=== PATIENT | female | born 1960 | race Hispanic/Latino ===

== ENCOUNTER 2017-11-30 10:48 | Inpatient (IN) | payer MEDICARE, MEDICAID ==
[2017-11-30 11:24] LABS: #Lymphocytes 1.4 thou/uL (1.20-3.40); #Monocytes 1.3 thou/uL (0.11-0.59); #Neutrophils 9.2 thou/uL (1.40-6.50); %Basophils 0.2 % (0.0-1.0); %Eosinophils 0.2 % (0.0-10.0); %Neutrophils 76.6 % (42.0-75.0); Hemoglobin 11.7 g/dL (12.0-16.0); Mean Corpuscular HGB CONC 33.1 g/dL (32.0-36.0); Mean Corpuscular Hemoglobin 32.9 pg (27.0-31.0); Mean Corpuscular Volume 99.6 fl (81.0-99.0); Mean Platelet Volume 7.2 fL (7.4-10.4); Platelet Count 175 thou/uL (130-400); RBC Distribution Width 13.3 % (11.5-14.5); Red Blood Cell (RBC) Count 3.56 mill/uL (4.20-5.40)
--- NOTE | 2017-11-30 11:32 | RAD ---
2 VIEWS CHEST: Date: 11/30/17 COMPARISON: 08/30/15. HISTORY: Cough. FINDINGS: Two views of the chest show an enlarged but stable cardiomediastinal silhouette. The patient is statu s post sternotomy. The consolidation seen in the right lower lobe is consistent with pneumonia. There is a calcified granuloma in the left upper lobe. No left pleural effusion is seen. There may be a sm all right pleural effusion. IMPRESSION: Right lower lobe pneumonia. POS: [facility]
[2017-11-30 11:36] LABS: ALT (SGPT) 15 U/L (8-55); AST (SGOT) 36 U/L (5-34); Albumin 4.2 g/dL (3.5-5.0); Alkaline Phosphatase 95 U/L (40-150); Anion Gap 22 mmol/L (10-20); BUN (Urea Nitrogen) 44 mg/dL (9.8-20.1); Bilirubin, Total 0.8 mg/dL (0.2-1.2); Calc. Creatinine Clearance 0 mL/min (70-130); Calcium 9.9 mg/dL (7.8-10.44); Carbon Dioxide 21 mmol/L (22-29); Chloride 95 mmol/L (98-107); Estimated GFR-MDRD 5; Globulin 4.2 g/dL (2.4-3.5); Glucose 127 mg/dL (70-105); Potassium 4.4 mmol/L (3.5-5.1); Protein, Total 8.4 g/dL (6.0-8.3); Sodium 134 mmol/L (136-145)
[2017-11-30] MEDS ORDERED: Acetaminophen 500 MG TAB ONE (12:12)
[2017-11-30] MEDS ORDERED: Piperacillin/Tazobactam 4.5 GM in Sodium Chloride 0.9% 100 ML IVPB SCH (12:15)
[2017-11-30] MEDS ORDERED: Acetaminophen 325 MG TAB PO PRN (13:19)
[2017-11-30] MEDS ORDERED: Ondansetron HCl/PF 4 MG/2 ML Vial IVP PRN (13:19)
[2017-11-30] MEDS ORDERED: HumaLOG 300 UNITS/3 ML VIAL SC PRN (13:19)
[2017-11-30] MEDS ORDERED: Albuterol Sulfate 1.25 MG/3 ML NEB NEB PRN (13:19)
[2017-11-30] MEDS ORDERED: Metoclopramide HCl 10 MG TAB PO PRN (13:19)
[2017-11-30] MEDS ORDERED: Dextrose 5% in Water 1,000 ML IV PRN (13:19)
[2017-11-30] MEDS ORDERED: Dextrose 50% Abboject 50 ML SYRINGE SLOW IVP PRN (13:19)
[2017-11-30] MEDS ORDERED: Senokot 8.6 MG TAB PO PRN (13:19)
[2017-11-30] MEDS ORDERED: cefTRIAXone\\ROCEPHIN 1 GM in Sodium Chloride 0.9% 100 ML IVPB SCH (13:19)
--- NOTE | 2017-11-30 17:18 | HP ---
REASON FOR ADMISSION: Pneumonia. HISTORY OF PRESENTING ILLNESS: The patient gives history of having fever, runny nose and loss of appetite from Sunday. She developed nausea and vomiting from yesterday evening. This progressively got worse to the point she could not feel comfortable at home, hence came to emergency room. She in fact did not go for dialysis which is scheduled day today. On arrival here, had a temperature of 100.5 and a chest x-ray showed right lung pneumonia. Patient has dry cough with no expectoration as such. No complaints of shortness of breath, palpitations, chest pain, or orthopnea. PAST MEDICAL AND SURGICAL HISTORY: End-stage renal disease on hemodialysis, hypertension, diabetes mellitus type 2, dyslipidemia, chronic anemia due to renal disease, coronary artery disease, dialysis access procedures in right upper extremity, CABG x4, vitrectomy of left eye, hysterectomy, anxiety, depression. CURRENT MEDICATIONS: Minoxidil 2.5 mg p.o. at bedtime, Pravachol 40 mg p.o. daily, Norvasc 10 mg daily, metoprolol tartrate 100 mg daily, Creon capsules 12, 000 units 3 times daily, aspirin 325 mg p.o. daily, fluoxetine 20 mg p.o. q.a.m. , Renvela 2400 mg p.o. 3 times daily with meals, losartan 25 mg p.o. at bedtime , clonidine, and Protonix. ALLERGIES: No known drug allergies. PERSONAL HISTORY: Does not abuse alcohol or drugs. Currently does not smoke. FAMILY HISTORY: Mother at the age of 90 years. She has had history of coronary artery disease. She does not know much about her father. The patient lives with her daughter. Her is . REVIEW OF SYSTEMS: The following complete review of systems was negative, unless otherwise mentioned in the HPI or below: Constitutional: Weight loss or gain, ability to conduct usual activities. Skin: Rash, itching. Eyes: Double vision, pain. ENT/Mouth: Nose bleeding, neck stiffness, pain, tenderness. Cardiovascular: Palpitations, dyspnea on exertion, orthopnea. Respiratory: Shortness of breath, wheezing, cough, hemoptysis, fever or night sweats. Gastrointestinal: Poor appetite, abdominal pain, heartburn, nausea, vomiting, constipation, or diarrhea. Genitourinary: Urgency, frequency, dysuria, nocturia. Musculoskeletal: Pain, swelling. Neurologic/Psychiatric: Anxiety, depression. Allergy/Immunologic: Skin rash, bleeding tendency. PHYSICAL EXAMINATION: GENERAL: The patient is a 57-year-old female who is currently not in any acute distress. VITAL SIGNS: Blood pressure 146/64, pulse 70 per minute, respiratory rate 16 per minute, temperature 100.5 degrees Fahrenheit, saturating 95% on room air. NECK: Supple. There is mild elevation in JVD. EYES: Extraocular muscles intact. Pupils reacting to light. ORAL CAVITY: Mucous membranes are moist. No exudates or congestion. CARDIOVASCULAR SYSTEM: S1, S2 heard. Regular rhythm. RESPIRATORY SYSTEM: Air entry 1+ bilateral. Scattered rhonchi plus, bilateral basilar rales plus bilaterally. ABDOMEN: Soft, bowel sounds heard. No tenderness, rigidity or guarding. EXTREMITIES: No peripheral edema or calf tenderness. VASCULAR SYSTEM: Peripheral pulses 1+ bilateral. No ischemic ulcerations or gangrene. CENTRAL NERVOUS SYSTEM: No gross focal deficits seen. Patient is alert, awake , oriented well. PSYCHIATRIC SYSTEM: The patient's mood is euthymic. No hallucinations or delusions. LABORATORY DATA AND X-RAY FINDINGS: White count 12, hemoglobin and hematocrit 11 and 35, platelet count 175, MCV is 99 with 76% neutrophils. Serum bicarbonate is 21, BUN 44, creatinine 8.9, serum glucose 127, AST 36, ALT 15, alkaline phosphatase 95, albumin is 4.2. Influenza A and B antigens are negative. Chest x-ray done shows right lung infiltrate. CLINICAL IMPRESSION AND PLAN: Patient will be admitted to medical floor for right lung pneumonia. She will be on with ceftriaxone and Zithromax. We will consult Dr. Jiménez for dialysis today, which is her scheduled day. We will continue her home medications including aspirin, clonidine, fluoxetine, Levemir , lisinopril, Lopressor, Pravachol, Creon, and sevelamer as before. We will continue to closely monitor her on medical floor. TORRI
[2017-11-30] MEDS ORDERED: Ondansetron ODT 4 MG TAB SL PRN (18:51)
[2017-11-30 19:03] VITALS: BMI 20.3
[2017-11-30] MEDS: Sevelamer Carbonate 800 MG TAB PO SCH (19:38)
[2017-11-30] MEDS: Pancrelipase DR 12000 1 CAP PO SCH (19:38)
[2017-11-30] MEDS: cefTRIAXone\\ROCEPHIN 1 GM, Syringe 0.4 ML in Sterile Water 9.6 ML SLOW IVP SCH (19:57)
[2017-11-30] MEDS: Azithromycin 500 MG in Sodium Chloride 0.9% 250 ML 250 ML IVPB SCH (19:57)
[2017-11-30] MEDS: Atorvastatin Calcium 10 MG TAB PO SCH (19:58)
[2017-11-30] MEDS: cloNIDine 0.2 MG TAB PO SCH (19:58)
[2017-11-30] MEDS: Famotidine 20 MG TAB PO SCH (19:58)
[2017-11-30] MEDS: Metoprolol Tartrate 50 MG TAB PO SCH (19:59)
[2017-11-30] MEDS: Heparin 5,000 UNITS/ML VIAL SC SCH (20:05)
[2017-11-30] MEDS ORDERED: Non-Formulary Item 1 EACH (Levemir Flexpen [Levemir Flexpen] 10 UNIT) SC SCH (21:00)
[2017-11-30] MEDS: Insulin Detemir 100 UNITS/ML 10 UNITS in Pre-Filled Syringe 1 EACH SC SCH (21:07)
--- NOTE | 2017-11-30 22:04 | CON ---
DATE OF CONSULTATION: 11/30/2017 HISTORY OF PRESENT ILLNESS: Ms. Bolton is a 57-year-old female with ESRD from diabetic nep hropathy and admitted for pneumonia. She is here for IV antibiotics. In addition, this patient has been complaining of productive cough and fever for the last few days. Chest x-ray showed a right ava g pneumonia. REVIEW OF SYSTEMS: No chest pain. Positive for mild shortness of breath. Positive productive cough . Positive for fever and chills. No gross hematuria. No dysuria. No urinary frequency. No syncop al episode. No diarrhea. No headache. Positive for runny nose. No hematochezia. No melena. No h ematemesis. HOME MEDICATIONS: Includes the following. Losartan 25 mg at bedtime, Renvela 800 mg 3 tabs t.i.d. w ith meals, aspirin 325 mg daily, Creon capsules 12,000 units t.i.d., metoprolol tartrate 100 mg daily , Norvasc 10 mg tab daily, Pravachol 40 mg tab at bedtime, minoxidil 2.5 mg at bedtime, clonidine 0.1 mg tab b.i.d., ceftriaxone 1 gram IV q. day, azithromycin two 500 mg q. day, fluoxetine 20 mg daily, insulin detemir 10 units subcutaneous at bedtime, Humalog sliding scale and Zofran 4 mg IV q.6 hours p.r.n. PAST MEDICAL HISTORY: 1. ESRD from diabetic nephropathy. 2. Type 2 diabetes mellitus. 3. Hypertension. 4. Depression status post congestive heart failure. PAST SURGICAL HISTORY: 1. Status post PD catheter placement. 2. Status post cuffed hemodialysis catheter placement. 3. Status post AV fistula. SOCIAL HISTORY: The patient lives in [place] and lives with her daughter, four children. Currently, medically disabled. Education; high school. Sedentary lifestyle. Status post blood transfusion. N o smoking. No alcohol intake. No IV drug abuse. ALLERGIES: None. TRAUMA: None. IMMUNIZATIONS: Up to date. HOSPITALIZATIONS: Please see past medical history. FAMILY HISTORY: No family history of ESRD. PHYSICAL EXAMINATION: VITAL SIGNS: Blood pressure is noted at 144/85 and heart rate 70. GENERAL: Awake, supine, comfortable, not in overt distress. SKIN: Adequate turgor. HEENT: Pinkish conjunctivae, anicteric sclerae. NECK: No neck mass, no carotid bruits, no JVD. CHEST: No deformities. LUNGS: Decreased breath sounds. HEART: Normal sinus rhythm. No murmur, no gallops, no rubs. ABDOMEN: Globular, soft and nontender. No masses. EXTREMITIES: No edema, no deformities. NEUROLOGIC: Awake and oriented to 3 spheres. Moving all extremities. No tremors, no asterixis. LABORATORY AND X-RAY FINDINGS: Laboratories of 11/30/2017; white count 12, hemoglobin 11.7. Sodium 134, chloride 95, carbon dioxide 21, potassium 4.4, BUN 44, creatinine 8.92, glucose 127, calcium 9.9 , AST 36 and ALT 15. Chest x-ray of 11/30/2017 shows right lower lobe pneumonia. ASSESSMENT AND PLAN: 1. Right lower lobe pneumonia - IV antibiotics. Currently, initiated on ceftriaxone and IV azithrom ycin. Continue supportive care. 2. End-stage renal disease. I am at the bedside supervising her dialysis. We are attempting betwee n 2 and 3 liters of fluid removal as tolerated by the patient. No changes will be made with her [facility] dialysis regimen of Sunday, Sunday and Sunday at 3:00 hours each session. 3. Hyperphosphatemia. Continue Renvela. Overall, agree with current management.
[2017-12-01 05:00] LABS: #Basophils 0.1 thou/uL (0.0-0.2); #Eosinphils 0.1 thou/uL (0.0-0.7); #Lymphocytes 2.9 thou/uL (1.20-3.40); #Monocytes 1.3 thou/uL (0.11-0.59); #Neutrophils 6.4 thou/uL (1.40-6.50); %Basophils 0.7 % (0.0-1.0); %Eosinophils 0.7 % (0.0-10.0); %Lymphocytes 26.7 % (21.0-51.0); %Monocytes 11.9 % (0.0-10.0); Mean Corpuscular HGB CONC 32.4 g/dL (32.0-36.0); Mean Corpuscular Hemoglobin 32.6 pg (27.0-31.0); Platelet Count 183 thou/uL (130-400); RBC Distribution Width 13.4 % (11.5-14.5); Red Blood Cell (RBC) Count 3.39 mill/uL (4.20-5.40); White Blood Cell (WBC) Count 10.7 thou/uL (4.8-10.8)
[2017-12-01 05:22] LABS: Anion Gap 16 mmol/L (10-20); BUN (Urea Nitrogen) 25 mg/dL (9.8-20.1); Calc. Creatinine Clearance 10 mL/min (70-130); Calcium 9.6 mg/dL (7.8-10.44); Carbon Dioxide 29 mmol/L (22-29); Chloride 98 mmol/L (98-107); Estimated GFR-MDRD 8; Glucose 60 mg/dL (70-105); Potassium 3.5 mmol/L (3.5-5.1); Sodium 139 mmol/L (136-145)
[2017-12-01] MEDS: Sevelamer Carbonate 800 MG TAB PO SCH ×3 (09:41→16:54)
[2017-12-01] MEDS: Aspirin 325 MG TAB PO SCH (09:42)
[2017-12-01] MEDS: Lisinopril 2.5 MG TAB PO SCH (09:42)
[2017-12-01] MEDS: FLUoxetine HCl 20 MG CAP PO SCH (09:42)
[2017-12-01] MEDS: Metoprolol Tartrate 50 MG TAB PO SCH ×2 (09:42→21:16)
[2017-12-01] MEDS: Pancrelipase DR 12000 1 CAP PO SCH ×3 (09:42→16:55)
[2017-12-01] MEDS: cloNIDine 0.2 MG TAB PO SCH ×2 (09:42→21:16)
[2017-12-01] MEDS: Heparin 5,000 UNITS/ML VIAL SC SCH ×2 (09:48→21:17)
--- NOTE | 2017-12-01 10:55 | PDOC.PN ---
- Subjective Encounter Start Date: 12/01/17 Encounter Start Time: 10:30 Subjective: feels better, had fever of 100 last night -: no sob, is sitting in chair - Objective Resuscitation Status: Resuscitation Status FULL:Full Resuscitation MAR Reviewed: Yes Vital Signs & Weight: Vital Signs (12 hours) Temp Pulse Resp BP BP BP Pulse Ox 12/01/17 09:42 71 143/64 H 12/01/17 08:00 97.7 F 53 L 18 143/64 H 90 L 12/01/17 05:11 97.6 F 59 L 18 175/81 H 12/01/17 00:08 99.3 F 55 L 16 130/49 L Weight Weight 129 lb 13.636 oz I&O: 11/30/17 12/01/17 12/02/17 06:59 06:59 06:59 Intake Total 750 Balance 750 Result Diagrams: 12/01/17 04:28 12/01/17 04:29 Additional Labs: Accuchecks 12/01/17 12/01/17 11/30/17 07:48 05:14 20:10 POC Glucose 200 H 64 L 162 H Phys Exam - Physical Examination HEENT: PERRLA, moist MMs Neck: no JVD, supple Respiratory: no wheezing, no rales rhonchi+ Cardiovascular: RRR, no significant murmur Gastrointestinal: soft, non-tender, positive bowel sounds Musculoskeletal: no edema, pulses present Neurological: non-focal, moves all 4 limbs Psychiatric: A&O x 3 Dx/Plan (1) PNA (pneumonia) Code(s): J18.9 - PNEUMONIA, UNSPECIFIED ORGANISM Status: Acute Qualifiers: Pneumonia type: due to unspecified organism Laterality: right (2) Anemia of renal disease Code(s): D63.1 - ANEMIA IN CHRONIC KIDNEY DISEASE Status: Chronic (3) Anxiety and depression Code(s): F41.9 - ANXIETY DISORDER, UNSPECIFIED; F32.9 - MAJOR DEPRESSIVE DISORDER, SINGLE EPISODE, UNSPECIFIED Status: Chronic (4) Diabetes mellitus, type II, insulin dependent Code(s): E11.9 - TYPE 2 DIABETES MELLITUS WITHOUT COMPLICATIONS; Z79.4 - FDC (CURRENT) USE OF INSULIN Status: Chronic Comment: With ESRD (5) ESRD (end stage renal disease) on dialysis Code(s): N18.6 - END STAGE RENAL DISEASE; Z99.2 - DEPENDENCE ON RENAL DIALYSIS Status: Chronic Comment: HD planned for M/W/F (6) HLD (hyperlipidemia) Code(s): E78.5 - HYPERLIPIDEMIA, UNSPECIFIED Status: Chronic Qualifiers: Hyperlipidemia type: unspecified Qualified Code(s): E78.5 - Hyperlipidemia , unspecified (7) HTN (hypertension) Code(s): I10 - ESSENTIAL (PRIMARY) HYPERTENSION Status: Chronic Qualifiers: Hypertension type: essential hypertension Qualified Code(s): I10 - Essential (primary) hypertension - Plan is on ceftriaxone and zithromax -: nebs -: watch for hypoglycemia with dm being labile (64-200) -: is on low dose levemir at bedtime -: to amb as tolerated * . Review of Systems - Medications/Allergies Allergies/Adverse Reactions: Allergies Allergy/AdvReac Type Severity Reaction Status Date / Time No Known Allergies Allergy Verified 03/14/17 23:34 Medications: Current Medications Acetaminophen (Tylenol) 650 mg PO Q4H PRN PRN Reason: Headache/Fever or Pain Last Admin: 11/30/17 21:07 Dose: 650 mg Albuterol Sulfate (Albuterol Sulfate) 1.25 mg NEB Q8H PRN PRN Reason: Wheezing Lipase/Protease/Amylase (Portillo Jacobs [id number]) 1 cap PO TID-WM [facility] Last Admin: 12/01/17 09:42 Dose: 1 cap Aspirin (Aspirin) 325 mg PO DAILY [facility] Last Admin: 12/01/17 09:42 Dose: 325 mg Atorvastatin Calcium (Lipitor) 10 mg PO HS [facility] Last Admin: 11/30/17 19:58 Dose: 10 mg Clonidine (Catapres) 0.2 mg PO BID [facility] Last Admin: 12/01/17 09:42 Dose: 0.2 mg Dextrose/Water (Dextrose 50%) 25 gm SLOW IVP PRN PRN PRN Reason: Hypoglycemia Famotidine (Pepcid) 20 mg PO 2100 [facility] Last Admin: 11/30/17 19:58 Dose: 20 mg Fluoxetine HCl (Prozac) 20 mg PO DAILY [facility] Last Admin: 12/01/17 09:42 Dose: 20 mg Glucagon (Glucagon) 1 mg IM PRN PRN PRN Reason: Hypoglycemia Guaifenesin/Dextromethorphan (Robitussin Dm) 15 ml PO Q4H PRN PRN Reason: Cough Heparin Sodium (Porcine) (Heparin) 5,000 units SC BID [facility] Last Admin: 12/01/17 09:48 Dose: 5,000 units Azithromycin 500 mg/ Sodium (Chloride) 250 mls @ 250 mls/hr IVPB 1500 [facility] Last Admin: 11/30/17 19:57 Dose: 250 mls Dextrose/Water (D5w) 1,000 mls @ 0 mls/hr IV .Q0M PRN; As Directed PRN Reason: Hypoglycemia Ceftriaxone Sodium 1 gm/ (Syringe 0.4 ml/ Sterile Water) 10 mls @ 120 mls/hr SLOW IVP 1500 [facility] Last Admin: 11/30/17 19:57 Dose: 10 mls Insulin Detemir 10 units/ (Miscellaneous Medication) 0.1 mls @ 0 mls/hr SC QPM [facility] Last Admin: 11/30/17 21:07 Dose: 0.1 mls Insulin Human Lispro (Humalog) 0 units SC .MODERATE SLIDING SC PRN PRN Reason: Moderate Correctional Scale Lisinopril (Zestril) 2.5 mg PO DAILY [facility] Last Admin: 12/01/17 09:42 Dose: 2.5 mg Metoclopramide HCl (Reglan) 5 mg PO BID-AC PRN PRN Reason: Nausea Metoprolol Tartrate (Lopressor) 50 mg PO BID [facility] Last Admin: 12/01/17 09:42 Dose: 50 mg Ondansetron HCl (Zofran) 4 mg IVP Q6H PRN PRN Reason: Nausea/Vomiting Senna (Senokot) 2 tab PO HSPRN PRN PRN Reason: Constipation Sevelamer Carbonate (Renvela) 3,200 mg PO TID-[facility] Last Admin: 12/01/17 09:41 Dose: 3,200 mg Sodium Chloride (Flush - Normal Saline) 10 ml IVF Q12HR [facility] Last Admin: 12/01/17 09:44 Dose: 10 ml Sodium Chloride (Flush - Normal Saline) 10 ml IVF PRN PRN PRN Reason: Saline Flush
[2017-12-01] MEDS: cefTRIAXone\\ROCEPHIN 1 GM, Syringe 0.4 ML in Sterile Water 9.6 ML SLOW IVP SCH (15:21)
[2017-12-01] MEDS: Azithromycin 500 MG in Sodium Chloride 0.9% 250 ML 250 ML IVPB SCH (15:21)
[2017-12-01] MEDS: Insulin Detemir 100 UNITS/ML 10 UNITS in Pre-Filled Syringe 1 EACH SC SCH (20:03)
[2017-12-01] MEDS: Atorvastatin Calcium 10 MG TAB PO SCH (21:16)
[2017-12-02] MEDS: Guaifenesin DM 100-10/5 ML UDCUP PO PRN ×2 (01:50→20:28)
[2017-12-02] MEDS: Aspirin 325 MG TAB PO SCH (08:26)
[2017-12-02] MEDS: Metoprolol Tartrate 25 MG TAB PO SCH ×2 (08:26→20:27)
[2017-12-02] MEDS: Sevelamer Carbonate 800 MG TAB PO SCH ×3 (08:26→16:34)
[2017-12-02] MEDS: cloNIDine 0.1 MG TAB PO SCH ×2 (08:26→20:27)
[2017-12-02] MEDS: hydrALAZINE 25 MG TAB PO SCH ×3 (08:26→20:26)
[2017-12-02] MEDS: FLUoxetine HCl 20 MG CAP PO SCH (08:27)
[2017-12-02] MEDS: Pancrelipase DR 12000 1 CAP PO SCH ×3 (08:28→16:34)
[2017-12-02] MEDS: Lisinopril 2.5 MG TAB PO SCH (08:28)
[2017-12-02] MEDS: Heparin 5,000 UNITS/ML VIAL SC SCH ×2 (08:28→20:34)
--- NOTE | 2017-12-02 10:52 | PDOC.PN ---
- Subjective Encounter Start Date: 12/02/17 Encounter Start Time: 09:00 Subjective: no fever last night, no sob -: still has dry cough -: is amb in room - Objective Resuscitation Status: Resuscitation Status FULL:Full Resuscitation MAR Reviewed: Yes Vital Signs & Weight: Vital Signs (12 hours) Temp Pulse Resp BP BP Pulse Ox 12/02/17 08:28 55 L 171/74 H 12/02/17 08:26 55 L 171/74 H 12/02/17 08:00 97.9 F 52 L 16 171/74 H 95 Weight Weight 129 lb 13.636 oz I&O: 12/01/17 12/02/17 12/03/17 06:59 06:59 06:59 Intake Total 750 610 Balance 750 610 Result Diagrams: 12/01/17 04:28 12/01/17 04:29 Additional Labs: Accuchecks 12/02/17 12/01/17 12/01/17 04:59 19:10 16:17 POC Glucose 145 H 162 H 115 H 12/01/17 11:27 POC Glucose 177 H Phys Exam - Physical Examination HEENT: PERRLA, moist MMs Neck: no JVD, supple Respiratory: no wheezing, no rales Cardiovascular: RRR, no significant murmur Gastrointestinal: soft, non-tender, positive bowel sounds Musculoskeletal: no edema, pulses present Neurological: non-focal, moves all 4 limbs Psychiatric: A&O x 3 Dx/Plan (1) PNA (pneumonia) Code(s): J18.9 - PNEUMONIA, UNSPECIFIED ORGANISM Status: Acute Qualifiers: Pneumonia type: due to unspecified organism Laterality: right (2) Anemia of renal disease Code(s): D63.1 - ANEMIA IN CHRONIC KIDNEY DISEASE Status: Chronic (3) Anxiety and depression Code(s): F41.9 - ANXIETY DISORDER, UNSPECIFIED; F32.9 - MAJOR DEPRESSIVE DISORDER, SINGLE EPISODE, UNSPECIFIED Status: Chronic (4) Diabetes mellitus, type II, insulin dependent Code(s): E11.9 - TYPE 2 DIABETES MELLITUS WITHOUT COMPLICATIONS; Z79.4 - BODY COMPONENT ENGINEER (CURRENT) USE OF INSULIN Status: Chronic Comment: With ESRD (5) ESRD (end stage renal disease) on dialysis Code(s): N18.6 - END STAGE RENAL DISEASE; Z99.2 - DEPENDENCE ON RENAL DIALYSIS Status: Chronic Comment: HD planned for M/W/F (6) HLD (hyperlipidemia) Code(s): E78.5 - HYPERLIPIDEMIA, UNSPECIFIED Status: Chronic Qualifiers: Hyperlipidemia type: unspecified Qualified Code(s): E78.5 - Hyperlipidemia , unspecified (7) HTN (hypertension) Code(s): I10 - ESSENTIAL (PRIMARY) HYPERTENSION Status: Chronic Qualifiers: Hypertension type: essential hypertension Qualified Code(s): I10 - Essential (primary) hypertension - Plan is on ceftriaxone and zithromax -: nebs, is ambulating in room -: bradycardia with pulse around 50's, change dose of clonidine and lopressor -: add hydralazine -: dc plan in am * . Review of Systems - Medications/Allergies Allergies/Adverse Reactions: Allergies Allergy/AdvReac Type Severity Reaction Status Date / Time No Known Allergies Allergy Verified 03/14/17 23:34 Medications: Current Medications Acetaminophen (Tylenol) 650 mg PO Q4H PRN PRN Reason: Headache/Fever or Pain Last Admin: 11/30/17 21:07 Dose: 650 mg Albuterol Sulfate (Albuterol Sulfate) 1.25 mg NEB Q8H PRN PRN Reason: Wheezing Lipase/Protease/Amylase (Portillo Jacobs [id number]) 1 cap PO TID-WM [facility] Last Admin: 12/02/17 08:28 Dose: 1 cap Aspirin (Aspirin) 325 mg PO DAILY [facility] Last Admin: 12/02/17 08:26 Dose: 325 mg Atorvastatin Calcium (Lipitor) 10 mg PO HS [facility] Last Admin: 12/01/17 21:16 Dose: 10 mg Clonidine (Catapres) 0.1 mg PO BID [facility] Last Admin: 12/02/17 08:26 Dose: 0.1 mg Dextrose/Water (Dextrose 50%) 25 gm SLOW IVP PRN PRN PRN Reason: Hypoglycemia Famotidine (Pepcid) 20 mg PO 2100 [facility] Last Admin: 11/30/17 19:58 Dose: 20 mg Fluoxetine HCl (Prozac) 20 mg PO DAILY [facility] Last Admin: 12/02/17 08:27 Dose: 20 mg Glucagon (Glucagon) 1 mg IM PRN PRN PRN Reason: Hypoglycemia Guaifenesin/Dextromethorphan (Robitussin Dm) 15 ml PO Q4H PRN PRN Reason: Cough Last Admin: 12/02/17 01:50 Dose: 15 ml Heparin Sodium (Porcine) (Heparin) 5,000 units SC BID [facility] Last Admin: 12/02/17 08:28 Dose: 5,000 units Hydralazine HCl (Apresoline) 25 mg PO TID [facility] Last Admin: 12/02/17 08:26 Dose: 25 mg Azithromycin 500 mg/ Sodium (Chloride) 250 mls @ 250 mls/hr IVPB 1500 [facility] Last Admin: 12/01/17 15:21 Dose: 250 mls Dextrose/Water (D5w) 1,000 mls @ 0 mls/hr IV .Q0M PRN; As Directed PRN Reason: Hypoglycemia Ceftriaxone Sodium 1 gm/ (Syringe 0.4 ml/ Sterile Water) 10 mls @ 120 mls/hr SLOW IVP 1500 [facility] Last Admin: 12/01/17 15:21 Dose: 10 mls Insulin Detemir 10 units/ (Miscellaneous Medication) 0.1 mls @ 0 mls/hr SC QPM [facility] Last Admin: 12/01/17 20:03 Dose: Not Given Insulin Human Lispro (Humalog) 0 units SC .MODERATE SLIDING SC PRN PRN Reason: Moderate Correctional Scale Lisinopril (Zestril) 2.5 mg PO DAILY [facility] Last Admin: 12/02/17 08:28 Dose: 2.5 mg Metoclopramide HCl (Reglan) 5 mg PO BID-AC PRN PRN Reason: Nausea Metoprolol Tartrate (Lopressor) 25 mg PO BID [facility] Last Admin: 12/02/17 08:26 Dose: Not Given Ondansetron HCl (Zofran) 4 mg IVP Q6H PRN PRN Reason: Nausea/Vomiting Senna (Senokot) 2 tab PO HSPRN PRN PRN Reason: Constipation Sevelamer Carbonate (Renvela) 3,200 mg PO TID-WM [facility] Last Admin: 12/02/17 08:26 Dose: 3,200 mg Sodium Chloride (Flush - Normal Saline) 10 ml IVF Q12HR [facility] Last Admin: 12/02/17 08:29 Dose: 10 ml Sodium Chloride (Flush - Normal Saline) 10 ml IVF PRN PRN PRN Reason: Saline Flush
[2017-12-02] MEDS: cefTRIAXone\\ROCEPHIN 1 GM, Syringe 0.4 ML in Sterile Water 9.6 ML SLOW IVP SCH (15:22)
[2017-12-02] MEDS: Azithromycin 500 MG in Sodium Chloride 0.9% 250 ML 250 ML IVPB SCH (15:22)
[2017-12-02] MEDS: Atorvastatin Calcium 10 MG TAB PO SCH (20:26)
[2017-12-02] MEDS: Famotidine 20 MG TAB PO SCH (20:27)
[2017-12-02] MEDS: Insulin Detemir 100 UNITS/ML 10 UNITS in Pre-Filled Syringe 1 EACH SC SCH (20:34)
[2017-12-02 20:43] VITALS: TEMP 98.1
[2017-12-03] MEDS: Guaifenesin DM 100-10/5 ML UDCUP PO PRN (02:01)
[2017-12-03 05:25] LABS: Anion Gap 19 mmol/L (10-20); BUN (Urea Nitrogen) 41 mg/dL (9.8-20.1); Calc. Creatinine Clearance 6 mL/min (70-130); Calcium 10.1 mg/dL (7.8-10.44); Carbon Dioxide 23 mmol/L (22-29); Chloride 98 mmol/L (98-107); Estimated GFR-MDRD 5; Glucose 93 mg/dL (70-105); Potassium 4.3 mmol/L (3.5-5.1); Sodium 136 mmol/L (136-145)
[2017-12-03 05:35] LABS: Band 1 % (5-11); Hemoglobin 10.5 g/dL (12.0-16.0); Lymphocytes 18 % (21-51); MDiff Complete? YES; Mean Corpuscular Hemoglobin 33.2 pg (27.0-31.0); Mean Platelet Volume 8.3 fL (7.4-10.4); Monocytes 3 % (0-10); Neutrophil 78 % (42-75); PLT Morphology Comment Appears Adequate; Platelet Count 171 thou/uL (130-400); RBC Distribution Width 12.9 % (11.5-14.5); Red Blood Cell (RBC) Count 3.17 mill/uL (4.20-5.40); White Blood Cell (WBC) Count 7.3 thou/uL (4.8-10.8)
[2017-12-03] MEDS: Heparin 5,000 UNITS/ML VIAL SC SCH (07:33)
[2017-12-03] MEDS: Pancrelipase DR 12000 1 CAP PO SCH ×2 (07:38→11:52)
[2017-12-03] MEDS: Sevelamer Carbonate 800 MG TAB PO SCH ×2 (07:38→11:51)
--- NOTE | 2017-12-03 11:39 | PDOC.PN ---
- Subjective Encounter Start Date: 12/03/17 Encounter Start Time: 07:50 Subjective: getting HD now -: feels better -: no sob or chest pain, cough is better - Objective Resuscitation Status: Resuscitation Status FULL:Full Resuscitation MAR Reviewed: Yes Vital Signs & Weight: Vital Signs (12 hours) Temp Pulse Resp 12/03/17 07:45 98.1 F 53 L 18 Weight Weight 129 lb 13.636 oz I&O: 12/02/17 12/03/17 12/04/17 06:59 06:59 06:59 Intake Total 610 970 Balance 610 970 Result Diagrams: 12/03/17 04:31 12/03/17 04:31 Additional Labs: Accuchecks 12/03/17 12/03/17 12/03/17 05:12 03:53 03:33 POC Glucose 146 H 89 58 L* 12/02/17 12/02/17 12/02/17 19:48 17:12 11:25 POC Glucose 223 H 173 H 140 H Phys Exam - Physical Examination HEENT: PERRLA, moist MMs Neck: no JVD, supple Respiratory: no wheezing, no rales Cardiovascular: RRR, no significant murmur Gastrointestinal: soft, non-tender, positive bowel sounds Musculoskeletal: no edema, pulses present Neurological: non-focal, moves all 4 limbs Psychiatric: A&O x 3 Dx/Plan (1) PNA (pneumonia) Code(s): J18.9 - PNEUMONIA, UNSPECIFIED ORGANISM Status: Acute Qualifiers: Pneumonia type: due to unspecified organism Laterality: right (2) Anemia of renal disease Code(s): D63.1 - ANEMIA IN CHRONIC KIDNEY DISEASE Status: Chronic (3) Anxiety and depression Code(s): F41.9 - ANXIETY DISORDER, UNSPECIFIED; F32.9 - MAJOR DEPRESSIVE DISORDER, SINGLE EPISODE, UNSPECIFIED Status: Chronic (4) Diabetes mellitus, type II, insulin dependent Code(s): E11.9 - TYPE 2 DIABETES MELLITUS WITHOUT COMPLICATIONS; Z79.4 - CUSTOM LEATHER PRODUCTS MAKER (CURRENT) USE OF INSULIN Status: Chronic Comment: With ESRD (5) ESRD (end stage renal disease) on dialysis Code(s): N18.6 - END STAGE RENAL DISEASE; Z99.2 - DEPENDENCE ON RENAL DIALYSIS Status: Chronic Comment: HD planned for M/W/F (6) HLD (hyperlipidemia) Code(s): E78.5 - HYPERLIPIDEMIA, UNSPECIFIED Status: Chronic Qualifiers: Hyperlipidemia type: unspecified Qualified Code(s): E78.5 - Hyperlipidemia , unspecified (7) HTN (hypertension) Code(s): I10 - ESSENTIAL (PRIMARY) HYPERTENSION Status: Chronic Qualifiers: Hypertension type: essential hypertension Qualified Code(s): I10 - Essential (primary) hypertension - Plan hemostable -: oral omnicef for 8 days -: dc pt home after HD, has been afebrile last 36hrs -: is amb in room * .
[2017-12-03] MEDS: Aspirin 325 MG TAB PO SCH (11:51)
[2017-12-03] MEDS: cloNIDine 0.1 MG TAB PO SCH (11:51)
[2017-12-03] MEDS: hydrALAZINE 25 MG TAB PO SCH (11:51)
[2017-12-03] MEDS: Lisinopril 2.5 MG TAB PO SCH (11:52)
[2017-12-03] MEDS: Metoprolol Tartrate 25 MG TAB PO SCH (11:52)
[2017-12-03] MEDS: FLUoxetine HCl 20 MG CAP PO SCH (11:52)
[2017-12-03 12:41] VITALS: BP 153/63
--- NOTE | 2017-12-04 01:17 | DIS ---
DATE OF ADMISSION: 11/30/2017 DATE OF DISCHARGE: 12/03/2017 DISCHARGE DISPOSITION: To home. PRIMARY DISCHARGE DIAGNOSIS: Pneumonia, resolving. SECONDARY DISCHARGE DIAGNOSES: End-stage renal disease, on hemodialysis; chronic anemia due to renal disease; anxiety; depression; diabetes mellitus, type 2; dyslipidemia; hypertension. PROCEDURES DONE DURING HOSPITALIZATION: The patient has had chest x-ray done, which showed right low er lobe pneumonia. Blood cultures x2 no growth. Influenza A and B antigens were negative. Respirat ory virus panel was negative. Stool for C. diff was negative. Stool for Campylobacter antigen and S lashonda toxin were negative. Had a white count of 12 with 76% neutrophils on the day of admission with discharge white count numbers of 7.3. Discharge BUN and creatinine are 41 and 8.9. DISCHARGE MEDICATIONS: The patient to continue aspirin 325 mg p.o. daily, albuterol inhaler q.6 hour ly p.r.n., Omnicef 300 mg p.o. daily for another 8 days for pneumonia, clonidine 0.1 mg twice daily, fluoxetine 20 mg daily, hydralazine 25 mg 3 times daily, Levemir 10 units subcu q.p.m., Reglan 5 mg p .o. twice daily before meals p.r.n. for diabetic gastroparesis, Lopressor 25 mg twice daily, minoxidi l 2.5 mg p.o. at bedtime., Creon 12,000 units p.o. 3 times daily, Pravachol 40 mg p.o. at bedtime, se velamer 800 mg 4 tabs 3 times daily. ALLERGIES: No known drug allergies. INPATIENT CONSULTS: Dr. Jimnéez for Nephrology. DISCHARGE PLAN: The patient to follow up with primary care physician in 1 week. BRIEF COURSE DURING HOSPITALIZATION: The patient initially came in with complaints of fever, runny n ose and loss of appetite from Sunday. She also developed severe nausea and vomiting and was not comf ortable. On arrival, she had a temperature of 100.5. Her x-ray revealed right lung pneumonia. Her influenza screen was negative and so was her viral PCR. She was placed on IV antibiotics and has bee n switched over to Omnicef. She was dialyzed during her stay here. The patient has been afebrile fr om last 36 hours. Her medications were optimized due to bradycardia with heart rates dipping into 49 beats per minute. She has otherwise remained hemodynamically stable, ambulating well, and eating pr ior to discharge. She needs to continue Omnicef for another 8 days and follow up with primary care melecio fernando in 1 week with a followup x-ray to see for resolution of her pneumonia. Please see a face-t o-face documentation for the day of discharge on [facility].
== END 2017-12-03 12:55 | disposition home or self-care (01) | DRG 193 ==
LOC: ERS 10:48 → T4-B 12:16
PROVIDERS: ADMIT Internal Medicine; ATTEND Internal Medicine
PROC: 5A1D70Z Performance of Urinary Filtration, Intermittent, Less than 6 Hours Per Day (ICD-10-PCS; principal; 2017-11-30)
PROC: 5A1D70Z Performance of Urinary Filtration, Intermittent, Less than 6 Hours Per Day (ICD-10-PCS; 2017-12-02)
DX: J18.9 Pneumonia, unspecified organism (principal); N18.6 End stage renal disease; E11.22 Type 2 diabetes mellitus with diabetic chronic kidney disease; I12.0 Hypertensive chronic kidney disease with stage 5 chronic kidney disease or end stage renal disease; Z99.2 Dependence on renal dialysis; E78.5 Hyperlipidemia, unspecified; D63.1 Anemia in chronic kidney disease; I25.10 Atherosclerotic heart disease of native coronary artery without angina pectoris; Z95.1 Presence of aortocoronary bypass graft; F41.9 Anxiety disorder, unspecified; F32.9 Major depressive disorder, single episode, unspecified; Z79.82 Long term (current) use of aspirin; Z79.4 Long term (current) use of insulin; E83.39 Other disorders of phosphorus metabolism
CPT/HCPCS: 36415; 36416; 71046; 80048; 80053; 85025; 87040; 87045; 87046; 87070; 87205; 87324; 87449; 87633; 87899; 90935; 94640; 96365; A4216; G0257; J0456; J0696; J1644; J1815; J2543; J7050; J7620

== ENCOUNTER 2017-12-19 11:54 | Outpatient (CLI) | payer MEDICARE, MEDICAID ==
--- NOTE | 2017-12-19 12:56 | RAD ---
TWO VIEWS OF THE CHEST: COMPARISON: 11/30/17. HISTORY: Pneumonia. FINDINGS: Two views of the chest show an enlarged but stable cardiomediastinal silhouette. The patient is stat us post sternotomy. There is a calcified granuloma in the left upper lobe. Increased interstitial l saleem markings are present. There is no evidence of consolidation, mass, or pleural effusion. Degener ative changes are seen in the spine. IMPRESSION: Cardiomegaly without evidence of acute cardiopulmonary disease. POS: [facility]
== END 2017-12-19 11:55 | disposition home or self-care (01) ==
LOC: RAD-FRANK 11:54
PROVIDERS: ATTEND Nurse Practitioner Family
DX: J18.9 Pneumonia, unspecified organism (principal); I51.7 Cardiomegaly
CPT/HCPCS: 71046

== ENCOUNTER 2018-01-17 09:54 | Outpatient (CLI) | payer MEDICARE, MEDICAID ==
[2018-01-17 11:18] LABS: Hemoglobin 11.2 g/dL (12.0-16.0); Mean Corpuscular HGB CONC 32.7 g/dL (32.0-36.0); Mean Corpuscular Hemoglobin 33.3 pg (27.0-31.0); Mean Platelet Volume 6.9 fL (7.4-10.4); Platelet Count 260 thou/uL (130-400); RBC Distribution Width 13.4 % (11.5-14.5); Red Blood Cell (RBC) Count 3.37 mill/uL (4.20-5.40); White Blood Cell (WBC) Count 5.8 thou/uL (4.8-10.8)
[2018-01-17 11:23] LABS: INR-International Normal Ratio 1.1; PTT 35.4 SEC (22.9-36.1); Prothrombin Time 14.1 SEC (12.0-14.7)
[2018-01-17 12:27] LABS: ALT (SGPT) 17 U/L (8-55); AST (SGOT) 24 U/L (5-34); Alkaline Phosphatase 117 U/L (40-150); Anion Gap 17 mmol/L (10-20); BUN (Urea Nitrogen) 29 mg/dL (9.8-20.1); Bilirubin, Total 0.6 mg/dL (0.2-1.2); Calc. Creatinine Clearance 0 mL/min (70-130); Calcium 10.4 mg/dL (7.8-10.44); Carbon Dioxide 31 mmol/L (22-29); Chloride 98 mmol/L (98-107); Estimated GFR-MDRD 7; Globulin 3.6 g/dL (2.4-3.5); Glucose 170 mg/dL (70-105); Potassium 4.5 mmol/L (3.5-5.1); Protein, Total 7.6 g/dL (6.0-8.3); Sodium 141 mmol/L (136-145)
--- NOTE | 2018-01-17 16:50 | EKG ---
Test Reason : Blood Pressure : / mmHG Vent. Rate : 061 BPM Atrial Rate : 061 BPM P-R Int : 180 ms QRS Dur : 088 ms QT Int : 488 ms P-R-T Axes : 063 155 108 degrees QTc Int : 491 ms Normal sinus rhythm Left posterior fascicular block T wave abnormality, consider lateral ischemia / lateral infarct Prolonged QT Abnormal ECG When compared with ECG of 14-MAR-2017 15:48, (Unconfirmed) T wave inversion now evident in Anterolateral leads Confirmed by DR. Leigh ASHBY (3) on 01/17/2018 4:50:24 PM Referred By: MARGARITA Confirmed By:DR. Leigh ASHBY
== END 2018-01-17 09:55 | disposition home or self-care (01) ==
LOC: LABBT 09:54
PROVIDERS: ATTEND Internal Medicine Cardiovascular Disease
DX: Z01.818 Encounter for other preprocedural examination (principal); I25.119 Atherosclerotic heart disease of native coronary artery with unspecified angina pectoris
CPT/HCPCS: 80053; 85027; 85610; 85730; 93005; 93010

== ENCOUNTER 2018-01-24 05:51 | Day surgery (SDC) | payer MEDICARE, MEDICAID ==
[2018-01-17 10:08] VITALS: BMI 20.7
[2018-01-24] MEDS ORDERED: Iopamidol 370 76% 100 ML VIAL ONE (07:45)
[2018-01-24] MEDS ORDERED: Lidocaine 1% (PF) 30 ML VIAL ONE (07:56)
[2018-01-24] MEDS ORDERED: Midazolam HCl 2 mg/2 ml Vial ONE (08:15)
[2018-01-24] MEDS ORDERED: Fentanyl 250 MCG/5 ML VIAL ONE (08:15)
== END 2018-01-24 12:59 | disposition home or self-care (01) ==
LOC: CCL 05:51
PROVIDERS: ATTEND Internal Medicine Cardiovascular Disease
PROC: 4A023N7 Measurement of Cardiac Sampling and Pressure, Left Heart, Percutaneous Approach (ICD-10-PCS; principal; 2018-01-24)
PROC: B2111ZZ Fluoroscopy of Multiple Coronary Arteries using Low Osmolar Contrast (ICD-10-PCS; 2018-01-24)
PROC: B2131ZZ Fluoroscopy of Multiple Coronary Artery Bypass Grafts using Low Osmolar Contrast (ICD-10-PCS; 2018-01-24)
DX: I25.119 Atherosclerotic heart disease of native coronary artery with unspecified angina pectoris (principal); I12.9 Hypertensive chronic kidney disease with stage 1 through stage 4 chronic kidney disease, or unspecified chronic kidney disease; E11.22 Type 2 diabetes mellitus with diabetic chronic kidney disease; N18.9 Chronic kidney disease, unspecified; E78.5 Hyperlipidemia, unspecified; E11.51 Type 2 diabetes mellitus with diabetic peripheral angiopathy without gangrene; Z99.2 Dependence on renal dialysis; Z95.5 Presence of coronary angioplasty implant and graft; Z79.82 Long term (current) use of aspirin; Z79.4 Long term (current) use of insulin; Z79.899 Other long term (current) drug therapy
CPT/HCPCS: 82962; 93459; 93567; C1769; 36416; 99152; 99153; J1644; J2001; J2250; J3010

== ENCOUNTER 2018-03-26 11:12 | Emergency (ER) | payer MEDICARE, MEDICAID ==
[2018-03-26 12:04] LABS: #Basophils 0.1 thou/uL (0.0-0.2); #Eosinphils 0.1 thou/uL (0.0-0.7); #Lymphocytes 1.3 thou/uL (1.20-3.40); #Monocytes 0.8 thou/uL (0.11-0.59); #Neutrophils 3.3 thou/uL (1.40-6.50); %Basophils 1.1 % (0.0-1.0); %Eosinophils 1.5 % (0.0-10.0); %Lymphocytes 23.9 % (21.0-51.0); %Monocytes 14.9 % (0.0-10.0); %Neutrophils 58.6 % (42.0-75.0); Mean Corpuscular HGB CONC 33.5 g/dL (32.0-36.0); Mean Corpuscular Hemoglobin 32.7 pg (27.0-31.0); Mean Corpuscular Volume 97.6 fl (81.0-99.0); Mean Platelet Volume 6.8 fL (7.4-10.4); Platelet Count 203 thou/uL (130-400); RBC Distribution Width 12.7 % (11.5-14.5); Red Blood Cell (RBC) Count 3.67 mill/uL (4.20-5.40); White Blood Cell (WBC) Count 5.6 thou/uL (4.8-10.8)
[2018-03-26 12:24] LABS: Lactic Acid 0.8 mmol/L (0.5-2.2)
[2018-03-26 12:29] LABS: ALT (SGPT) 15 U/L (8-55); AST (SGOT) 25 U/L (5-34); Albumin 4.2 g/dL (3.5-5.0); Alkaline Phosphatase 134 U/L (40-150); Anion Gap 19 mmol/L (10-20); BUN (Urea Nitrogen) 30 mg/dL (9.8-20.1); Bilirubin, Total 0.8 mg/dL (0.2-1.2); Calc. Creatinine Clearance 0 mL/min (70-130); Calcium 10.5 mg/dL (7.8-10.44); Carbon Dioxide 26 mmol/L (22-29); Chloride 99 mmol/L (98-107); Estimated GFR-MDRD 6; Globulin 4.7 g/dL (2.4-3.5); Glucose 144 mg/dL (70-105); Potassium 4.3 mmol/L (3.5-5.1); Protein, Total 8.9 g/dL (6.0-8.3); Sodium 140 mmol/L (136-145)
--- NOTE | 2018-03-26 13:08 | RAD ---
TWO VIEWS RIGHT TIBIA AND FIBULA: DATE: 03/26/18. HISTORY: Cellulitis anterior aspect right lower extremity. Wound. FINDINGS: There is osteopenia. No fracture or dislocation is seen. No osseous destruction or irregularity is appreciated. No other osseous abnormality. There is a question of mild soft tissue irregularity ant erior to the mid portion of the tibia, but this is not well evaluated on this exam. IMPRESSION: 1. Osteopenia without evidence of an acute osseous abnormality. 2. Vascular calcifications posterior to the knee. 3. Mild soft tissue irregularity mid portion of the distal right lower extremity anterior to the tib ia. Correlation for the site of patient's wound is suggested. No radiopaque foreign body is identif ied. POS: [facility]
== END 2018-03-26 13:35 | disposition home or self-care (01) ==
LOC: ERS 11:12
DX: L03.115 Cellulitis of right lower limb (principal); I12.0 Hypertensive chronic kidney disease with stage 5 chronic kidney disease or end stage renal disease; E11.22 Type 2 diabetes mellitus with diabetic chronic kidney disease; N18.6 End stage renal disease; E78.5 Hyperlipidemia, unspecified; F32.9 Major depressive disorder, single episode, unspecified; Z79.4 Long term (current) use of insulin; Z99.2 Dependence on renal dialysis; Z79.82 Long term (current) use of aspirin; Z79.899 Other long term (current) drug therapy
CPT/HCPCS: 36415; 80053; 83605; 85025; 87040

== ENCOUNTER 2018-04-02 09:32 | Outpatient (CLI) | payer MEDICARE, MEDICAID ==
--- NOTE | 2018-04-02 11:15 | RAD ---
LEFT SHOULDER 3 VIEWS: Date: 04/02/18 HISTORY: Left shoulder pain. FINDINGS: Acromioclavicular and glenohumeral alignment are maintained. No acute fracture, dislocation, or aggre ssive osseous erosions. Osseous structures are demineralized. Calcified granulomata are apparent with in the left lung. IMPRESSION: 1. No acute osseous abnormalities are demonstrated. 2. Osteoporosis. POS: [facility]
== END 2018-04-02 09:33 | disposition home or self-care (01) ==
LOC: RAD-FRANK 09:32
PROVIDERS: ATTEND Nurse Practitioner Family
DX: M25.512 Pain in left shoulder (principal); M81.0 Age-related osteoporosis without current pathological fracture

== ENCOUNTER 2018-06-17 11:04 | Inpatient (IN) | payer MEDICARE, MEDICAID ==
[2018-06-17 13:00] LABS: #Eosinphils 0.1 thou/uL (0.0-0.7); #Monocytes 0.6 thou/uL (0.11-0.59); #Neutrophils 2.7 thou/uL (1.40-6.50); %Basophils 0.3 % (0.0-1.0); %Eosinophils 2.5 % (0.0-10.0); %Lymphocytes 22.6 % (21.0-51.0); %Monocytes 13.5 % (0.0-10.0); %Neutrophils 61.1 % (42.0-75.0); Hemoglobin 11.1 g/dL (12.0-16.0); Mean Corpuscular HGB CONC 33.3 g/dL (32.0-36.0); Mean Corpuscular Hemoglobin 32.6 pg (27.0-31.0); Mean Platelet Volume 6.6 fL (7.4-10.4); Platelet Count 198 thou/uL (130-400); RBC Distribution Width 13.2 % (11.5-14.5); White Blood Cell (WBC) Count 4.5 thou/uL (4.8-10.8)
[2018-06-17] MEDS ORDERED: cefTRIAXone\\ROCEPHIN 1 GM VIAL ONE (13:11)
[2018-06-17 13:20] LABS: ALT (SGPT) 8 U/L (8-55); AST (SGOT) 16 U/L (5-34); Albumin 3.7 g/dL (3.5-5.0); Alkaline Phosphatase 95 U/L (40-150); Anion Gap 17 mmol/L (10-20); BUN (Urea Nitrogen) 18 mg/dL (9.8-20.1); Bilirubin, Total 0.6 mg/dL (0.2-1.2); Calc. Creatinine Clearance 0 mL/min (70-130); Calcium 9.4 mg/dL (7.8-10.44); Carbon Dioxide 27 mmol/L (22-29); Chloride 98 mmol/L (98-107); Estimated GFR-MDRD 8; Globulin 4.4 g/dL (2.4-3.5); Glucose 160 mg/dL (70-105); Potassium 3.6 mmol/L (3.5-5.1); Protein, Total 8.1 g/dL (6.0-8.3); Sodium 138 mmol/L (136-145)
--- NOTE | 2018-06-17 13:25 | ULT ---
RIGHT LOWER EXTREMITY VENOUS DUPLEX EXAM: HISTORY: Right leg pain and swelling. TECHNIQUE: Real-time color Doppler evaluation of the right lower extremity was performed from the groin to the c prison. This includes evaluation of the common femoral, superficial, profunda femoral, saphenous, popli teal, and posterior tibial veins. This shows a patent deep venous system. There is normal compressi bility and augmentation. IMPRESSION: No evidence of deep venous thrombosis of the right lower extremity. POS: [facility]
[2018-06-17] MEDS ORDERED: Sodium Chloride 0.9% 1,000 ML IV SCH (20:15)
[2018-06-17] MEDS ORDERED: cloNIDine 0.1 MG TAB PO PRN (20:19)
[2018-06-17] MEDS ORDERED: Dextrose 50% Abboject 50 ML SYRINGE SLOW IVP PRN (20:19)
[2018-06-17] MEDS ORDERED: Acetaminophen 500 MG TAB PO PRN (20:19)
[2018-06-17] MEDS ORDERED: hydrALAZINE 20 MG/ML VIAL SLOW IVP PRN (20:19)
[2018-06-17] MEDS ORDERED: Ondansetron HCl/PF 4 MG/2 ML Vial IVP PRN (20:19)
[2018-06-17] MEDS ORDERED: HumaLOG 300 UNITS/3 ML VIAL SC PRN ×2 (20:19)
[2018-06-17] MEDS ORDERED: Dextrose 5% in Water 1,000 ML IV PRN (20:19)
[2018-06-17] MEDS ORDERED: cefTRIAXone\\ROCEPHIN 2 GM in Sodium Chloride 0.9% 100 ML IVPB SCH (20:19)
[2018-06-17] MEDS ORDERED: Ondansetron ODT 4 MG TAB PO PRN (20:19)
[2018-06-17] MEDS ORDERED: Non-Formulary Item 1 EACH (Levemir Flexpen [Levemir Flexpen] 10 UNIT) SC SCH (21:00)
[2018-06-17] MEDS: Pancrelipase DR 12000 1 CAP PO SCH (22:19)
[2018-06-17] MEDS: Minoxidil 2.5 MG TAB PO SCH (22:19)
[2018-06-17] MEDS: Atorvastatin Calcium 10 MG TAB PO SCH (22:19)
[2018-06-17] MEDS: Heparin 5,000 UNITS/ML VIAL SC SCH (22:20)
[2018-06-17] MEDS: Insulin Glargine 10 UNITS in Pre-Filled Syringe 1 EACH SC SCH (22:20)
[2018-06-17] MEDS: Famotidine 20 MG TAB PO SCH (22:20)
--- NOTE | 2018-06-18 03:23 | HP ---
DATE OF ADMISSION: 06/17/2018 PRIMARY CARE PROVIDER: WENDY Mariscal PRIMARY HOTEL FRONT DESK CLERK: Bethel Jiménez M.D. CHIEF COMPLAINT: Right leg pain. HISTORY OF PRESENT ILLNESS: This is a 58-year-old female who presents to [facility] complaining of increasing right lower extremity and calf pain, swelling, and redness over the last 1-2 weeks. The patient noted increasing pain with ambulation or touching her lower ext remity as well as redness on the calf in Achilles region. The patient denied any recent injury or ex posure history. The patient states that she does scratch her legs due to itching on the knee and the front part of her chavez and has noted some scabbing of the same portion of the leg. The patient sweetie ed any spider bites or recent insect exposure. The patient denies any recent travel, prolonged sitti ng, standing or history of DVT. The patient continues to receive hemodialysis Sunday, Sunday, and Sunday at her primary hemodialysis clinic in [place], [place]. The patient denies taking any recent an tibiotic therapy, but states she had a similar episode of cellulitis on the upper portion of the righ t lower leg approximately 2-3 months prior to this evaluation. The patient denied any specific drain age, discoloration of the foot or recent trauma. In the emergency room, the patient underwent genera l evaluation, receiving IV vancomycin and Rocephin in the emergency room. The patient also underwent venous Doppler studies of the right lower extremity showing no evidence for DVT. The patient was tr ansferred to the medical floor for further evaluation. PAST MEDICAL HISTORY: 1. End-stage renal disease with hemodialysis. 2. Hypertension. 3. Diabetes mellitus type 2, insulin requiring. 4. Dyslipidemia. 5. Chronic anemia due to chronic kidney disease. 6. Coronary artery disease. 7. History of diabetic retinopathy. 8. Anxiety/depression. PAST SURGICAL HISTORY: 1. Status post coronary artery bypass grafting x4 vessels. 2. Status post right upper extremity AV fistula placement. 3. Status post left eye vitrectomy. CURRENT MEDICATIONS: 1. Amlodipine 10 mg one tab p.o. daily. 2. Aspirin 325 mg one tablet p.o. daily. 3. Clonidine 0.1 mg p.o. daily. 4. Fluoxetine 20 mg p.o. daily. 5. Folic acid with vitamin B one tablet p.o. daily. 6. Levemir 10 units subcutaneously at bedtime. 7. Minoxidil 2.5 mg p.o. at bedtime. 8. Creon DR 1 capsule p.o. t.i.d. 9. Pravachol 40 mg p.o. at bedtime. 10. Renvela 800 mg p.o. daily. ALLERGIES: No known drug allergies. FAMILY HISTORY: Mother at the age of 90 years. is . SOCIAL HISTORY: The patient resides in [place], [place]. . No current alcohol, tobacco, or ill icit drug use. REVIEW OF SYSTEMS: The following complete review of systems was negative, unless otherwise mentioned in the HPI or below: Constitutional: Weight loss or gain, ability to conduct usual activities. Ski n: Rash, itching. Eyes: Double vision, pain. ENT/Mouth: Nose bleeding, neck stiffness, pain, tend erness. Cardiovascular: Palpitations, dyspnea on exertion, orthopnea. Respiratory: Shortness of b reath, wheezing, cough, hemoptysis, fever or night sweats. Gastrointestinal: Poor appetite, abdomin al pain, heartburn, nausea, vomiting, constipation, or diarrhea. Genitourinary: Urgency, frequency, dysuria, nocturia. Musculoskeletal: Pain, swelling. Neurologic/Psychiatric: Anxiety, depression. Allergy/Immunologic: Skin rash, bleeding tendency. Otherwise negative except as stated per HPI. PHYSICAL EXAMINATION: VITAL SIGNS: On admission, blood pressure is 109/55, pulse 48, respiratory rate 18, temperature 97.9 degrees Fahrenheit, O2 saturation 92% on room air. GENERAL APPEARANCE: This is a 58-year-old female, alert and oriented x3, pleasant, conversa nt, in no acute distress. HEENT: Pupils are equal, round, and reactive to light and accommodation. Extraocular muscles are in tact. No scleral icterus, no conjunctival injection. Nares patent. OP is clear. Teeth in fair rep air. NECK: Supple, no cervical adenopathy, no thyromegaly, no carotid bruits, no JVD appreciated. Cervic al spine with full active and passive range of motion. No meningeal signs appreciated. CHEST: Lungs are clear to auscultation bilaterally. CARDIOVASCULAR: S1, S2, without noted murmur, rub or gallop. ABDOMEN: Flat, soft, nontender, nondistended. Bowel sounds are positive in all four quadrants. The re is no hepatosplenomegaly, no abdominal bruits, no rebound or guarding appreciated. EXTREMITIES: Warm and dry with fair turgor. Mild tenderness to palpation of the right calf and uppe r Achilles region with mild fluctuance and edema. Large patch of erythema in the calf region as stat ed previously with tenderness and warmth. Pulses are palpable distally at the dorsalis pedis, change management director ior tibial, and popliteal arteries bilaterally. Capillary refill less than 2 seconds. NEUROLOGIC: Cranial nerves II-XII are grossly intact. No focal or lateralizing signs appreciated. PERTINENT LABORATORY AND X-RAY FINDINGS: Sodium 138, potassium 3.6, chloride 98, CO2 of 27, BUN 18, creatinine 5.18, estimated GFR of 8, glucose 160. Lactic acid level 0.9. LFTs within normal limits. CRP 0.52. Albumin 3.7. CBC showed a white blood cell count of 4.5, hemoglobin 11, hematocrit 33, platelet count 198 with normal differential. ESR 43. Right lower extremity venous Doppler study fany ed 06/17/2018 showed no evidence for DVT. ASSESSMENT AND PLAN: 1. Right lower extremity cellulitis. The patient will be admitted to the medical floor. We will co ntinue treatment including vancomycin 1 gram IV with hemodialysis. Continue Rocephin 2 grams IV segundo y. Continue to monitor clinical response to IV antibiotic therapy. 2. End-stage renal disease with hemodialysis. We will consult Nephrology Service for timing of next hemodialysis session. Currently, patient received Sunday, Sunday, Sunday outpatient hemodialysis . 3. Diabetes mellitus type 2, insulin requiring. Insulin sliding scale for reflexive coverage. ADA diet. Accu-Cheks a.c. and at bedtime. Confirm home insulin regimen. 4. Normocytic anemia secondary to chronic kidney disease. No current evidence to suggest acute bloo d loss. Repeat CBC in the a.m. and monitor hemoglobin trend. 5. Prophylaxis. Sequential compression devices held due to lower extremity cellulitis. Continue he gertrudis 5000 units subcutaneously t.i.d. 6. Code status is FULL. Surrogate medical decision maker is the patient's daughter.
[2018-06-18 03:48] VITALS: BMI 23.4
[2018-06-18 05:16] LABS: Anion Gap 15 mmol/L (10-20); BUN (Urea Nitrogen) 25 mg/dL (9.8-20.1); Calc. Creatinine Clearance 9 mL/min (70-130); Calcium 10.1 mg/dL (7.8-10.44); Carbon Dioxide 29 mmol/L (22-29); Chloride 101 mmol/L (98-107); Estimated GFR-MDRD 7; Glucose 115 mg/dL (70-105); Potassium 3.9 mmol/L (3.5-5.1); Sodium 141 mmol/L (136-145)
[2018-06-18 05:22] LABS: Band 5 % (5-11); Eosinophils 3 % (0-10); Hemoglobin 10.7 g/dL (12.0-16.0); Lymphocytes 33 % (21-51); MDiff Complete? YES; Mean Corpuscular HGB CONC 33.5 g/dL (32.0-36.0); Mean Corpuscular Hemoglobin 32.8 pg (27.0-31.0); Mean Corpuscular Volume 97.8 fL (78.0-98.0); Mean Platelet Volume 6.6 fL (7.4-10.4); Monocytes 11 % (0-10); Neutrophil 47 % (42-75); PLT Morphology Comment Appears Adequate; Platelet Count 192 thou/uL (130-400); RBC Distribution Width 13.2 % (11.5-14.5); Red Blood Cell (RBC) Count 3.27 mill/uL (4.20-5.40); White Blood Cell (WBC) Count 5.5 thou/uL (4.8-10.8)
[2018-06-18] MEDS: Sevelamer Carbonate 800 MG TAB PO SCH (08:26)
[2018-06-18] MEDS: cefTRIAXone\\ROCEPHIN 2 GM in Sodium Chloride 0.9% 100 ML IVPB SCH (08:26)
[2018-06-18] MEDS: Aspirin 325 MG TAB PO SCH (08:26)
[2018-06-18] MEDS: FLUoxetine HCl 20 MG CAP PO SCH (08:27)
[2018-06-18] MEDS: Heparin 5,000 UNITS/ML VIAL SC SCH ×3 (08:27→21:23)
[2018-06-18] MEDS: Pancrelipase DR 12000 1 CAP PO SCH ×3 (08:27→21:22)
[2018-06-18] MEDS: Amlodipine 10 MG TAB PO SCH (08:27)
--- NOTE | 2018-06-18 15:47 | PDOC.PN ---
- Subjective Encounter Start Date: 06/18/18 Encounter Start Time: 15:45 Patient seen and examined, states she has improved pain of her leg but still present. - Objective Resuscitation Status: Resuscitation Status FULL:Full Resuscitation Vital Signs & Weight: Vital Signs (12 hours) Temp Pulse Resp BP BP Pulse Ox 06/18/18 11:11 98.5 F 53 L 16 157/71 H 92 L 06/18/18 08:27 54 L 161/69 H 06/18/18 08:00 98.8 F 54 L 16 06/18/18 07:13 98.8 F 54 L 16 161/69 H 90 L 06/18/18 04:35 98.9 F 58 L 16 148/72 H 95 Weight Weight 132 lb 4.438 oz I&O: 06/17/18 06/18/18 06/19/18 06:59 06:59 06:59 Intake Total 350 480 Balance 350 480 Result Diagrams: 06/18/18 04:24 06/18/18 04:24 Additional Labs: Accuchecks 06/18/18 06/18/18 06/17/18 11:13 05:52 19:53 POC Glucose 146 H 100 107 Phys Exam - Physical Examination Constitutional: NAD HEENT: PERRLA, moist MMs, sclera anicteric Neck: no nodes, no JVD, supple, full ROM Respiratory: no wheezing, no rales, no rhonchi Cardiovascular: RRR, no significant murmur, no rub Gastrointestinal: soft, non-tender, no distention, positive bowel sounds Musculoskeletal: no edema, pulses present Psychiatric: normal affect, A&O x 3 Skin: no rash, normal turgor Deviation from normal: right leg cellulitis Dx/Plan (1) Cellulitis Code(s): L03.90 - CELLULITIS, UNSPECIFIED Status: Acute (2) Diabetes mellitus, type II, insulin dependent Code(s): E11.9 - TYPE 2 DIABETES MELLITUS WITHOUT COMPLICATIONS; Z79.4 - MEDICATION TECH (CURRENT) USE OF INSULIN Status: Chronic Comment: With ESRD (3) HLD (hyperlipidemia) Code(s): E78.5 - HYPERLIPIDEMIA, UNSPECIFIED Status: Chronic Qualifiers: (4) HTN (hypertension) Code(s): I10 - ESSENTIAL (PRIMARY) HYPERTENSION Status: Chronic Qualifiers: (5) Secondary hyperparathyroidism of renal origin Code(s): N25.81 - SECONDARY HYPERPARATHYROIDISM OF RENAL ORIGIN Status: Chronic - Plan * Continue IV abx for now, improving however cellulitis still present with erythema * patient needs IV abx for 24-48hrs more * cultures negative * case and plan d/w patient at length, she understands and agrees with this plan
[2018-06-18] MEDS: Famotidine 20 MG TAB PO SCH (21:22)
[2018-06-18] MEDS: Insulin Glargine 10 UNITS in Pre-Filled Syringe 1 EACH SC SCH (21:23)
[2018-06-18] MEDS: Minoxidil 2.5 MG TAB PO SCH (21:23)
[2018-06-18] MEDS: Atorvastatin Calcium 10 MG TAB PO SCH (21:23)
--- NOTE | 2018-06-18 22:42 | CON ---
DATE OF CONSULTATION: 06/18/2018 HISTORY OF PRESENT ILLNESS: Ms. Bolton is a 58-year-old female with known history of ESRD and admitted for right leg cellulitis. She has been initiated on IV antibiotics. We are now being c onsulted for maintenance hemodialysis. REVIEW OF SYSTEMS: Positive for right leg pain, no nausea, no vomiting. Denies any fever or chills, no diarrhea, no constipation, no syncopal episode, no productive cough, no dysuria, no urinary frequ ency, no abdominal pain. Appetite and energy level is decreased. No headache, no sore throat. MEDICATIONS: Currently on Norvasc 10 mg daily, [place] [address] one cap t.i.d., aspirin 325 mg once da janeth, Lipitor 10 mg at bedtime, ceftriaxone 2 grams IV q.24 hours, clonidine 0.1 mg q.4. hours p.r.n., Pepcid 20 mg q.p.m., fluoxetine 20 mg daily, heparin 5000 units subcu t.i.d., insulin glargine 10 un its subcutaneously at bedtime, Humalog sliding scale, minoxidil 2.5 mg at bedtime, Zofran 4 mg IV q.6 hours p.r.n., Renvela 800 mg t.i.d. with meals. PAST MEDICAL HISTORY: 1. ESRD from diabetic nephropathy. 2. Type 2 diabetes mellitus. 3. Longstanding hypertension. 4. Depression. 5. Status post CHF. PAST SURGICAL HISTORY: 1. Status post AV fistula placement. 2. Status post PD catheter placement with subsequent removal. 3. Status post cuffed hemodialysis catheter placement. SOCIAL HISTORY: The patient lives with her daughter, she lives with her children. Currently medical ly disabled. Education, high school graduate. Sedentary lifestyle, status post blood transfusion. No smoking, no alcohol intake, no IV drug abuse. 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 ALLERGIES: None. TRAUMA: None. IMMUNIZATIONS: Up to date. HOSPITALIZATIONS: Please see past medical history. FAMILY HISTORY: No family history of ESRD. PHYSICAL EXAMINATION: VITAL SIGNS: Blood pressure 170/74, heart rate 53, respiratory rate 18, temperature 98.3, pulse ox 9 2%. GENERAL: Awake, alert, comfortable, not in distress. SKIN: Adequate turgor. HEENT: Pinkish conjunctivae, anicteric sclerae. NECK: No neck mass, no carotid bruits, no JVD. CHEST: No deformities. LUNGS: Clear breath sounds, no wheezing, no crackles. HEART: Normal sinus rhythm. No murmur, no gallops, no rubs. ABDOMEN: Globular, soft, nontender, no masses. EXTREMITIES: Right leg erythema. No edema. NEUROLOGIC: Awake, oriented to 3 spheres. Moving all extremities. No tremors, no asterixis, no rg arturo. LABORATORY DATA: On 06/18/2018, white count 5.5, hemoglobin 10.7, hematocrit 31.9. Sodium 141, pota ssium 3.9, chloride 29, carbon dioxide 29, BUN 25, creatinine 6.38, calcium 10.1. ASSESSMENT AND PLAN: 1. Right leg cellulitis, has been on IV antibiotics. 2. End-stage renal disease, stable. We will continue current hemodialysis regimen of Sunday, day, Sunday. Review of the last Kt/V suggests she is adequately dialyzed with the current dialysis kael marie.
[2018-06-19] MEDS ORDERED: Epoetin (ESRD) 20,000 UNITS/ML SC SCH (08:45)
--- NOTE | 2018-06-19 08:59 | PRG ---
DATE OF SERVICE: 06/19/2018 SUBJECTIVE: Ms. Bolton is a 58-year-old female with end-stage renal disease and admitted f or right leg cellulitis. Currently on IV antibiotics. We are following this patient for her maint[facility] hemod[facility]. I am at the bedside supervising her dialysis. In the moment, no new complaints. PHYSICAL EXAMINATION: VITAL SIGNS: Blood pressure 171/69, heart rate 60, respiratory rate 18, temperature 99, pulse ox 90% . GENERAL: Noted to be awake, alert, supine, comfortable. SKIN: Adequate turgor. HEENT: She has pinkish conjunctivae, anicteric sclerae. NECK: No neck mass, no carotid bruits, no JVD. CHEST: No deformities. LUNGS: Clear breath sounds. No wheezing, no crackles. HEART: Normal sinus rhythm. No murmur, no gallops or rubs. ABDOMEN: Globular, soft, nontender, no masses. EXTREMITIES: No edema. Positive for right leg erythema. MEDICATIONS: Of 06/19/2018 was reviewed. LABORATORY DATA: Of 06/18/2018, hemoglobin 10.7. Sodium 141, potassium 3.9, chloride 101, carbon di oxide 29, BUN 25, creatinine 6.3. On 06/19/2018, glucose 74. ASSESSMENT AND PLAN: 1. Right leg cellulitis - currently on IV antibiotics. Continue current regimen. 2. End-stage renal disease, stable. Tolerating current hemodialysis regimen. We will continue ay, Sunday, Sunday dialysis. Fluid removal as tolerated. 3. Anemia. We will resume Epogen 7500 units subcu every week.
[2018-06-19] MEDS ORDERED: Prevnar 13-Val Conj/PF 0.5 ML SYRINGE IM ONE (09:00)
[2018-06-19] MEDS: Heparin 5,000 UNITS/ML VIAL SC SCH ×3 (09:00→21:12)
[2018-06-19] MEDS: Amlodipine 10 MG TAB PO SCH ×2 (10:13→12:44)
[2018-06-19] MEDS: Pancrelipase DR 12000 1 CAP PO SCH ×3 (10:14→21:12)
[2018-06-19] MEDS: FLUoxetine HCl 20 MG CAP PO SCH (12:43)
[2018-06-19] MEDS: Aspirin 325 MG TAB PO SCH (12:44)
[2018-06-19] MEDS: Sevelamer Carbonate 800 MG TAB PO SCH (12:44)
[2018-06-19] MEDS: cefTRIAXone\\ROCEPHIN 2 GM in Sodium Chloride 0.9% 100 ML IVPB SCH (12:46)
--- NOTE | 2018-06-19 20:32 | PDOC.PN ---
- Subjective Encounter Start Date: 06/19/18 Encounter Start Time: 12:00 Patient seen and examined for RLE cellulitis. No new complaints. No overnight events - Objective Resuscitation Status: Resuscitation Status FULL:Full Resuscitation MAR Reviewed: Yes Vital Signs & Weight: Vital Signs (12 hours) Temp Pulse Resp BP BP Pulse Ox 06/19/18 20:18 98.9 F 71 16 169/72 H 92 L 06/19/18 16:51 98.7 F 68 18 169/68 H 92 L 06/19/18 12:44 67 174/78 H 06/19/18 12:01 99.1 F 67 22 H 174/78 H 97 06/19/18 10:13 60 161/68 H Weight Weight 132 lb 4.438 oz I&O: 06/18/18 06/19/18 06/20/18 06:59 06:59 06:59 Intake Total 350 1800 1020 Output Total 3200 Balance 350 1800 -2180 Result Diagrams: 06/18/18 04:24 06/18/18 04:24 Additional Labs: Accuchecks 06/19/18 06/19/18 06/19/18 16:54 12:05 04:52 POC Glucose 145 H 75 74 06/18/18 20:21 POC Glucose 128 H Radiology Reviewed by me: No (Doppler - No DVT) Phys Exam - Physical Examination Constitutional: NAD Respiratory: no wheezing, no rhonchi Cardiovascular: RRR, no rub Gastrointestinal: soft, non-tender, positive bowel sounds Musculoskeletal: no edema Improving erythema/tenderness of RLE Dx/Plan - Plan DVT proph w/SCDs IMPRESSION: 1. RLE Cellulitis Cont Ceftriaxone 2. ESRD on dialysis Cont dialysis MWF, Cont Renvela 3. HTN Cont Amlodipine/Minoxidel 4. DM2 Cont sliding scale with Lantus 5. Derpession Cont Prozac Review of Systems - Review of Systems Respiratory: negative: Cough, Dry, Shortness of Breath, Hemoptysis, SOB with Excertion, Pleuritic Pain, Sputum, Wheezing Cardiovascular: negative: chest pain, palpitations, orthopnea, paroxysmal nocturnal dyspnea, edema, light headedness, other - Medications/Allergies Allergies/Adverse Reactions: Allergies Allergy/AdvReac Type Severity Reaction Status Date / Time No Known Allergies Allergy Verified 03/14/17 23:34 Medications: Current Medications Acetaminophen (Tylenol) 1,000 mg PO Q6H PRN PRN Reason: Headache/Fever or Mild Pain Amlodipine Besylate (Norvasc) 10 mg PO DAILY [facility] Last Admin: 06/19/18 12:44 Dose: 10 mg Lipase/Protease/Amylase ([place] [id number]) 1 cap PO TID [facility] Last Admin: 06/19/18 12:46 Dose: 1 cap Aspirin (Aspirin) 325 mg PO DAILY [facility] Last Admin: 06/19/18 12:44 Dose: 325 mg Atorvastatin Calcium (Lipitor) 10 mg PO [facility] Last Admin: 06/18/18 21:23 Dose: 10 mg Clonidine (Catapres) 0.1 mg PO Q4H PRN PRN Reason: Systolic BP > 180 Dextrose/Water (Dextrose 50%) 25 gm SLOW IVP PRN PRN PRN Reason: Hypoglycemia Epoetin Rio (Procrit) 7,500 units SC Q7D [facility] Last Admin: 06/19/18 12:47 Dose: 7,500 units Famotidine (Pepcid) 20 mg PO QPM [facility] Last Admin: 06/18/18 21:22 Dose: 20 mg Fluoxetine HCl (Prozac) 20 mg PO DAILY [facility] Last Admin: 06/19/18 12:43 Dose: 20 mg Glucagon (Glucagon) 1 mg IM PRN PRN PRN Reason: Hypoglycemia Heparin Sodium (Porcine) (Heparin) 5,000 units SC TID [facility] Last Admin: 06/19/18 14:51 Dose: 5,000 units Hydralazine HCl (Apresoline) 10 mg SLOW IVP Q4H PRN PRN Reason: Systolic BP > 180 Dextrose/Water (D5w) 1,000 mls @ 0 mls/hr IV .Q0M PRN; As Directed PRN Reason: Hypoglycemia Insulin Glargine 10 units/ (Miscellaneous Medication) 0.1 mls @ 0 mls/hr SC [facility] Last Admin: 06/18/18 21:23 Dose: 0.1 mls Ceftriaxone Sodium 2 gm/ (Sodium Chloride) 100 mls @ 200 mls/hr IVPB Q24HR [facility] Last Admin: 06/19/18 12:46 Dose: 100 mls Insulin Human Lispro (Humalog) 0 units SC .MILD SLIDING SCALE PRN PRN Reason: Mild Correctional Scale Insulin Human Lispro (Humalog) 0 units SC .BEDTIME SLIDING SC PRN PRN Reason: Bedtime Correctional Scale Minoxidil (Minoxidil) 2.5 mg PO HS [facility] Last Admin: 06/18/18 21:23 Dose: 2.5 mg Ondansetron HCl (Zofran Odt) 4 mg PO Q6H PRN PRN Reason: Nausea/Vomiting Ondansetron HCl (Zofran) 4 mg IVP Q6H PRN PRN Reason: Nausea/Vomiting Sevelamer Carbonate (Renvela) 800 mg PO DAILY [facility] Last Admin: 06/19/18 12:44 Dose: 800 mg Sodium Chloride (Flush - Normal Saline) 10 ml IVF Q12HR [facility] Last Admin: 06/19/18 12:47 Dose: 10 ml Sodium Chloride (Flush - Normal Saline) 10 ml IVF PRN PRN PRN Reason: Saline Flush
[2018-06-19] MEDS: Famotidine 20 MG TAB PO SCH (21:11)
[2018-06-19] MEDS: Atorvastatin Calcium 10 MG TAB PO SCH (21:11)
[2018-06-19] MEDS: Minoxidil 2.5 MG TAB PO SCH (21:21)
[2018-06-19] MEDS: Insulin Glargine 10 UNITS in Pre-Filled Syringe 1 EACH SC SCH (21:24)
[2018-06-20] MEDS: Heparin 5,000 UNITS/ML VIAL SC SCH (08:29)
[2018-06-20] MEDS: Aspirin 325 MG TAB PO SCH (08:30)
[2018-06-20] MEDS: Sevelamer Carbonate 800 MG TAB PO SCH (08:30)
[2018-06-20] MEDS: Pancrelipase DR 12000 1 CAP PO SCH (08:30)
[2018-06-20] MEDS: FLUoxetine HCl 20 MG CAP PO SCH (08:30)
[2018-06-20] MEDS: cefTRIAXone\\ROCEPHIN 2 GM in Sodium Chloride 0.9% 100 ML IVPB SCH (10:14)
[2018-06-20] MEDS ORDERED: Cephalexin 250 MG CAP PO SCH (10:45)
[2018-06-20 11:16] VITALS: BP 182/85; TEMP 98.5
[2018-06-20] MEDS ORDERED: Metoprolol Tartrate 100 MG TAB PO SCH (11:30)
[2018-06-20] MEDS: Amlodipine 10 MG TAB PO SCH (11:35)
--- NOTE | 2018-06-20 16:09 | DIS ---
DATE OF DISCHARGE: 06/20/2018 DISCHARGE DISPOSITION: Home. FOLLOWUP: With primary care physician Dr. Griffith in one week. ALLERGIES: No known drug allergies. DISCHARGE MEDICATIONS: 1. Keflex 500 mg twice a day for 1 week. 2. All other home medications were resumed. INPATIENT CONSULTANTS: Nephrology, Dr. Jiménez. The patient was seen on the day of discharge. BRIEF HOSPITAL COURSE: The patient is a 58-year-old female with end-stage renal disease on dialysis, hypertension and diabetes mellitus type 2, presented to the hospital with right leg pain al ry with swelling and erythema. Workup was consistent with right lower extremity cellulitis. Please refer to the history and physical for further details. The patient was admitted to the medical floor with a diagnosis of right lower extremity cellulitis. She was started on 2 grams ceftriaxone daily with good improvement. She will continue Keflex at home . She underwent dialysis per Nephrology. She appears stable for discharge. No changes in her medic ations were made. FINAL DIAGNOSES: 1. Right lower extremity cellulitis. 2. End-stage renal disease, on hemodialysis. 3. Diabetes mellitus type 2. 4. Chronic anemia. 5. Depression.
== END 2018-06-20 12:13 | disposition home or self-care (01) | DRG 602 ==
LOC: ERS 11:04 → T4-A 19:35
PROVIDERS: ADMIT Family Medicine; ATTEND Family Medicine
DX: L03.115 Cellulitis of right lower limb (principal); N18.6 End stage renal disease; I13.2 Hypertensive heart and chronic kidney disease with heart failure and with stage 5 chronic kidney disease, or end stage renal disease; E11.22 Type 2 diabetes mellitus with diabetic chronic kidney disease; Z99.2 Dependence on renal dialysis; F32.9 Major depressive disorder, single episode, unspecified; D63.1 Anemia in chronic kidney disease; I50.9 Heart failure, unspecified; Z79.4 Long term (current) use of insulin; E11.319 Type 2 diabetes mellitus with unspecified diabetic retinopathy without macular edema
CPT/HCPCS: 36415; 36416; 80048; 80053; 83605; 85007; 85025; 85027; 85652; 86140; 96365; 96367; A4216; J0696; J1644; J3370; J7050; Q4081

== ENCOUNTER 2018-07-23 10:50 | Outpatient (CLI) | payer MEDICARE, MEDICAID | END 2018-07-23 10:51 | disposition home or self-care (01) | LOC: BICMAMMO 10:50 | PROVIDERS: ATTEND Nurse Practitioner Family | DX: Z12.31 Encounter for screening mammogram for malignant neoplasm of breast (principal); R92.1 Mammographic calcification found on diagnostic imaging of breast | CPT/HCPCS: 77063; 77067 ==

== ENCOUNTER 2018-07-24 08:09 | Emergency (ER) | payer MEDICARE, MEDICAID ==
[2018-07-24 09:21] LABS: #Eosinphils 0.1 thou/uL (0.0-0.7); #Lymphocytes 1.4 thou/uL (1.20-3.40); #Neutrophils 6.6 thou/uL (1.40-6.50); %Basophils 0.5 % (0.0-1.0); %Eosinophils 1.1 % (0.0-10.0); %Lymphocytes 15.3 % (21.0-51.0); %Monocytes 11.1 % (0.0-10.0); %Neutrophils 72.1 % (42.0-75.0); Hemoglobin 11.4 g/dL (12.0-16.0); Mean Corpuscular HGB CONC 33.1 g/dL (32.0-36.0); Mean Corpuscular Hemoglobin 31.9 pg (27.0-31.0); Mean Corpuscular Volume 96.4 fL (78.0-98.0); Mean Platelet Volume 7.2 fL (7.4-10.4); Platelet Count 191 thou/uL (130-400); RBC Distribution Width 13.1 % (11.5-14.5); Red Blood Cell (RBC) Count 3.56 mill/uL (4.20-5.40); White Blood Cell (WBC) Count 9.1 thou/uL (4.8-10.8)
[2018-07-24] MEDS ORDERED: Acetaminophen 500 MG TAB ONE (09:26)
[2018-07-24 09:45] LABS: ALT (SGPT) 8 U/L (8-55); AST (SGOT) 15 U/L (5-34); Albumin 3.7 g/dL (3.5-5.0); Alkaline Phosphatase 89 U/L (40-150); Anion Gap 18 mmol/L (10-20); BUN (Urea Nitrogen) 36 mg/dL (9.8-20.1); Bilirubin, Total 0.9 mg/dL (0.2-1.2); Calc. Creatinine Clearance 0 mL/min (70-130); Carbon Dioxide 26 mmol/L (22-29); Chloride 96 mmol/L (98-107); Estimated GFR-MDRD 5; Globulin 4.3 g/dL (2.4-3.5); Glucose 126 mg/dL (70-105); Potassium 3.9 mmol/L (3.5-5.1); Sodium 136 mmol/L (136-145)
--- NOTE | 2018-07-24 09:56 | RAD ---
SINGLE VIEW CHEST: HISTORY: Fever, cough, and chills for five days. COMPARISON: 03/14/2017 FINDINGS: A single view of the chest shows an enlarged but stable cardiomediastinal silhouette. There is no ev idence of consolidation, mass, or pleural effusion. IMPRESSION: Cardiomegaly. POS: [facility]
--- NOTE | 2018-07-24 09:57 | RAD ---
LEFT KNEE FOUR VIEWS: HISTORY: Fever, cough, and chills. Fall from bed five days ago with left knee pain. COMPARISON: None. FINDINGS: Four views of the left knee show no evidence of acute fracture or dislocation. No degenerative lopez es are seen. Vascular calcifications are present. Surgical clips are seen along the posteromedial k nee. IMPRESSION: No evidence of acute osseous abnormality. POS: [facility]
== END 2018-07-24 11:38 | disposition home or self-care (01) ==
LOC: ERS 08:09
DX: S83.92XA Sprain of unspecified site of left knee, initial encounter (principal); J40 Bronchitis, not specified as acute or chronic; E11.9 Type 2 diabetes mellitus without complications; E78.5 Hyperlipidemia, unspecified; I12.0 Hypertensive chronic kidney disease with stage 5 chronic kidney disease or end stage renal disease; N18.6 End stage renal disease; Z99.2 Dependence on renal dialysis; Z79.4 Long term (current) use of insulin; Z79.82 Long term (current) use of aspirin; Z79.899 Other long term (current) drug therapy; W19.XXXA Unspecified fall, initial encounter
CPT/HCPCS: 36415; 71045; 80053; 85025

== ENCOUNTER 2018-09-27 13:51 | Observation (INO) | payer MEDICARE, MEDICAID ==
[2018-09-27 14:29] LABS: #Basophils 0.1 thou/uL (0.0-0.2); #Eosinphils 0.1 thou/uL (0.0-0.7); #Lymphocytes 1.2 thou/uL (1.20-3.40); #Monocytes 0.8 thou/uL (0.11-0.59); #Neutrophils 4.8 thou/uL (1.40-6.50); %Basophils 0.9 % (0.0-1.0); %Eosinophils 1.7 % (0.0-10.0); %Lymphocytes 16.9 % (21.0-51.0); %Monocytes 11.4 % (0.0-10.0); %Neutrophils 69.1 % (42.0-75.0); Hemoglobin 10.4 g/dL (12.0-16.0); Mean Corpuscular HGB CONC 33.5 g/dL (32.0-36.0); Mean Corpuscular Hemoglobin 32.7 pg (27.0-31.0); Mean Corpuscular Volume 97.5 fL (78.0-98.0); Mean Platelet Volume 7.2 fL (7.4-10.4); Platelet Count 170 thou/uL (130-400); RBC Distribution Width 13.9 % (11.5-14.5); Red Blood Cell (RBC) Count 3.18 mill/uL (4.20-5.40)
[2018-09-27 14:48] LABS: ALT (SGPT) 13 U/L (8-55); AST (SGOT) 22 U/L (5-34); Albumin 3.7 g/dL (3.5-5.0); Alkaline Phosphatase 130 U/L (40-150); Anion Gap 14 mmol/L (10-20); BUN (Urea Nitrogen) 16 mg/dL (9.8-20.1); Bilirubin, Total 0.8 mg/dL (0.2-1.2); CK (CPK) 39 U/L (29-168); Calc. Creatinine Clearance 0 mL/min (70-130); Carbon Dioxide 30 mmol/L (22-29); Chloride 96 mmol/L (98-107); Estimated GFR-MDRD 12; Globulin 4.1 g/dL (2.4-3.5); Glucose 151 mg/dL (70-105); Potassium 3.4 mmol/L (3.5-5.1); Protein, Total 7.8 g/dL (6.0-8.3); Sodium 137 mmol/L (136-145)
[2018-09-27 14:52] LABS: CKMB 1.1 ng/mL (0-6.6); Troponin I 0.021 ng/mL (< 0.028)
[2018-09-27 15:04] LABS: Magnesium 2.1 mg/dL (1.6-2.6); Phosphorus 2.8 mg/dL (2.3-4.7)
[2018-09-27] MEDS ORDERED: Acetaminophen 325 MG TAB ONE (15:31)
[2018-09-27] MEDS ORDERED: hydrALAZINE 20 MG/ML VIAL SLOW IVP PRN (17:52)
[2018-09-27] MEDS ORDERED: Acetaminophen 500 MG TAB PO PRN (17:52)
[2018-09-27] MEDS ORDERED: Dextrose 5% in Water 1,000 ML IV PRN (17:52)
[2018-09-27] MEDS ORDERED: Ondansetron PF 4 MG/2 ML Vial IVP PRN (17:52)
[2018-09-27] MEDS ORDERED: Dextrose 50% Abboject 50 ML SYRINGE SLOW IVP PRN (17:52)
[2018-09-27] MEDS ORDERED: Ondansetron ODT 4 MG TAB PO PRN (17:52)
[2018-09-27] MEDS ORDERED: HumaLOG 300 UNITS/3 ML VIAL SC PRN ×2 (17:52)
[2018-09-27 18:01] VITALS: BMI 22.6
[2018-09-27 18:50] LABS: Troponin I 0.019 ng/mL (< 0.028)
[2018-09-27] MEDS: Pancrelipase DR 12000 1 CAP PO SCH (20:08)
[2018-09-27] MEDS: cloNIDine 0.2 MG TAB PO SCH (20:26)
[2018-09-27] MEDS: hydrALAZINE 25 MG TAB PO SCH (20:26)
[2018-09-27 20:45] LABS: Troponin I 0.031 ng/mL (< 0.028)
[2018-09-27] MEDS ORDERED: Famotidine 20 MG TAB PO SCH (21:00)
[2018-09-27] MEDS ORDERED: Minoxidil 2.5 MG TAB PO SCH (21:00)
[2018-09-27] MEDS ORDERED: Insulin Glargine 8 UNITS in Pre-Filled Syringe SC SCH (21:00)
[2018-09-27] MEDS ORDERED: INSULIN DETEMIR SC SCH (21:00)
[2018-09-27] MEDS ORDERED: Pravastatin Sodium 40 MG TAB PO SCH (21:00)
--- NOTE | 2018-09-28 00:40 | HP ---
DATE OF ADMISSION: 09/27/2018 PRIMARY CARE PHYSICIAN: WENDY Mariscal and Dr. Méndez. CHIEF COMPLAINT: Passing out. HISTORY OF PRESENT ILLNESS: This is a 58-year-old female who presented after apparently pas sing out while walking to her nieces' car. Patient states she underwent hemodialysis on 09/27/2018 a nd felt like they may have taken off too much fluid and caused her to be dehydrated. Patient states her legs were weak. She slipped down on her knees, scraping them, and falling back on her head. Katiuska gan states that she was out only a few seconds coming through and then was helped up by her family ron cook. Patient denied any chest pain, shortness of breath, fever, chills, unilateral weakness. Katiuska gan denied any specific laceration to her scalp, visual disturbance, and no seizure activity was not ed. Patient states she has been compliant with her chronic hemodialysis, attending her sessions on M , Wednesdays, and Fridays. In the emergency room, patient underwent general evaluation includi ng EKG evaluation showing evidence of sinus bradycardia, heart rates were noted in the 50s. The asia ent received Tylenol 650 mg x1 dose and was referred to the Hospitalist Service for observation. PAST MEDICAL HISTORY: 1. Hyperlipidemia. 2. Diabetes mellitus, type 2, insulin-requiring. 3. Hypertension. 4. End-stage renal disease with current hemodialysis on Sunday, Sunday, and Sunday. 5. Coronary artery disease, end-stage, medically managed. 6. Chronic anemia secondary to chronic kidney disease. 7. Anxiety/depression. PAST SURGICAL HISTORY: 1. Status post coronary artery bypass grafting x4 vessels. 2. Status post right upper extremity AV fistula placement. 3. Status post left eye vitrectomy. CURRENT MEDICATIONS: 1. Norvasc 10 mg p.o. daily. 2. Aspirin enteric-coated 325 mg p.o. daily. 3. Clonidine 0.2 mg p.o. b.i.d. 4. Fluoxetine 20 mg p.o. daily. 5. Folic acid with vitamin B one tablet p.o. daily. 6. Hydralazine 50 mg p.o. t.i.d. 7. Levemir FlexPen 8 units subcutaneously at bedtime. 8. Lopressor 100 mg p.o. b.i.d. 9. Minoxidil 2.5 mg p.o. at bedtime. 10. Pancrelipase DR 1 capsule p.o. t.i.d. 11. Protonix 40 mg p.o. daily. 12. Pravachol 40 mg p.o. at bedtime. 13. Renvela 800 mg p.o. daily. ALLERGIES: No known drug allergies. FAMILY HISTORY: Mother at the age of 90 years. SOCIAL HISTORY: Patient resides in [place], [place]. . No current alcohol, tobacco, or illicit drug use. REVIEW OF SYSTEMS: The following complete review of systems was otherwise negative, except as stated per HPI: Constitutional: Weight loss or gain, ability to conduct usual activities. Skin: Rash, i tching. Eyes: Double vision, pain. ENT/Mouth: Nose bleeding, neck stiffness, pain, tenderness. C ardiovascular: Palpitations, dyspnea on exertion, orthopnea. Respiratory: Shortness of breath, whe ezing, cough, hemoptysis, fever, or night sweats. Gastrointestinal: Poor appetite, abdominal pain, heartburn, nausea, vomiting, constipation, or diarrhea. Genitourinary: Urgency, frequency, dysuria, nocturia. Musculoskeletal: Pain, swelling. Neurologic/Psychiatric: Anxiety, depression. Allergy /Immunologic: Skin rash, bleeding tendency. PHYSICAL EXAMINATION: VITAL SIGNS: Currently, blood pressure 159/70, pulse 52, respiratory rate 16, temperature 97.5 degre es Fahrenheit, O2 saturation 91% on room air. GENERAL APPEARANCE: This is a 58-year-old female, alert and oriented x3, pleasant, conversa nt, eating, in no acute distress. HEENT: Pupils are equal, round, and reactive to light and accommodation. Extraocular muscles are in tact. No scleral icterus, no conjunctival injection. Nares patent. OP is clear. Teeth in fair rep air. NECK: Supple, no cervical adenopathy, no thyromegaly, no carotid bruits, no JVD noted. Cervical spi ne with full active and passive range of motion. No meningeal signs noted. CHEST: Lungs are clear to auscultation bilaterally. CARDIOVASCULAR: S1, S2 without noted murmur, rub, or gallop. ABDOMEN: Rounded, soft, nontender, nondistended. Bowel sounds are positive in all four quadrants. There is no hepatosplenomegaly, no abdominal bruits, no rebound or guarding noted. EXTREMITIES: Warm and dry with fair turgor. No clubbing, cyanosis, or asymmetric edema appreciated. Pulses palpable distally at the dorsalis pedis, posterior tibial, and popliteal arteries bilaterall y. Capillary refill less than 2 seconds. Right upper extremity AV fistula in place. NEUROLOGIC: Cranial nerves II through XII are grossly intact. No focal or lateralizing signs apprec iated. PERTINENT LABORATORY AND X-RAY FINDINGS: Sodium 137, potassium 3.4, chloride 96, CO2 of 30, BUN 16, creatinine 3.70, estimated GFR of 12, glucose 151, calcium 9.0, phosphorus 2.8, magnesium 2.1. LFTs within normal limits. Troponin I negative x2. Albumin 3.7. CBC showed a white blood cell count of 7.0, hemoglobin 10.4, hematocrit 31, platelet count 170 with 69% neutrophils. EKG dated 09/27/2018 b y my interpretation shows a sinus bradycardia, heart rates in the 50s. Normal R-wave progression not ed in the precordial leads. Normal axis. QTC 499. ASSESSMENT AND PLAN: 1. Syncopal episode. Patient will be placed in observation on the telemetry unit. Brief syncope no stewart with rapid return to baseline. We will check 2D transthoracic echocardiogram and orthostatic vit al signs. Suspect volume depletion in the context of hemodialysis on the same day of syncope. Noble nue telemetry monitoring. 2. End-stage renal disease with hemodialysis. We will consult Nephrology service for timing of next outpatient hemodialysis session. No current evidence to suggest volume overload. 3. Diabetes mellitus, type 2, insulin-requiring. Continue Levemir 8 units subcutaneously at bedtime . Insulin sliding scale for reflexive coverage. Accu-Cheks before meals and at bedtime. ADA diet. 4. Chronic anemia secondary to chronic kidney disease. Stable currently. No evidence to suggest ac chipewwa blood loss. Repeat CBC in the a.m. 5. Hypertension. Resume home antihypertensive regimen and monitor clinical response. 6. Prophylaxis. Sequential compression devices while in bed. Protonix 40 mg p.o. daily. 7. Code status is FULL. Surrogate medical decision maker is patient's daughter.
[2018-09-28 04:39] LABS: Band 4 % (5-11); Eosinophils 3 % (0-10); Hemoglobin 9.3 g/dL (12.0-16.0); Lymphocytes 26 % (21-51); MDiff Complete? YES; Mean Corpuscular HGB CONC 32.6 g/dL (32.0-36.0); Mean Corpuscular Hemoglobin 31.8 pg (27.0-31.0); Mean Corpuscular Volume 97.6 fL (78.0-98.0); Mean Platelet Volume 7.6 fL (7.4-10.4); Monocytes 15 % (0-10); Neutrophil 52 % (42-75); Platelet Count 164 thou/uL (130-400); RBC Distribution Width 13.9 % (11.5-14.5); Red Blood Cell (RBC) Count 2.91 mill/uL (4.20-5.40); White Blood Cell (WBC) Count 5.6 thou/uL (4.8-10.8)
[2018-09-28 04:46] LABS: Anion Gap 15 mmol/L (10-20); BUN (Urea Nitrogen) 25 mg/dL (9.8-20.1); Calc. Creatinine Clearance 12 mL/min (70-130); Calcium 9.5 mg/dL (7.8-10.44); Carbon Dioxide 29 mmol/L (22-29); Chloride 96 mmol/L (98-107); Estimated GFR-MDRD 9; Glucose 189 mg/dL (70-105); Potassium 3.7 mmol/L (3.5-5.1); Sodium 136 mmol/L (136-145)
[2018-09-28] MEDS ORDERED: Aspirin 325 MG TAB PO SCH (09:00)
[2018-09-28] MEDS ORDERED: Folic Acid/Vit B Comp W-C PO SCH (09:00)
[2018-09-28] MEDS ORDERED: Amlodipine 10 MG TAB PO SCH (09:00)
[2018-09-28] MEDS ORDERED: FLUoxetine HCl 20 MG CAP PO SCH (09:00)
[2018-09-28] MEDS ORDERED: Sevelamer Carbonate 800 MG TAB PO SCH (09:00)
[2018-09-28] MEDS: cloNIDine 0.2 MG TAB PO SCH (09:10)
[2018-09-28] MEDS: hydrALAZINE 25 MG TAB PO SCH (09:11)
[2018-09-28] MEDS: Pancrelipase DR 12000 1 CAP PO SCH (09:11)
--- NOTE | 2018-09-28 11:19 | CON ---
DATE OF CONSULTATION: 09/28/2018 HISTORY OF PRESENT ILLNESS: Ms. Bolton is a 58-year-old female with ESRD - on maintenance hemodialysis, was admitted due to a syncopal episode. After dialysis yesterday, she felt weak and rose d a near syncopal episode. She stated her legs were weak and she had no energy level. She is admitt ed for further management and evaluation. We are following this patient for maintenance hemodialysis . Today, there is no indication for any dialytic intervention. She did receive her dialysis yesterd ay. REVIEW OF SYSTEMS: Positive for near syncopal episode. Positive for generalized malaise. No chest pain, no shortness of breath, no nausea, no vomiting, no headache, no diplopia, no fever or chills, n o abdominal pain, no hematochezia, no melena, no hematemesis. MEDICATIONS: Norvasc 10 mg tab once a day, aspirin 325 mg once a day, clonidine 0.2 mg p.o. b.i.d., Prozac 20 mg daily, folic acid 1 tab daily, hydralazine 50 mg t.i.d., Levemir FlexPen 8 units subcu a t bedtime, Lopressor 100 mg p.o. b.i.d., minoxidil 2.5 mg at bedtime, pancrelipase 1 tab t.i.d., Prot shanda 40 mg tab once a day, Pravachol 40 mg at bedtime, Renvela 800 mg t.i.d. with meals. PAST MEDICAL HISTORY: 1. ESRD from diabetic nephropathy. 2. Type 2 diabetes mellitus. 3. Hyperlipidemia. 4. Coronary artery disease. 5. Anemia of chronic renal disease. 6. History of anxiety and depression 7. Hyperlipidemia. PAST SURGICAL HISTORY: 1. Status post cardiac catheterization. 2. Status post CABG. 3. Status post cuffed dialysis catheter placement. 4. Status post AV fistula placement. SOCIAL HISTORY: Patient lives with her daughter. She has several children. Currently, medically di sabled. Education, high school. Sedentary lifestyle. No alcohol, no smoking, drug abuse. 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 ALLERGIES: None. TRAUMA: None. IMMUNIZATIONS: Up-to-date. HOSPITALIZATIONS: Please see past medical history. FAMILY HISTORY: No family history of ESRD. PHYSICAL EXAMINATION: VITAL SIGNS: Blood pressure 179/84 and heart rate 57. GENERAL EXAM: Noted to be awake, alert, comfortable, not in distress. SKIN: Adequate turgor. HEENT: She has pinkish conjunctivae, anicteric sclerae. NECK: No neck mass, no carotid bruits, no JVD. CHEST: No deformities. LUNGS: Clear breath sounds. HEART: Normal sinus rhythm. No murmur, no gallops, no rubs. ABDOMEN: Globular, soft, nontender, no masses. EXTREMITIES: No edema and no deformities. LABORATORY DATA: Laboratories of 09/28/2018, white count 5.6, hemoglobin 9.3. Sodium 136, potassium 3.7, chloride 96, carbon dioxide 29, BUN 25, creatinine 4.77, glucose 189, calcium 9.5. ASSESSMENT AND PLAN: 1. Near syncopal episode - she could simply be volume depleted. We will review with the fluid remov al with the dialysis. 2. End-stage renal disease, stable. No indication for any emergent dialysis with this patient. If she is in the hospital, we will resume back her Sunday, Sunday, Sunday dialysis regimen. 3. Hypertension. Continue current blood pressure medications. Overall, agree with current manageme nt.
[2018-09-28 11:49] VITALS: BP 130/62; TEMP 98
--- NOTE | 2018-09-28 16:09 | DIS ---
DATE OF ADMISSION: 09/27/2018 DATE OF DISCHARGE: 09/28/2018 PRIMARY CARE PHYSICIAN: WENDY Mariscal CONSULTANTS: Dr. Jiménez. PROCEDURES: None. DISCHARGE DIAGNOSES: 1. Syncopal episode, suspect volume depletion in the context of hemodialysis on the same day. 2. End-stage renal disease with hemodialysis. 3. Diabetes mellitus type 2, insulin requiring. 4. Chronic anemia secondary to chronic kidney disease. 5. Hypertension. REVIEW OF SYSTEMS: Patient was examined by me this morning. Patient denies any chest pain, shortness of breath, dizziness. Reports getting up to go to the bathroom and able to walk around the hospital room with a walker without any dizziness or pre-syncopal symptoms. All other systems were reviewed and are negative. PHYSICAL EXAMINATION: VITAL SIGNS: Temperature 97.6, pulse 85, respiratory rate 20, pulse ox is 98% on 2 liters. GENERAL APPEARANCE: The patient is a 58-year-old female, alert and oriented x3, pleasant, in no acute distress. HEENT: Pupils are round and equal, reactive to light and accommodation. Extraocular muscles are intact. Mucous membranes are moist. NECK: Supple, no cervical adenopathy. No bruits or JVD is noted. Full range of motion. LUNGS: Clear to auscultation bilaterally. CARDIOVASCULAR: S1, S2, without noted murmur. ABDOMEN: Rounded. Soft, nontender, nondistended. Bowel sounds are positive in all 4 quadrants. EXTREMITIES: Warm and dry with fair turgor. No clubbing, cyanosis or asymmetric edema is noted. Pulses palpable distally and dorsalis pedis. Right upper extremity has an AV fistula which is intact. NEUROLOGIC: No focal or lateralizing signs are appreciated. SKIN: dry, warm. Small abrasions noted to her right elbow and bilateral anterior knees. HOSPITAL COURSE: Ms. Bolton is a 58-year-old female who presented to the emergency room after apparently passing out while walking to her niece's car. Patient reports that she was mildly dizzy when she was walking out there, but had a syncopal episode when she got up to the car. The patient states that she underwent hemodialysis yesterday, completed the session and feels like they may have taken off too much fluid which caused her to be dehydrated. The patient states her legs felt weak when she was in the emergency room. She reports that she slipped down to her knees scraping them and has a scrape on her right elbow as well. Reports her head hit the ground, denies any specific laceration or abrasion to her scalp. No visual disturbance and no seizure activity was noted. Patient states she has been compliant with her hemodialysis. In the emergency room, EKG had evidence of a sinus bradycardia, heart rate was noted to be in the 50s. Patient was admitted to the hospitalist service for observation. While here, she had an echocardiogram which has not been finalized and determined non- contributory to her current symptoms. Patient states she is feeling better. Orthostatics have been negative. Vital signs are within normal limits. Lab findings with troponins are negative x2. The patient would like to go home. Discharge plan discussed with Dr. Hurtado, who agreed. Patient discharged home on her normal home medication regimen. ALLERGIES: No known allergies. MEDICATIONS: Norvasc 10 mg p.o. daily, aspirin 325 mg p.o. daily, Catapres 0.2 mg p.o. b.i.d., fluoxetine 20 mg p.o. daily, vitamin 1 tablet p.o. daily, hydralazine 50 mg p.o. t.i.d., Levemir 8 units subcu q.p.m., Lopressor 100 mg p.o. b.i.d., minoxidil 2.5 mg at bedtime, Creon DR 1 cap p.o. t.i.d., Protonix 40 mg p.o. daily, pravastatin 40 mg p.o. at bedtime, Renvela 800 mg p.o. daily. DISPOSITION AND CONDITION: Stable. DISCHARGE INSTRUCTIONS: The patient will be discharged to home. Referral to Zayda Reddy within [address] Jiménez within the next 1-2 weeks. [facility]
== END 2018-09-28 13:59 | disposition home or self-care (01) ==
LOC: ERS 13:51 → 2SW 17:38
PROVIDERS: ADMIT Family Medicine; ATTEND Family Medicine
DX: R55 Syncope and collapse (principal); I12.0 Hypertensive chronic kidney disease with stage 5 chronic kidney disease or end stage renal disease; E11.22 Type 2 diabetes mellitus with diabetic chronic kidney disease; N18.6 End stage renal disease; D63.1 Anemia in chronic kidney disease; N17.9 Acute kidney failure, unspecified; E11.21 Type 2 diabetes mellitus with diabetic nephropathy; I25.10 Atherosclerotic heart disease of native coronary artery without angina pectoris; E78.5 Hyperlipidemia, unspecified; F41.8 Other specified anxiety disorders; Z79.4 Long term (current) use of insulin; Z79.82 Long term (current) use of aspirin; Z79.899 Other long term (current) drug therapy; Z99.2 Dependence on renal dialysis; Z95.5 Presence of coronary angioplasty implant and graft
CPT/HCPCS: 80048; 80053; 82550; 82553; 82962 ×2; 83735; 84100; 84443; 84484 ×2; 85007; 85025; 85027; 93005; 93306; 97116; 97139; 99285; G0378 ×2; G8978; G8979; G8980; 36415; 36416

== ENCOUNTER 2019-01-13 06:00 | Inpatient (IN) | payer MEDICARE, MEDICAID ==
[2019-01-13] MEDS ORDERED: Ondansetron PF 4 MG/2 ML Vial ONE (06:45)
[2019-01-13] MEDS ORDERED: Mag-Al 1200 mg/1200 mg/30 ML UDCUP ONE (06:49)
[2019-01-13] MEDS ORDERED: Lidocaine Viscous Sol 2% 15 ml UD Cup ONE (06:49)
[2019-01-13 08:11] LABS: #Eosinphils 0.1 thou/uL (0.0-0.7); #Monocytes 1.6 thou/uL (0.11-0.59); #Neutrophils 12.9 thou/uL (1.40-6.50); %Basophils 0.1 % (0.0-1.0); %Eosinophils 0.4 % (0.0-10.0); %Lymphocytes 6.6 % (21.0-51.0); %Monocytes 10.4 % (0.0-10.0); %Neutrophils 82.4 % (42.0-75.0)
--- NOTE | 2019-01-13 08:11 | RAD ---
CHEST ONE VIEW: INDICATIONS: Cough. Chest pain. COMPARISON: 07/24/2018 FINDINGS: There is worsening cardiomegaly with pulmonary vascular congestion and bilateral perihilar edema. Th ere is a tiny left and a moderate right pleural effusion. IMPRESSION: Findings suspicious for congestive heart failure. POS: [facility]
--- NOTE | 2019-01-13 08:15 | CT ---
CT ABDOMEN AND PELVIC WITH CONTRAST: HISTORY: Nausea and abdominal pain. COMPARISON: Study from 12/19/2010 and CTA chest from 03/14/2017. TECHNIQUE: Multiple contiguous axial images were obtained in a CT of the abdomen and pelvis with contrast. Celso nal reformats were performed. FINDINGS: There is hyperdensity in the gallbladder, which likely represents calcified gallstones. The kidneys are small and atrophic. There is a small amount of ascites. Calcifications in the spleen are from p rior granulomatous disease. The liver, adrenal glands, and pancreas are unremarkable. No free air i s seen in the abdomen. The large and small bowel are normal in caliber. The patient is status post hysterectomy. No abdomi nal or pelvic lymphadenopathy is present. Atherosclerotic calcifications are seen in the aorta. Diffuse soft tissue anasarca is seen. There is a small right pleural effusion with adjacent atelecta sis. Degenerative changes are seen in the spine. IMPRESSION: 1. Cholelithiasis. 2. Ascites and soft tissue anasarca. 3. Right pleural effusion. 4. Atrophic kidneys may be secondary to chronic medical renal disease. POS: [facility]
[2019-01-13 08:20] LABS: ALT (SGPT) 16 U/L (8-55); AST (SGOT) 34 U/L (5-34); Albumin 3.8 g/dL (3.5-5.0); Alkaline Phosphatase 113 U/L (40-150); Anion Gap 24 mmol/L (10-20); BUN (Urea Nitrogen) 33 mg/dL (9.8-20.1); Bilirubin, Total 1.3 mg/dL (0.2-1.2); Calc. Creatinine Clearance 0 mL/min (70-130); Calcium 9.8 mg/dL (7.8-10.44); Carbon Dioxide 19 mmol/L (22-29); Chloride 100 mmol/L (98-107); Estimated GFR-MDRD 5; Globulin 4.1 g/dL (2.4-3.5); Glucose 114 mg/dL (70-105); Lipase 40 U/L (8-78); Potassium 4.1 mmol/L (3.5-5.1); Protein, Total 7.9 g/dL (6.0-8.3); Sodium 139 mmol/L (136-145)
[2019-01-13 08:40] LABS: CKMB 0.7 ng/mL (0-6.6)
[2019-01-13 08:50] LABS: Bilirubin Small (Negative); Blood, Urine Large (Negative); Glucose, Urine (Dipstick) Negative (Negative); Leukocyte Negative (Negative); Nitrite Negative (Negative); Protein, Urine (Dipstick) 100 mg/dL (Neg-Trace); Urobilinogen 0.2 mg/dL (0.2-1.0)
[2019-01-13 08:52] LABS: Clarity Clear (Clear)
[2019-01-13 08:54] LABS: Hemoglobin 11.6 g/dL (12.0-16.0); Mean Corpuscular HGB CONC 32.5 g/dL (32.0-36.0); Mean Corpuscular Hemoglobin 31.4 pg (27.0-31.0); Mean Corpuscular Volume 96.5 fL (78.0-98.0); Mean Platelet Volume 8.2 fL (7.4-10.4); Platelet Count 163 thou/uL (130-400); RBC Distribution Width 12.9 % (11.5-14.5); Red Blood Cell (RBC) Count 3.71 mill/uL (4.20-5.40); White Blood Cell (WBC) Count 16.6 thou/uL (4.8-10.8)
[2019-01-13 08:57] LABS: Band 24 % (5-11); Lymphocytes 8 % (21-51); MDiff Complete? YES; Monocytes 10 % (0-10); Neutrophil 58 % (42-75); Platelet Morphology Comment Appears Adequate; Polychromasia SLIGHT = 2-3 cells (100X) (0-2/hpf)
[2019-01-13 09:00] LABS: Squamous Epithelial 0-3 HPF (0-3)
[2019-01-13 09:01] LABS: Bacteria/HPF Rare-Few HPF (None Seen); Yeast-All Forms None Seen HPF (None Seen)
[2019-01-13] MEDS ORDERED: Aspirin Chewable 81 MG TAB ONE (09:01)
[2019-01-13 09:02] LABS: Crystals/HPF 1+ SODIUM URATE HPF (Negative)
[2019-01-13] MEDS ORDERED: Acetaminophen 325 MG TAB ONE (09:50)
[2019-01-13] MEDS ORDERED: cefTRIAXone\\ROCEPHIN 1 GM VIAL ONE (09:50)
[2019-01-13] MEDS ORDERED: ISOVUE-370 76%-LOCM 1 ML ONE (10:39)
--- NOTE | 2019-01-13 10:43 | CON ---
DATE OF CONSULTATION: HISTORY OF PRESENT ILLNESS: Ms. Bolton is a 58-year-old female with ESRD from diabetic nephropathy, type 2 diabetes mellitus and admitted for abdominal pain. According to the son, she has been feeling tired in the last one day or so. She was having also nausea and vomiting. At the ER, CT scan of the abdomen and pelvis was done, which showed only a soft tissue anasarca with some ascites and finding of cholelithiasis and right pleural effusion. Chest x-ray showed some degree of CHF. For now, she is going to be admitted for further observation. We are being consulted for her maintenance hemodialysis. She is due for dialysis today. REVIEW OF SYSTEMS: No chest pain. No shortness of breath. Positive for abdominal pain. Positive for nausea and vomiting. No diarrhea. No constipation. Denies any overt fever. No constipation. No productive cough. No fever or chills. PHYSICAL EXAMINATION: VITAL SIGNS: Blood pressure 130/70 and heart rate 70. GENERAL: The patient is awake, alert, and comfortable, not in distress. SKIN: Adequate turgor. HEENT: She has pinkish conjunctivae. Anicteric sclerae. NECK: No neck mass. No carotid bruits. No JVD. CHEST: No deformities. LUNGS: Decreased breath sounds. HEART: Normal sinus rhythm. No murmur. No gallops. No rubs. ABDOMEN: Globular, soft, and nontender. No masses. EXTREMITIES: No edema. No deformities. MEDICATIONS: Status post Zofran 4 mg IV q.4. Home medications included: 1. Hydralazine 50 mg p.o. t.i.d. 2. Clonidine 0.2 mg b.i.d. 3. Renvela 800 mg daily. 4. Pravastatin 40 mg at bedtime. 5. Protonix 40 mg tablet daily. 6. Pancrelipase DR 1 capsule t.i.d. 7. Minoxidil 2.5 mg at bedtime. 8. Metoprolol 100 mg p.o. b.i.d. 9. Levemir 8 units subcu q.p.m. 10. Prozac 20 mg tablet once a day. 11. Dialyvite 1 tablet once a day. 12. Aspirin 325 mg a day. 13. Amlodipine 10 mg tablet once a day. PAST MEDICAL HISTORY: 1. ESRD from diabetic nephropathy. 2. Longstanding hypertension. 3. Type 2 diabetes mellitus, depression, hyperlipidemia, status post CHF. PAST SURGICAL HISTORY: Status post AV fistula placement, status post PD catheter placement with subsequent removal, status post cuffed dialysis catheter placement. SOCIAL HISTORY: The patient lives with her daughter, currently medically disabled. Education, high school. Sedentary lifestyle. Status post blood transfusion. No smoking. No alcohol. No IV drug abuse. She is a retired employee [employer]. ALLERGIES: NONE. TRAUMA: None. IMMUNIZATION: Up-to-date. HOSPITALIZATIONS: Please see past medical history. FAMILY HISTORY: No family history of ESRD. LABORATORY DATA: Laboratories of January 13, 2019; white count 16.6, hemoglobin 11.6. Sodium 139, potassium 4.1, chloride 100, carbon dioxide 19, BUN 33, creatinine 8.19, glucose 114. AST 34, ALT 36, BNP 7617, albumin 3.8. Troponin I 0.069. DIAGNOSTIC DATA: Chest x-ray, CHF. CT scan of the abdomen shows ascites and cholelithiasis. ASSESSMENT AND PLAN: 1. Nausea and vomiting. Consider the possibility of diabetic gastroparesis. However, with a finding of cholelithiasis, we could not rule out the possibility of an acute cholecystitis especially with abdominal pain and elevated white count. Discussed case with hospitalist. 2. End-stage renal disease - due to the congestive heart failure and regular dialysis schedule. We will dialyze this patient today for 3 hours. Fluid removal will be done as tolerated. Review of the last Kt/V suggests she is adequately dialyzed with the current dialysis regimen. Thank you for the consult. We will continue to follow. Job ID: [id number]
[2019-01-13] MEDS ORDERED: HumaLOG 300 UNITS/3 ML VIAL SC PRN (12:16)
[2019-01-13] MEDS ORDERED: Dextrose 5% in Water 1,000 ML IV PRN (12:16)
[2019-01-13] MEDS ORDERED: Guaifenesin DM 100-10/5 ML UDCUP PO PRN (12:16)
[2019-01-13] MEDS ORDERED: Dextrose 50% Abboject 50 ML SYRINGE SLOW IVP PRN (12:16)
[2019-01-13 12:22] LABS: CKMB 0.6 ng/mL (0-6.6)
[2019-01-13] MEDS ORDERED: Ondansetron ODT 4 MG TAB SL PRN (12:47)
[2019-01-13] MEDS ORDERED: Ondansetron PF 4 MG/2 ML Vial IVP PRN (12:47)
[2019-01-13 15:03] VITALS: BMI 21.1
[2019-01-13 15:42] LABS: HBSAg Index 0.21 S/CO (0-0.99); Hep B Surf Ag Non-Reactive S/CO (NonReactive)
--- NOTE | 2019-01-13 16:06 | HP ---
REASON FOR ADMISSION: Volume overload, possible right-sided pneumonia. HISTORY OF PRESENTING ILLNESS: The patient gives history of having chills, fever, nausea, vomiting, and diarrhea from last 2 days. She has not been able to sleep well due to above complaints. The diarrhea is watery. Son at bedside also mentions that he has had similar symptoms, which started 4 days back. Last dialysis was on Sunday. The patient says she had pneumonia last year. She has cough with expectoration of altered phlegm, which the patient is unable to describe at present. She does not recall the exact temperature at home. She has had nearly 3 to 4 episodes of diarrhea from last 2 days. She has not been able to keep anything down per son who is here at bedside. The patient is lethargic. PAST MEDICAL AND SURGICAL HISTORY: History of end-stage renal disease, on hemodialysis on Sunday, Wednesdays, and Fridays; dialysis access procedures on right upper extremity. Hypertension; dyslipidemia; diabetes mellitus, type 2; CABG for 4-vessel disease; ovarian tumor removed; depression. CURRENT MEDICATIONS: The patient is on; 1. Toprol-XL 100 mg daily. 2. Aspirin 325 mg daily. 3. Creon 12,000 units p.o. three times daily. 4. Fluoxetine 20 mg daily. 5. Renvela 2400 mg p.o. three times daily. 6. Clonidine 0.2 mg twice daily. 7. Hydralazine 50 mg three times daily. 8. Levemir 8 units subcu q.p.m. 9. Minoxidil 2.5 mg p.o. at bedtime. 10. Pravastatin 40 mg p.o. at bedtime. ALLERGIES: NO KNOWN DRUG ALLERGIES. PERSONAL HISTORY: Does not abuse alcohol or drugs. No history of smoking. FAMILY HISTORY: Mother in her 80s, she has had history of heart failure and diabetes. Father in his 50s, likely from massive ID. CODE STATUS: Full. REVIEW OF SYSTEMS: CONSTITUTIONAL: Negative for weight loss or gain, ability to conduct usual activities. SKIN: Negative for rash, itching. EYES: Negative for double vision, pain. ENT/MOUTH: Negative for nose bleeding, neck stiffness, pain, tenderness. CARDIOVASCULAR: Negative for palpitations, dyspnea on exertion, orthopnea. RESPIRATORY: Negative for shortness of breath, wheezing, cough, hemoptysis, fever or night sweats. GASTROINTESTINAL: Negative for poor appetite, abdominal pain, heartburn, nausea , vomiting, constipation, or diarrhea. GENITOURINARY: Negative for urgency, frequency, dysuria, nocturia. MUSCULOSKELETAL: Negative for pain, swelling. NEUROLOGIC/PSYCHIATRIC: Negative for anxiety, depression. ALLERGY/IMMUNOLOGIC: Negative for skin rash, bleeding tendency. PHYSICAL EXAMINATION: GENERAL: The patient is a 58-year-old female, who is currently lethargic, but oriented well. VITAL SIGNS: Blood pressure 146/66, pulse 72 per minute, respiratory rate 16 per minute, temperature 98.8 degrees Fahrenheit, and saturating 93% on room air. T- max of 100 degrees on arrival. NECK: Supple. No elevated JVD. HEENT: Eyes, extraocular muscles are intact. Pupils are reacting to light. Oral cavity, mucous membranes are dry. No exudates or congestion. CARDIOVASCULAR: S1 and S2, heard. Regular rhythm. RESPIRATORY: Air entry 1+ bilateral. There is decreased air entry in the right infrascapular area. No wheezes. ABDOMEN: Soft. Bowel sounds are heard. No tenderness, rigidity, or guarding. EXTREMITIES: No peripheral edema or calf tenderness. VASCULAR: Peripheral pulses 1+ bilateral. No ischemic ulcerations or gangrene. CENTRAL NERVOUS SYSTEM: No gross focal deficits noted. The patient is lethargic, but oriented well. PSYCHIATRIC: The patient's mood is euthymic. No hallucinations or delusions. LABORATORY DATA: EKG done shows normal sinus rhythm at 71 beats per minute. There is poor R-wave progression seen. Echo done recently in September of 2018, shows EF of 50% to 55%, there was moderately enlarged biatrium, there was diastolic dysfunction, moderate to severe tricuspid regurgitation, severely elevated pulmonary artery pressure. Chest x-ray done shows findings suspicious for heart failure. CT of the abdomen and pelvis with contrast done shows cholelithiasis, ascites, soft tissue anasarca, right pleural effusion, atrophic kidneys. White count of 16, hemoglobin and hematocrit of 11 and 35, platelet count is 163, MCV is 96, with left shift. The patient has bands. Serum bicarb is 19, BUN 33, creatinine 8.1, serum glucose 114. Liver enzymes within normal limits. BNP is 7617. Albumin is 3.8. Troponin-I is indeterminate, peaking up to 0.6. Lipase is 40. Influenza A and B antigens are negative. CLINICAL IMPRESSION AND PLAN: The patient will be placed under observation on telemetry for likely volume overload. The patient also has elevated white count with fever, chills, and cough, suspicious for possible right lower lobe pneumonia. We will obtain consultation with Dr. Rodríguez as well. The patient has signs of volume overload with anasarca, ascites. Her CBC shows bandemia as well. Blood and urine cultures along with stool cultures will be obtained in view of diarrhea. She will be on empiric Levaquin. We will continue her home dose of Lopressor, minoxidil, Protonix, sevelamer, Lantus, fluoxetine, clonidine, aspirin, and Lipitor, along with Norvasc. We will continue to closely monitor her. If needed, the patient will be switched over to inpatient status if she continues to have elevated white count, fever, and bandemia on the followup labs. Job ID: [id number] [id number]
[2019-01-13] MEDS: Pancrelipase DR 12000 1 CAP PO SCH ×2 (18:18→22:19)
[2019-01-13] MEDS: hydrALAZINE 25 MG TAB PO SCH ×2 (18:18→22:20)
[2019-01-13] MEDS: Metoprolol Tartrate 100 MG TAB PO SCH ×2 (18:20→22:21)
[2019-01-13] MEDS: Acetaminophen 325 MG TAB PO PRN ×2 (18:29→23:34)
[2019-01-13] MEDS ORDERED: Metoprolol Tartrate 100 MG TAB PO SCH (18:30)
[2019-01-13] MEDS ORDERED: INSULIN DETEMIR SC SCH (21:00)
[2019-01-13] MEDS ORDERED: Minoxidil 2.5 MG TAB PO SCH (21:00)
[2019-01-13] MEDS ORDERED: Insulin Glargine 8 UNITS in Pre-Filled Syringe 1 EACH SC SCH (21:00)
[2019-01-13 21:37] LABS: ALT (SGPT) 13 U/L (8-55); AST (SGOT) 26 U/L (5-34); Albumin 3.6 g/dL (3.5-5.0); Alkaline Phosphatase 102 U/L (40-150); Anion Gap 16 mmol/L (10-20); BUN (Urea Nitrogen) 15 mg/dL (9.8-20.1); Bilirubin, Total 1.1 mg/dL (0.2-1.2); Calc. Creatinine Clearance 12 mL/min (70-130); Calcium 9.3 mg/dL (7.8-10.44); Carbon Dioxide 29 mmol/L (22-29); Chloride 96 mmol/L (98-107); Estimated GFR-MDRD 9; Globulin 3.5 g/dL (2.4-3.5); Glucose 146 mg/dL (70-105); Phosphorus 3.6 mg/dL (2.3-4.7); Potassium 3.6 mmol/L (3.5-5.1); Protein, Total 7.1 g/dL (6.0-8.3); Sodium 137 mmol/L (136-145)
[2019-01-13] MEDS: Famotidine 20 MG TAB PO SCH (22:18)
[2019-01-13] MEDS: Atorvastatin Calcium 10 MG TAB PO SCH (22:19)
[2019-01-13] MEDS: cloNIDine 0.2 MG TAB PO SCH (22:19)
[2019-01-14] MEDS: Acetaminophen 325 MG TAB PO PRN (04:00)
[2019-01-14 05:43] LABS: #Basophils 0.1 thou/uL (0.0-0.2); #Monocytes 0.9 thou/uL (0.11-0.59); #Neutrophils 11.1 thou/uL (1.40-6.50); %Basophils 0.6 % (0.0-1.0); %Eosinophils 0.1 % (0.0-10.0); %Lymphocytes 7.5 % (21.0-51.0); %Monocytes 6.9 % (0.0-10.0); Hemoglobin 10.2 g/dL (12.0-16.0); Mean Corpuscular Hemoglobin 32.9 pg (27.0-31.0); Mean Corpuscular Volume 99.7 fL (78.0-98.0); Mean Platelet Volume 7.7 fL (7.4-10.4); Platelet Count 146 thou/uL (130-400); Red Blood Cell (RBC) Count 3.11 mill/uL (4.20-5.40); White Blood Cell (WBC) Count 13.1 thou/uL (4.8-10.8)
[2019-01-14 06:04] LABS: Anion Gap 14 mmol/L (10-20); BUN (Urea Nitrogen) 19 mg/dL (9.8-20.1); Calc. Creatinine Clearance 11 mL/min (70-130); Calcium 9.5 mg/dL (7.8-10.44); Carbon Dioxide 28 mmol/L (22-29); Chloride 95 mmol/L (98-107); Estimated GFR-MDRD 9; Glucose 90 mg/dL (70-105); Potassium 3.9 mmol/L (3.5-5.1); Sodium 133 mmol/L (136-145)
[2019-01-14] MEDS: Pancrelipase DR 12000 1 CAP PO SCH ×3 (08:34→21:06)
[2019-01-14] MEDS: FLUoxetine HCl 20 MG CAP PO SCH (08:34)
[2019-01-14] MEDS: Metoprolol Tartrate 100 MG TAB PO SCH (08:34)
[2019-01-14] MEDS: Enoxaparin Sodium 30 MG/0.3 ML SYRINGE SC SCH (08:34)
[2019-01-14] MEDS: cloNIDine 0.2 MG TAB PO SCH (08:34)
[2019-01-14] MEDS: Famotidine 20 MG TAB PO SCH ×2 (08:34→21:06)
[2019-01-14] MEDS: Sevelamer Carbonate 800 MG TAB PO SCH (08:34)
[2019-01-14] MEDS: hydrALAZINE 25 MG TAB PO SCH (08:35)
[2019-01-14] MEDS: Aspirin 325 MG TAB PO SCH (08:35)
[2019-01-14] MEDS ORDERED: Amlodipine 10 MG TAB PO SCH (09:00)
[2019-01-14] MEDS ORDERED: DOPamine 400 MG/D5W 250 ML 250 ML IVPB SCH (11:00)
[2019-01-14] MEDS ORDERED: Lidocaine 1% (PF) 30 ML VIAL ONE (11:32)
--- NOTE | 2019-01-14 11:38 | CON ---
DATE OF CONSULTATION: 01/07/2019 SERVICE: Pulmonary Medicine. REASON FOR CONSULT: Pleural effusion. HISTORY OF PRESENT ILLNESS: The patient is a 58-year-old female with past medical historysignificant for end-stage renal disease, on hemodialysis. She rarely misses any episodes. She was in her usual state of health when she ended up presenting to the emergency department, because of possible right-sided pneumonia. She is also in a volume overload state. For the last couple of days prior to admission, she was having some symptoms possibly consistent with a viral gastroenteritis. Because of this, she was drinking excessive amounts of water to prevent herself from getting dehydrated. Either way, she presented to emergency department. She was initially placed in the hospital on observation status. Ultimately, she was transitioned over to inpatient, because it looked like her length of stay was going to be longer. PAST MEDICAL HISTORY: 1. End-stage renal disease. 2. Hypertension. 3. Dyslipidemia. 4. Type 2 diabetes mellitus. 5. Major depressive disorder. PAST SURGICAL HISTORY: 1. Coronary bypass graft x4 vessels. 2. Dialysis access in the right upper extremity. 3. Excision of ovarian tumor. ALLERGIES: NO KNOWN DRUG ALLERGIES. MEDICATIONS: List of her inpatient medications was reviewed. No specific updates were made at this time. FAMILY HISTORY: Noncontributory. SOCIAL HISTORY: Negative for alcohol, tobacco, or illicit drug use. She has no exposure to chemicals, dust, asbestos, or tuberculosis. REVIEW OF SYSTEMS: GENERAL: Head, ears, eyes, nose, throat, cardiovascular, respiratory, GI, , musculoskeletal, neurologic, and skin is negative except as mentioned in the HPI. PHYSICAL EXAMINATION: VITAL SIGNS: Afebrile currently. She had a T-max overnight of 101.7. Pulse 57 , blood pressure 128/62, respirations 16 saturation 98% on 2 L nasal cannula. GENERAL: The patient is awake and alert, in no apparent distress. LUNGS: Decent air entry. There is decreased air entry at the right base. No dependent crackles are really appreciated. No prolonged expiratory phase or wheezing is appreciated. HEART: Normal rate, regular. ABDOMEN: Soft, nontender and nondistended. Bowel sounds are positive. MUSCULOSKELETAL: No cyanosis or clubbing. EXTREMITIES: No pitting in the bilateral lower extremities. NEUROLOGIC: Grossly nonfocal. LABORATORY DATA: WBC 16.6 and downtrending to 13.1, hemoglobin 10.2, and platelets 146,000. Band count was originally 24%. Creatinine 5.10. Basic metabolic profile and liver function studies are otherwise unremarkable. Troponin is up trending. Urinalysis is unremarkable. Hepatitis B surface antigen is nonreactive. Multiple blood cultures x4, influenza A and B, C diff antigen and toxin are all unremarkable. IMAGING: CT of the abdomen and pelvis demonstrates no acute intraabdominal process. She has a right layering effusion. Anasarca and ascites are also noted. Kidneys were atrophic. There is cholelithiasis without evidence of any inflammatory issues. ASSESSMENT: 1. Acute gastroenteritis. 2. Right-sided pleural effusion. 3. Severe sepsis. 4. Xnw-XL-[id number] myocardial infarction. DISCUSSION AND PLAN: We talked to the patient about the likelihood that this pleural effusion is a transudate associated with her volume overload state. That being said, she has never had a thoracentesis before. As such, we will continue our empiric antibiotic coverage. We will proceed with a bedside ultrasound, if a good pocket of fluid is identified, thoracentesis will be performed. Pulmonary will continue to follow for the time being. 70 minutes have been devoted to this patient in various activities. I personally reviewed all imaging studies and laboratory data noted within this document. For fifty percent of this time, I was interacting with the patient at the bedside or coordinating care with the care team. For the remainder of the time I was immediately available to the patient in the hospital unit. Job ID: [id number] MTDD
--- NOTE | 2019-01-14 12:32 | PDOC.PN ---
- Subjective Encounter Start Date: 01/14/19 Encounter Start Time: 12:00 Subjective: c/o watery stools multiple times all through night and this am -: became more lethargic with low BP and code green was called -: no chest pain, palp or sob. No blood in stool - Objective Resuscitation Status - Order Detail: 01/13/19 12:12 Resuscitation Status Routine Resuscitation Status: FULL: Full Resuscitation MAR Reviewed: Yes Vital Signs & Weight: Vital Signs (12 hours) Temp Pulse Resp BP BP Pulse Ox 01/14/19 11:24 99.8 F H 01/14/19 08:46 98 01/14/19 08:35 57 L 01/14/19 08:34 57 L 128/62 01/14/19 07:56 99 F 57 L 16 128/62 98 01/14/19 05:20 100.4 F H 01/14/19 04:00 101.2 F H 56 L 18 142/64 H 97 01/14/19 00:43 100.4 F H Weight Weight 135 lb Most Recent Monitor Data Heart Rate from ECG 52 NIBP 94/39 NIBP BP-Mean 57 Respiration from ECG 19 I&O: 01/13/19 01/14/19 01/15/19 06:59 06:59 06:59 Intake Total 340 Balance 340 Result Diagrams: 01/14/19 04:42 01/14/19 04:41 Additional Labs: Accuchecks 01/14/19 01/13/19 10:27 21:05 POC Glucose 123 H 149 H Phys Exam - Physical Examination HEENT: PERRLA dry mucosa Neck: no JVD, supple Respiratory: no wheezing, no rales Cardiovascular: RRR, no significant murmur bradycardic Gastrointestinal: soft, non-tender, positive bowel sounds Musculoskeletal: no edema, pulses present Neurological: non-focal, moves all 4 limbs Psychiatric: A&O x 3 Dx/Plan (1) Sepsis Code(s): A41.9 - SEPSIS, UNSPECIFIED ORGANISM Status: Acute Qualifiers: Sepsis type: sepsis due to unspecified organism Qualified Code(s): A41.9 - Sepsis, unspecified organism (2) Dehydration, moderate Code(s): E86.0 - DEHYDRATION Status: Acute (3) Pleural effusion Code(s): J90 - PLEURAL EFFUSION, NOT ELSEWHERE CLASSIFIED Status: Acute Comment: right (4) Bradycardia with 41-50 beats per minute Code(s): R00.1 - BRADYCARDIA, UNSPECIFIED Status: Acute Comment: likely med induced (5) Fluid overload Code(s): E87.70 - FLUID OVERLOAD, UNSPECIFIED Status: Suspected (6) Gastroenteritis Code(s): K52.9 - NONINFECTIVE GASTROENTERITIS AND COLITIS, UNSPECIFIED Status : Acute Comment: likely viral (7) Anemia of renal disease Code(s): D63.1 - ANEMIA IN CHRONIC KIDNEY DISEASE Status: Chronic (8) Anxiety and depression Code(s): F41.9 - ANXIETY DISORDER, UNSPECIFIED; F32.9 - MAJOR DEPRESSIVE DISORDER, SINGLE EPISODE, UNSPECIFIED Status: Chronic (9) Diabetes mellitus, type II, insulin dependent Code(s): E11.9 - TYPE 2 DIABETES MELLITUS WITHOUT COMPLICATIONS; Z79.4 - HALF-WAY (CURRENT) USE OF INSULIN Status: Chronic Comment: With ESRD (10) ESRD (end stage renal disease) on dialysis Code(s): N18.6 - END STAGE RENAL DISEASE; Z99.2 - DEPENDENCE ON RENAL DIALYSIS Status: Chronic Comment: HD on M/W/F (11) HLD (hyperlipidemia) Code(s): E78.5 - HYPERLIPIDEMIA, UNSPECIFIED Status: Chronic Qualifiers: (12) HTN (hypertension) Code(s): I10 - ESSENTIAL (PRIMARY) HYPERTENSION Status: Chronic Qualifiers: - Plan is getting 1 liter ns bolus, 1mg glucagon for BB induced bradycardia -: dopamine low dose for bradycardia, d5ns @100mls/hr -: stool studies are -ve for bact etiology likely viral -: blood and urine cs are -ve so far -: dc all antihtn for now * . continue asp, lipitor, sevelamer and levaquin for now. Review of Systems - Medications/Allergies Allergies/Adverse Reactions: Allergies Allergy/AdvReac Type Severity Reaction Status Date / Time No Known Allergies Allergy Verified 03/14/17 23:34 Medications: Current Medications Acetaminophen (Tylenol) 650 mg PO Q4H PRN PRN Reason: Headache/Fever/Mild Pain (1-3) Last Admin: 01/14/19 04:00 Dose: 650 mg Lipase/Protease/Amylase ([place] [id number]) 1 cap PO TID JERALD Last Admin: 01/14/19 08:34 Dose: 1 cap Aspirin (Aspirin) 325 mg PO DAILY [facility] Last Admin: 01/14/19 08:35 Dose: 325 mg Atorvastatin Calcium (Lipitor) 10 mg PO HS [facility] Last Admin: 01/13/19 22:19 Dose: 10 mg Dextrose/Water (Dextrose 50%) 25 gm SLOW IVP PRN PRN PRN Reason: Hypoglycemia Enoxaparin Sodium (Lovenox) 30 mg SC 0900 [facility] Last Admin: 01/14/19 08:34 Dose: 30 mg Famotidine (Pepcid) 20 mg PO BID [facility] Last Admin: 01/14/19 08:34 Dose: 20 mg Fluoxetine HCl (Prozac) 20 mg PO DAILY [facility] Last Admin: 01/14/19 08:34 Dose: 20 mg Glucagon (Glucagon) 1 mg IM PRN PRN PRN Reason: Hypoglycemia Last Admin: 01/14/19 10:54 Dose: 1 mg Guaifenesin/Dextromethorphan (Robitussin Dm) 15 ml PO Q4H PRN PRN Reason: Cough Dextrose/Water (D5w) 1,000 mls @ 0 mls/hr IV .Q0M PRN PRN Reason: Hypoglycemia Levofloxacin 250 mg/ Device 50 mls @ 100 mls/hr IVPB Q24HR [facility] Last Admin: 01/13/19 18:18 Dose: 50 mls Dopamine HCl/Dextrose (Dopamine/D5w) 250 mls @ 5.741 mls/hr IVPB INF [facility]; Protocol Last Admin: 01/14/19 10:30 Dose: 250 mls Insulin Human Lispro (Humalog) 0 units SC .MODERATE SLIDING SC PRN PRN Reason: Moderate Correctional Scale Insulin Human Lispro (Humalog) 0 units SC .BEDTIME SLIDING SC PRN PRN Reason: Bedtime Correctional Scale Pantoprazole Sodium (Protonix) 40 mg PO DAILY [facility] Last Admin: 01/14/19 08:34 Dose: 40 mg Sevelamer Carbonate (Renvela) 800 mg PO DAILY [facility] Last Admin: 01/14/19 08:34 Dose: 800 mg Sodium Chloride (Flush - Normal Saline) 10 ml IVF Q12HR [facility] Sodium Chloride (Flush - Normal Saline) 10 ml IVF PRN PRN PRN Reason: Saline Flush
--- NOTE | 2019-01-14 13:59 | RAD ---
AP VIEW CHEST: 01/14/2019 HISTORY: Status post central line placement. COMPARISON: 01/13/2019 FINDINGS: AP view chest demonstrates sternotomy wires seen. There has been placement of a left subclavian cent ral line, distal tip overlying the SVC. Marked cardiomegaly is seen. A moderate-sized right-sided p leural effusion is seen. Pulmonary vascular congestion is seen. IMPRESSION: Right-sided pleural effusion and cardiomegaly. POS: [facility]
[2019-01-14 14:32] LABS: BF Color Red; Body Fluid Source Pleural Fluid; Clarity Cloudy/Turbid (Clear)
[2019-01-14 14:33] LABS: RBC Background Count 0.001; RBC Count-Automated 25000 /cumm; Tube # EDTA; WBC/NonHematic-Auto 382 /cumm
[2019-01-14 14:47] LABS: BF Segmented Neutrophils 26 %; Cell Count Non Hematic 59 %; Lymphocytes 15 %
[2019-01-14 14:54] LABS: Pleural Fluid, Protein 3.3 g/dL
--- NOTE | 2019-01-14 16:19 | OP ---
DATE OF PROCEDURE: 01/14/2019 SERVICE: Pulmonary Medicine. PROCEDURE PERFORMED: Right-sided pleural drainage with catheter insertion under ultrasound guidance. CONSENT: Risks and benefits of the procedure were explained to the patient. All questions were answered and alternative options explained. STAFF PHYSICIAN: Luca Rodríguez MD MEDICATIONS USED: Lidocaine 1% without epinephrine, total quantity 8 mL. PREPROCEDURE DIAGNOSES: 1. Sepsis. 2. Pleural effusion. POSTPROCEDURE DIAGNOSES: 1. Sepsis. 2. Pleural effusion. DESCRIPTION OF PROCEDURE: Time-out was performed by the procedure team and the patient. The patient was positively identified using name and date of . The procedure site was marked. Vital sign monitoring was accomplished by noninvasive hemodynamic monitoring, pulse oximetry, and telemetry. In the seated position, the right posterior hemothorax was examined using ultrasound probe. The diaphragm and pleural fluid were easily identified. The skin was prepped and draped in sterile fashion and anesthetized with 1% lidocaine without epinephrine. A finder needle was inserted in the pleural space with return of cloudy ronel pleural fluid. A drainage catheter was inserted in the same location. A total quantity of 900 mL of pleural fluid was withdrawn by syringe pump technique. A sample was sent for analysis. Evacuation of fluid was terminated because the fluid stopped coming. At the end of the procedure, estimated pleural pressures, measured by manometry, was -14 cm of pleural fluid. The intact catheter was withdrawn on exhalation and a sterile dressing was applied. The patient had stable vitals throughout the entire procedure. ESTIMATED BLOOD LOSS: Less than 2 mL. COMPLICATIONS: None. Job ID: [id number]
--- NOTE | 2019-01-14 16:41 | OP ---
DATE OF PROCEDURE: 01/14/2019 PREOPERATIVE DIAGNOSES: 1. Chronic renal failure. 2. Hypotension, need for IV access. POSTOPERATIVE DIAGNOSES: 1. Chronic renal failure. 2. Hypotension, need for IV access. PROCEDURE PERFORMED: Placement of left subclavian triple-lumen central venous catheter. INDICATIONS FOR PROCEDURE: A 58-year-old woman with history of dialysis dependent chronic kidney disease. The patient was admitted to the Intermediate Care Unit following acute hypertension with bradycardia. Multiple attempts to keep dependent of peripheral IV access for therapeutics has been unsuccessful. I was asked to place a central venous catheter for that purpose. DESCRIPTION OF PROCEDURE: Informed consent obtained from the patient, who was placed in supine position. Left chest wall was sterilely prepped and draped in usual fashion. The skin below the left clavicle was anesthetized with 1% lidocaine. Left subclavian vein was cannulated with an 18-gauge introducer needle returning dark venous blood. Guidewire was passed through the needle and advanced into the left subclavian vein without resistance. The needle was withdrawn over the guidewire. A stab incision was made adjacent to the guidewire using 11 scalpel. The dilator was passed over the guidewire to dilate the subcutaneous tissues. The dilator was removed and a triple-lumen central venous catheter was advanced over the guidewire and placed in the left subclavian vein without resistance stopping at the 18 cm anson. The guidewire was removed. Dark venous blood was aspirated from all 3 ports, which were individually flushed with saline. Catheter was secured in the anterior chest wall using 3-0 silk suture at 2 points. Biopatch and sterile dressings were applied. The patient tolerated the procedure without any apparent complications. Chest x-ray was obtained confirming proper placement of the catheter. No pneumothorax present. Job ID: [id number]
--- NOTE | 2019-01-14 19:59 | CON ---
DATE OF CONSULTATION: 01/14/2019 REASON FOR CONSULTATION: Bradycardia. HISTORY OF PRESENT ILLNESS: Ms. Bolton is a very pleasant 58-year-old white female, very well known to myself, who comes to the hospital for diarrhea, nausea, vomiting, fevers and chills. She has end-stage renal disease and is on hemodialysis Sunday, Sunday, Sunday, which she does through her right upper extremity fistula. She noted these symptoms started four days ago, came in because of this. Cardiology is being consulted as her heart rate has been in the 40s to 50s. She also had a few runs of what appears to be nonsustained ventricular tachycardia. PAST MEDICAL HISTORY: 1. End-stage renal disease. 2. Hypertension. 3. Hyperlipidemia. 4. Type 2 diabetes. 5. CABG x4. 6. Removal of ovarian tumor. 7. Depression. OUTPATIENT MEDICATIONS: Include; 1. Toprol-XL 100 mg a day. 2. Aspirin 325 a day. 3. Creon-12 three times a day. 4. Fluoxetine. 5. Renvela. 6. Clonidine 0.2 b.i.d. 7. Hydralazine 50 mg t.i.d. 8. Levemir. 9. Minoxidil. 10. Pravastatin 40 mg at bedtime. ALLERGIES: NO KNOWN DRUG ALLERGIES. SOCIAL HISTORY: No alcohol, tobacco, or drugs. FAMILY HISTORY: Early coronary artery disease in father and in 50s of an HI. REVIEW OF SYSTEMS: A 12-point review of systems was done and was found to be negative unless stated in the history of present illness. PHYSICAL EXAMINATION: VITAL SIGNS: Temperature 101.7 max, currently 99.1; pulse 54; respiratory rate 15; saturation 100% on room air; and blood pressure 106/48. GENERAL: Awake, alert, and oriented x3, in no distress. HEENT: Normocephalic and atraumatic. NECK: Supple. LUNGS: Have reduced breath sounds at right base. CARDIOVASCULAR: S1 and S2. No S3 or S4. No murmurs. There is a grade 3/6 systolic murmur at right upper sternal border. ABDOMEN: Soft. Positive bowel sounds. EXTREMITIES: No edema. SKIN: Warm and dry. LABORATORY DATA: Laboratory work was reviewed. CBC, chemistries, UA were reviewed. ASSESSMENT AND PLAN: 1. Sinus bradycardia: Likely related to the amount of medications. Both Toprol and clonidine can slow down the heart rate. We would stop these for now. 2. Hypotension: She had a code green earlier today as she was not really taking all these medications that were on file. Most likely, this is also causing her some of her bradycardia. 3. Sepsis: Per Primary Team. 4. Pleural effusion: Dr. Rodríguez already did thoracentesis on this. 5. Continue to monitor her on telemetry at [facility] for now. 6. We will follow. Job ID: [id number]
[2019-01-14] MEDS: Atorvastatin Calcium 10 MG TAB PO SCH (21:06)
--- NOTE | 2019-01-15 09:12 | PRG ---
DATE OF SERVICE: 01/15/2019 SUBJECTIVE: Ms. Bolton is a 58-year-old female with ESRD and was admitted for fever, associated nausea and vomiting. This morning, she is feeling better. She denies any nausea, vomiting, or fever. In addition, she underwent a procedure yesterday - thoracentesis of her pleural effusion. This was done by Dr. Luca Rodríguez. In addition, the patient has been evaluated by Cardiology. Recommendation by Cardiology regarding the sinus bradycardia is to stop the Toprol and clonidine for the moment. OBJECTIVE: VITAL SIGNS: Blood pressure is 126/59, heart rate is 58, respiratory rate 15, and pulse ox 100%. GENERAL: Awake, alert, and comfortable. SKIN: Adequate turgor. HEENT: She has pinkish conjunctivae. Anicteric sclerae. NECK: No neck mass. No carotid bruits. No JVD. CHEST: No deformities. LUNGS: Clear breath sounds. HEART: Normal sinus rhythm. No murmur. No gallops. No rubs. ABDOMEN: Globular, soft, and nontender. No masses. EXTREMITIES: No edema. No deformities. LABORATORY DATA: Blood and urine culture have been negative. Swab for influenza has been negative for influenza A and B. C. diff GDH antigen and toxins were reported to be negative. Sodium 133, potassium 3.9, chloride 95, carbon dioxide 28, BUN 19, and creatinine 5.1. Hemoglobin 10.2, this was done on January 14, 2019. ASSESSMENT AND PLAN: 1. End-stage renal disease - we will continue Sunday, Sunday, and Sunday hemodialysis. Fluid removal only as tolerated. I am at the bedside supervising her dialysis. 2. Review of the last Kt/V suggests she is adequately dialyzed with the current regimen. 3. Fever, resolved - blood culture and culture have all been negative. The possibility of a viral infection remains with this patient. 4. Bradycardia - improved. Off her clonidine and Toprol. Overall agree with current management. Please note, we did review her medication for January 15, 2019. Job ID: [id number]
[2019-01-15] MEDS: Enoxaparin Sodium 30 MG/0.3 ML SYRINGE SC SCH (11:30)
[2019-01-15] MEDS: FLUoxetine HCl 20 MG CAP PO SCH (11:30)
[2019-01-15] MEDS: Pancrelipase DR 12000 1 CAP PO SCH ×3 (11:30→20:45)
[2019-01-15] MEDS: Famotidine 20 MG TAB PO SCH ×2 (11:30→20:45)
[2019-01-15] MEDS: Sevelamer Carbonate 800 MG TAB PO SCH (11:30)
[2019-01-15] MEDS: Aspirin 325 MG TAB PO SCH (11:31)
--- NOTE | 2019-01-15 11:41 | PRG ---
DATE OF SERVICE: 01/15/2019 SERVICE: Pulmonary Medicine INTERVAL HISTORY: The patient is doing really well from respiratory standpoint. She is breathing comfortably. She is on dialysis presently. She did not have any events overnight. She is on the dopamine. Her blood pressures have been normal. Her heart rate has been in the mid to low 50s. Otherwise, there has been no interval change to her condition. PHYSICAL EXAMINATION: VITAL SIGNS: Afebrile. Pulse 57, blood pressure 129/63, respirations 18, and saturation 98% on 2 L nasal cannula. GENERAL: The patient is awake and alert, in no apparent distress. LUNGS: Decent air entry with no prolonged expiratory phase or wheezing present. HEART: Normal rate, regular. ABDOMEN: Soft, nontender, and nondistended. Bowel sounds are positive. MUSCULOSKELETAL: No cyanosis or clubbing. There is 1+ pitting in the bilateral lower extremities. NEUROLOGIC: Grossly nonfocal. LABORATORY DATA: WBC 13.1, hemoglobin 10.2, and platelets 146,000. Creatinine 5.10. Basic metabolic profile is otherwise unremarkable. Pleural fluid LDH 119 and total protein 3.3. Glucose 105. The pH is 7.4. Body fluid culture remains negative to date. ASSESSMENT: 1. Acute hypoxic respiratory failure, resolved. 2. Pleural effusion on the right, status post thoracentesis. Transudate demonstrated. 3. Severe sepsis, resolving. 4. Azu-OG-zsdheqyug myocardial infarction. 5. Acute gastroenteritis. 6. End-stage renal disease. 7. Bradyarrhythmia secondary to medication effect, likely. DISCUSSION AND PLAN: The patient is currently on dialysis. She will remain in IMCU until we are off the dopamine. At this point, Pulmonary will continue to follow. No interval change will occur. We will continue our dialysis and other supportive care. It appears that the pleural fluid was nothing more than a transudate. As such, I would never recommend additional taps unless the patient has severe hypoxic failure, we are suspicious that the space could be involved with infection. Antibiotics directed at lung issues can be interrupted after 5 days. I am not suspicious of a pneumonia here. Job ID: [id number] [facility]
--- NOTE | 2019-01-15 13:04 | PDOC.PN ---
- Subjective Encounter Start Date: 01/15/19 Encounter Start Time: 10:00 Subjective: getting HD -: no chest pain or palp or sob -: has left leg redness with pain - Objective Resuscitation Status - Order Detail: 01/13/19 12:12 Resuscitation Status Routine Resuscitation Status: FULL: Full Resuscitation MAR Reviewed: Yes Vital Signs & Weight: Vital Signs (12 hours) Temp Pulse Ox 01/15/19 10:44 98.7 F 01/15/19 07:53 100 01/15/19 07:19 99.2 F 01/15/19 04:00 98.7 F Weight Admit Weight 135 lb Weight 135 lb Most Recent Monitor Data Heart Rate from ECG 57 NIBP 129/63 NIBP BP-Mean 85 Respiration from ECG 18 SpO2 98 I&O: 01/14/19 01/15/19 01/16/19 06:59 06:59 06:59 Intake Total 340 1053.6 Balance 340 1053.6 Result Diagrams: 01/14/19 04:42 01/14/19 04:41 Additional Labs: Accuchecks 01/15/19 01/15/19 01/14/19 10:25 05:40 20:09 POC Glucose 119 H 79 99 01/14/19 16:59 POC Glucose 95 Phys Exam - Physical Examination HEENT: PERRLA, moist MMs Neck: no JVD, supple Respiratory: no wheezing, no rales Cardiovascular: RRR, no significant murmur Gastrointestinal: soft, non-tender, positive bowel sounds Musculoskeletal: pulses present left leg erythema and tenderness Neurological: non-focal, moves all 4 limbs Psychiatric: normal affect, A&O x 3 Dx/Plan (1) Gastroenteritis Code(s): K52.9 - NONINFECTIVE GASTROENTERITIS AND COLITIS, UNSPECIFIED Status : Acute Comment: likely viral (2) Cellulitis of left leg Code(s): L03.116 - CELLULITIS OF LEFT LOWER LIMB Status: Acute (3) Sepsis Code(s): A41.9 - SEPSIS, UNSPECIFIED ORGANISM Status: Acute Qualifiers: Sepsis type: sepsis due to unspecified organism Qualified Code(s): A41.9 - Sepsis, unspecified organism (4) Dehydration, moderate Code(s): E86.0 - DEHYDRATION Status: Resolved (5) Pleural effusion Code(s): J90 - PLEURAL EFFUSION, NOT ELSEWHERE CLASSIFIED Status: Acute Comment: right, s/p thoracentesis with removal of 900ml transudate (6) Bradycardia with 41-50 beats per minute Code(s): R00.1 - BRADYCARDIA, UNSPECIFIED Status: Acute Comment: likely med induced (7) Fluid overload Code(s): E87.70 - FLUID OVERLOAD, UNSPECIFIED Status: Suspected (8) Anemia of renal disease Code(s): D63.1 - ANEMIA IN CHRONIC KIDNEY DISEASE Status: Chronic (9) Anxiety and depression Code(s): F41.9 - ANXIETY DISORDER, UNSPECIFIED; F32.9 - MAJOR DEPRESSIVE DISORDER, SINGLE EPISODE, UNSPECIFIED Status: Chronic (10) Diabetes mellitus, type II, insulin dependent Code(s): E11.9 - TYPE 2 DIABETES MELLITUS WITHOUT COMPLICATIONS; Z79.4 - CLINICAL RESEARCH COORDINATOR (CURRENT) USE OF INSULIN Status: Chronic Comment: With ESRD (11) ESRD (end stage renal disease) on dialysis Code(s): N18.6 - END STAGE RENAL DISEASE; Z99.2 - DEPENDENCE ON RENAL DIALYSIS Status: Chronic Comment: HD on M/W/F (12) HLD (hyperlipidemia) Code(s): E78.5 - HYPERLIPIDEMIA, UNSPECIFIED Status: Chronic Qualifiers: (13) HTN (hypertension) Code(s): I10 - ESSENTIAL (PRIMARY) HYPERTENSION Status: Chronic Qualifiers: - Plan vanc and levaquin for cellulitis left leg -: continue asp, sevelamer, prozac and lipitor -: to ambulate as tolerated -: is getting HD -: dopamine infusion for bradycardia and hypotension both are resolving * . May dc dopamine if ok with . Off lopressor and clonidine from 30hrs now. HR around 50's, sbp around 110 this am. Review of Systems - Medications/Allergies Allergies/Adverse Reactions: Allergies Allergy/AdvReac Type Severity Reaction Status Date / Time No Known Allergies Allergy Verified 03/14/17 23:34 Medications: Current Medications Acetaminophen (Tylenol) 650 mg PO Q4H PRN PRN Reason: Headache/Fever/Mild Pain (1-3) Last Admin: 01/14/19 04:00 Dose: 650 mg Lipase/Protease/Amylase ([place] [id number]) 1 cap PO TID [facility] Last Admin: 01/15/19 11:30 Dose: 1 cap Aspirin (Aspirin) 325 mg PO DAILY [facility] Last Admin: 01/15/19 11:31 Dose: 325 mg Atorvastatin Calcium (Lipitor) 10 mg PO HS [facility] Last Admin: 01/14/19 21:06 Dose: 10 mg Dextrose/Water (Dextrose 50%) 25 gm SLOW IVP PRN PRN PRN Reason: Hypoglycemia Enoxaparin Sodium (Lovenox) 30 mg SC 0900 [facility] Last Admin: 01/15/19 11:30 Dose: 30 mg Famotidine (Pepcid) 20 mg PO BID [facility] Last Admin: 01/15/19 11:30 Dose: 20 mg Fluoxetine HCl (Prozac) 20 mg PO DAILY [facility] Last Admin: 01/15/19 11:30 Dose: 20 mg Glucagon (Glucagon) 1 mg IM PRN PRN PRN Reason: Hypoglycemia Last Admin: 01/14/19 10:54 Dose: 1 mg Guaifenesin/Dextromethorphan (Robitussin Dm) 15 ml PO Q4H PRN PRN Reason: Cough Dextrose/Water (D5w) 1,000 mls @ 0 mls/hr IV .Q0M PRN PRN Reason: Hypoglycemia Levofloxacin 250 mg/ Device 50 mls @ 100 mls/hr IVPB Q24HR [facility] Last Admin: 01/14/19 15:21 Dose: 50 mls Dopamine HCl/Dextrose (Dopamine/D5w) 250 mls @ 5.741 mls/hr IVPB INF [facility]; Protocol Last Admin: 01/14/19 10:30 Dose: 250 mls Insulin Human Lispro (Humalog) 0 units SC .MODERATE SLIDING SC PRN PRN Reason: Moderate Correctional Scale Insulin Human Lispro (Humalog) 0 units SC .BEDTIME SLIDING SC PRN PRN Reason: Bedtime Correctional Scale Pantoprazole Sodium (Protonix) 40 mg PO DAILY [facility] Last Admin: 01/15/19 11:30 Dose: 40 mg Sevelamer Carbonate (Renvela) 800 mg PO DAILY [facility] Last Admin: 01/15/19 11:30 Dose: 800 mg Sodium Chloride (Flush - Normal Saline) 10 ml IVF Q12HR [facility] Last Admin: 01/15/19 11:31 Dose: 10 ml Sodium Chloride (Flush - Normal Saline) 10 ml IVF PRN PRN PRN Reason: Saline Flush
[2019-01-15] MEDS ORDERED: VANCOMYCIN IVPB PRN (13:41)
[2019-01-15] MEDS ORDERED: Vancomycin HCl 750 MG in Sodium Chloride 0.9% 250 ML 250 ML IVPB SCH (13:45)
[2019-01-15] MEDS ORDERED: Vancomycin HCl 250 MG in Sodium Chloride 0.9% 100 ML IVPB SCH (13:45)
[2019-01-15] MEDS ORDERED: Vancomycin HCl 1 GM in Premix Bag 1 BAG IVPB SCH (13:45)
[2019-01-15] MEDS ORDERED: HOLD VANCOMYCIN FOR LEVEL >20 FS SCH (13:45)
--- NOTE | 2019-01-15 19:20 | PDOC.CTH ---
Cardiology Progress Note - Subjective She is doing much better. Her left leg is swollen, erythematous and painful to palpation consistent with cellulitis. - Objective Vital Signs Temp Pulse Ox 01/15/19 19:15 99.1 F 01/15/19 10:44 98.7 F 01/15/19 07:53 100 01/15/19 07:19 99.2 F Admit Weight 135 lb Weight 135 lb 01/14/19 01/15/19 01/16/19 06:59 06:59 06:59 Intake Total 340 1053.6 Output Total 1999 Balance 340 1053.6 -1999 - Physical Examination General/Neuro: alert & oriented x3, NAD Neck: no JVD present Lungs: CTA, unlabored respirations Heart: RRR Abdomen: NT/ND Extremities: other: (Left leg erythema, pain, edema) - Telemetry Telemetry Rhythm: NSR - Labs Result Diagrams: 01/14/19 04:42 01/14/19 04:41 Troponin/CKMB CK-MB (CK-2) 0.6 ng/mL (0-6.6) 01/13/19 11:22 Troponin I 0.202 ng/mL (< 0.028) H 01/13/19 11:22 - Assessment/Plan 1. Bradfycardia, stable, asymptomatic/. 2. Left leg cellulitis 3. Sepsis 4. Diarrhea 5. ESRD 6. CAD, s/p CABG, stable. PLAN: - Continue to hold all AV ruth blocking agents. - Continue to hold anti hypertensives. - Abx for left leg cellulitis per primary team.
[2019-01-15] MEDS: Atorvastatin Calcium 10 MG TAB PO SCH (20:45)
[2019-01-16] MEDS: Enoxaparin Sodium 30 MG/0.3 ML SYRINGE SC SCH (09:25)
[2019-01-16] MEDS: Sevelamer Carbonate 800 MG TAB PO SCH (09:25)
[2019-01-16] MEDS: Aspirin 325 MG TAB PO SCH (09:26)
[2019-01-16] MEDS: Famotidine 20 MG TAB PO SCH (09:26)
[2019-01-16] MEDS: Pancrelipase DR 12000 1 CAP PO SCH ×3 (09:26→21:02)
[2019-01-16] MEDS: FLUoxetine HCl 20 MG CAP PO SCH (09:26)
--- NOTE | 2019-01-16 09:41 | PRG ---
DATE OF SERVICE: 01/16/2019 SUBJECTIVE: Ms. Bolton is a 58-year-old female with ESRD and followed up by the [facility] for her maintenance hemodialysis. She underwent dialysis yesterday without any difficulty. She was initially admitted for fever. She was initially felt she might be septic. Empiric antibiotics was given. Urine and blood cultures have all been done, which essentially was negative. She was also negative for influenza. This morning, she is feeling better. No complaints. No chest pain or shortness of breath. OBJECTIVE: VITAL SIGNS: Blood pressure 147/63, heart rate 57, and respiratory rate is 22. GENERAL: Noted to be awake, alert, sitting comfortable, not in distress. SKIN: Adequate turgor. HEENT: Pinkish conjunctivae. Anicteric sclerae. NECK: No neck mass. No carotid bruits. No JVD. CHEST: No deformities. LUNGS: Clear breath sounds. HEART: Normal sinus rhythm. No murmurs, gallops, or rubs. ABDOMEN: Globular, soft, nontender. No masses. EXTREMITIES: No edema. No deformities. MEDICATIONS: Medications of January 16, 2019, were reviewed. LABORATORY DATA: Laboratories of January 14, 2019; sodium 133, potassium 3.9, chloride 95, carbon dioxide 28, BUN 19, creatinine 5.1, calcium 9.5. White count 13.1, hemoglobin 10.2. ASSESSMENT AND PLAN: 1. End-stage renal disease, stable. Continuing Sunday, Sunday, Sunday dialysis. Tolerating said treatment. Fluid removal as tolerated. 2. Fever, clinically resolved on antibiotics. Blood and urine cultures are so far negative. Continue supportive care. From a renal standpoint, the patient can be discharged any time. Job ID: [id number]
[2019-01-16] MEDS ORDERED: ISOVUE-370 76%-LOCM 1 ML ONE (10:16)
--- NOTE | 2019-01-16 12:12 | PRG ---
DATE OF SERVICE: 01/16/2019 SERVICE: Pulmonary Medicine. INTERVAL HISTORY: The patient is doing fine from a respiratory standpoint. She is breathing comfortably. Otherwise, there has been normal change to her condition. Her left leg became red, hot and swollen. She had not had any fevers or overnight events. PHYSICAL EXAMINATION: VITAL SIGNS: Afebrile, pulse 77, blood pressure 148/69, respirations 15, saturation 98% on 1 L nasal cannula. GENERAL: The patient is awake and alert, in no apparent distress. LUNGS: Excellent air entry. There is no prolonged expiratory phase or wheezing present. HEART: Normal rate regular. ABDOMEN: Soft, nontender, nondistended. Bowel sounds are positive. MUSCULOSKELETAL: No cyanosis or clubbing. The left lower extremity from below the knee to above the ankle are red, hot, and swollen. LABORATORY DATA: WBC 13.1, hemoglobin 10.2, and platelets 146,000. Microbiology is negative to date. ASSESSMENT: 1. Acute hypoxic respiratory failure. 2. Pleural effusion on the right, status post thoracentesis, transudate demonstrated. 3. Severe sepsis, resolving. 4. Cellulitis of the left lower extremity. 5. Aom-EU-usycpuotz myocardial infarction. 6. End-stage renal disease. 7. Bradyarrhythmia secondary to medication effect, likely. DISCUSSION AND PLAN: The patient is now off her dopamine. At this point, she can be considered for transition out of the ICU back to the telemetry unit. The left lower extremity is red, hot, and swollen. As such, I will verify, if she had an ultrasound of that leg to make certain there is no significant clot burden there. Pulmonary Critical Care will continue to follow along. Job ID: [id number]
--- NOTE | 2019-01-16 15:17 | PDOC.PN ---
- Subjective Encounter Start Date: 01/16/19 Encounter Start Time: 09:40 Pt seen for followup re:cellulitis. Says she feels better. - Objective Resuscitation Status - Order Detail: 01/13/19 12:12 Resuscitation Status Routine Resuscitation Status: FULL: Full Resuscitation Vital Signs & Weight: Vital Signs (12 hours) Temp Pulse Ox 01/16/19 11:44 97.9 F 01/16/19 07:36 100 01/16/19 07:06 98.0 F 01/16/19 04:00 98.8 F Weight Admit Weight 135 lb Weight 135 lb Most Recent Monitor Data Heart Rate from ECG 63 NIBP 134/76 NIBP BP-Mean 95 Respiration from ECG 24 SpO2 80 I&O: 01/15/19 01/16/19 01/17/19 06:59 06:59 06:59 Intake Total 1053.6 210 Output Total 1999 Balance 1053.6 -1790 Result Diagrams: 01/14/19 04:42 01/14/19 04:41 Additional Labs: Accuchecks 01/16/19 01/16/19 01/15/19 10:36 06:04 19:57 POC Glucose 177 H 96 159 H 01/15/19 16:29 POC Glucose 188 H Phys Exam - Physical Examination Constitutional: NAD HEENT: moist MMs Neck: supple Respiratory: clear to auscultation bilateral Cardiovascular: RRR Gastrointestinal: soft Neurological: moves all 4 limbs Psychiatric: normal affect Deviation from normal: L leg cellulitis Dx/Plan (1) Cellulitis of left leg Code(s): L03.116 - CELLULITIS OF LEFT LOWER LIMB Status: Acute Comment: Improving, continue antibiotics as below (2) Pleural effusion Code(s): J90 - PLEURAL EFFUSION, NOT ELSEWHERE CLASSIFIED Status: Acute Comment: s/p thoracentesis with removal of 900ml transudate (3) Diabetes mellitus, type II, insulin dependent Code(s): E11.9 - TYPE 2 DIABETES MELLITUS WITHOUT COMPLICATIONS; Z79.4 - SKILLED NURSING (CURRENT) USE OF INSULIN Status: Chronic Comment: With ESRD (4) ESRD (end stage renal disease) on dialysis Code(s): N18.6 - END STAGE RENAL DISEASE; Z99.2 - DEPENDENCE ON RENAL DIALYSIS Status: Chronic Comment: HD per nephrology service (5) HTN (hypertension) Code(s): I10 - ESSENTIAL (PRIMARY) HYPERTENSION Status: Chronic Qualifiers: Comment: controlled - Plan * . Review of Systems - Review of Systems Respiratory: negative: Cough, Shortness of Breath, SOB with Excertion, Sputum, Wheezing Cardiovascular: negative: chest pain, palpitations, orthopnea, paroxysmal nocturnal dyspnea, edema, light headedness Skin: Rash - Medications/Allergies Allergies/Adverse Reactions: Allergies Allergy/AdvReac Type Severity Reaction Status Date / Time No Known Allergies Allergy Verified 03/14/17 23:34 Medications: Current Medications Acetaminophen (Tylenol) 650 mg PO Q4H PRN PRN Reason: Headache/Fever/Mild Pain (1-3) Last Admin: 01/14/19 04:00 Dose: 650 mg Lipase/Protease/Amylase ([place] [id number]) 1 cap PO TID [facility] Last Admin: 01/16/19 14:59 Dose: 1 cap Aspirin (Aspirin) 325 mg PO DAILY [facility] Last Admin: 01/16/19 09:26 Dose: 325 mg Atorvastatin Calcium (Lipitor) 10 mg PO HS [facility] Last Admin: 01/15/19 20:45 Dose: 10 mg Dextrose/Water (Dextrose 50%) 25 gm SLOW IVP PRN PRN PRN Reason: Hypoglycemia Enoxaparin Sodium (Lovenox) 30 mg SC 0900 [facility] Last Admin: 01/16/19 09:25 Dose: 30 mg Famotidine (Pepcid) 20 mg PO DAILY [facility] Last Admin: 01/16/19 09:26 Dose: 20 mg Fluoxetine HCl (Prozac) 20 mg PO DAILY [facility] Last Admin: 01/16/19 09:26 Dose: 20 mg Glucagon (Glucagon) 1 mg IM PRN PRN PRN Reason: Hypoglycemia Last Admin: 01/14/19 10:54 Dose: 1 mg Guaifenesin/Dextromethorphan (Robitussin Dm) 15 ml PO Q4H PRN PRN Reason: Cough Dextrose/Water (D5w) 1,000 mls @ 0 mls/hr IV .Q0M PRN PRN Reason: Hypoglycemia Levofloxacin 250 mg/ Device 50 mls @ 100 mls/hr IVPB Q24HR [facility] Last Admin: 01/16/19 14:59 Dose: 50 mls Vancomycin HCl 1 gm/ Device 200 mls @ 200 mls/hr IVPB [facility] Vancomycin HCl 750 mg/ Sodium (Chloride) 250 mls @ 250 mls/hr IVPB [facility] Vancomycin HCl 500 mg/ Sodium (Chloride) 100 mls @ 100 mls/hr IVPB [facility] Vancomycin HCl 250 mg/ Sodium (Chloride) 100 mls @ 100 mls/hr IVPB [facility] Insulin Human Lispro (Humalog) 0 units SC .MODERATE SLIDING SC PRN PRN Reason: Moderate Correctional Scale Insulin Human Lispro (Humalog) 0 units SC .BEDTIME SLIDING SC PRN PRN Reason: Bedtime Correctional Scale Miscellaneous Medication (Pharmacy To Dose) 1 each IVPB PRN PRN PRN Reason: Pharmacy to dose Hold Vancomycin For (Level >20) 0 each FS .AT DIALYSIS [facility] Pantoprazole Sodium (Protonix) 40 mg PO DAILY [facility] Last Admin: 01/16/19 09:26 Dose: 40 mg Sevelamer Carbonate (Renvela) 800 mg PO DAILY [facility] Last Admin: 01/16/19 09:25 Dose: 800 mg Sodium Chloride (Flush - Normal Saline) 10 ml IVF Q12HR [facility] Last Admin: 01/16/19 09:26 Dose: 10 ml Sodium Chloride (Flush - Normal Saline) 10 ml IVF PRN PRN PRN Reason: Saline Flush
--- NOTE | 2019-01-16 17:56 | ULT ---
ULTRASOUND WITH DOPPLER DUPLEX VENOUS LOWER EXTREMITY LEFT 01/16/19 CPT: 84434 ICD-10-PCS: B54D HISTORY: Erythema, rubor and edema of left lower extremity. TECHNIQUE: Color flow Doppler, spectral waveform analysis of pulsed Doppler, and delgado-scale imaging with charles andres and augmentation, were used to evaluate the left common femoral, femoral, popliteal, posterior t ibial, and superficial femoral, veins; and the proximal portions of the profunda femoral and greater saphenous, veins. FINDINGS: There is appropriate compressibility and flow within the imaged deep vein system of the left lower ex tremity. Soft tissue edema is present. IMPRESSION: 1. No DVT of the imaged left lower extremity. 2. Soft tissue edema. Correlate clinically. POS: ANGELA
--- NOTE | 2019-01-16 18:10 | PDOC.CTH ---
Cardiology Progress Note - Subjective Her left leg remains erythematous. Unchanged from yesterday. - Objective Vital Signs Temp Pulse Ox 01/16/19 15:16 98.4 F 01/16/19 11:44 97.9 F 01/16/19 07:36 100 01/16/19 07:06 98.0 F Admit Weight 135 lb Weight 135 lb 01/15/19 01/16/19 01/17/19 06:59 06:59 06:59 Intake Total 1053.6 210 Output Total 1999 Balance 1053.6 -1790 - Physical Examination General/Neuro: alert & oriented x3, NAD Neck: no JVD present Lungs: CTA, unlabored respirations Heart: RRR Abdomen: NT/ND Extremities: + edema B (1+ left leg.) - Telemetry Telemetry Rhythm: NSR - Labs Result Diagrams: 01/14/19 04:42 01/14/19 04:41 Troponin/CKMB CK-MB (CK-2) 0.6 ng/mL (0-6.6) 01/13/19 11:22 Troponin I 0.202 ng/mL (< 0.028) H 01/13/19 11:22 - Assessment/Plan 1. Bradycardia, stable, asymptomatic. 2. Left leg cellulitis 3. Sepsis 4. Diarrhea 5. ESRD on HD. 6. CAD, s/p CABG, stable. PLAN: - Continue to hold all AV ruth blocking agents. - Continue to hold anti hypertensives. - Abx for left leg cellulitis per primary team. - No significant improvement despite broad spectrum abx,. Concern for PVD. Will do CT angio legs.
[2019-01-16] MEDS: Atorvastatin Calcium 10 MG TAB PO SCH (21:02)
--- NOTE | 2019-01-16 23:11 | CT ---
CTA LEFT LOWER EXTREMITY: 01/16/19 Multiple axial tomograms obtained through the left lower extremity beginning at the groin with angio protocol. Multiplanar reconstructions with 3D postprocessing performed. INDICATIONS: Assess for left lower extremity peripheral vascular disease. Cellulitis in left lower extremity not r esponding to treatment. This limited exam begins in the left groin and includes the lower left pelvis. The external iliac is imaged and is patent. The left common femoral is patent with mild atherosclerotic change. The profund a is patent. The left superficial femoral artery shows diffuse atherosclerotic change with numerous areas of mild stenosis. No evidence of high grade stenosis. The popliteal artery shows atherosclerotic change and mild stenosis without evidence of high grade st enosis. The popliteal artery trifurcates below the knee. There is three vessel runoff to the ankle. On the soft tissue images of the lower pelvis, there is evidence of some free fluid in the deep pelvi s. This is incompletely evaluated. Soft tissues show diffuse subcutaneous edema in the left lower extremity consistent with the history of cellulitis. This is very prominent below the knee. There is no evidence of fluid or abscess collec tion. IMPRESSION: Atherosclerotic change seen in the left lower extremity; however, no evidence of significant or high grade stenosis identified. There is three vessel runoff to the left ankle and foot. POS: CHARLIE
[2019-01-17 04:25] LABS: #Eosinphils 0.1 thou/uL (0.0-0.7); #Lymphocytes 1.2 thou/uL (1.20-3.40); #Monocytes 0.7 thou/uL (0.11-0.59); #Neutrophils 4.4 thou/uL (1.40-6.50); %Basophils 0.2 % (0.0-1.0); %Lymphocytes 18.8 % (21.0-51.0); Hemoglobin 10.1 g/dL (12.0-16.0); Mean Corpuscular HGB CONC 32.6 g/dL (32.0-36.0); Mean Corpuscular Hemoglobin 32.2 pg (27.0-31.0); Mean Corpuscular Volume 98.6 fL (78.0-98.0); Mean Platelet Volume 7.4 fL (7.4-10.4); Platelet Count 151 thou/uL (130-400); RBC Distribution Width 12.7 % (11.5-14.5); Red Blood Cell (RBC) Count 3.15 mill/uL (4.20-5.40); White Blood Cell (WBC) Count 6.5 thou/uL (4.8-10.8)
[2019-01-17 04:42] LABS: Anion Gap 16 mmol/L (10-20); BUN (Urea Nitrogen) 37 mg/dL (9.8-20.1); Calc. Creatinine Clearance 9 mL/min (70-130); Calcium 9.2 mg/dL (7.8-10.44); Carbon Dioxide 25 mmol/L (22-29); Chloride 98 mmol/L (98-107); Estimated GFR-MDRD 7; Glucose 136 mg/dL (70-105); Sodium 135 mmol/L (136-145)
[2019-01-17 07:46] LABS: Vancomycin, Random 13.5 ug/mL (See Comment)
--- NOTE | 2019-01-17 08:54 | PDOC.CTH ---
Cardiology Progress Note - Subjective No new issues. - Objective Vital Signs Temp Pulse Ox 01/17/19 07:32 99 01/17/19 07:09 97.9 F 01/17/19 04:00 97.7 F 01/17/19 00:00 98.6 F Admit Weight 135 lb Weight 135 lb 01/16/19 01/17/19 01/18/19 06:59 06:59 06:59 Intake Total 210 1560 Output Total 2000 Balance -1790 1560 - Physical Examination General/Neuro: alert & oriented x3, NAD Neck: no JVD present Lungs: unlabored respirations Heart: RRR Abdomen: NT/ND Extremities: + edema B (1+ left) - Telemetry Telemetry Rhythm: NSR - Labs Result Diagrams: 01/17/19 04:06 01/17/19 04:06 Troponin/CKMB CK-MB (CK-2) 0.6 ng/mL (0-6.6) 01/13/19 11:22 Troponin I 0.202 ng/mL (< 0.028) H 01/13/19 11:22 - Assessment/Plan 1. Bradycardia, resolved. 2. Left leg cellulitis 3. Sepsis 4. Diarrhea 5. ESRD on HD. 6. CAD, s/p CABG, stable. PLAN: - Will restart Imdur. - Abx for left leg cellulitis per primary team. - PVD but not flow limiting per CTA, good enough for healing. No intervention to leg needed. - Restart BP meds in next few days, hold metoprolol for now and will plan on restarting as an outpatient. - Follow up in 1 month after discharge. - Will sign off. Please call with any questions.
--- NOTE | 2019-01-17 10:51 | PRG ---
DATE OF SERVICE: SERVICE: Pulmonary Medicine. INTERVAL HISTORY: The patient is doing great from respiratory standpoint. Her blood pressure and heart rate are much improved. She is tolerating dialysis just fine. She has been weaned down to room air. Denies any current chest pain, fevers, or chills. Otherwise, there has been no interval change to her condition. PHYSICAL EXAMINATION: VITAL SIGNS: Afebrile, pulse 81, blood pressure 152/74, respirations 24, saturation 99% on room air. GENERAL: The patient is awake and alert, in no apparent distress. LUNGS: Excellent air entry. There is no prolonged expiratory phase or wheezing present. HEART: Normal rate, regular. ABDOMEN: Soft, nontender, nondistended. Bowel sounds are positive. MUSCULOSKELETAL: No cyanosis or clubbing. There is 1 to 2+ pitting in the left lower extremity. : No Jackson. NEUROLOGIC: Grossly nonfocal. LABORATORY DATA: WBC 6.5, hemoglobin 10.1, platelets 151,000 and roughly stable. Creatinine 6.3. Basic metabolic profile is otherwise unremarkable. IMAGING: Ultrasound of the bilateral lower extremities demonstrates no evidence of DVT in her lower extremity. Soft tissue edema is noted. ASSESSMENT: 1. Severe sepsis. 2. Pleural effusion on the right, status post thoracentesis demonstrating a transudate. 3. Acute hypoxic respiratory failure, resolved. 4. Cellulitis of left lower extremity. 5. [id number] myocardial infarction. 6. End-stage renal disease. 7. Bradyarrhythmia secondary to medication effect, resolved. DISCUSSION AND PLAN: The patient's leg is exquisitely tender. The DVT was not present in the lower extremity. There is now some erythema in the medial aspect of the left thigh. As such, I will call surgery to come by and evaluate her leg. Pulmonary/Critical Care will continue to follow along so far as she remains inhouse. From my perspective, she would be stable for transition to the telemetry unit. Job ID: [id number]
[2019-01-17] MEDS: Pancrelipase DR 12000 1 CAP PO SCH ×3 (11:47→22:42)
[2019-01-17] MEDS: Vancomycin HCl 500 MG in Sodium Chloride 0.9% 100 ML IVPB SCH (13:44)
[2019-01-17] MEDS: FLUoxetine HCl 20 MG CAP PO SCH (13:44)
[2019-01-17] MEDS: Sevelamer Carbonate 800 MG TAB PO SCH (13:44)
[2019-01-17] MEDS: Famotidine 20 MG TAB PO SCH (13:45)
[2019-01-17] MEDS: Aspirin 325 MG TAB PO SCH (13:45)
[2019-01-17] MEDS: Enoxaparin Sodium 30 MG/0.3 ML SYRINGE SC SCH (13:49)
--- NOTE | 2019-01-17 15:04 | PQF ---
CLINICAL DOCUMENTATION IMPROVEMENT CLARIFICATION FORM: ICD-10 Updated PLEASE DO AN ADDENDUM TO THE PROGRESS NOTE WITH ANY DOCUMENTATION UPDATES OR ADDITIONS AND CARRY THROUGH TO DC SUMMARY. THANK YOU. DATE: 01/17/2019 ATTN: Dr. Byrne Please exercise your independent, professional judgment in responding to the clarification form. Clinical indicators are provided on the bottom of this form for your review Please check appropriate box(s) to clarify if the following diagnosis has been ruled in or ruled out: SEPSIS [ ] Ruled in diagnosis [ ] Continue to treat [ ] Resolved [ ] Ruled out diagnosis [ ] Cannot rule out diagnosis [ ] Other diagnosis [ ] Unable to determine In addition, please specify: Present on Admission (POA): [ ] Yes [ ] No [ ] Unable to determine For continuity of documentation, please document condition throughout progress notes and discharge summary. Thank You. CLINICAL INDICATORS - SIGNS / SYMPTOMS / LABS 01/14 (Rgheidy) Presenting to the emergency dept. because of possible right-sided pneumonia. She is also in volume overload state. She transitioned over to inpatient T-max overnight of 101.7 WBC 16.6 and downtrending to 13.1 Severe Sepsis PN 01/15: Sepsis , unspecified organism. vanc and levaquin for cellulitis l leg PN 01/16 (Marcos) Severe sepsis, resolving RISKS: H&P 01/14: HX HTN, DM 2, CABG. ESRD on HD. TREATMENT: Order 01/13: Levaquin 250mg IV Order 01/15: Vancomycin IV Thank you, Sharon (This form is maintained as a part of the permanent medical record) 2014 [employer] All Rights Reserved Sharon Cohen RN, BSN [email or web address] Office: [phone] [facility]
--- NOTE | 2019-01-17 15:31 | PQF ---
CLINICAL DOCUMENTATION IMPROVEMENT CLARIFICATION FORM: ICD-10 Updated PLEASE DO AN ADDENDUM TO THE PROGRESS NOTE WITH ANY DOCUMENTATION UPDATES OR ADDITIONS AND CARRY THROUGH TO DC SUMMARY. THANK YOU. DATE: 01/17/2019; 01/20/2019 ATTN: Dr. Rodríguez Please exercise your independent, professional judgment in responding to the clarification form. Clinical indicators are provided on the bottom of this form for your review Please check appropriate box(s): AMI TYPE: [ ] NSTEMI (DC type I) [X] NSTEMI due to Demand Ischemia (AMI Type II) [ ] Demand Ischemia without DC [ ] Other diagnosis [ ] Unable to determine In addition, please specify: Present on Admission (POA): [X] Yes [ ] No [ ] Unable to determine CLINICAL INDICATORS - SIGNS / SYMPTOMS / LABS 01/14 (Marcos) Troponin is up trending. [id number] myocardial infarction LABS 01/13: Troponin I 0.069 @ 0747 0.202 @1122 PN 01/16 (Marcos) Severe sepsis, resolving Cellulitis of the left lower extremity [id number] myocardial infarction RISKS: 01/14 (Marcos) HX ESRD, HTN, Type 2 DM. Right-sided pleural effusion. Severe sepsis. TREATMENT: Order 01/13: Aspirin po daily Order 01/13: Levaquin 250mg IV Order 01/15: Vancomycin IV Thank you, Sharon (This form is maintained as a part of the permanent medical record) 2014 [employer]. All Rights Reserved Sharon Cohen RN, BSN [email or web address] Office: [phone] [facility]
--- NOTE | 2019-01-17 15:54 | PDOC.PN ---
- Subjective Encounter Start Date: 01/17/19 Encounter Start Time: 10:00 Pt seen for followup re: left leg cellulitis. Denies chest pain. c/o LLE pain. - Objective Resuscitation Status - Order Detail: 01/13/19 12:12 Resuscitation Status Routine Resuscitation Status: FULL: Full Resuscitation MAR Reviewed: Yes Vital Signs & Weight: Vital Signs (12 hours) Temp Pulse Ox 01/17/19 15:15 99.2 F 01/17/19 11:19 99.1 F 01/17/19 07:32 99 01/17/19 07:09 97.9 F 01/17/19 04:00 97.7 F Weight Admit Weight 135 lb Weight 135 lb Most Recent Monitor Data Heart Rate from ECG 79 NIBP 161/80 NIBP BP-Mean 107 Respiration from ECG 26 SpO2 80 I&O: 01/16/19 01/17/19 01/18/19 06:59 06:59 06:59 Intake Total 210 1560 Output Total 2000 Balance -1790 1560 Result Diagrams: 01/17/19 04:06 01/17/19 04:06 Additional Labs: Accuchecks 01/17/19 01/17/19 01/16/19 10:34 06:03 19:50 POC Glucose 140 H 100 178 H 01/16/19 16:34 POC Glucose 133 H EKG Reviewed by me: Yes (Tele: NSR) Dx/Plan (1) Cellulitis of left leg Code(s): L03.116 - CELLULITIS OF LEFT LOWER LIMB Status: Acute Comment: Improving, continue antibiotics as below. Await ID consult. (2) Pleural effusion Code(s): J90 - PLEURAL EFFUSION, NOT ELSEWHERE CLASSIFIED Status: Acute Comment: s/p thoracentesis (3) Diabetes mellitus, type II, insulin dependent Code(s): E11.9 - TYPE 2 DIABETES MELLITUS WITHOUT COMPLICATIONS; Z79.4 - SENIOR CARE (CURRENT) USE OF INSULIN Status: Chronic Comment: reasonable control (4) ESRD (end stage renal disease) on dialysis Code(s): N18.6 - END STAGE RENAL DISEASE; Z99.2 - DEPENDENCE ON RENAL DIALYSIS Status: Chronic Comment: HD per nephrology service (5) HTN (hypertension) Code(s): I10 - ESSENTIAL (PRIMARY) HYPERTENSION Status: Chronic Qualifiers: Comment: controlled (6) Sepsis Code(s): A41.9 - SEPSIS, UNSPECIFIED ORGANISM Status: Resolved Qualifiers: Sepsis type: sepsis due to unspecified organism Qualified Code(s): A41.9 - Sepsis, unspecified organism Comment: present on admission - Plan continue antibiotics, out of bed/ambulate * . Review of Systems - Review of Systems Respiratory: negative: Cough, Shortness of Breath, SOB with Excertion, Pleuritic Pain, Wheezing Cardiovascular: negative: chest pain, palpitations, orthopnea, paroxysmal nocturnal dyspnea, edema, light headedness Musculoskeletal: Leg Pain - Medications/Allergies Allergies/Adverse Reactions: Allergies Allergy/AdvReac Type Severity Reaction Status Date / Time No Known Allergies Allergy Verified 03/14/17 23:34 Medications: Current Medications Acetaminophen (Tylenol) 650 mg PO Q4H PRN PRN Reason: Headache/Fever/Mild Pain (1-3) Last Admin: 01/14/19 04:00 Dose: 650 mg Lipase/Protease/Amylase ([place] [id number]) 1 cap PO TID [facility] Last Admin: 01/17/19 13:45 Dose: 1 cap Aspirin (Aspirin) 325 mg PO DAILY [facility] Last Admin: 01/17/19 13:45 Dose: 325 mg Atorvastatin Calcium (Lipitor) 10 mg PO HS [facility] Last Admin: 01/16/19 21:02 Dose: 10 mg Dextrose/Water (Dextrose 50%) 25 gm SLOW IVP PRN PRN PRN Reason: Hypoglycemia Enoxaparin Sodium (Lovenox) 30 mg SC 0900 [facility] Last Admin: 01/17/19 13:49 Dose: 30 mg Famotidine (Pepcid) 20 mg PO DAILY [facility] Last Admin: 01/17/19 13:45 Dose: 20 mg Fluoxetine HCl (Prozac) 20 mg PO DAILY [facility] Last Admin: 01/17/19 13:44 Dose: 20 mg Glucagon (Glucagon) 1 mg IM PRN PRN PRN Reason: Hypoglycemia Last Admin: 01/14/19 10:54 Dose: 1 mg Guaifenesin/Dextromethorphan (Robitussin Dm) 15 ml PO Q4H PRN PRN Reason: Cough Dextrose/Water (D5w) 1,000 mls @ 0 mls/hr IV .Q0M PRN PRN Reason: Hypoglycemia Levofloxacin 250 mg/ Device 50 mls @ 100 mls/hr IVPB Q24HR [facility] Last Admin: 01/17/19 13:51 Dose: 50 mls Vancomycin HCl 1 gm/ Device 200 mls @ 200 mls/hr IVPB WILLCALL [facility] Vancomycin HCl 750 mg/ Sodium (Chloride) 250 mls @ 250 mls/hr IVPB [facility]CALL [facility] Vancomycin HCl 500 mg/ Sodium (Chloride) 100 mls @ 100 mls/hr IVPB [facility] Last Admin: 01/17/19 13:44 Dose: 100 mls Vancomycin HCl 250 mg/ Sodium (Chloride) 100 mls @ 100 mls/hr IVPB WILLCALL [facility] Insulin Human Lispro (Humalog) 0 units SC .MODERATE SLIDING SC PRN PRN Reason: Moderate Correctional Scale Insulin Human Lispro (Humalog) 0 units SC .BEDTIME SLIDING SC PRN PRN Reason: Bedtime Correctional Scale Miscellaneous Medication (Pharmacy To Dose) 1 each IVPB PRN PRN PRN Reason: Pharmacy to dose Hold Vancomycin For (Level >20) 0 each FS .AT DIALYSIS [facility] Pantoprazole Sodium (Protonix) 40 mg PO DAILY [facility] Last Admin: 01/17/19 13:45 Dose: 40 mg Sevelamer Carbonate (Renvela) 800 mg PO DAILY [facility] Last Admin: 01/17/19 13:44 Dose: 800 mg Sodium Chloride (Flush - Normal Saline) 10 ml IVF Q12HR [facility] Last Admin: 01/17/19 13:49 Dose: 10 ml Sodium Chloride (Flush - Normal Saline) 10 ml IVF PRN PRN PRN Reason: Saline Flush
--- NOTE | 2019-01-17 19:44 | PRG ---
DATE OF SERVICE: 01/17/2019 SUBJECTIVE: Ms. Bolton is a 58-year-old female with ESRD-on maintenance hemodialysis and admitted for fever. She was subsequently found to have left leg cellulitis, currently on antibiotics. She is undergoing hemodialysis this morning. Tolerating said treatment. Fluid removal only as tolerated. The patient denies any chest pain or shortness of breath. OBJECTIVE: VITAL SIGNS: Blood pressure 162/92, heart rate 83, respiratory rate 25. GENERAL: Awake, alert, comfortable, not in distress. SKIN: Adequate turgor. HEENT: She has a pinkish conjunctivae. Anicteric sclerae. NECK: No neck mass. No carotid bruits. No JVD. CHEST: No deformities. LUNGS: Clear breath sounds. HEART: Normal sinus rhythm. No murmurs, gallops, or rubs. ABDOMEN: Globular, soft, nontender. No masses. EXTREMITIES: No edema. No deformities. MEDICATIONS: Of January 17, 2019, reviewed. LABORATORY DATA: Of January 17, 2019; white count 6.5, hemoglobin 10.1, sodium 135, potassium 4, chloride 98, carbon dioxide 25, BUN 37, creatinine 6.3, glucose 126, and calcium 9.2. IMPRESSION: 1. Left leg cellulitis-currently on IV antibiotics. Currently Levaquin and vancomycin. ID is following. 2. End-stage renal disease, stable, tolerating current hemodialysis regimen. Fluid removal only as tolerated by the patient. No changes will be made with the current dialysis regimen. We will continue Sunday, Sunday, Sunday dialysis. Job ID: [id number]
[2019-01-17] MEDS: Atorvastatin Calcium 10 MG TAB PO SCH (22:42)
--- NOTE | 2019-01-18 01:20 | CON ---
DATE OF CONSULTATION: REASON FOR CONSULT: Left leg cellulitis. HISTORY: Ms. Bolton is a 58-year-old woman with multiple medical problems including end-stage renal failure, on dialysis. She came to the hospital on 01/13 with volume overload and possible pneumonia. She has apparently improved from a respiratory standpoint after dialysis. She also had abdominal pain, nausea, and vomiting, which have improved since dialysis. She has swelling and redness of her left leg, which she states was present before she came to the hospital. She cannot tell me exactly how long it was present. She does not relate any injury to the leg, but states that her leg hurts all the time, especially when someone presses it, or when she tries to stand or walk. She did undergo a lower extremity CTA since her cellulitis did not seem to be responding to antibiotics. No fluid collection or abscess was seen. She did have atherosclerotic changes in the left lower extremity, but no high-grade stenosis and she was seen to have three-vessel runoff to the left ankle and foot. She denies any history of claudication or rest pain. Vascular ultrasound was negative for DVT. Infectious Disease has been consulted, but has not seen the patient yet. PAST MEDICAL HISTORY: End-stage renal failure, on dialysis Sunday, Sunday, Sunday, hypertension, hyperlipidemia, diabetes, and coronary artery disease. PAST SURGICAL HISTORY: Right-sided AV fistula by Dr. Ash, 4-vessel coronary artery bypass, and removal of ovarian tumor. OUTPATIENT MEDICATIONS: Include: 1. Toprol. 2. Aspirin. 3. Creon. 4. Fluoxetine. 5. Renvela. 6. Clonidine. 7. Hydralazine. 8. Levemir. 9. Minoxidil. 10. Pravastatin. 11. Antibiotics since admission include levofloxacin, sliding scale, vancomycin. ALLERGIES: SHE HAS NO KNOWN DRUG ALLERGIES. PHYSICAL EXAMINATION: VITAL SIGNS: The patient had some low-grade temperatures earlier in her hospital stay going as high as 101.7, but has been afebrile for the past two days. Heart rate 83, blood pressure 162/92, respirations 25, saturations mostly in the 90s. GENERAL: Reveals a frail-appearing woman, in no acute distress, who appears older than her stated age. HEENT: Unremarkable. NECK: Supple without lymphadenopathy. HEART: Regular. I do not appreciate any significant murmurs, rubs, or gallops. LUNGS: Clear to auscultation. Her abdomen has some pseudoaneurysms that is patent with a good thrill and her hand is warm with normal strength. ABDOMEN: Soft, nontender, and nondistended. EXTREMITIES: Warm and well perfused. She has a normal dorsalis pedis pulse on the right. I can't feel her posterior tibial pulse, but she has a fair amount of edema in that area. She does not have any cellulitis or wounds on her foot, but her entire calf is discolored, red and swollen with a little bit of minor weeping from the skin. The redness does not eliot over most of the foot, although does eliot slightly around the edges. Her lower thigh appears fairly normal, although somewhat edematous compared to the right leg, but then she has erythema over her upper inner thigh on the left. There is no palpable fluctuance or induration to suggest an underlying abscess. No significant lymphangitis or lymphadenitis. She is tender over the area of redness, but not over the remainder of her leg and there is not any crepitance. ASSESSMENT: Cellulitis without evidence of abscess or necrotizing soft tissue infection. I agree with Infectious Disease evaluation. Since the patient is a diabetic and the gram-negative coverage could be considered, quinolone resistance can be significant and she does not have any allergies that would preclude the use of penicillins. No indication for surgical intervention at this time. I did recommend keeping her leg elevated, which she has not been consistent in doing and I demonstrated proper positioning of the leg. Job ID: [id number]
[2019-01-18] MEDS: Enoxaparin Sodium 30 MG/0.3 ML SYRINGE SC SCH (08:25)
[2019-01-18] MEDS: Aspirin 325 MG TAB PO SCH (08:26)
[2019-01-18] MEDS: Pancrelipase DR 12000 1 CAP PO SCH ×3 (08:26→20:00)
[2019-01-18] MEDS: FLUoxetine HCl 20 MG CAP PO SCH (08:26)
[2019-01-18] MEDS: Famotidine 20 MG TAB PO SCH (08:26)
[2019-01-18] MEDS: Sevelamer Carbonate 800 MG TAB PO SCH (08:26)
[2019-01-18] MEDS ORDERED: CEFAZOLIN 1 GM in Sodium Chloride 0.9% 100 ML IVPB SCH ×2 (09:00→10:00)
--- NOTE | 2019-01-18 12:15 | PRG ---
DATE OF SERVICE: 01/18/2019 SUBJECTIVE: Ms. Bolton is a 58-year-old female with ESRD and maintenance hemodialysis. She underwent hemodialysis yesterday without any difficulty. She tolerated said treatment. Fluid removal was done. She is still here at the hospital due to the left leg cellulitis. Currently, on IV antibiotics. No complaints of chest pain or shortness of breath. OBJECTIVE: VITAL SIGNS: Blood pressure 172/95, heart rate 85, respiratory rate 18. GENERAL: Awake, alert, comfortable, not in distress. SKIN: Adequate turgor. HEENT: Pinkish conjunctivae. Anicteric sclerae. NECK: No neck mass. No carotid bruits. No JVD. CHEST: No deformities. LUNGS: Clear breath sounds. HEART: Normal sinus rhythm. No murmurs. No gallops. No rubs. ABDOMEN: Globular, soft, nontender. EXTREMITIES: No edema. MEDICATIONS: Medications of January 18, 2019, were reviewed. LABORATORY DATA: Laboratories of January 17, 2019, potassium 4, BUN 37, creatinine 6.3; January 18, 2019, glucose 126; January 17, 2019, hemoglobin 10.1, white count 6.5. ASSESSMENT AND PLAN: 1. Left leg cellulitis-on IV antibiotics. Continue current management. 2. End-stage renal disease, stable. There is no indication for any dialytic intervention at the present time. We will continue the current Sunday, Sunday, Sunday dialysis. Overall, agree with current management. Job ID: [id number]
--- NOTE | 2019-01-18 14:11 | PRG ---
DATE OF SERVICE: 01/18/2019 SERVICE: Pulmonary Medicine. INTERVAL HISTORY: The patient is doing okay from a respiratory standpoint. Breathing comfortably. No chest pain. She continues to have left lower extremity discomfort. PHYSICAL EXAMINATION: VITAL SIGNS: Afebrile, blood pressure 172/95, respirations 18, and saturation 97% on room air. GENERAL: The patient is awake and alert, in no apparent distress. LUNGS: Decent air entry with no prolonged expiratory phase. Minimal dependent crackles are noted. HEART: Normal rate and regular. ABDOMEN: Soft, nontender, and nondistended. Bowel sounds are positive. MUSCULOSKELETAL: No cyanosis or clubbing. There is 2+ pitting in the left lower extremity. No pitting in the right lower extremity. The left leg is hot, red, and swollen. She also has some erythema on the medial aspect of the left thigh. ASSESSMENT: 1. Severe sepsis. 2. Pleural effusion on the right, status post thoracentesis demonstrating a transudate. 3. Acute hypoxic respiratory failure, resolved. 4. Cellulitis of the left lower extremity. 5. Dvt-TL-[id number] myocardial infarction. 6. End-stage renal disease. 7. Recent bradyarrhythmia secondary to medication effect, resolved. DISCUSSION AND PLAN: I appreciate Surgery's opinion. ID consultation is currently pending. Pulmonary Critical Care will continue to follow along until she more firmly turns that corner. At this point, her bradyarrhythmia issue has resolved and she can be transitioned back to the telemetry unit. Pulmonary Critical Care will continue to follow along. Job ID: [id number]
[2019-01-18] MEDS: hydrALAZINE 20 MG/ML VIAL SLOW IVP PRN ×2 (14:16→20:05)
--- NOTE | 2019-01-18 15:37 | PDOC.PN ---
- Subjective Encounter Start Date: 01/18/19 Encounter Start Time: 10:00 Pt seen for followup re; left leg cellulitis. Has ongoing left leg pain, no other complaints. - Objective Resuscitation Status - Order Detail: 01/13/19 12:12 Resuscitation Status Routine Resuscitation Status: FULL: Full Resuscitation MAR Reviewed: Yes Vital Signs & Weight: Vital Signs (12 hours) Temp Pulse Pulse Ox 01/18/19 14:16 57 L 01/18/19 11:35 98.0 F 01/18/19 07:30 98.7 F 01/18/19 07:06 97 Weight Admit Weight 135 lb Weight 135 lb Most Recent Monitor Data Heart Rate from ECG 85 NIBP 202/87 NIBP BP-Mean 125 Respiration from ECG 22 SpO2 80 I&O: 01/17/19 01/18/19 01/19/19 06:59 06:59 06:59 Intake Total 1560 1300 Balance 1560 1300 Result Diagrams: 01/17/19 04:06 01/17/19 04:06 Additional Labs: Accuchecks 01/18/19 01/18/19 01/17/19 11:33 05:50 20:20 POC Glucose 122 H 126 H 126 H 01/17/19 16:46 POC Glucose 164 H Labs reviewed by me Phys Exam - Physical Examination Constitutional: NAD HEENT: moist MMs Neck: supple Respiratory: clear to auscultation bilateral Cardiovascular: RRR Gastrointestinal: soft Neurological: moves all 4 limbs Psychiatric: normal affect Deviation from normal: L leg cellulitis Dx/Plan (1) Cellulitis of left leg Code(s): L03.116 - CELLULITIS OF LEFT LOWER LIMB Status: Acute Comment: Improving, start Ancef, discontinue levofloxacin (2) Pleural effusion Code(s): J90 - PLEURAL EFFUSION, NOT ELSEWHERE CLASSIFIED Status: Acute Comment: s/p thoracentesis (transudate) (3) Diabetes mellitus, type II, insulin dependent Code(s): E11.9 - TYPE 2 DIABETES MELLITUS WITHOUT COMPLICATIONS; Z79.4 - INSURANCE COMPLIANCE ANALYST (CURRENT) USE OF INSULIN Status: Chronic Comment: reasonable control (4) ESRD (end stage renal disease) on dialysis Code(s): N18.6 - END STAGE RENAL DISEASE; Z99.2 - DEPENDENCE ON RENAL DIALYSIS Status: Chronic Comment: nephrology following (5) HTN (hypertension) Code(s): I10 - ESSENTIAL (PRIMARY) HYPERTENSION Status: Chronic Qualifiers: Comment: controlled (6) Sepsis Code(s): A41.9 - SEPSIS, UNSPECIFIED ORGANISM Status: Resolved Qualifiers: Sepsis type: sepsis due to unspecified organism Qualified Code(s): A41.9 - Sepsis, unspecified organism - Plan * . Review of Systems - Review of Systems Respiratory: negative: Cough, Shortness of Breath, SOB with Excertion, Pleuritic Pain, Wheezing Cardiovascular: negative: chest pain, palpitations, orthopnea, paroxysmal nocturnal dyspnea, edema, light headedness Musculoskeletal: Leg Pain Skin: Rash - Medications/Allergies Allergies/Adverse Reactions: Allergies Allergy/AdvReac Type Severity Reaction Status Date / Time No Known Allergies Allergy Verified 03/14/17 23:34 Medications: Current Medications Acetaminophen (Tylenol) 650 mg PO Q4H PRN PRN Reason: Headache/Fever/Mild Pain (1-3) Last Admin: 01/14/19 04:00 Dose: 650 mg Lipase/Protease/Amylase ([place] [id number]) 1 cap PO TID [facility] Last Admin: 01/18/19 14:16 Dose: 1 cap Aspirin (Aspirin) 325 mg PO DAILY [facility] Last Admin: 01/18/19 08:26 Dose: 325 mg Atorvastatin Calcium (Lipitor) 10 mg PO HS [facility] Last Admin: 01/17/19 22:42 Dose: 10 mg Dextrose/Water (Dextrose 50%) 25 gm SLOW IVP PRN PRN PRN Reason: Hypoglycemia Enoxaparin Sodium (Lovenox) 30 mg SC 0900 [facility] Last Admin: 01/18/19 08:25 Dose: 30 mg Famotidine (Pepcid) 20 mg PO DAILY [facility] Last Admin: 01/18/19 08:26 Dose: 20 mg Fluoxetine HCl (Prozac) 20 mg PO DAILY [facility] Last Admin: 01/18/19 08:26 Dose: 20 mg Glucagon (Glucagon) 1 mg IM PRN PRN PRN Reason: Hypoglycemia Last Admin: 01/14/19 10:54 Dose: 1 mg Guaifenesin/Dextromethorphan (Robitussin Dm) 15 ml PO Q4H PRN PRN Reason: Cough Hydralazine HCl (Apresoline) 10 mg SLOW IVP Q6H PRN PRN Reason: SBP Greater Than 170 Last Admin: 01/18/19 14:16 Dose: 10 mg Dextrose/Water (D5w) 1,000 mls @ 0 mls/hr IV .Q0M PRN PRN Reason: Hypoglycemia Vancomycin HCl 1 gm/ Device 200 mls @ 200 mls/hr IVPB WILLCALL [facility] Vancomycin HCl 750 mg/ Sodium (Chloride) 250 mls @ 250 mls/hr IVPB [facility]CALL [facility] Vancomycin HCl 500 mg/ Sodium (Chloride) 100 mls @ 100 mls/hr IVPB [facility]CALL [facility] Last Admin: 01/17/19 13:44 Dose: 100 mls Vancomycin HCl 250 mg/ Sodium (Chloride) 100 mls @ 100 mls/hr IVPB [facility] Cefazolin Sodium 1 gm/ Sodium (Chloride) 100 mls @ 200 mls/hr IVPB 0900 [facility] Last Admin: 01/18/19 09:53 Dose: 100 mls Insulin Human Lispro (Humalog) 0 units SC .MODERATE SLIDING SC PRN PRN Reason: Moderate Correctional Scale Insulin Human Lispro (Humalog) 0 units SC .BEDTIME SLIDING SC PRN PRN Reason: Bedtime Correctional Scale Miscellaneous Medication (Pharmacy To Dose) 1 each IVPB PRN PRN PRN Reason: Pharmacy to dose Hold Vancomycin For (Level >20) 0 each FS .AT DIALYSIS [facility] Pantoprazole Sodium (Protonix) 40 mg PO DAILY [facility] Last Admin: 01/18/19 08:26 Dose: 40 mg Sevelamer Carbonate (Renvela) 800 mg PO DAILY [facility] Last Admin: 01/18/19 08:26 Dose: 800 mg Sodium Chloride (Flush - Normal Saline) 10 ml IVF Q12HR [facility] Last Admin: 01/18/19 09:53 Dose: 10 ml Sodium Chloride (Flush - Normal Saline) 10 ml IVF PRN PRN PRN Reason: Saline Flush
--- NOTE | 2019-01-18 16:12 | PDOC.GSPN ---
Surgery Progress Note: Subj - Subjective Narrative: Pain swelling and redness in the leg are unchanged according to the patient. On physical examination the borders of the erythema have not expanded and her leg is unchanged in appearance. No evidence of abscess or necrotizing soft tissue infection. Will sign off for now. Please call me if her clinical condition worsens. Surgery Progress Note: Obj - Vital signs Vital signs: Vital Signs - Most Recent Temp Pulse Resp BP Pulse Ox 98.0 F 57 L 16 128/62 97 01/18/19 11:35 01/18/19 14:16 01/14/19 07:56 01/14/19 08:34 01/18/19 07:06 Surgery Progress Note: Results - Labs Result Diagrams: 01/17/19 04:06 01/17/19 04:06 Lab results: Laboratory Results - last 24 hr 01/18/19 01/18/19 05:50 11:33 POC Glucose 126 H 122 H
[2019-01-18] MEDS: Acetaminophen 325 MG TAB PO PRN (19:59)
[2019-01-18] MEDS: cefTRIAXone\\ROCEPHIN 1 GM in Sodium Chloride 0.9% 100 ML IVPB SCH (19:59)
[2019-01-18] MEDS: Atorvastatin Calcium 10 MG TAB PO SCH (20:00)
--- NOTE | 2019-01-18 23:37 | CON ---
DATE OF CONSULTATION: 01/18/2019 REASON FOR CONSULTATION: Fever, vomiting, diarrhea, and cellulitis of left leg. HISTORY OF PRESENT ILLNESS: A 58-year-old who has a history of end-stage renal disease, type 2 diabetes mellitus with hemodialysis through an AV fistula in right upper extremity. She presents with chills, fever, diarrhea, and vomiting. On initial evaluation, BP 140/60, pulse 72, respirations 16, O2 saturation 93% with temperature 98.8. The initial impression was white cell count elevation suspicious for right lower lobe pneumonia. Consultation with Pulmonary Medicine was obtained. Dr. Rodríguez evaluated the patient few days ago and his impression was gastroenteritis and a right-sided pleural effusion. Subsequently, it became clear that the patient had an inflammatory process in the left lower extremity. Dr. Leblanc was consulted. She did not feel that there was any indication for surgical intervention. Currently, Ms. Bolton is awake. She is sitting by the bedside on a chair. She denies headaches, no change in visual symptoms, sore throat, odynophagia, dysphagia, no dyspnea, no more diarrhea or vomiting. She does not have much urinary output. Still with quite a bit of tenderness in the left lower extremity. PAST MEDICAL HISTORY: Includes type 2 diabetes, end-stage renal disease, on hemodialysis through an AV fistula in the right upper extremity, hypertension, coronary artery disease with prior bypass graft surgery, and depression. ALLERGIES: NONE. SOCIAL HISTORY: Never smoker. FAMILY HISTORY: Diabetes and coronary artery disease. CURRENT MEDICATIONS: 1. Creon. 2. Aspirin. 3. Lipitor. 4. Cefazolin. 5. Fluoxetine. 6. Prozac. 7. Insulin. 8. Vancomycin. PHYSICAL EXAMINATION: VITAL SIGNS: T-max 101 on arrival, she has been afebrile since. SKIN: Shows area of circumferential erythema with intradermal bleeding in the left lower extremity and she has another area in the medial thigh, all those areas are very tender to palpation. The leg inflammatory process extends from the area immediately below the knee to all the way to the ankle, left side. No blistering noted. No lymphadenopathy. HEENT: Ocular movements conjugate. She has no [place] teeth. NECK: Supple. No jugular venous distention. LUNGS: Symmetric air entry with no crackles or wheezing. HEART: S1 and S2. Regular rate without murmurs. ABDOMEN: Soft, not distended or tender. No ascites. No bladder distention. EXTREMITIES: No joint inflammatory process identified at this time. Pulses are diminished in dorsalis pedis. She is able to move extremities with limitations imposed by the inflammatory process of left lower extremity. She is awake, oriented, and follows commands. Does not appear to be in distress. LABORATORY DATA: White cell count is down from 16 to 6.5, hemoglobin at 10.1, platelets 151 with 68% neutrophils. Sodium 135, creatinine 6.3, total bilirubin was 1.1 and now 1.3, AST 26, ALT 13, alkaline phosphatase 102. BNP 7600. Albumin 3.6, lipase 40. Pleural fluid with 380 wbc's, total protein 3.3. Microbiology with C diff test which was negative. Blood cultures negative x4. Influenza is negative. IMAGING STUDIES: Include, initial imaging of the chest which showed the right-sided effusion. She had a CT angio which showed atherosclerotic change, but no evidence of high-grade stenosis identified. She had a duplex ultrasound of the venous system with no evidence of deep vein thrombosis. ASSESSMENT: 1. Type 2 diabetes, on hemodialysis for end-stage renal disease. 2. Nausea, vomiting, diarrhea, and general malaise. 3. Inflammatory process of left leg with cellulitis with improvement following admission. DISCUSSION: The most likely culprit here was the original cellulitis, which was not initially picked up. The type of involvement is suggestive of beta-hemolytic streptococcal cellulitis. This is less likely to represent a staphylococcal cellulitis since there is no evidence of abscess formation, gram-negative elsie cellulitis, however, is a possibility in patients with immunosuppression. At this point, we will recommend transitioning to IV Rocephin and continue treating until there is further improvement and hopefully eventual transition to Keflex orally and eventual suppressive therapy with penicillin-VK for protracted periods of time. Job ID: [id number] [facility]
[2019-01-19] MEDS: hydrALAZINE 20 MG/ML VIAL SLOW IVP PRN ×2 (02:57→17:35)
[2019-01-19] MEDS: Enoxaparin Sodium 30 MG/0.3 ML SYRINGE SC SCH (09:58)
[2019-01-19] MEDS: Aspirin 325 MG TAB PO SCH (09:58)
[2019-01-19] MEDS: Pancrelipase DR 12000 1 CAP PO SCH ×3 (09:59→22:39)
[2019-01-19] MEDS: FLUoxetine HCl 20 MG CAP PO SCH (09:59)
[2019-01-19] MEDS: Sevelamer Carbonate 800 MG TAB PO SCH (09:59)
[2019-01-19] MEDS: Famotidine 20 MG TAB PO SCH (09:59)
--- NOTE | 2019-01-19 10:37 | PRG ---
DATE OF SERVICE: 01/19/2019 SERVICE: Renal Medicine. SUBJECTIVE: Ms. Bolton is a 58-year-old female with ESRD and being followed by the Renal Service for maintenance hemodialysis. No new complaints today. She is being treated for left leg cellulitis. ID consult has been done. Recommendation to change IV antibiotics to IV Rocephin. No other complaints today. No indication for any dialytic intervention. OBJECTIVE: VITAL SIGNS: Blood pressure is 179/104 with heart rate of 92, respiratory rate 18, and pulse ox 95%. GENERAL: Awake, alert, and comfortable, not in distress. SKIN: Adequate turgor. HEENT: She has pinkish conjunctivae. Anicteric sclerae. NECK: No neck mass. No carotid bruits. No JVD. CHEST: No deformities. LUNGS: Clear breath sounds. HEART: Normal sinus rhythm. No murmur. No gallops. No rubs. ABDOMEN: Globular, soft, and nontender. No masses. EXTREMITIES: No edema. No deformities. Positive for left leg cellulitis. MEDICATIONS: Medications of January 19, 2019, reviewed. LABORATORY DATA: Labs of January 17, 2019; white count 6.5 and hemoglobin 10.1. January 19, 2019; glucose 117. January 17, 2019; BUN 37, creatinine 6.3, and potassium 4. ASSESSMENT AND PLAN: 1. End-stage renal disease, stable, tolerating current hemodialysis regimen. Fluid removal as tolerated. No indication for any emergent hemodialysis today. I have scheduled her back to a Sunday, Sunday, and Sunday dialysis regimen. 2. Hypertension. We will start daily. 3. Left leg cellulitis-continuing IV antibiotics. Currently, on IV Rocephin. ID following. We will recheck BMP and CBC in a.m. Job ID: [id number]
--- NOTE | 2019-01-19 14:06 | PDOC.PN ---
- Subjective Encounter Start Date: 01/19/19 Encounter Start Time: 10:40 Pt seen for followup re: left leg cellulitis. LLE pain+, no other complaints. - Objective Resuscitation Status - Order Detail: 01/13/19 12:12 Resuscitation Status Routine Resuscitation Status: FULL: Full Resuscitation Vital Signs & Weight: Vital Signs (12 hours) Temp Pulse BP Pulse Ox 01/19/19 11:17 98.8 F 01/19/19 07:27 98 01/19/19 07:18 98.9 F 01/19/19 03:54 98.6 F 01/19/19 02:57 93 195/100 H Weight Admit Weight 135 lb Weight 135 lb Most Recent Monitor Data Heart Rate from ECG 92 NIBP 171/85 NIBP BP-Mean 113 Respiration from ECG 16 SpO2 95 I&O: 01/18/19 01/19/19 01/20/19 06:59 06:59 06:59 Intake Total 1300 1180 Output Total 40 Balance 1300 1140 Result Diagrams: 01/17/19 04:06 01/17/19 04:06 Additional Labs: Accuchecks 01/19/19 01/19/19 01/18/19 10:30 05:30 19:51 POC Glucose 182 H 117 H 189 H 01/18/19 16:20 POC Glucose 148 H Phys Exam - Physical Examination Constitutional: NAD HEENT: moist MMs Neck: supple Respiratory: clear to auscultation bilateral Cardiovascular: RRR Gastrointestinal: soft Neurological: moves all 4 limbs Psychiatric: normal affect Dx/Plan (1) Cellulitis of left leg Code(s): L03.116 - CELLULITIS OF LEFT LOWER LIMB Status: Acute Comment: continue ceftriaxone (2) Pleural effusion Code(s): J90 - PLEURAL EFFUSION, NOT ELSEWHERE CLASSIFIED Status: Acute Comment: s/p thoracentesis (3) Diabetes mellitus, type II, insulin dependent Code(s): E11.9 - TYPE 2 DIABETES MELLITUS WITHOUT COMPLICATIONS; Z79.4 - [employer]ELOPER (CURRENT) USE OF INSULIN Status: Chronic Comment: reasonably controlled (4) ESRD (end stage renal disease) on dialysis Code(s): N18.6 - END STAGE RENAL DISEASE; Z99.2 - DEPENDENCE ON RENAL DIALYSIS Status: Chronic Comment: nephrology following (5) HTN (hypertension) Code(s): I10 - ESSENTIAL (PRIMARY) HYPERTENSION Status: Chronic Qualifiers: Comment: controlled (6) Sepsis Code(s): A41.9 - SEPSIS, UNSPECIFIED ORGANISM Status: Resolved Qualifiers: Sepsis type: sepsis due to unspecified organism Qualified Code(s): A41.9 - Sepsis, unspecified organism - Plan continue antibiotics, out of bed/ambulate * . Review of Systems - Review of Systems Constitutional: negative: fever, chills, sweats, weakness, malaise Gastrointestinal: negative: Nausea, Vomiting, Abdominal Pain, Diarrhea, Constipation, Melena, Hematochezia Musculoskeletal: Leg Pain Skin: Rash - Medications/Allergies Allergies/Adverse Reactions: Allergies Allergy/AdvReac Type Severity Reaction Status Date / Time No Known Allergies Allergy Verified 03/14/17 23:34 Medications: Current Medications Acetaminophen (Tylenol) 650 mg PO Q4H PRN PRN Reason: Headache/Fever/Mild Pain (1-3) Last Admin: 01/18/19 19:59 Dose: 650 mg Lipase/Protease/Amylase ([place] [id number]) 1 cap PO TID [facility] Last Admin: 01/19/19 09:59 Dose: 1 cap Aspirin (Aspirin) 325 mg PO DAILY [facility] Last Admin: 01/19/19 09:58 Dose: 325 mg Atorvastatin Calcium (Lipitor) 10 mg PO HS [facility] Last Admin: 01/18/19 20:00 Dose: 10 mg Dextrose/Water (Dextrose 50%) 25 gm SLOW IVP PRN PRN PRN Reason: Hypoglycemia Enoxaparin Sodium (Lovenox) 30 mg SC 0900 [facility] Last Admin: 01/19/19 09:58 Dose: 30 mg Famotidine (Pepcid) 20 mg PO DAILY [facility] Last Admin: 01/19/19 09:59 Dose: 20 mg Fluoxetine HCl (Prozac) 20 mg PO DAILY [facility] Last Admin: 01/19/19 09:59 Dose: 20 mg Glucagon (Glucagon) 1 mg IM PRN PRN PRN Reason: Hypoglycemia Last Admin: 01/14/19 10:54 Dose: 1 mg Guaifenesin/Dextromethorphan (Robitussin Dm) 15 ml PO Q4H PRN PRN Reason: Cough Hydralazine HCl (Apresoline) 10 mg SLOW IVP Q6H PRN PRN Reason: SBP Greater Than 170 Last Admin: 01/19/19 02:57 Dose: 10 mg Dextrose/Water (D5w) 1,000 mls @ 0 mls/hr IV .Q0M PRN PRN Reason: Hypoglycemia Vancomycin HCl 1 gm/ Device 200 mls @ 200 mls/hr IVPB WILLCALL [facility] Vancomycin HCl 750 mg/ Sodium (Chloride) 250 mls @ 250 mls/hr IVPB WILLCALL [facility] Vancomycin HCl 500 mg/ Sodium (Chloride) 100 mls @ 100 mls/hr IVPB WILLCALL [facility] Last Admin: 01/17/19 13:44 Dose: 100 mls Vancomycin HCl 250 mg/ Sodium (Chloride) 100 mls @ 100 mls/hr IVPB WILLCALL [facility] Ceftriaxone Sodium 1 gm/ (Sodium Chloride) 100 mls @ 200 mls/hr IVPB Q24HR [facility] Last Admin: 01/18/19 19:59 Dose: 100 mls Insulin Human Lispro (Humalog) 0 units SC .MODERATE SLIDING SC PRN PRN Reason: Moderate Correctional Scale Insulin Human Lispro (Humalog) 0 units SC .BEDTIME SLIDING SC PRN PRN Reason: Bedtime Correctional Scale Losartan Potassium (Cozaar) 50 mg PO DAILY [facility] Miscellaneous Medication (Pharmacy To Dose) 1 each IVPB PRN PRN PRN Reason: Pharmacy to dose Hold Vancomycin For (Level >20) 0 each FS .AT DIALYSIS [facility] Pantoprazole Sodium (Protonix) 40 mg PO DAILY [facility] Last Admin: 01/19/19 09:59 Dose: 40 mg Sevelamer Carbonate (Renvela) 800 mg PO DAILY [facility] Last Admin: 01/19/19 09:59 Dose: 800 mg Sodium Chloride (Flush - Normal Saline) 10 ml IVF Q12HR [facility] Last Admin: 01/19/19 09:59 Dose: 10 ml Sodium Chloride (Flush - Normal Saline) 10 ml IVF PRN PRN PRN Reason: Saline Flush
--- NOTE | 2019-01-19 14:57 | PRG ---
DATE OF SERVICE: 01/19/2019 SERVICE: Pulmonary Medicine. INTERVAL HISTORY: The patient is doing fine from respiratory standpoint. Breathing comfortably. She continues to have exquisite tenderness in that left leg. That being said, the medial thigh is actually improving quite a bit. She denies any current fevers or chills. There were no overnight events. PHYSICAL EXAMINATION: VITAL SIGNS: Afebrile, pulse 92, blood pressure 171/85, respirations 16, and saturation 95% on room air. GENERAL: The patient is awake and alert, in no apparent distress. LUNGS: Decent air entry. Minimal dependent crackles are present, but there is no prolonged expiratory phase, wheezing or rhonchi. HEART: Normal rate and regular. ABDOMEN: Soft, nontender, and nondistended. Bowel sounds are positive. MUSCULOSKELETAL: No cyanosis or clubbing. The right leg is without edema. The left leg is hot, red, and swollen from the ankle to just below the knee. The medial aspect of her left thigh is no longer erythematous and has no swelling to it. LABORATORY DATA: WBC 6.5, hemoglobin 10.1, and platelets 151,000. Blood sugars have ranged from 117 to 189. ASSESSMENT: 1. Severe sepsis. 2. Pleural effusion on the right, status post thoracentesis demonstrating a transudate. 3. Acute hypoxic respiratory failure, resolved. 4. Cellulitis of the left lower extremity. 5. [id number] myocardial infarction. 6. End-stage renal disease. DISCUSSION AND PLAN: The patient is stable for transition out of the ICU to the medical unit. Pulmonary and Critical Care will continue to follow along for the time being. We will continue our antibiotics directed at her cellulitis. We will try to increase mobilization as tolerated. Job ID: [id number]
[2019-01-19] MEDS: Acetaminophen 325 MG TAB PO PRN (17:35)
[2019-01-19] MEDS: cefTRIAXone\\ROCEPHIN 1 GM in Sodium Chloride 0.9% 100 ML IVPB SCH (18:44)
[2019-01-19] MEDS: Atorvastatin Calcium 10 MG TAB PO SCH (22:05)
[2019-01-20] MEDS: hydrALAZINE 20 MG/ML VIAL SLOW IVP PRN ×3 (00:42→06:06)
[2019-01-20 08:35] LABS: #Eosinphils 0.2 thou/uL (0.0-0.7); #Lymphocytes 1.5 thou/uL (1.20-3.40); #Monocytes 0.6 thou/uL (0.11-0.59); %Basophils 0.2 % (0.0-1.0); %Eosinophils 2.8 % (0.0-10.0); %Lymphocytes 23.3 % (21.0-51.0); %Monocytes 9.8 % (0.0-10.0); %Neutrophils 63.9 % (42.0-75.0); Hemoglobin 10.6 g/dL (12.0-16.0); Mean Corpuscular HGB CONC 32.9 g/dL (32.0-36.0); Mean Corpuscular Hemoglobin 31.3 pg (27.0-31.0); Mean Corpuscular Volume 95.1 fL (78.0-98.0); Platelet Count 220 thou/uL (130-400); RBC Distribution Width 12.7 % (11.5-14.5); Red Blood Cell (RBC) Count 3.39 mill/uL (4.20-5.40); White Blood Cell (WBC) Count 6.3 thou/uL (4.8-10.8)
[2019-01-20 08:53] LABS: Anion Gap 18 mmol/L (10-20); BUN (Urea Nitrogen) 40 mg/dL (9.8-20.1); Calc. Creatinine Clearance 8 mL/min (70-130); Calcium 9.9 mg/dL (7.8-10.44); Carbon Dioxide 25 mmol/L (22-29); Chloride 98 mmol/L (98-107); Estimated GFR-MDRD 5; Glucose 110 mg/dL (70-105); Potassium 4.3 mmol/L (3.5-5.1); Sodium 137 mmol/L (136-145)
[2019-01-20] MEDS: Losartan 25 MG TAB PO SCH ×2 (09:08→13:47)
[2019-01-20] MEDS: FLUoxetine HCl 20 MG CAP PO SCH ×2 (09:08→13:47)
[2019-01-20] MEDS: Famotidine 20 MG TAB PO SCH ×2 (09:08→13:47)
[2019-01-20] MEDS: Pancrelipase DR 12000 1 CAP PO SCH ×3 (09:08→20:17)
[2019-01-20] MEDS: Enoxaparin Sodium 30 MG/0.3 ML SYRINGE SC SCH ×2 (09:08→13:47)
[2019-01-20] MEDS: Sevelamer Carbonate 800 MG TAB PO SCH (09:08)
[2019-01-20] MEDS: Aspirin 325 MG TAB PO SCH ×2 (09:08→13:46)
--- NOTE | 2019-01-20 09:58 | PRG ---
DATE OF SERVICE: 01/20/2019 SUBJECTIVE: Ms. Bolton is a 58-year-old female with ESRD and currently on maintenance hemodialysis. She is being treated for a left leg cellulitis. She is currently undergoing dialysis, and I am at the bedside supervising her dialysis. No other complaints. OBJECTIVE: VITAL SIGNS: Blood pressure 182/89 after and before BP medications, heart rate 97, respiratory rate 16, temperature 97.8, and pulse ox 93%. GENERAL: Noted to be awake, alert, comfortable, not in distress. SKIN: Adequate turgor. HEENT: Pinkish conjunctivae. Anicteric sclerae. NECK: No neck mass. No carotid bruits. No JVD. CHEST: No deformities. LUNGS: Clear breath sounds. No wheezing. No crackles. HEART: Normal sinus rhythm. No murmurs, gallops, or rubs. ABDOMEN: Globular, soft, nontender. EXTREMITIES: Left leg erythema noted. MEDICATIONS: Medications of January 20, 2019, were reviewed. LABORATORY DATA: Laboratories of January 20, 2019, white count 6.3, hemoglobin 10.6. Sodium 137, potassium 4.3, chloride 98, carbon dioxide 25, BUN 40, creatinine 7.66, calcium 9.9. ASSESSMENT AND PLAN: 1. End-stage renal disease, stable. Continue current maintenance hemodialysis on Sunday, Sunday, and Sunday. Fluid removal as tolerated. Tolerating said treatment. 2. Left leg cellulitis, on IV antibiotics. ID following. Overall agree with current management. Job ID: [id number] [facility]
[2019-01-20 10:53] LABS: Vancomycin, Random 7.2 ug/mL (See Comment)
--- NOTE | 2019-01-20 11:16 | PQF ---
CLINICAL DOCUMENTATION IMPROVEMENT CLARIFICATION FORM: ICD-10 Updated PLEASE DO AN ADDENDUM TO THE PROGRESS NOTE WITH ANY DOCUMENTATION UPDATES OR ADDITIONS AND CARRY THROUGH TO DC SUMMARY. THANK YOU. DATE: 01/20/2019 ATTN: Dr. Byrne Please exercise your independent, professional judgment in responding to the clarification form. Clinical indicators are provided on the bottom of this form for your review Please check appropriate box(s): HEART FAILURE: A. TYPE: [ ] Systolic / HFrEF [ ] Diastolic / HFpEF [ ] Combined Systolic / Diastolic B. ACUITY [ ] Acute [ ] Acute on Chronic [ ] Chronic [ ] Other diagnosis [ ] Unable to determine In addition, please specify: Present on Admission (POA): [ ] Yes [ ] No [ ] Unable to determine For continuity of documentation, please document condition throughout progress notes and discharge summary. Thank You. CLINICAL INDICATORS - SIGNS / SYMPTOMS / LABS 01/14 H&P: Echo done recently in September of 2018, shows EF of 50% to 55%, there was moderately enlarged biatrium, there was diastolic dysfunction, moderate to severe tricuspid regurgitation, severely elevated pulmonary artery pressure. Chest x-ray done shows findings suspicious for heart failure. BNP 7617 Pt will be placed under observation on telemetry for likely volume overload 01/14 (Tino): Chest x-ray showed some degree of CHF. ESRD - due to the congestive heart failure and regular dialysis schedule. 01/15 (Marcos): Pleural effusion on the right, s/p thoracentesis. Transudate demonstrated. PN 01/16: Pleural effusion. Acute. s/p thoracentesis with removal of 900ml transudate PN 01/19: Pleural effusion. Acute. s/p thoracentesis RISKS: H&P: Hx of ESRD, HTN. DM 2 CABG for 4-vessel disease. TREATMENT: Operative Note 01/14: Right sided pleural drainage with catheter insertion under ultrasound guidance Order 01/19: Cozaar 50 mg po daily Thank you, Sharon (This form is maintained as a part of the permanent medical record) 2014 [email or web address]. All Rights Reserved Sharon Cohen RN, BSN [email or web address] Office: [phone] [facility]
--- NOTE | 2019-01-20 13:34 | PDOC.PN ---
- Subjective Encounter Start Date: 01/20/19 Encounter Start Time: 08:40 Pt seen for followup re: cellulitis. Feels okay, has on and off pain in LLE. - Objective Resuscitation Status - Order Detail: 01/13/19 12:12 Resuscitation Status Routine Resuscitation Status: FULL: Full Resuscitation MAR Reviewed: Yes Vital Signs & Weight: Vital Signs (12 hours) Temp Pulse Resp BP BP Pulse Ox 01/20/19 07:40 97.8 F 97 16 182/89 H 93 L 01/20/19 06:06 90 184/90 H 01/20/19 04:00 97.8 F 90 16 174/113 H 93 L Weight Admit Weight 135 lb Weight 135 lb Most Recent Monitor Data Heart Rate from ECG 88 NIBP 180/104 NIBP BP-Mean 129 Respiration from ECG 19 SpO2 96 I&O: 01/19/19 01/20/19 01/21/19 06:59 06:59 06:59 Intake Total 1180 600 Output Total 40 0 Balance 1140 600 Result Diagrams: 01/20/19 08:05 01/20/19 08:05 Additional Labs: Accuchecks 01/20/19 01/19/19 05:48 20:43 POC Glucose 120 H 143 H labs reviewed by me Phys Exam - Physical Examination Constitutional: NAD HEENT: moist MMs Neck: supple Respiratory: clear to auscultation bilateral Cardiovascular: RRR Gastrointestinal: soft Neurological: moves all 4 limbs Psychiatric: normal affect Deviation from normal: L leg cellulitis Dx/Plan (1) Cellulitis of left leg Code(s): L03.116 - CELLULITIS OF LEFT LOWER LIMB Status: Acute Comment: on ceftriaxone (2) Pleural effusion Code(s): J90 - PLEURAL EFFUSION, NOT ELSEWHERE CLASSIFIED Status: Acute Comment: s/p thoracentesis, with transudate (3) Diabetes mellitus, type II, insulin dependent Code(s): E11.9 - TYPE 2 DIABETES MELLITUS WITHOUT COMPLICATIONS; Z79.4 - SNF (CURRENT) USE OF INSULIN Status: Chronic Comment: reasonably controlled (4) ESRD (end stage renal disease) on dialysis Code(s): N18.6 - END STAGE RENAL DISEASE; Z99.2 - DEPENDENCE ON RENAL DIALYSIS Status: Chronic Comment: nephrology following for dialysis (5) HTN (hypertension) Code(s): I10 - ESSENTIAL (PRIMARY) HYPERTENSION Status: Chronic Qualifiers: Comment: controlled (6) Chronic diastolic CHF (congestive heart failure), NYHA class 2 Code(s): I50.32 - CHRONIC DIASTOLIC (CONGESTIVE) HEART FAILURE Status: Chronic Comment: stable (7) Sepsis Code(s): A41.9 - SEPSIS, UNSPECIFIED ORGANISM Status: Resolved Qualifiers: Sepsis type: sepsis due to unspecified organism Qualified Code(s): A41.9 - Sepsis, unspecified organism (8) Demand ischemia Code(s): I24.8 - OTHER FORMS OF ACUTE ISCHEMIC HEART DISEASE Status: Resolved Comment: Likely due to cellulitis and volume overload, present on admission, now resolved - Plan * . Review of Systems - Review of Systems Gastrointestinal: negative: Nausea, Vomiting, Abdominal Pain, Diarrhea, Constipation, Melena, Hematochezia Genitourinary: negative: Dysuria, Frequency, Incontinence, Hematuria, Retention Skin: Rash - Medications/Allergies Allergies/Adverse Reactions: Allergies Allergy/AdvReac Type Severity Reaction Status Date / Time No Known Allergies Allergy Verified 03/14/17 23:34 Medications: Current Medications Acetaminophen (Tylenol) 650 mg PO Q4H PRN PRN Reason: Headache/Fever/Mild Pain (1-3) Last Admin: 01/19/19 17:35 Dose: 650 mg Lipase/Protease/Amylase ([place] [id number]) 1 cap PO TID [facility] Last Admin: 01/20/19 09:08 Dose: Not Given Aspirin (Aspirin) 325 mg PO DAILY [facility] Last Admin: 01/20/19 09:08 Dose: Not Given Atorvastatin Calcium (Lipitor) 10 mg PO HS [facility] Last Admin: 01/19/19 22:05 Dose: 10 mg Dextrose/Water (Dextrose 50%) 25 gm SLOW IVP PRN PRN PRN Reason: Hypoglycemia Enoxaparin Sodium (Lovenox) 30 mg SC 0900 [facility] Last Admin: 01/20/19 09:08 Dose: Not Given Famotidine (Pepcid) 20 mg PO DAILY [facility] Last Admin: 01/20/19 09:08 Dose: Not Given Fluoxetine HCl (Prozac) 20 mg PO DAILY [facility] Last Admin: 01/20/19 09:08 Dose: Not Given Glucagon (Glucagon) 1 mg IM PRN PRN PRN Reason: Hypoglycemia Last Admin: 01/14/19 10:54 Dose: 1 mg Guaifenesin/Dextromethorphan (Robitussin Dm) 15 ml PO Q4H PRN PRN Reason: Cough Hydralazine HCl (Apresoline) 10 mg SLOW IVP Q6H PRN PRN Reason: SBP Greater Than 170 Last Admin: 01/20/19 06:06 Dose: 10 mg Dextrose/Water (D5w) 1,000 mls @ 0 mls/hr IV .Q0M PRN PRN Reason: Hypoglycemia Vancomycin HCl 1 gm/ Device 200 mls @ 200 mls/hr IVPB WILLCALL [facility] Vancomycin HCl 750 mg/ Sodium (Chloride) 250 mls @ 250 mls/hr IVPB [facility] Vancomycin HCl 500 mg/ Sodium (Chloride) 100 mls @ 100 mls/hr IVPB WILLCALL [facility] Last Admin: 01/17/19 13:44 Dose: 100 mls Vancomycin HCl 250 mg/ Sodium (Chloride) 100 mls @ 100 mls/hr IVPB WILLCALL [facility] Ceftriaxone Sodium 1 gm/ (Sodium Chloride) 100 mls @ 200 mls/hr IVPB Q24HR [facility] Last Admin: 01/19/19 18:44 Dose: 100 mls Insulin Human Lispro (Humalog) 0 units SC .MODERATE SLIDING SC PRN PRN Reason: Moderate Correctional Scale Insulin Human Lispro (Humalog) 0 units SC .BEDTIME SLIDING SC PRN PRN Reason: Bedtime Correctional Scale Losartan Potassium (Cozaar) 50 mg PO DAILY [facility] Last Admin: 01/20/19 09:08 Dose: Not Given Miscellaneous Medication (Pharmacy To Dose) 1 each IVPB PRN PRN PRN Reason: Pharmacy to dose Hold Vancomycin For (Level >20) 0 each FS .AT DIALYSIS [facility] Pantoprazole Sodium (Protonix) 40 mg PO DAILY [facility] Last Admin: 01/20/19 09:08 Dose: Not Given Sevelamer Carbonate (Renvela) 800 mg PO DAILY [facility] Last Admin: 01/20/19 09:08 Dose: Not Given Sodium Chloride (Flush - Normal Saline) 10 ml IVF Q12HR [facility] Last Admin: 01/20/19 09:09 Dose: Not Given Sodium Chloride (Flush - Normal Saline) 10 ml IVF PRN PRN PRN Reason: Saline Flush
[2019-01-20] MEDS: Acetaminophen 325 MG TAB PO PRN (13:46)
--- NOTE | 2019-01-20 16:52 | PRG ---
DATE OF SERVICE: 01/20/2019 SERVICE: Pulmonary Medicine. INTERVAL HISTORY: The patient is doing really well from respiratory standpoint. Breathing comfortably. Her lower extremity pain has actually improved a little bit. Her lower extremity swelling has improved a little bit too. She denies any overnight events, fevers, chills, nausea, or vomiting. Her left medial thigh erythema has resolved completely and she has no tenderness there. PHYSICAL EXAMINATION: VITAL: Afebrile. Pulse 83, blood pressure 164/74, respirations 18, and saturation 95% on room air. GENERAL: The patient is awake and alert, in no apparent distress. LUNGS: Excellent air entry. There is no prolonged expiratory phase or wheezing present. HEART: Normal rate, regular. ABDOMEN: Soft, nontender, and nondistended. Bowel sounds are positive. MUSCULOSKELETAL: No cyanosis or clubbing. There is pitting in the left leg, with redness and tenderness to palpation. LABORATORY DATA: WBC 6.3, hemoglobin 10.6, and platelets 220,000. Creatinine 7.66, BUN 40. Basic metabolic profile is otherwise unremarkable. All culture results remain negative to date. ASSESSMENT: 1. Severe sepsis, resolved. 2. Hcc-PB-eqaqqaynl myocardial infarction secondary to demand. 3. Cellulitis of the left lower extremity. 4. Pleural effusion on the right, status post thoracentesis demonstrating a transudate. 5. End-stage renal disease. DISCUSSION AND PLAN: The patient is doing absolutely fantastic from respiratory standpoint. At this point, she has no further requirements for inpatient Pulmonary Critical Care opinion, and I will sign off. Please call if she has any significant deterioration in condition. Job ID: [id number]
[2019-01-20] MEDS: HumaLOG 300 UNITS/3 ML VIAL SC PRN (18:38)
[2019-01-20] MEDS: cefTRIAXone\\ROCEPHIN 1 GM in Sodium Chloride 0.9% 100 ML IVPB SCH (18:48)
[2019-01-20] MEDS: Atorvastatin Calcium 10 MG TAB PO SCH (20:17)
[2019-01-21] MEDS: hydrALAZINE 20 MG/ML VIAL SLOW IVP PRN ×3 (04:56→23:46)
[2019-01-21] MEDS: Sevelamer Carbonate 800 MG TAB PO SCH (09:31)
[2019-01-21] MEDS: Losartan 25 MG TAB PO SCH (09:31)
[2019-01-21] MEDS: Aspirin 325 MG TAB PO SCH (09:31)
--- NOTE | 2019-01-21 09:31 | PRG ---
DATE OF SERVICE: 01/21/2019 SUBJECTIVE: Ms. Bolton is a 58-year-old female with ESRD and followed by the Renal Service for maintenance hemodialysis. She underwent dialysis yesterday without any difficulty. She voices no chest pain or shortness of breath. She is currently being treated for left leg cellulitis. Please note, ID is following. She is currently on antibiotics. OBJECTIVE: VITAL SIGNS: Blood pressure is 166/84, heart rate 83, respiratory rate 16, temperature 98.6, and pulse ox 94% on room air. GENERAL: Awake, alert, sitting comfortable, not in distress. SKIN: Adequate turgor. HEENT: She has a pinkish conjunctivae. Anicteric sclerae. No neck mass. No carotid bruits. No JVD. CHEST: No deformities. LUNGS: Clear breath sounds. HEART: Normal sinus rhythm. No murmurs, gallops, or rubs. ABDOMEN: Globular, soft, nontender. No masses. EXTREMITIES: No edema. No deformities. MEDICATIONS: Medications of January 21, 2019, was reviewed. LABORATORY DATA: Laboratories of January 20, 2019, white count 6.3, hemoglobin 10.6. Sodium 137, potassium 4.3, chloride 98, carbon dioxide 25, BUN 40, creatinine 7.66, calcium 9.9. ASSESSMENT AND PLAN: 1. Left leg cellulitis-currently on IV antibiotics. Continue supportive care. ID following. 2. End-stage renal disease, stable, tolerating current hemodialysis regimen. We will continue current Sunday, Sunday, and Sunday hemodialysis. Again, fluid removal only as tolerated by the patient. Job ID: [id number]
[2019-01-21] MEDS: Pancrelipase DR 12000 1 CAP PO SCH ×3 (09:32→20:09)
[2019-01-21] MEDS: Enoxaparin Sodium 30 MG/0.3 ML SYRINGE SC SCH (09:32)
[2019-01-21] MEDS: Famotidine 20 MG TAB PO SCH (09:32)
[2019-01-21] MEDS: FLUoxetine HCl 20 MG CAP PO SCH (09:32)
[2019-01-21] MEDS: HumaLOG 300 UNITS/3 ML VIAL SC PRN (12:45)
--- NOTE | 2019-01-21 15:00 | PQF ---
CLINICAL DOCUMENTATION IMPROVEMENT CLARIFICATION FORM: ICD-10 Updated PLEASE DO AN ADDENDUM TO THE PROGRESS NOTE WITH ANY DOCUMENTATION UPDATES OR ADDITIONS AND CARRY THROUGH TO DC SUMMARY. THANK YOU. DATE: 01/21/2019 ATTN: Dr. Byrne Please exercise your independent, professional judgment in responding to the clarification form. Clinical indicators are provided on the bottom of this form for your review Please check appropriate box(s): Conflicting documentation was noted in the Medical Record, please clarify if patient is being treated/monitored for: [ ] Demand ischemia. [ ] Non -ST- elevation myocardial infarction secondary to demand [ ] Other diagnosis [ ] Unable to determine In addition, please specify: Present on Admission (POA): [ ] Yes [ ] No [ ] Unable to determine For continuity of documentation, please document condition throughout progress notes and discharge summary. Thank You. CLINICAL INDICATORS - SIGNS / SYMPTOMS/ LABS PN 3/4: Demand ischemia. Likely due to cellulitis and volume overload, poa, now resolved. PN 3/4 (Brading): Non -ST- elevation myocardial infarction secondary to demand. RISKS: PN 3/4: Cellulitis l leg. Pleural effusion. DM 2. ESRD. HTN. Sepsis resolved. . HTN. TREATMENT: Order 3/2: Rocephin 1 gm IV Thank you, Sharon (This form is maintained as a part of the permanent medical record) 2014 [employer]. All Rights Reserved Sharon Cohen RN, BSN [email or web address] Office: [phone] [facility]
--- NOTE | 2019-01-21 15:38 | PDOC.PN ---
- Subjective Encounter Start Date: 01/21/19 Encounter Start Time: 15:37 Pt seen for followup re: cellulitis. feels better. - Objective Resuscitation Status - Order Detail: 01/13/19 12:12 Resuscitation Status Routine Resuscitation Status: FULL: Full Resuscitation Vital Signs & Weight: Vital Signs (12 hours) Temp Pulse Resp BP BP Pulse Ox 01/21/19 15:25 97.5 F L 89 16 183/84 H 94 L 01/21/19 12:43 91 204/120 H 01/21/19 12:05 97.7 F 93 18 176/88 H 94 L 01/21/19 08:00 98.3 F 80 16 120/91 H 95 01/21/19 06:31 166/84 H 01/21/19 04:56 83 179/86 H 01/21/19 04:00 98.6 F 83 16 179/86 H 94 L Weight Admit Weight 135 lb Weight 135 lb Most Recent Monitor Data Heart Rate from ECG 88 NIBP 180/104 NIBP BP-Mean 129 Respiration from ECG 19 SpO2 96 I&O: 01/20/19 01/21/19 01/22/19 06:59 06:59 06:59 Intake Total 600 1620 Output Total 0 Balance 600 1620 Result Diagrams: 01/20/19 08:05 01/20/19 08:05 Additional Labs: Accuchecks 01/21/19 01/21/19 01/21/19 15:28 11:04 06:02 POC Glucose 100 168 H 115 H 01/20/19 01/20/19 20:50 15:34 POC Glucose 109 196 H Phys Exam - Physical Examination Constitutional: NAD HEENT: moist MMs Neck: supple Respiratory: clear to auscultation bilateral Cardiovascular: RRR Gastrointestinal: soft Neurological: moves all 4 limbs Psychiatric: normal affect Deviation from normal: left leg cellulitis Dx/Plan (1) Cellulitis of left leg Code(s): L03.116 - CELLULITIS OF LEFT LOWER LIMB Status: Acute Comment: continue ceftriaxone (2) Pleural effusion Code(s): J90 - PLEURAL EFFUSION, NOT ELSEWHERE CLASSIFIED Status: Acute Comment: s/p thoracentesis (3) Diabetes mellitus, type II, insulin dependent Code(s): E11.9 - TYPE 2 DIABETES MELLITUS WITHOUT COMPLICATIONS; Z79.4 - INBOUND CUSTOMER SERVICE REPRESENTATIVE (CURRENT) USE OF INSULIN Status: Chronic Comment: reasonably controlled (4) ESRD (end stage renal disease) on dialysis Code(s): N18.6 - END STAGE RENAL DISEASE; Z99.2 - DEPENDENCE ON RENAL DIALYSIS Status: Chronic Comment: nephrology following (5) HTN (hypertension) Code(s): I10 - ESSENTIAL (PRIMARY) HYPERTENSION Status: Chronic Qualifiers: Comment: controlled (6) Chronic diastolic CHF (congestive heart failure), NYHA class 2 Code(s): I50.32 - CHRONIC DIASTOLIC (CONGESTIVE) HEART FAILURE Status: Chronic Comment: stable (7) Sepsis Code(s): A41.9 - SEPSIS, UNSPECIFIED ORGANISM Status: Resolved Qualifiers: Sepsis type: sepsis due to unspecified organism Qualified Code(s): A41.9 - Sepsis, unspecified organism (8) Demand ischemia Code(s): I24.8 - OTHER FORMS OF ACUTE ISCHEMIC HEART DISEASE Status: Resolved Comment: Likely due to cellulitis and volume overload, present on admission, now resolved - Plan * . Review of Systems - Review of Systems Cardiovascular: negative: chest pain, palpitations, orthopnea, paroxysmal nocturnal dyspnea, edema, light headedness Musculoskeletal: Leg Pain Skin: Rash - Medications/Allergies Allergies/Adverse Reactions: Allergies Allergy/AdvReac Type Severity Reaction Status Date / Time No Known Allergies Allergy Verified 03/14/17 23:34 Medications: Current Medications Acetaminophen (Tylenol) 650 mg PO Q4H PRN PRN Reason: Headache/Fever/Mild Pain (1-3) Last Admin: 01/20/19 13:46 Dose: 650 mg Lipase/Protease/[place]ylase ([place] [id number]) 1 cap PO TID [facility] Last Admin: 01/21/19 15:27 Dose: 1 cap Aspirin (Aspirin) 325 mg PO DAILY [facility] Last Admin: 01/21/19 09:31 Dose: 325 mg Atorvastatin Calcium (Lipitor) 10 mg PO HS [facility] Last Admin: 01/20/19 20:17 Dose: 10 mg Dextrose/Water (Dextrose 50%) 25 gm SLOW IVP PRN PRN PRN Reason: Hypoglycemia Enoxaparin Sodium (Lovenox) 30 mg SC 0900 [facility] Last Admin: 01/21/19 09:32 Dose: 30 mg Famotidine (Pepcid) 20 mg PO DAILY [facility] Last Admin: 01/21/19 09:32 Dose: 20 mg Fluoxetine HCl (Prozac) 20 mg PO DAILY [facility] Last Admin: 01/21/19 09:32 Dose: 20 mg Glucagon (Glucagon) 1 mg IM PRN PRN PRN Reason: Hypoglycemia Last Admin: 01/14/19 10:54 Dose: 1 mg Guaifenesin/Dextromethorphan (Robitussin Dm) 15 ml PO Q4H PRN PRN Reason: Cough Hydralazine HCl (Apresoline) 10 mg SLOW IVP Q6H PRN PRN Reason: SBP Greater Than 170 Last Admin: 01/21/19 12:43 Dose: 10 mg Dextrose/Water (D5w) 1,000 mls @ 0 mls/hr IV .Q0M PRN PRN Reason: Hypoglycemia Vancomycin HCl 1 gm/ Device 200 mls @ 200 mls/hr IVPB [facility] Vancomycin HCl 750 mg/ Sodium (Chloride) 250 mls @ 250 mls/hr IVPB [facility] Vancomycin HCl 500 mg/ Sodium (Chloride) 100 mls @ 100 mls/hr IVPB [facility] Last Admin: 01/17/19 13:44 Dose: 100 mls Vancomycin HCl 250 mg/ Sodium (Chloride) 100 mls @ 100 mls/hr IVPB [facility] Ceftriaxone Sodium 1 gm/ (Sodium Chloride) 100 mls @ 200 mls/hr IVPB Q24HR [facility] Last Admin: 01/20/19 18:48 Dose: 100 mls Insulin Human Lispro (Humalog) 0 units SC .MODERATE SLIDING SC PRN PRN Reason: Moderate Correctional Scale Last Admin: 01/21/19 12:45 Dose: 2 unit Insulin Human Lispro (Humalog) 0 units SC .BEDTIME SLIDING SC PRN PRN Reason: Bedtime Correctional Scale Losartan Potassium (Cozaar) 50 mg PO DAILY [facility] Last Admin: 01/21/19 09:31 Dose: 50 mg Miscellaneous Medication (Pharmacy To Dose) 1 each IVPB PRN PRN PRN Reason: Pharmacy to dose Hold Vancomycin For (Level >20) 0 each FS .AT DIALYSIS [facility] Pantoprazole Sodium (Protonix) 40 mg PO DAILY [facility] Last Admin: 01/21/19 09:32 Dose: 40 mg Sevelamer Carbonate (Renvela) 800 mg PO DAILY [facility] Last Admin: 01/21/19 09:31 Dose: 800 mg Sodium Chloride (Flush - Normal Saline) 10 ml IVF Q12HR [facility] Last Admin: 01/21/19 09:33 Dose: 10 ml Sodium Chloride (Flush - Normal Saline) 10 ml IVF PRN PRN PRN Reason: Saline Flush
[2019-01-21] MEDS ORDERED: hydrALAZINE 20 MG/ML VIAL SLOW IVP SCH (16:00)
--- NOTE | 2019-01-21 16:21 | PRG ---
DATE OF SERVICE: 01/21/2019 SUBJECTIVE: Ms. Bolton is feeling better. She is able to ambulate. Still quite a bit of pain when she is in the upright position in the left lower extremity. No respiratory symptoms or abdominal pain. No diarrhea. OBJECTIVE: VITAL SIGNS: She is afebrile. SKIN: The left leg with the somewhat purpuric changes of the skin more like erysipelas. The medial thigh erythema has resolved. LUNGS: Clear. HEART: S1 and S2, regular rate. LABORATORY DATA: White cell count 6.3, hemoglobin 10.6, and platelets 220. Microbiology, not remarkable. ASSESSMENT AND DISCUSSION: 1. Type 2 diabetes. 2. Nausea and vomiting. 3. Cellulitis of left leg with improvement. Eventual transition to oral Keflex for discharge planning and then suppressive penicillin VK for a year. Job ID: [id number]
[2019-01-21] MEDS: cefTRIAXone\\ROCEPHIN 1 GM in Sodium Chloride 0.9% 100 ML IVPB SCH (19:03)
[2019-01-21] MEDS: Atorvastatin Calcium 10 MG TAB PO SCH (20:09)
[2019-01-22] MEDS: hydrALAZINE 20 MG/ML VIAL SLOW IVP PRN ×2 (05:47→12:08)
[2019-01-22 07:53] LABS: Vancomycin, Random 12.1 ug/mL (See Comment)
[2019-01-22] MEDS: Enoxaparin Sodium 30 MG/0.3 ML SYRINGE SC SCH ×2 (08:33→12:10)
[2019-01-22] MEDS: Aspirin 325 MG TAB PO SCH (08:33)
[2019-01-22] MEDS: FLUoxetine HCl 20 MG CAP PO SCH ×2 (08:34→12:09)
[2019-01-22] MEDS: Sevelamer Carbonate 800 MG TAB PO SCH (08:34)
[2019-01-22] MEDS: Losartan 25 MG TAB PO SCH ×2 (08:34→12:09)
[2019-01-22] MEDS: Pancrelipase DR 12000 1 CAP PO SCH ×2 (08:34→14:49)
[2019-01-22] MEDS: Famotidine 20 MG TAB PO SCH (08:34)
--- NOTE | 2019-01-22 09:17 | PRG ---
DATE OF SERVICE: 01/22/2019 SUBJECTIVE: Ms. Bolton is 58-year-old female with ESRD, on maintenance, and maintenance hemodialysis. I am currently dialyzing her. I am at the bedside supervising her dialysis. No new complaints. She is being treated with antibiotics for left leg cellulitis. The patient voices no new complaints. No chest pain or shortness of breath. OBJECTIVE: VITAL SIGNS: Blood pressure is 180/86, heart rate 92, respiratory rate 20, temperature 97.8, and pulse ox 95%. GENERAL: Awake, alert, comfortable, not in distress. SKIN: Adequate turgor. HEENT: Has pinkish conjunctivae. Anicteric sclerae. NECK: No neck mass. No carotid bruits. No JVD. CHEST: No deformities. LUNGS: Clear breath sounds. HEART: Normal sinus rhythm. No murmurs. No gallops. No rubs. ABDOMEN: Globular, soft, nontender. No masses. EXTREMITY: No edema. No deformities except for a left leg erythema secondary to her cellulitis. MEDICATIONS: Medications of January 22, 2019, reviewed. LABORATORY FINDINGS: Laboratories of January 20, 2019, white count 6.2, hemoglobin 10.6. January 22, 2019, glucose 111. January 20, 2019, BUN 40, creatinine 7.66, potassium 4.3. ASSESSMENT AND PLAN: 1. End-stage renal disease, stable, tolerating current hemodialysis regimen. Fluid removal as tolerated. No changes with the current hemodialysis regimen. 2. Left leg cellulitis-on IV antibiotics. ID following. 3. Overall, prognosis remains guarded. Job ID: [id number]
[2019-01-22] MEDS: Vancomycin HCl 500 MG in Sodium Chloride 0.9% 100 ML IVPB SCH (10:22)
[2019-01-22] MEDS: Acetaminophen 325 MG TAB PO PRN (12:09)
[2019-01-22 16:06] VITALS: BP 170/75; TEMP 97.5
[2019-01-22] MEDS ORDERED: Metoprolol Tartrate 50 MG TAB PO SCH (21:00)
[2019-01-22] MEDS ORDERED: Cephalexin 250 MG CAP PO SCH (21:00)
[2019-01-22] MEDS ORDERED: cloNIDine 0.1 MG TAB PO SCH (21:00)
--- NOTE | 2019-01-23 00:51 | DIS ---
DATE OF ADMISSION: 01/14/2019 DATE OF DISCHARGE: 01/22/2019 PRIMARY CARE PROVIDER: Zayda Griffith. DISCHARGE DIAGNOSES: 1. Severe sepsis. 2. Cellulitis. 3. Non-ST elevation myocardial infarction type 2 secondary to demand, present on admission. 4. Right pleural effusion. 5. Acute hypoxic respiratory failure. 6. Bradyarrhythmia. CONDITION OF PATIENT ON THE DAY OF DISCHARGE: Stable. I assessed Ms. Bolton on the day of discharge. She denies any chest pain or shortness of breath. Vital signs are stable. S1 and S2 are heard, regular. Lungs are clear to auscultation bilaterally. CONSULTATIONS DURING THIS HOSPITALIZATION: Infectious Diseases, Dr. Mcgrath. DISCHARGE MEDICATIONS: 1. Clonidine and metoprolol were discontinued. 2. She should be on cephalexin 250 mg 2 times a day for 14 days, followed by penicillin VK 250 mg 2 times a day after Keflex is completed for 1 year. Other discharge medications include: 1. Aspirin 325 mg daily. 2. Fluoxetine 20 mg daily. 3. Isosorbide mononitrate 30 mg daily. 4. Minoxidil 2.5 mg at bedtime. 5. Protonix 40 mg daily. 6. Pravastatin 40 mg at bedtime. 7. Renvela 800 mg daily. HOSPITAL COURSE: Ms. Bolton is a pleasant 58-year-old lady, who was admitted to [facility] on January 13, 2019, for volume overload and possible right-sided pneumonia. Please refer to Dr. Teague's history and physical note dated January 14, 2019, for further details. She was seen by General Surgery Service for IV access and had central line placed. She was also seen by Pulmonology and Cardiology Services. Pulmonology Service did right pleural drainage, which turned out to be transudate. She also had bradyarrhythmia, which improved after stopping clonidine and metoprolol. She was seen by Nephrology and underwent maintenance hemodialysis. She also had left lower extremity cellulitis. She had CT angiogram of the left lower extremity on January 16, which showed atherosclerotic change in the left lower extremity. Please note that the patient was initially admitted on observation status. She was hypotensive, therefore, Haroon Burns was called and she was transferred to the Critical Care Unit for further management. She had vascular ultrasound on January 16, which did not show any DVT of the left lower extremity. She was seen by Infectious Disease Service. She was initially treated with ceftriaxone for cellulitis. She is being stepped down to oral antibiotics as described above. She continued to gradually improve. She has been cleared for discharge by consultants. She is being discharged home in a stable condition. Many thanks for allowing me to participate in your patient's care. Please feel free to contact me with any questions or concerns. DISCHARGE DESTINATION: Home. TIME SPENT: Total amount of time spent coordinating this discharge: 32 minutes. Job ID: [id number] [facility]
== END 2019-01-22 19:05 | disposition home or self-care (01) | DRG 871 ==
LOC: ERS 06:00 → 2SW 09:32 → OBSVTOIN 01-14 07:14 → IMCU/EMU 01-14 10:42 → SURG B 01-19 16:42
PROVIDERS: ADMIT Internal Medicine; ATTEND Internal Medicine
PROC: 5A1D70Z Performance of Urinary Filtration, Intermittent, Less than 6 Hours Per Day (ICD-10-PCS; 2019-01-13)
PROC: 02HV33Z Insertion of Infusion Device into Superior Vena Cava, Percutaneous Approach (ICD-10-PCS; principal; 2019-01-14)
PROC: 0W993ZX Drainage of Right Pleural Cavity, Percutaneous Approach, Diagnostic (ICD-10-PCS; 2019-01-14)
PROC: 5A1D70Z Performance of Urinary Filtration, Intermittent, Less than 6 Hours Per Day (ICD-10-PCS; 2019-01-15)
PROC: 5A1D70Z Performance of Urinary Filtration, Intermittent, Less than 6 Hours Per Day (ICD-10-PCS; 2019-01-17)
PROC: 5A1D70Z Performance of Urinary Filtration, Intermittent, Less than 6 Hours Per Day (ICD-10-PCS; 2019-01-20)
DX: A41.9 Sepsis, unspecified organism (principal); N18.6 End stage renal disease; I21.A1 Myocardial infarction type 2; J96.01 Acute respiratory failure with hypoxia; J90 Pleural effusion, not elsewhere classified; L03.116 Cellulitis of left lower limb; I13.2 Hypertensive heart and chronic kidney disease with heart failure and with stage 5 chronic kidney disease, or end stage renal disease; I50.32 Chronic diastolic (congestive) heart failure; R65.20 Severe sepsis without septic shock; E11.22 Type 2 diabetes mellitus with diabetic chronic kidney disease; I25.10 Atherosclerotic heart disease of native coronary artery without angina pectoris; F32.9 Major depressive disorder, single episode, unspecified; I95.9 Hypotension, unspecified; A08.4 Viral intestinal infection, unspecified; E86.0 Dehydration; F41.9 Anxiety disorder, unspecified; I49.8 Other specified cardiac arrhythmias; T44.7X5A Adverse effect of beta-adrenoreceptor antagonists, initial encounter; T46.5X5A Adverse effect of other antihypertensive drugs, initial encounter; Z99.2 Dependence on renal dialysis; Z79.82 Long term (current) use of aspirin; Z79.4 Long term (current) use of insulin; Z79.899 Other long term (current) drug therapy; Z95.1 Presence of aortocoronary bypass graft; Y92.230 Patient room in hospital as the place of occurrence of the external cause
CPT/HCPCS: 36415; 36416; 51701; 71045; 74177; 80048; 80053; 80202; 81003; 81015; 82553; 82945; 83615; 83690; 83735; 83880; 83986; 84100; 84157; 84484; 85025; 85060; 87040; 87045; 87046; 87070; 87086; 87116; 87205; 87206; 87324; 87340; 87449; 87804; 87899; 88112; 88305; 89051; 90935; 93005; 93010; 96365; 96375; A4353; G0257; J0360; J0690; J0696; J1610; J1650; J1825; J1956; J2001; J2405; J3370; J7050; Q9966

== ENCOUNTER 2019-03-17 13:49 | Inpatient (IN) | payer MEDICARE, MEDICAID ==
[2019-03-17 14:34] LABS: Hemoglobin 9.5 g/dL (12.0-16.0); Mean Corpuscular HGB CONC 31.1 g/dL (32.0-36.0); Mean Corpuscular Hemoglobin 30.9 pg (27.0-31.0); Mean Corpuscular Volume 99.5 fL (78.0-98.0); Mean Platelet Volume 7.2 fL (7.4-10.4); Platelet Count 148 thou/uL (130-400); RBC Distribution Width 13.4 % (11.5-14.5); Red Blood Cell (RBC) Count 3.07 mill/uL (4.20-5.40); White Blood Cell (WBC) Count 4.3 thou/uL (4.8-10.8)
[2019-03-17 14:58] LABS: ALT (SGPT) 11 U/L (8-55); AST (SGOT) 29 U/L (5-34); Albumin 3.7 g/dL (3.5-5.0); Alkaline Phosphatase 109 U/L (40-150); Anion Gap 15 mmol/L (10-20); BUN (Urea Nitrogen) 9 mg/dL (9.8-20.1); Bilirubin, Total 0.9 mg/dL (0.2-1.2); Calc. Creatinine Clearance 0 mL/min (70-130); Calcium 8.7 mg/dL (7.8-10.44); Carbon Dioxide 31 mmol/L (22-29); Chloride 96 mmol/L (98-107); Estimated GFR-MDRD 13; Globulin 3.8 g/dL (2.4-3.5); Glucose 105 mg/dL (70-105); Potassium 3.5 mmol/L (3.5-5.1); Protein, Total 7.5 g/dL (6.0-8.3); Sodium 138 mmol/L (136-145)
[2019-03-17 15:06] LABS: Band 5 % (5-11); Elliptocytes SLIGHT = 2-5 cells (100X) (0-1/hpf); Eosinophils 1 % (0-10); Hypochromia SLIGHT = 6-15 cells (100X) (0-5/hpf); Lymphocytes 3 % (21-51); MDiff Complete? YES; Monocytes 1 % (0-10); Neutrophil 90 % (42-75); Platelet Morphology Comment Appears Adequate
[2019-03-17 15:18] LABS: CKMB 0.9 ng/mL (0-6.6)
--- NOTE | 2019-03-17 15:23 | RAD ---
PORTABLE CHEST: Date: 03/17/19 HISTORY: Cough. COMPARISON: 01/14/19. FINDINGS: Cardiomegaly again noted with postop sternotomy change. Right-sided effusion is again seen. Mild vasc ular engorgement. Right basilar atelectasis and/or infiltrate. IMPRESSION: Cardiomegaly with mild vascular engorgement. Right-sided effusion, similar appearance to prior study. POS: [facility]
[2019-03-17] MEDS ORDERED: Acetaminophen 500 MG TAB ONE (15:36)
[2019-03-17] MEDS ORDERED: Gentamicin 80 MG/2 ML VIAL ONE (17:15)
[2019-03-17] MEDS ORDERED: cefTRIAXone\\ROCEPHIN 2 GM VIAL ONE (19:10)
--- NOTE | 2019-03-17 19:21 | ULT ---
Ultrasound Doppler duplex venous left lower extremity: 02/12/2019 HISTORY: Left lower extremity edema in 58-year-old female. TECHNIQUE: Grayscale, color-flow, and spectral analysis, of major veins of left lower extremity. FINDINGS: There is demonstration of blood flow with normal compressibility, of the bilateral common femoral, pr ofunda femoral, greater saphenous, femoral, popliteal, and posterior tibial, veins. Enlarged left groin lymph nodes are noted. IMPRESSION: 1. No deep venous thrombosis of left lower extremity. 2. Enlarged lymph nodes in the left groin.
[2019-03-17 20:50] LABS: Troponin I 0.195 ng/mL (< 0.028)
[2019-03-17] MEDS ORDERED: Ondansetron ODT 4 MG TAB PO PRN (22:42)
[2019-03-17] MEDS ORDERED: Ondansetron PF 4 MG/2 ML Vial IVP PRN (22:42)
[2019-03-17] MEDS ORDERED: Acetaminophen 325 MG TAB PO PRN (22:42)
[2019-03-17] MEDS ORDERED: Vancomycin Sliding Scale 1 EACH FS ONE (23:00)
[2019-03-17] MEDS ORDERED: Vancomycin HCl 750 MG in Sodium Chloride 0.9% 250 ML 250 ML IVPB SCH (23:00)
[2019-03-17] MEDS ORDERED: Vancomycin HCl 1 GM in Premix Bag 1 BAG IVPB SCH (23:00)
[2019-03-17] MEDS ORDERED: HOLD VANCOMYCIN FOR LEVEL >20 FS SCH (23:00)
[2019-03-17] MEDS ORDERED: Vancomycin HCl 500 MG in Sodium Chloride 0.9% 100 ML IVPB SCH (23:00)
[2019-03-17] MEDS ORDERED: Vancomycin HCl 250 MG in Sodium Chloride 0.9% 100 ML IVPB SCH (23:00)
[2019-03-18 00:15] LABS: Troponin I 0.245 ng/mL (< 0.028)
[2019-03-18 02:52] VITALS: BMI 21.1
[2019-03-18 03:48] LABS: Anion Gap 16 mmol/L (10-20); BUN (Urea Nitrogen) 15 mg/dL (9.8-20.1); Calc. Creatinine Clearance 13 mL/min (70-130); Calcium 9.1 mg/dL (7.8-10.44); Carbon Dioxide 28 mmol/L (22-29); Chloride 98 mmol/L (98-107); Estimated GFR-MDRD 10; Glucose 136 mg/dL (70-105); Potassium 3.7 mmol/L (3.5-5.1); Sodium 138 mmol/L (136-145)
[2019-03-18 04:38] LABS: Band 3 % (5-11); Eosinophils 7 % (0-10); Hemoglobin 9.7 g/dL (12.0-16.0); Lymphocytes 25 % (21-51); MDiff Complete? YES; Mean Corpuscular HGB CONC 31.9 g/dL (32.0-36.0); Mean Corpuscular Hemoglobin 32.1 pg (27.0-31.0); Mean Platelet Volume 7.6 fL (7.4-10.4); Monocytes 15 % (0-10); Neutrophil 49 % (42-75); Platelet Count 142 thou/uL (130-400); RBC Distribution Width 13.1 % (11.5-14.5); Reactive Lymphocytes 1 % (0-10); Red Blood Cell (RBC) Count 3.03 mill/uL (4.20-5.40)
--- NOTE | 2019-03-18 07:51 | HP ---
PRIMARY CARE PHYSICIAN: Dr. Zayda Griffith. CODE STATUS: Full code. TIME OF EVALUATION: 10 p.m. CHIEF COMPLAINT: Syncope. HISTORY OF PRESENT ILLNESS: This is a 58-year-old female patient, with past medical history of CAD, diabetes type 2, hyperlipidemia, high cholesterol, hypertension, end-stage renal disease on hemodialysis Sunday, Sunday, and Sunday with Dr. Doty, came to the hospital after having an episode of syncope. The patient reports that her daughter just called her before she hit the ground. No significant trauma came from the syncope. She reported that she has had some syncope after dialysis. Symptoms were associated with nausea, abdominal pain, diarrhea, cough, occasionally vomiting, glucose since the dialysis. The patient also was found to have cellulitis of the left lower extremity, has been started on antibiotics. REVIEW OF SYSTEMS: CONSTITUTIONAL: The patient had fever, chills, generalized weakness. RESPIRATORY: No cough, sputum production, or shortness of breath. CARDIOVASCULAR: No chest pain or palpitation. GASTROINTESTINAL: No nausea, no vomiting, diarrhea, or abdominal pain. POULTRY PICKING MACHINE TENDER: The patient has dizziness. No headache, but feeling lightheaded. The patient had experienced an episode of syncope with loss of consciousness. GENITOURINARY: No burning on urination. EXTREMITIES: Left lower extremity swelling. All other systems were reviewed and negative except for the findings mentioned above. PAST MEDICAL HISTORY: Mentioned in the HPI. PAST SURGICAL HISTORY: CABG x4 vessels, hemodialysis, AV graft on the right upper extremity, and ovarian tumor removal. PSYCHIATRIC HISTORY: The patient had depression. No suicidal ideation. No homicidal ideation. SOCIAL HISTORY: Lives at home with family. No alcohol. No drugs. No smoking history. FAMILY HISTORY: Mother and father with heart problems. KNOWN ALLERGIES: No known drug allergies. REPORTED MEDICATIONS: 1. Metoprolol. 2. Aspirin. 3. Renvela. 4. Pravastatin. 5. Creon. 6. Hydralazine. 7. Clonidine. 8. Minoxidil. 9. Pantoprazole. 10. Fluoxetine. 11. Levemir. 12. Dialyvite. 13. Penicillin V. PHYSICAL EXAMINATION: VITAL SIGNS: On presentation, blood pressure 113/52 with heart rate 81, respiratory rate was 19, temperature 101, fever, pain 9/10, oxygen saturation was 98% on room air. GENERAL APPEARANCE: The patient is alert, oriented, not in acute distress. HEENT: Eyes; normal conjunctivae. Moist oral mucosa. Anicteric. No JVD. RESPIRATORY: Bilateral air entry. No rales. No wheezes. Symmetric expansion. CARDIOVASCULAR: Normal rate, regular rhythm. No murmurs. No gallop. EXTREMITIES: Left lower extremity edema. ABDOMEN: Soft, normal bowel sounds. MUSCULOSKELETAL: Baseline range of motion and strength. No tenderness. SKIN: Warm, intact. No pallor. No rash. No redness. Peripheral pulses are present. Capillary refill seems to be intact. NEUROLOGICAL: No evidence of any new focal weakness. Baseline speech. Cranial nerves seems to be intact. PSYCHIATRIC: The patient is in good mood. No anxiety. Optimal judgment. IMAGING STUDIES: EKG was reviewed. The patient has normal sinus rhythm with a rate of 73, MS 184, QRS 100, QT corrected 502, incomplete RBBB. Chest x-ray was reviewed. The patient has cardiomegaly with mild cardiovascular engorgement, right side pleural effusions, similar appearance to prior study. LABORATORY DATA: Reviewed. Hematocrit 4.3, hemoglobin 9.5, MCV 99 with platelet count 148. Chemistry; sodium 138, potassium 3.5, chloride 96, carbon dioxide was 31 with anion gap 15, BUN 9, creatinine 3.65, GFR 13, glucose 105. Lactic acid 1.1, calcium 8.7, total bilirubin 0.9, AST 29, ALT 11, alkaline phosphatase 109. Troponin initial was 0.111, second one 0.245. B-type natriuretic peptide 3746.3. Serum total protein 7.5, albumin 3.7, globulin 3.8 with albumin to globulin ratio is 1.0. ASSESSMENT AND PLAN: The patient will be placed in the hospital with following medical problems: 1. Syncope of unclear etiology. We will do syncope protocol. We will keep on tele. We will do echo, we will do carotid Doppler. 2. Left lower extremity cellulitis. The patient had fever, the patient has swelling, redness of the left lower extremity, has been started on antibiotics that we will continue for now. 3. End-stage renal disease. The patient follows with Dr. Doty, might need to be consulted as inpatient. The patient states due to need for hemodialysis. 4. Chronic normocytic anemia. This is likely secondary to underlying chronic kidney disease. We will defer to Nephro for any further management. No need for any acute intervention at this point as inpatient. 5. Leukopenia, could be secondary to underlying infection. White count 4.3. For this reason, the patient has been started on broad-spectrum antibiotics. 6. Xoy-OR-ecelyrgzg myocardial infarction, likely type 2 secondary to underlying sepsis. First troponin 0.101, second 0.245, we will trend troponins and treat accordingly. 7. Deep venous thrombosis prophylaxis. Job ID: [id number]
[2019-03-18] MEDS ORDERED: Acetaminophen 325 MG TAB ONE (09:45)
[2019-03-18] MEDS: Enoxaparin Sodium 40 MG/0.4 ML SYRINGE SC SCH (09:45)
--- NOTE | 2019-03-18 10:23 | ULT ---
BILATERAL CAROTID DUPLEX ULTRASOUND: HISTORY: Syncope. TECHNIQUE: Miranda scale ultrasound with color flow and spectral Doppler imaging of the extracranial carotid artery systems is performed bilaterally. FINDINGS: There is plaque formation in the carotid bulbs. The peak systolic velocity in the right ICA measures 119 cm/s with an end-diastolic velocity of 18 cm /s and a systolic ratio of 1.19. The peak systolic velocity in the left ICA measures 91 cm/s with an zed velocity of 19 cm/s and a sys tolic ratio of 0.80. Flow in both vertebral arteries remains antegrade. IMPRESSION: No evidence of hemodynamically significant stenosis. POS: TPC
--- NOTE | 2019-03-18 12:03 | PDOC.PN ---
- Subjective Encounter Start Date: 03/18/19 Encounter Start Time: 12:02 Patient seen and examined, no new issues or complaints. Daughter states that the patient tends to pass out after dialysis, this is her 2nd time. Seen and examined in the ER, all questions answered. - Objective Resuscitation Status - Order Detail: 03/17/19 22:42 Resuscitation Status Routine Resuscitation Status: FULL: Full Resuscitation Vital Signs & Weight: Vital Signs (12 hours) Temp Pulse Resp BP Pulse Ox 03/18/19 06:00 98.7 F 71 20 157/100 H 97 03/18/19 02:56 96 Weight Weight 134 lb 14.766 oz Result Diagrams: 03/18/19 03:21 03/18/19 03:21 Phys Exam - Physical Examination Constitutional: NAD HEENT: PERRLA, moist MMs, sclera anicteric Neck: no nodes, no JVD, supple Respiratory: no wheezing, no rales, no rhonchi Cardiovascular: RRR, no rub faint systolic murmur Gastrointestinal: soft, non-tender, no distention Musculoskeletal: no edema, pulses present Dx/Plan (1) Syncope and collapse Code(s): R55 - SYNCOPE AND COLLAPSE Status: Acute (2) Diabetes mellitus, type II, insulin dependent Code(s): E11.9 - TYPE 2 DIABETES MELLITUS WITHOUT COMPLICATIONS; Z79.4 - LEAD RELAY TESTER (CURRENT) USE OF INSULIN Status: Chronic Comment: reasonably controlled (3) ESRD (end stage renal disease) on dialysis Code(s): N18.6 - END STAGE RENAL DISEASE; Z99.2 - DEPENDENCE ON RENAL DIALYSIS Status: Chronic Comment: nephrology following (4) HLD (hyperlipidemia) Code(s): E78.5 - HYPERLIPIDEMIA, UNSPECIFIED Status: Chronic Qualifiers: (5) HTN (hypertension) Code(s): I10 - ESSENTIAL (PRIMARY) HYPERTENSION Status: Chronic Qualifiers: Comment: controlled (6) Secondary hyperparathyroidism of renal origin Code(s): N25.81 - SECONDARY HYPERPARATHYROIDISM OF RENAL ORIGIN Status: Chronic - Plan * syncope work up pending, images pending * consult renal for HD * labs in AM * likely secondary to orthosatic hypotension from acute volume loss due to dialysis * monitor closely for now * possible DC in 24-48hrs depending on image studies and patient condition * case and plan d/w patient and family at length, they understand and agree with this plan.
[2019-03-18] MEDS ORDERED: Epoetin (ESRD) 20,000 UNITS/ML SC SCH (16:30)
[2019-03-18] MEDS ORDERED: EPOETIN ALFA-EPBX (ESRD) 4,000 UNIT/ML VIAL SC SCH (17:00)
[2019-03-18] MEDS: Sevelamer Carbonate 800 MG TAB PO SCH (17:39)
--- NOTE | 2019-03-18 22:41 | CON ---
DATE OF CONSULTATION: HISTORY OF PRESENT ILLNESS: Ms. Bolton is a 58-year-old female with ESRD and was admitted due to fever and near syncopal episode. I did discuss the case with the ER physician and she was empirically given some vancomycin and gentamicin. Blood culture has been done, is still pending results. This afternoon, the patient is feeling much better. REVIEW OF SYSTEMS: No chest pain or shortness of breath. Decreased appetite. Decreased energy level. No nausea. No vomiting. No syncopal episode. No productive cough. Positive for fever. No dysuria. No urinary frequency. No hematochezia. No melena. No hematemesis. MEDICATIONS: The patient is currently on 1. Lovenox 40 mg subcu daily. 2. Ceftriaxone 1 g IV q.24 hours, status post vancomycin. 3. Zofran p.r.n. Home medications have included; 1. Hydralazine 50 mg p.r.n. 2. Sevelamer 800 mg p.o. t.i.d. 3. Pravastatin 40 mg nightly. 4. Protonix 40 mg daily. 5. Minoxidil 2.5 mg at bedtime. 6. Metoprolol tartrate 100 mg daily. 7. Levemir 5 units subcu daily. 8. Prozac 20 mg tablet once a day. 9. Aspirin 325 mg tablet once a day. PAST MEDICAL HISTORY: 1. ESRD from diabetic nephropathy, currently on maintenance hemodialysis. 2. Hypertension. 3. Type 2 diabetes mellitus. 4. Hyperphosphatemia. 5. Hyperlipidemia status post volume overload/CHF. 6. History of depression. PAST SURGICAL HISTORY: Status post PD catheter placement, subsequent removal, status post AV fistula placement, status post cuffed hemodialysis catheter placement. SOCIAL HISTORY: The patient lives in [place], lives with her daughter, currently medically disabled. Education, high school. Sedentary lifestyle. 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 No IV drug abuse. No smoking. No alcohol intake. ALLERGIES: NONE. TRAUMA: None. IMMUNIZATION: Up-to-date. HOSPITALIZATIONS: Please see past medical history. FAMILY HISTORY: No family history of ESRD. PHYSICAL EXAMINATION: VITAL SIGNS: Blood pressure is 150/68, heart rate 65, respiratory rate 18, temperature 97.9, and pulse ox 94%. GENERAL: Awake, alert, supine, comfortable, not in distress. SKIN: Adequate turgor. HEENT: She has slightly pale conjunctivae. Anicteric sclerae. No neck mass. No carotid bruits. No JVD. CHEST: No deformities. LUNGS: Clear breath sounds. No wheezing. No crackles. HEART: Normal sinus rhythm. No murmur, no gallops, no rubs. ABDOMEN: Globular, soft, nontender. No masses. EXTREMITIES: No edema, no deformities. Positive for right AV fistula. Positive for bruit. LABORATORY DATA: March 18, 2019, white count 4, hemoglobin 9.7, hematocrit 30.5. Sodium 138, potassium 3.7, carbon dioxide 28, chloride 98, BUN 15, creatinine 4.6, glucose 136, calcium 9.1. BNP 3746. Chest x-ray of March 17, 2019, cardiomegaly with increased lung markings. Positive for right-sided effusion. March 17, 2019, Doppler of the left lower extremity, no DVT. March 18, 2019, carotid Doppler, no evidence of a hemodynamically significant stenosis. ASSESSMENT/PLAN: 1. Near syncopal episode-no evidence of carotid artery stenosis. We will continue to observe. Adjust fluid removal with dialysis. 2. End-stage renal disease, stable. We will continue current Sunday, Sunday, and Sunday hemodialysis regimen. Review of her last Kt/V suggests she is adequately dialyzed with the current dialysis regimen. She undergoes 3.5 hours of dialysis 3 times a week. 3. Anemia-resume back Epogen 7500 units subcu every week. 4. Fever-resolved. Blood culture negative status post IV antibiotics and currently on ceftriaxone. 5. Etiology of the fever is unclear. This could be a viral etiology. Job ID: [id number]
[2019-03-18] MEDS ORDERED: cefTRIAXone\\ROCEPHIN 1 GM in Sodium Chloride 0.9% 100 ML IVPB SCH (23:00)
[2019-03-19] MEDS: Enoxaparin Sodium 40 MG/0.4 ML SYRINGE SC SCH (08:30)
[2019-03-19] MEDS: Sevelamer Carbonate 800 MG TAB PO SCH ×3 (08:30→18:55)
[2019-03-19 08:43] LABS: Vancomycin, Trough 14.4 ug/mL
[2019-03-19] MEDS ORDERED: Losartan 25 MG TAB PO SCH (09:00)
--- NOTE | 2019-03-19 09:07 | PRG ---
DATE OF SERVICE: 03/19/2019 SUBJECTIVE: Ms. Bolton is a 58-year-old female with ESRD, admitted for fever and chills. She is feeling better this morning. She is receiving empiric IV antibiotics. So far, blood cultures have been negative. Chest x-ray did not reveal any evidence of pneumonia. No new complaints. No chest pain or shortness of breath. PHYSICAL EXAMINATION: VITAL SIGNS: Blood pressure is 175/87, heart rate 71, respiratory rate 18, temperature 97.7, and pulse oximetry 93%. GENERAL: Awake, alert, supine, comfortable, not in distress. SKIN: Adequate turgor. HEENT: Slightly pale conjunctivae. Anicteric sclerae. No neck mass. No carotid bruits. No JVD. CHEST: No deformities. LUNGS: Clear breath sounds. HEART: Normal sinus rhythm. No murmur. No gallops. No rubs. ABDOMEN: Globular, soft, nontender. No masses. EXTREMITIES: No edema. No deformities. MEDICATIONS: Of March 19, 2019, reviewed. LABORATORY DATA: Of March 18, 2019, white count 4, hemoglobin 9.7, sodium 138, potassium 3.7, chloride 98, carbon dioxide 28, BUN 15, creatinine 4.6, glucose 136, calcium 9.1. Troponin I 0.245. Cardiac echo normal EF. ASSESSMENT AND PLAN: 1. Fever and chills - clinically much improved on empiric IV antibiotics. Blood culture shows no growth today. Continue current IV antibiotics. 2. End stage renal disease, stable. We will be doing her hemodialysis today. Fluid removal only as tolerated. 3. Hypertension. Resume minoxidil 2.5 mg p.o. once a day and losartan 50 mg tablet once a day. Overall, agree with current management. 4. Anemia, on weekly Epogen. Job ID: [id number]
--- NOTE | 2019-03-19 10:38 | PDOC.PN ---
- Subjective Encounter Start Date: 03/19/19 Encounter Start Time: 10:37 DC SUMMARY #[id number] - Objective Resuscitation Status - Order Detail: 03/17/19 22:42 Resuscitation Status Routine Resuscitation Status: FULL: Full Resuscitation Vital Signs & Weight: Vital Signs (12 hours) Temp Pulse Resp BP Pulse Ox 03/19/19 07:20 97.7 F 71 18 175/87 H 93 L 03/19/19 03:35 97.9 F 71 18 175/78 H 98 03/19/19 00:00 62 16 171/79 H Weight Weight 140 lb I&O: 03/18/19 03/19/19 03/20/19 06:59 06:59 06:59 Intake Total 820 Balance 820 Result Diagrams: 03/18/19 03:21 03/18/19 03:21 Additional Labs: Accuchecks 03/19/19 03/18/19 03/18/19 05:56 21:04 17:30 POC Glucose 96 100 94 Dx/Plan (1) Syncope and collapse Code(s): R55 - SYNCOPE AND COLLAPSE Status: Acute (2) Diabetes mellitus, type II, insulin dependent Code(s): E11.9 - TYPE 2 DIABETES MELLITUS WITHOUT COMPLICATIONS; Z79.4 - BAR STEWARD (CURRENT) USE OF INSULIN Status: Chronic Comment: reasonably controlled (3) ESRD (end stage renal disease) on dialysis Code(s): N18.6 - END STAGE RENAL DISEASE; Z99.2 - DEPENDENCE ON RENAL DIALYSIS Status: Chronic Comment: nephrology following (4) HLD (hyperlipidemia) Code(s): E78.5 - HYPERLIPIDEMIA, UNSPECIFIED Status: Chronic Qualifiers: (5) HTN (hypertension) Code(s): I10 - ESSENTIAL (PRIMARY) HYPERTENSION Status: Chronic Qualifiers: Comment: controlled (6) Secondary hyperparathyroidism of renal origin Code(s): N25.81 - SECONDARY HYPERPARATHYROIDISM OF RENAL ORIGIN Status: Chronic - Plan * .
[2019-03-19 15:20] LABS: HBSAg Index 0.29 S/CO (0-0.99); Hep B Surf Ag Non-Reactive S/CO (NonReactive)
[2019-03-19 18:55] VITALS: TEMP 98.3
[2019-03-19 19:48] VITALS: BP 147/72
[2019-03-19] MEDS ORDERED: Minoxidil 2.5 MG TAB PO SCH (21:00)
--- NOTE | 2019-03-19 21:07 | DIS ---
DATE OF ADMISSION: 03/17/2019 DATE OF DISCHARGE: 03/19/2019 ADMITTING DIAGNOSES: Syncope, fall, post dialysis; end-stage renal disease, cardiomyopathy, aortic stenosis, pulmonary hypertension, hyperlipidemia, hypertension. DISCHARGE DIAGNOSES: Syncope fall, resolved, stable. End-stage renal disease, stable. Hypertension, hyperlipidemia, stable. Pulmonary hypertension, stable. HOSPITAL COURSE: This is a 58-year-old female who presents for syncopal episode post dialysis. The patient states this has happened to her post dialysis in the past once before. The patient states that she did not have any other associated symptoms, no flashes of light or anything along those lines. The patient was admitted to Internal Medicine Team, had evaluation done by Nephrology as well for dialysis portion and management. The patient had a vascular ultrasound done of her lower extremities. Did not have a DVT present at time of evaluation of the ultrasound. The patient also had carotid ultrasounds done, which showed no hemodynamically significant stenosis. The patient did have an echocardiogram performed which shows a normal ejection fraction of 60% to 65%, however, the patient had significantly elevated pulmonary pressures with right ventricular systolic pressure being 75 mmHg. Mild mitral regurgitation and annular calcification. Moderately enlarged right atrium as well as moderately dilated left atrium as well as severe tricuspid regurgitation and severe dilated right ventricle. The patient at point in time of discharge was stable. Did not have any nausea, vomiting, diarrhea, constipation, chest pain, fevers, chills, or shortness of breath. The patient was to follow up with PCP, Cardiology within 1 to 2 weeks. The patient was advised to follow up with the outsole paraffiner actually early next week, Dr. Le. The patient also has dialysis on Sunday, Sunday, Sunday and will get dialysis treatment today prior to discharge. Case and plan discussed with the patient at length. She understood and agreed with this plan. DISPOSITION: Home. FOLLOWUP: Follow up with PCP within one week, Cardiology early next week, Nephrology within a day or two for dialysis. CONDITION: Stable. PROGNOSIS: Guarded. MEDICATIONS: See MAR. ACTIVITY: As tolerated with assistance as needed. DIET: Low-fat, low-calorie, renal diet. Case and plan discussed with the patient at length. She understood and agreed with this plan. Job ID: [id number]
--- NOTE | 2019-05-14 09:11 | PQF ---
BLANCA SYKESHARRY HUTCHINSON [id number] [id number] CLINICAL DOCUMENTATION CLARIFICATION FORM: POST DISCHARGE DATE: 05/14/19 ATTN: Dr Ruiz Please exercise your independent, professional judgment in responding to the clarification form. Clinical indicators are provided on the bottom of this form for your review Please check appropriate box(s): AMI TYPE: [ ] NSTEMI (IL type I) [ x ] NSTEMI due to Demand Ischemia (AMI Type II) [ x ] Demand Ischemia without IL [ ] Other diagnosis [ ] Unable to determine In addition, please specify: Present on Admission (POA): [ x ] Yes [ ] No [ ] Unable to determine CLINICAL INDICATORS - SIGNS / SYMPTOMS / LABS syncope Per H&P, the patient was found to have cellulitis of the left lower extremity , has been started on antibiotics (in ER). Physical Examination showed temperature 101, fever, pain 9/10. Lactic acid 1.1 WBC 4.3 Leukopenia could be secondary to underlying infection. Troponin initial was 0.111, second one 0.245. B-type natriuretic peptide 3746.3. PLAN: Xxk-RX-timtmovja myocardial infarction, likely type 2 secondary to underlying sepsis., will trend troponin and treat accordingly 03/19 Progress Note, Fever and chills clinically much improved on empiric IV antibiotics. Blood culture shows no growth today. Continue current antibiotics RISKS: Hypertension ESRD High Cholesterol/Lipids Diabetes History of IL Pulmonary Hypertension TREATMENTS: Continuous cardiac monitoring Cardiac consult (This form is maintained as a part of the permanent medical record) 2014 [employer]. All Rights Reserved Gayla [email or web address] [phone] [email or web address]
== END 2019-03-19 19:49 | disposition home or self-care (01) | DRG 602 ==
LOC: ERS 13:49 → ERHOLD 19:49 → 2NO 03-18 13:17
PROVIDERS: ADMIT Hospitalist; ATTEND Hospitalist
DX: L03.116 Cellulitis of left lower limb (principal); N18.6 End stage renal disease; I12.0 Hypertensive chronic kidney disease with stage 5 chronic kidney disease or end stage renal disease; N25.81 Secondary hyperparathyroidism of renal origin; R55 Syncope and collapse; E78.5 Hyperlipidemia, unspecified; I27.20 Pulmonary hypertension, unspecified; I08.1 Rheumatic disorders of both mitral and tricuspid valves; E11.22 Type 2 diabetes mellitus with diabetic chronic kidney disease; D64.9 Anemia, unspecified; F32.9 Major depressive disorder, single episode, unspecified; Z99.2 Dependence on renal dialysis; Z95.1 Presence of aortocoronary bypass graft
CPT/HCPCS: 36415; 36416; 71045; 80048; 80053; 80202; 82553; 83605; 83880; 84484; 85025; 87040; 87340; 90935; 93005; 93306; 93880; 96365; 96367; 96375; G0257; J0696; J1580; J1650; J3370; J3490; Q0162; Q5105

== ENCOUNTER 2019-03-24 11:21 | Emergency (ER) | payer MEDICARE, MEDICAID ==
--- NOTE | 2019-03-24 11:51 | RAD ---
Chest AP view INDICATION: Cough COMPARISON: March 17, 2019 FINDINGS: Lungs:Patchy bibasilar opacities persist. Cardiac silhouette pulmonary vasculature:Moderate cardiomegaly and moderate pulmonary vascular conges tion is stable. The interstitial edema bilaterally is slightly more pronounced. Pleural spaces:Moderate right and small left pleural effusion persist. Upper abdomen:No abnormality seen. Osseous structures: No acute osseous abnormality. Midline sternotomy changes are stable. There is sca ttered degenerative and osteoarthritic change present. IMPRESSION: Stable CHF.
[2019-03-24 12:09] LABS: Hemoglobin 9.9 g/dL (12.0-16.0); Mean Corpuscular HGB CONC 33.2 g/dL (32.0-36.0); Mean Corpuscular Hemoglobin 32.4 pg (27.0-31.0); Mean Corpuscular Volume 97.4 fL (78.0-98.0); Platelet Count 225 thou/uL (130-400); RBC Distribution Width 13.7 % (11.5-14.5); Red Blood Cell (RBC) Count 3.06 mill/uL (4.20-5.40); White Blood Cell (WBC) Count 4.8 thou/uL (4.8-10.8)
[2019-03-24 12:23] LABS: Band 1 % (5-11); Eosinophils 2 % (0-10); Lymphocytes 11 % (21-51); MDiff Complete? YES; Monocytes 7 % (0-10); Neutrophil 79 % (42-75); Platelet Morphology Comment Appears Adequate
[2019-03-24 12:43] LABS: ALT (SGPT) 10 U/L (8-55); AST (SGOT) 19 U/L (5-34); Albumin 3.4 g/dL (3.5-5.0); Alkaline Phosphatase 103 U/L (40-150); Anion Gap 13 mmol/L (10-20); BUN (Urea Nitrogen) 15 mg/dL (9.8-20.1); Bilirubin, Total 0.7 mg/dL (0.2-1.2); Calc. Creatinine Clearance 0 mL/min (70-130); Calcium 8.9 mg/dL (7.8-10.44); Carbon Dioxide 33 mmol/L (22-29); Chloride 96 mmol/L (98-107); Estimated GFR-MDRD 11; Globulin 4.3 g/dL (2.4-3.5); Glucose 173 mg/dL (70-105); Lipase 110 U/L (8-78); Potassium 3.8 mmol/L (3.5-5.1); Protein, Total 7.7 g/dL (6.0-8.3); Sodium 138 mmol/L (136-145)
[2019-03-24] MEDS ORDERED: HYDROcodone/Acetaminophen 10/325 mg Tablet ONE (13:23)
[2019-03-24 14:00] LABS: CKMB 1.4 ng/mL (0-6.6)
== END 2019-03-24 13:39 | disposition home or self-care (01) ==
LOC: ERS 11:21
DX: R10.9 Unspecified abdominal pain (principal); N18.6 End stage renal disease; E11.22 Type 2 diabetes mellitus with diabetic chronic kidney disease; I12.0 Hypertensive chronic kidney disease with stage 5 chronic kidney disease or end stage renal disease; I25.2 Old myocardial infarction; E78.5 Hyperlipidemia, unspecified; Z79.899 Other long term (current) drug therapy
CPT/HCPCS: 36415; 71045; 80053; 82550; 82553; 83690; 83880; 84484; 85025; 85379

== ENCOUNTER 2019-07-24 10:28 | Outpatient (CLI) | payer MEDICARE, MEDICAID ==
--- NOTE | 2019-07-24 11:54 | MMO ---
Bilateral MAMMO Bilat Screen DDI+DOMINIQUE. CLINICAL HISTORY: Patient is 59 years old and is seen for screening. The patient has no family history of breast cancer. The patient has no personal history of cancer. VIEWS: The views performed were: bilateral craniocaudal with tomosynthesis and bilateral mediolateral oblique with tomosynthesis. FILMS COMPARED: The present examination has been compared to a prior imaging study performed at [facility] on 07/23/2018. MAMMOGRAM FINDINGS: The breasts are heterogeneously dense, which could obscure a lesion on mammography. Finding 1: There are vascular calcifications seen in both breasts. Finding 2: There are stable calcifications seen in both breasts. There are no suspicious masses, suspicious calcifications, or new areas of architectural distortion. IMPRESSION: THERE IS NO MAMMOGRAPHIC EVIDENCE OF MALIGNANCY. A ROUTINE FOLLOW-UP MAMMOGRAM IN 1 YEAR IS RECOMMENDED. THE RESULTS OF THIS EXAM WERE SENT TO THE PATIENT. ACR BI-RADS Category 2 - Benign finding MAMMOGRAPHY NOTE: 1. A negative mammogram report should not delay a biopsy if a dominant of clinically suspicious mass is present. 2. Approximately 10% to 15% of breast cancers are not detected by mammography. 3. Adenosis and dense breasts may obscure an underlying neoplasm. Reported by: ILSA HAIR MD Electonically Signed: [id number]
== END 2019-07-24 10:29 | disposition home or self-care (01) ==
LOC: BICMAMMO 10:28
PROVIDERS: ATTEND Nurse Practitioner Family
DX: Z12.31 Encounter for screening mammogram for malignant neoplasm of breast (principal)
CPT/HCPCS: 77063; 77067

== ENCOUNTER 2019-08-14 12:21 | Observation (INO) | payer MEDICARE, MEDICAID ==
[2019-08-14] MEDS ORDERED: HYDROcodone/Acetaminophen 10/325 mg Tablet ONE (15:20)
[2019-08-14] MEDS ORDERED: Lidocaine 1% w/Epinephrine 1:100K 20 ML VIAL ONE (15:50)
[2019-08-14] MEDS ORDERED: Nitroglycerin 0.4 MG TAB 1 EACH ONE (16:57)
[2019-08-14 17:08] LABS: #Basophils 0.1 thou/uL (0.0-0.2); #Eosinphils 0.2 thou/uL (0.0-0.7); #Lymphocytes 1.3 thou/uL (1.20-3.40); #Monocytes 0.6 thou/uL (0.11-0.59); #Neutrophils 4.2 thou/uL (1.40-6.50); %Basophils 0.8 % (0.0-1.0); %Eosinophils 2.7 % (0.0-10.0); %Lymphocytes 19.9 % (21.0-51.0); %Neutrophils 66.6 % (42.0-75.0); Mean Corpuscular HGB CONC 33.1 g/dL (32.0-36.0); Mean Corpuscular Hemoglobin 31.8 pg (27.0-31.0); Mean Corpuscular Volume 96.2 fL (78.0-98.0); Platelet Count 223 thou/uL (130-400); RBC Distribution Width 14.2 % (11.5-14.5); Red Blood Cell (RBC) Count 3.47 mill/uL (4.20-5.40); White Blood Cell (WBC) Count 6.3 thou/uL (4.8-10.8)
[2019-08-14 17:38] LABS: ALT (SGPT) 12 U/L (8-55); AST (SGOT) 26 U/L (5-34); Albumin 3.9 g/dL (3.4-4.8); Alkaline Phosphatase 135 U/L (40-110); Anion Gap 16 mmol/L (10-20); BUN (Urea Nitrogen) 28 mg/dL (9.8-20.1); Bilirubin, Total 0.8 mg/dL (0.2-1.2); Calc. Creatinine Clearance 0 mL/min (70-130); Calcium 9.2 mg/dL (7.8-10.44); Carbon Dioxide 31 mmol/L (23-31); Chloride 96 mmol/L (98-107); Estimated GFR-MDRD 7; Globulin 4.5 g/dL (2.4-3.5); Glucose 211 mg/dL (80-115); Lipase 72 U/L (8-78); Protein, Total 8.4 g/dL (6.0-8.3); Sodium 139 mmol/L (136-145)
--- NOTE | 2019-08-14 17:41 | RAD ---
Exam: Chest one view HISTORY: Incision and drainage was performed today. Chest pain Comparison: 03/24/2019 FINDINGS: Cardiac silhouette:Cardiomegaly. There are sternotomy wires and mediastinal clips. Aorta: Atherosclerosis of the aortic knob Pulmonary vessels: Normal Costophrenic angles: Right-sided pleural effusion with adjacent parenchymal changes. LUNGS: Adequate aeration of the right upper lobe and left lung. Chronic changes are noted. No consoli dation. Pneumothorax: None Osseous abnormalities: None IMPRESSION: Pleural-parenchymal changes in the right hemithorax. Cardiomegaly. Atherosclerosis of the aorta. Evaluate for congestive heart failure.
[2019-08-14] MEDS ORDERED: Nitroglycerin 2% Ointment 1 INCH/1 GM Packet ONE (18:00)
[2019-08-14] MEDS ORDERED: HYDROcodone/Acetaminophen 7.5/325 mg Tablet PO PRN (19:00)
[2019-08-14] MEDS ORDERED: HYDROcodone/Acetaminophen 5/325 mg Tablet PO PRN (19:00)
[2019-08-14] MEDS ORDERED: Senokot S 8.6-50 MG TAB PO PRN (19:00)
[2019-08-14] MEDS ORDERED: Acetaminophen 325 MG TAB PO PRN (19:00)
[2019-08-14 20:55] LABS: CKMB 1.5 ng/mL (0-6.6)
[2019-08-14] MEDS ORDERED: Dextrose 50% Abboject 50 ML SYRINGE SLOW IVP PRN (20:58)
[2019-08-14] MEDS ORDERED: HumaLOG 300 UNITS/3 ML VIAL SC PRN (20:58)
[2019-08-14] MEDS ORDERED: Dextrose 5% in Water 1,000 ML IV PRN (20:58)
[2019-08-14] MEDS ORDERED: Famotidine 20 MG TAB PO SCH (21:00)
[2019-08-14 21:03] VITALS: BMI 21.4
--- NOTE | 2019-08-14 21:21 | HP ---
HISTORY OF PRESENT ILLNESS: for evaluation of bleeding at the site of drainage I and D site that was performed by Dr. Rodney earlier today. Noticed that the drainage and bleeding increasing over the hours after she was seen at Dr. Rodney's office. Reports that she tried to get in there, but they had gone for lunch, so she came to the emergency room. Several attempts were made to stop the bleeding. Pressure dressing and lidocaine 1% with epinephrine, pressure dressing again, wound cauterized and then pressure dressing applied 1 more time and it seemed to slow down. The patient reports that she has had 2 of these I and D'd 1 under each axilla and usually does not have this kind of problem. Has end-stage renal disease on dialysis, sees Dr. Jiménez and has a chair time on Sunday, Sunday, and Sunday at 0530 hours in the morning. While in the emergency room, the patient was complaining of some chest discomfort. Troponin was drawn, which was in the indeterminate range, but not unusual for her with her end-stage renal disease. EKG showed sinus tach, beats per minute 101 with premature supraventricular complexes, posterior fascicular block, T-waves. Hayes is normal. Due to the prolonged bleeding today and the chest discomfort, the patient was admitted to the observation unit for observation. Dr. Jiménez has been consulted and will arrange for dialysis in the morning prior to discharge. She denied any chest pain on exam by the hospitalist INDUSTRI[employer] E[employer]OMICS PROFESSOR and was symptom free during exam. REVIEW OF SYSTEMS: The patient reports some chest pressure has resolved. Denies any palpitations or shortness of breath. Had some bleeding from an I and D for an abscess under the left axilla. Pressure dressing is intact and appears dry currently. All other systems reviewed and negative unless mentioned in the HPI. KNOWN ALLERGIES: None. CURRENT MEDICATIONS: Metoprolol 100 mg p.o. once a day, aspirin 325 mg p.o. once a day, pravastatin 40 mg p.o. p.m., hydralazine 50 mg p.o. once a day, and fluoxetine 20 mg p.o. once a day. PHYSICAL EXAMINATION: VITAL SIGNS: Blood pressure 161/77, pulse is 89, respirations are 17, temperature is 98.7, and PO2 saturations are 98% on room air. CONSTITUTIONAL: The patient appears in no distress. She is nontoxic appearing. She is alert and oriented to person, place, and time. HEENT: Head is atraumatic and normocephalic. Eyes, pupils are equal, round, and reactive to light. Extraocular muscles are intact. NECK: Normal range of motion. Trachea is midline. RESPIRATORY: Chest, no respiratory distress. Breath sounds are clear. CARDIOVASCULAR: Regular heart rate and rhythm. Heart sounds are normal. ABDOMEN: There is no tenderness. Bowel sounds are heard. BACK: Normal range of motion. No tenderness. EXTREMITIES: Upper extremities, she has a shunt to right arm with good thrill and bruit. Pulses are normal bilaterally. She has a pressure dressing noted to left axilla, which is dry and intact. NEURO: The patient is oriented to person, place, and time. Speech is normal. SKIN: Warm and dry, normal in color, pressure dressing noted to left axilla. PAST MEDICAL HISTORY: Has had a myocardial infarction, diabetes type 2 on insulin, hyperlipidemia, high cholesterol, hypertension, end-stage renal disease on dialysis Sunday, Sunday and Sunday. PAST SURGICAL HISTORY: Coronary artery bypass graft 4 vessel, dialysis shunt right upper arm, right forearm and surgical history of for ovarian tumor removal. PSYCHIATRIC HISTORY: Depression. SOCIAL HISTORY: Lives at home with her family. Denies any alcohol or drug use. No smoking history. PERTINENT LABORATORY DATA: Troponin 0.080 and again 0.081. This appears at baseline for her. Chest x-ray is positive for cardiomegalia. Lipase 72. Sodium 139, potassium is 4, chloride 96, carbon dioxide 31, gap is 16, BUN is 28, creatinine is 5.86, estimated GFR 7, glucose is 211. White blood cell count is 6.3, hemoglobin is 11, and hematocrit is 33.4. ASSESSMENT AND PLAN: 1. Chest discomfort in the context of end-stage renal disease. We will trend troponins. Continue home aspirin. 2. End-stage renal disease. We have contacted Dr. Jiménez who will arrange dialysis for her in the morning. We will repeat lab values. Potassium appears within normal limits. 3. Hypertension, restart home medications. We will trend. 4. Hyperlipidemia. Restart home medications. 5. Case discussed Dr. Freeman who agrees with plan. 6. Deep venous thrombosis and gastrointestinal prophylaxis started. 7. Hospital course depending on clinical findings. Job ID: [id number]
[2019-08-15 04:35] LABS: #Eosinphils 0.3 thou/uL (0.0-0.7); #Lymphocytes 1.3 thou/uL (1.20-3.40); #Monocytes 0.8 thou/uL (0.11-0.59); #Neutrophils 4.6 thou/uL (1.40-6.50); %Basophils 0.5 % (0.0-1.0); %Eosinophils 4.2 % (0.0-10.0); %Lymphocytes 18.2 % (21.0-51.0); %Monocytes 11.5 % (0.0-10.0); %Neutrophils 65.6 % (42.0-75.0); Hemoglobin 9.6 g/dL (12.0-16.0); Mean Corpuscular HGB CONC 33.6 g/dL (32.0-36.0); Mean Corpuscular Hemoglobin 32.2 pg (27.0-31.0); Mean Corpuscular Volume 95.9 fL (78.0-98.0); Platelet Count 204 thou/uL (130-400); RBC Distribution Width 14.3 % (11.5-14.5); Red Blood Cell (RBC) Count 2.99 mill/uL (4.20-5.40); White Blood Cell (WBC) Count 7.1 thou/uL (4.8-10.8)
[2019-08-15 04:53] LABS: Anion Gap 12 mmol/L (10-20); BUN (Urea Nitrogen) 34 mg/dL (9.8-20.1); Calc. Creatinine Clearance 9 mL/min (70-130); Carbon Dioxide 35 mmol/L (23-31); Chloride 97 mmol/L (98-107); Estimated GFR-MDRD 7; Glucose 106 mg/dL (80-115); Potassium 4.5 mmol/L (3.5-5.1); Sodium 139 mmol/L (136-145)
[2019-08-15] MEDS ORDERED: EPOETIN ALFA-EPBX (ESRD) 4,000 UNIT/ML VIAL SC SCH (08:00)
[2019-08-15] MEDS ORDERED: FLUoxetine HCl 20 MG CAP PO SCH (09:00)
[2019-08-15] MEDS ORDERED: Folic Acid/Vit B Comp W-C PO SCH (09:00)
[2019-08-15] MEDS ORDERED: Aspirin 325 MG TAB PO SCH (09:00)
--- NOTE | 2019-08-15 09:49 | CON ---
DATE OF CONSULTATION: HISTORY OF PRESENT ILLNESS: Ms. Bolton is a 59-year-old female with ESRD - on maintenance hemodialysis and yesterday underwent an I and D on the left axilla. However, bleeding was persistent. For that reason, the patient was admitted for further evaluation. We are now being consulted for maintenance hemodialysis. The patient is currently undergoing hemodialysis today. No other complaints today. Bleeding from the left I and D site - left axilla is stable. REVIEW OF SYSTEMS: No chest pain. No shortness of breath. No nausea. No vomiting. No diarrhea. Appetite and energy level are fair. No headache. No diplopia. No gross hematuria. No dysuria. No urinary frequency. No abdominal pain. No joint pains. No new skin rash. No diplopia. No fever or chills. MEDICATIONS: The patient is currently on; 1. Aspirin 325 mg daily. 2. Famotidine 20 mg at bedtime. 3. Prozac 20 mg tablet once a day. 4. Folic acid one tablet daily. 5. P.r.n. hydrocodone. 6. Minoxidil 2.5 mg at bedtime. 7. Pravastatin 40 mg at bedtime. 8. Renvela 800 mg one tablet t.i.d. with meals. PAST MEDICAL HISTORY: 1. ESRD secondary to diabetic nephropathy - on maintenance hemodialysis. 2. Hypertension. 3. Type 2 diabetes mellitus. 4. Hyperphosphatemia. 5. Status post CHF. 6. History of depression. PAST SURGICAL HISTORY: The patient is status post left bilateral axillary I and D, status post cuffed hemodialysis catheter placement, status post AV fistula placement, and status post PD catheter placement and subsequent removal. SOCIAL HISTORY: The patient lives in [place]. Lives with her daughter. Currently medically disabled. Education, high school. Currently, no smoking. No alcohol. No IV drug abuse. Status post blood transfusion. 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 ALLERGIES: NONE. TRAUMA: None. IMMUNIZATIONS: Up-to-date. HOSPITALIZATIONS: Please see past medical history. FAMILY HISTORY: No family history of ESRD. PHYSICAL EXAMINATION: VITAL SIGNS: Blood pressure is 147/88, heart rate 99, respiratory rate 19, temperature 98.1, and pulse ox 94%. GENERAL: Noted to be awake, alert, comfortable, not in overt distress. SKIN: Adequate turgor. HEENT: She has a slightly pale conjunctivae. Anicteric sclerae. NECK: No neck mass. No carotid bruits. No JVD. CHEST: No deformities. LUNGS: Clear breath sounds. No wheezing. No crackles. HEART: Normal sinus rhythm. No murmur. No gallops. No rubs. ABDOMEN: Globular, soft, and nontender. No masses. EXTREMITIES: No edema. NEUROLOGICAL: Moving all extremities. No tremors. No asterixis. Oriented to 3 spheres. LABORATORY DATA: Laboratories of August 15, 2019; white count 7.1, hemoglobin 9.6. Sodium 139, potassium 4.5, chloride 97, carbon dioxide 35, BUN 34, creatinine 6.3, and calcium 9.0. ASSESSMENT AND PLAN: 1. End-stage renal disease stable. We will continue current Sunday, Sunday, and Sunday hemodialysis. We will do a 3-1/2-hour hemodialysis today. Fluid removal only as tolerated. 2. Anemia. Start Epogen 7500 units subcu weekly. 3. Status post left axillary I and D - stable. No active bleeding. Overall, agree with current management. Job ID: [id number]
[2019-08-15] MEDS: Sevelamer Carbonate 800 MG TAB PO SCH ×3 (12:05→18:01)
[2019-08-15] MEDS: hydrALAZINE 25 MG TAB PO SCH ×2 (12:05→14:56)
[2019-08-15 15:00] VITALS: BP 156/78; TEMP 98.3
--- NOTE | 2019-08-15 15:57 | PDOC.HOSPP ---
- Subjective Encounter Date: 08/15/19 Encounter Time: 15:56 Subjective: Ms. Bolton was seen today in follow-up of bleeding after I&D of an abscess. She does not have any complaints this morning. The bleeding has all but stopped. - Objective Vital Signs & Weight: Vital Signs (12 hours) Temp Pulse Resp BP Pulse Ox 08/15/19 15:00 98.3 F 99 16 156/78 H 97 08/15/19 12:05 99 08/15/19 12:00 100 16 134/69 95 Weight Weight 137 lb 4.8 oz I&O: 08/14/19 08/15/19 08/16/19 06:59 06:59 06:59 Intake Total 240 Output Total 0 Balance 240 Result Diagrams: 08/15/19 04:09 08/15/19 04:09 Additional Labs: Accuchecks 08/14/19 21:01 POC Glucose 195 H Hospitalist ROS - Medication Medications: Active Medications Generic Name Dose Route Start Last Admin Trade Name Freq PRN Reason Stop Dose Admin Aspirin 325 mg 08/15/19 09:00 08/15/19 12:07 Aspirin PO 325 mg DAILY JERALD Administration Epoetin Rio-epbx 7,500 unit 08/15/19 08:00 08/15/19 14:53 Retacrit SC 7,500 unit Q7D JERALD Administration Famotidine 20 mg 08/14/19 21:00 08/14/19 22:02 Pepcid PO 20 mg QPM JERALD Administration Fluoxetine HCl 20 mg 08/15/19 09:00 08/15/19 12:07 Prozac PO 20 mg DAILY JERALD Administration Hydralazine HCl 50 mg 08/15/19 09:00 08/15/19 14:56 Apresoline PO 50 mg TID JERALD Administration Sevelamer Carbonate 800 mg 08/15/19 08:00 08/15/19 13:13 Renvela PO 800 mg TID-WM JERALD Administration Vitamin B Complex/Vit C/Folic Acid 1 tab 08/15/19 09:00 08/15/19 12:08 Nephro-Dayanna Tablet PO 1 tab DAILY JERALD Administration - Exam Eye: PERRL Heart: RRR, no murmur, no gallops, no rubs, normal peripheral pulses Respiratory: CTAB, no wheezes, no rales, no ronchi, normal chest expansion, no tachypnea, normal percussion Gastrointestinal: soft, non-tender, non-distended, normal bowel sounds, no palpable masses, no hepatomegaly, no splenomegaly, no guarding Extremities: no cyanosis, no clubbing, no edema Skin: normal turgor, no lesions, no rashes Hosp A/P (1) Post-op bleeding Code(s): ZOI2136 - Status: Acute (2) Axillary abscess Code(s): L02.419 - CUTANEOUS ABSCESS OF LIMB, UNSPECIFIED Status: Acute (3) Diabetes mellitus, type II, insulin dependent Code(s): E11.9 - TYPE 2 DIABETES MELLITUS WITHOUT COMPLICATIONS; Z79.4 - [facility] (CURRENT) USE OF INSULIN Status: Chronic (4) ESRD (end stage renal disease) on dialysis Code(s): N18.6 - END STAGE RENAL DISEASE; Z99.2 - DEPENDENCE ON RENAL DIALYSIS Status: Chronic (5) HTN (hypertension) Code(s): I10 - ESSENTIAL (PRIMARY) HYPERTENSION Status: Chronic Qualifiers: - Plan * Bleeding post axillary abscess I&D. The bleeding appears to have stopped * Await Surgical evaluation * ESRD- continue Dialysis as per Nephrology * HTN- blood pressure is better * DM- blood glucose is stable
[2019-08-15] MEDS ORDERED: Pravastatin Sodium 40 MG TAB PO SCH (21:00)
[2019-08-15] MEDS ORDERED: Minoxidil 2.5 MG TAB PO SCH (21:00)
== END 2019-08-15 18:40 | disposition home or self-care (01) ==
LOC: ERS 12:21 → 2SW 18:34
PROVIDERS: ADMIT Internal Medicine; ATTEND Internal Medicine
DX: R07.89 Other chest pain (principal); M96.830 Postprocedural hemorrhage of a musculoskeletal structure following a musculoskeletal system procedure; L02.419 Cutaneous abscess of limb, unspecified; E11.21 Type 2 diabetes mellitus with diabetic nephropathy; I13.2 Hypertensive heart and chronic kidney disease with heart failure and with stage 5 chronic kidney disease, or end stage renal disease; E11.22 Type 2 diabetes mellitus with diabetic chronic kidney disease; N18.6 End stage renal disease; I50.9 Heart failure, unspecified; D63.1 Anemia in chronic kidney disease; E78.5 Hyperlipidemia, unspecified; I25.2 Old myocardial infarction; E78.00 Pure hypercholesterolemia, unspecified; F32.9 Major depressive disorder, single episode, unspecified; Z79.4 Long term (current) use of insulin; Z79.82 Long term (current) use of aspirin; Z79.899 Other long term (current) drug therapy; Z88.0 Allergy status to penicillin; Z95.1 Presence of aortocoronary bypass graft; Z99.2 Dependence on renal dialysis
CPT/HCPCS: 10061; 71045; 80048; 80053; 82553; 82962; 83690; 84484 ×2; 85025 ×2; 93005; 99285; G0463; Q5105; 36415; 36416; 96372; 99211; G0378; J2001

== ENCOUNTER 2019-10-09 09:16 | Outpatient (CLI) | payer MEDICARE, MEDICAID ==
[2019-10-09 10:13] LABS: #Eosinphils 0.1 thou/uL (0.0-0.7); #Lymphocytes 1.2 thou/uL (1.20-3.40); #Monocytes 0.8 thou/uL (0.11-0.59); #Neutrophils 3.7 thou/uL (1.40-6.50); %Basophils 0.4 % (0.0-1.0); %Eosinophils 2.1 % (0.0-10.0); %Lymphocytes 20.5 % (21.0-51.0); %Monocytes 13.2 % (0.0-10.0); %Neutrophils 63.8 % (42.0-75.0); Hemoglobin 10.7 g/dL (12.0-16.0); Mean Corpuscular HGB CONC 32.4 g/dL (32.0-36.0); Mean Corpuscular Hemoglobin 31.3 pg (27.0-31.0); Mean Corpuscular Volume 96.5 fL (78.0-98.0); Mean Platelet Volume 7.5 fL (7.4-10.4); Platelet Count 198 thou/uL (130-400); RBC Distribution Width 13.9 % (11.5-14.5); Red Blood Cell (RBC) Count 3.41 mill/uL (4.20-5.40); White Blood Cell (WBC) Count 5.8 thou/uL (4.8-10.8)
[2019-10-09 10:27] LABS: INR-International Normal Ratio 1.2
[2019-10-09 10:38] LABS: ALT (SGPT) 12 U/L (8-55); AST (SGOT) 21 U/L (5-34); Albumin 3.9 g/dL (3.4-4.8); Alkaline Phosphatase 130 U/L (40-110); Anion Gap 16 mmol/L (10-20); BUN (Urea Nitrogen) 20 mg/dL (9.8-20.1); Bilirubin, Total 0.8 mg/dL (0.2-1.2); Calc. Creatinine Clearance 0 mL/min (70-130); Calcium 8.8 mg/dL (7.8-10.44); Carbon Dioxide 32 mmol/L (23-31); Cardiac Risk 2.1 (Less than 4.5); Chloride 96 mmol/L (98-107); Cholesterol 130 mg/dl (< 200 Desired); Estimated GFR-MDRD 9; Globulin 4.2 g/dL (2.4-3.5); Glucose 92 mg/dL (80-115); HDL Cholesterol 62 mg/dL (>60 Neg Risk); LDL Cholesterol, Calculated 54 mg/dL; Potassium 4.4 mmol/L (3.5-5.1); Protein, Total 8.1 g/dL (6.0-8.3); Sodium 140 mmol/L (136-145); Triglycerides 69 mg/dL (Less than 150)
== END 2019-10-09 09:17 | disposition home or self-care (01) ==
LOC: LABBT 09:16
PROVIDERS: ATTEND Internal Medicine Cardiovascular Disease
DX: Z01.812 Encounter for preprocedural laboratory examination (principal); I25.10 Atherosclerotic heart disease of native coronary artery without angina pectoris
CPT/HCPCS: 80053; 80061; 85025; 85610; 85730

== ENCOUNTER 2019-10-14 05:40 | Day surgery (SDC) | payer MEDICARE, MEDICAID ==
[2019-10-09 09:48] VITALS: BMI 21.2
[2019-10-14] MEDS ORDERED: Heparin (Artline) 1,000 ML ONE (06:27)
[2019-10-14] MEDS ORDERED: Lidocaine 1% (PF) 30 ML VIAL ONE (06:27)
[2019-10-14] MEDS ORDERED: Midazolam HCl 2 mg/2 ml Vial ONE (08:18)
[2019-10-14] MEDS ORDERED: Fentanyl 100 MCG/2 ML VIAL ONE (08:18)
[2019-10-14] MEDS ORDERED: Iopamidol 370 76% 100 ML VIAL ONE (12:39)
== END 2019-10-14 13:00 | disposition home or self-care (01) ==
LOC: CCL 05:40
PROVIDERS: ATTEND Internal Medicine Cardiovascular Disease
PROC: 4A023N7 Measurement of Cardiac Sampling and Pressure, Left Heart, Percutaneous Approach (ICD-10-PCS; principal; 2019-10-14)
PROC: B2111ZZ Fluoroscopy of Multiple Coronary Arteries using Low Osmolar Contrast (ICD-10-PCS; 2019-10-14)
DX: I25.10 Atherosclerotic heart disease of native coronary artery without angina pectoris (principal); I25.84 Coronary atherosclerosis due to calcified coronary lesion; I25.82 Chronic total occlusion of coronary artery; I12.0 Hypertensive chronic kidney disease with stage 5 chronic kidney disease or end stage renal disease; E11.22 Type 2 diabetes mellitus with diabetic chronic kidney disease; N18.6 End stage renal disease; I25.5 Ischemic cardiomyopathy; E78.5 Hyperlipidemia, unspecified; I25.2 Old myocardial infarction; F32.9 Major depressive disorder, single episode, unspecified; Z79.4 Long term (current) use of insulin; Z79.82 Long term (current) use of aspirin; Z79.899 Other long term (current) drug therapy; Z88.0 Allergy status to penicillin; Z95.1 Presence of aortocoronary bypass graft; Z99.2 Dependence on renal dialysis
CPT/HCPCS: 93459; 99152; 99153; C1769; J1644; J2001; J2250; J3010; Q9967

== ENCOUNTER 2019-10-22 08:34 | Day surgery (SDC) | payer MEDICARE, MEDICAID ==
[2019-10-21 16:46] VITALS: BMI 21.6
[2019-10-22] MEDS ORDERED: Levofloxacin 500 mg/D5W 100 ml Premix Bag ONE (09:41)
[2019-10-22] MEDS ORDERED: Fentanyl 100 MCG/2 ML VIAL ONE ×2 (10:13→10:21)
[2019-10-22] MEDS ORDERED: Bupivacaine PF 0.5% 30 ML VIAL ONE (10:18)
[2019-10-22] MEDS ORDERED: Protamine Sulfate 50 MG/5 ML VIAL ONE (10:18)
[2019-10-22] MEDS ORDERED: Lidocaine 1% w/Epinephrine 1:100K 20 ML VIAL ONE (10:18)
[2019-10-22] MEDS ORDERED: Heparin 5,000 UNITS/ML VIAL ONE (10:18)
[2019-10-22] MEDS ORDERED: Bupivacaine HCl 0.5%/Epinephrine 1:200,000/PF 30 ml Vial ONE (10:42)
[2019-10-22] MEDS ORDERED: Ondansetron PF 4 MG/2 ML Vial ONE (10:42)
[2019-10-22] MEDS ORDERED: PROPOFOL 200 MG/20 ML VIAL ONE (10:42)
[2019-10-22] MEDS ORDERED: Lidocaine 1% PF 5 ML VIAL ONE (10:42)
--- NOTE | 2019-10-22 13:11 | OP ---
DATE OF PROCEDURE: 10/22/2019 PREOPERATIVE DIAGNOSES: End-stage renal disease, aneurysms, and right arm Hailey fistula distal half forearm. ANESTHESIA: Regional, LMA, and TIVA. DESCRIPTION OF PROCEDURE: The patient was taken to the operating room, where under regional anesthesia with LMA, right upper extremity was prepared with ChloraPrep and draped in routine fashion. The patient had 2 large aneurysms in the distal half of her forearm. These ellipse of skin was marked over each of the two aneurysms with the incision joint in the middle on the segment of vein that was not aneurysmal. Ellipse of skin excised and skin and subcutaneous tissue dissected free from the fistula to a normal-sized fistula proximally and distally. The patient given 6000 units of heparin intravenously by Anesthesia and the fistula, clamped proximally and distally for control. An ellipse of aneurysmal wall and skin overlying excised from the fistula, excising redundant fistula and then, imbricating both aneurysms for repair separately using continuous suture of 4-0 Prolene on each of the aneurysms. Once this was completed vascular clamps released. There was good flow in the fistula. Good hemostasis obtained with the cautery clips, 4-0 silk ties. The patient was given 25 mg of protamine by Anesthesia. Surgicel applied. Subcutaneous tissue was approximated with 3-0 Monocryl, skin with subdermal 4-0 Monocryl, and [place] glue applied. The patient tolerated the procedure well. Job ID: [id number]
--- NOTE | 2019-10-22 13:26 | HP ---
HISTORY OF PRESENT ILLNESS: Lorraine Bolton is a 59-year-old female dialyzes at [facility], Sunday, Sunday, and Sunday at 0500, followed by Dr. Bethel Jiménez, Nephrology. She is followed by Dr. Le for her coronary artery disease. She has had a coronary artery bypass grafting 3 vessels in 2016. She has an appointment for cardiac catheterization on October 14, 2019 due to echo demonstrating some dyskinesia of her heart. The patient has seen me today regarding aneurysmal development of Hailey fistula right arm. This is in the distal half of the arm. The patient states they started access in her more proximal fistula. Her cephalic vein extends from the wrist throughout her upper arm and can be accessed at numerous places. Plan would be to revise this fistula under regional anesthesia and intravenous sedation excising the aneurysm, plicating it, allowing it to heal for 3 to 4 weeks prior to accessing it in this area and accessing it more proximal. We will plan to perform this as an outpatient under regional anesthesia and would not schedule it until after Dr. Le completes her cardiac evaluation. After the cardiac evaluation, the family or Dr. Le can call and we can schedule this on a nondialysis day, Sunday. Risks and benefits of procedure were discussed and she consents. MEDICATION: Minoxidil, pravastatin, aspirin, Levemir, Creon, fluoxetine, and Dialyvite. PAST MEDICAL HISTORY: End-stage renal disease, dialyzing Sunday, Sunday, and Sunday at [facility]. Elevated cholesterol, diabetes, coronary artery disease stable and asymptomatic with abnormal echo, planned cardiac catheterization on October 14, 2019. Hypertension. PAST SURGICAL HISTORY: Right Hailey fistula on October 15, 2011, triple bypass 2016. Right axillary abscess drained in the office, healed. REVIEW OF SYSTEMS: Noncontributory. PHYSICAL EXAMINATION: VITAL SIGNS: Weight 141 pounds, height 5 foot 7 inches, 22 BMI, blood pressure 136/69, pulse 99, temperature degrees. HEAD, EARS, EYES, NOSE AND THROAT: Unremarkable. LUNGS: Clear to auscultation. CARDIAC: Regular rate and rhythm without murmur or gallop. ABDOMEN: Soft, nontender. EXTREMITIES: Unremarkable, aneurysms Hailey fistula distal half with a well-developed fistula proximal forearm and into her upper arm, where they could be accessed. ASSESSMENT AND PLAN: End-stage renal disease with dialysis fistula, malfunction, revision of this is not an emergency and would wait until after cardiac evaluation and clearance. Would schedule that sometime after that under regional anesthesia as an outpatient. She will continue her aspirin and Plavix and any other medications that Dr. Le puts her on perioperatively. She understands risks and benefits and consents. Job ID: [id number]
[2019-10-22 19:02] LABS: #Eosinphils 0.1 thou/uL (0.0-0.7); #Monocytes 0.6 thou/uL (0.11-0.59); #Neutrophils 2.8 thou/uL (1.40-6.50); %Basophils 0.6 % (0.0-1.0); %Eosinophils 1.8 % (0.0-10.0); %Lymphocytes 22.9 % (21.0-51.0); %Monocytes 12.3 % (0.0-10.0); %Neutrophils 62.5 % (42.0-75.0); Mean Corpuscular HGB CONC 32.6 g/dL (32.0-36.0); Mean Corpuscular Volume 95.2 fL (78.0-98.0); Mean Platelet Volume 7.1 fL (7.4-10.4); Platelet Count 177 thou/uL (130-400); RBC Distribution Width 13.6 % (11.5-14.5); Red Blood Cell (RBC) Count 3.53 mill/uL (4.20-5.40); White Blood Cell (WBC) Count 4.5 thou/uL (4.8-10.8)
[2019-10-22 19:50] LABS: Anion Gap 14 mmol/L (10-20); BUN (Urea Nitrogen) 18 mg/dL (9.8-20.1); Calc. Creatinine Clearance 13 mL/min (70-130); Calcium 8.2 mg/dL (7.8-10.44); Carbon Dioxide 32 mmol/L (23-31); Chloride 96 mmol/L (98-107); Estimated GFR-MDRD 10; Glucose 95 mg/dL (80-115); Potassium 3.6 mmol/L (3.5-5.1); Sodium 138 mmol/L (136-145)
[2019-10-23] MEDS ORDERED: Midazolam HCl 2 mg/2 ml Vial ONE (07:09)
[2019-10-23] MEDS ORDERED: Fentanyl 100 MCG/2 ML VIAL ONE (07:09)
--- NOTE | 2019-10-23 21:31 | EKG ---
Test Reason : PREOP Blood Pressure : / mmHG Vent. Rate : 091 BPM Atrial Rate : 091 BPM P-R Int : 146 ms QRS Dur : 104 ms QT Int : 444 ms P-R-T Axes : 077 143 057 degrees QTc Int : 546 ms Sinus rhythm with occasional Premature ventricular complexes Left posterior fascicular block Prolonged QT Abnormal ECG When compared with ECG of 14-AUG-2019 16:55, Premature ventricular complexes are now Present Premature supraventricular complexes are no longer Present Confirmed by Luisa OLPEZ ([id number]) on 10/23/2019 9:30:56 PM Referred By: MIGDALIA Confirmed By:Luisa LOPEZ
== END 2019-10-22 15:00 | disposition home or self-care (01) ==
LOC: SDC 08:34
PROVIDERS: ATTEND Specialist
PROC: 05CY0ZZ Extirpation of Matter from Upper Vein, Open Approach (ICD-10-PCS; principal; 2019-10-22)
DX: I77.0 Arteriovenous fistula, acquired (principal); I12.0 Hypertensive chronic kidney disease with stage 5 chronic kidney disease or end stage renal disease; E11.22 Type 2 diabetes mellitus with diabetic chronic kidney disease; N18.6 End stage renal disease; I25.10 Atherosclerotic heart disease of native coronary artery without angina pectoris; E78.00 Pure hypercholesterolemia, unspecified; Z79.4 Long term (current) use of insulin; Z79.82 Long term (current) use of aspirin; Z79.899 Other long term (current) drug therapy; Z88.0 Allergy status to penicillin; Z95.1 Presence of aortocoronary bypass graft
CPT/HCPCS: 80048; 85025; 93005; 93010; J0670; J1644; J1956; J2001; J2250; J2405; J2704; J2720; J3010; S0020

== ENCOUNTER 2019-12-17 20:40 | Inpatient (IN) | payer MEDICARE, MEDICAID ==
[~2019-12-17 20:40] MED LIST: Iopamidol-370 76% 500 ML 1 ML ONE
[2019-12-17 21:06] LABS: #Eosinphils 0.2 thou/uL (0.0-0.7); #Lymphocytes 1.4 thou/uL (1.20-3.40); #Monocytes 0.8 thou/uL (0.11-0.59); #Neutrophils 4.8 thou/uL (1.40-6.50); %Basophils 0.2 % (0.0-1.0); %Eosinophils 2.9 % (0.0-10.0); %Lymphocytes 18.9 % (21.0-51.0); %Monocytes 11.4 % (0.0-10.0); %Neutrophils 66.6 % (42.0-75.0); Hemoglobin 9.4 g/dL (12.0-16.0); Mean Corpuscular HGB CONC 31.7 g/dL (32.0-36.0); Mean Corpuscular Hemoglobin 28.8 pg (27.0-31.0); Mean Corpuscular Volume 90.8 fL (78.0-98.0); Mean Platelet Volume 7.3 fL (7.4-10.4); Platelet Count 334 thou/uL (130-400); RBC Distribution Width 13.3 % (11.5-14.5); Red Blood Cell (RBC) Count 3.27 mill/uL (4.20-5.40); White Blood Cell (WBC) Count 7.2 thou/uL (4.8-10.8)
[2019-12-17 21:32] LABS: ALT (SGPT) Less than 7 U/L (8-55); AST (SGOT) 16 U/L (5-34); Alkaline Phosphatase 158 U/L (40-110); Anion Gap 14 mmol/L (10-20); BUN (Urea Nitrogen) 32 mg/dL (9.8-20.1); Bilirubin, Total 0.8 mg/dL (0.2-1.2); Calc. Creatinine Clearance 0 mL/min (70-130); Calcium 8.2 mg/dL (7.8-10.44); Carbon Dioxide 33 mmol/L (23-31); Chloride 94 mmol/L (98-107); Estimated GFR-MDRD 7; Glucose 103 mg/dL (80-115); Potassium 4.2 mmol/L (3.5-5.1); Sodium 137 mmol/L (136-145)
[2019-12-17 21:54] LABS: CKMB 0.7 ng/mL (0-6.6)
--- NOTE | 2019-12-17 21:55 | RAD ---
XR Chest 1 View Portable HISTORY: Shortness of breath COMPARISON: 08/14/2019 study. FINDINGS: Heart size is enlarged with postop sternotomy changes. Pleural and parenchymal changes in t he right base appears slightly less prominent than on the prior exam. No evidence of failure. IMPRESSION: Cardiomegaly. Decrease in size of the right-sided pleural effusion.
--- NOTE | 2019-12-17 21:57 | ULT ---
Right lower extremity venous duplex exam: HISTORY: Right leg pain and edema. COMPARISON: None. FINDINGS: Real-time color Doppler evaluation the right lower extremity was performed from groin to ca lf. This includes evaluation the common femoral, superficial profundofemoral, saphenous, popliteal and posterior tibial veins. This shows a patent deep venous system. There is normal compressibility and augmentation. IMPRESSION: No evidence of DVT of the right lower extremity.
--- NOTE | 2019-12-17 23:01 | CT ---
CT angiogram chest performed with intravenous contrast enhancement with 3-D reconstructions: HISTORY: Chest pain. Shortness of breath. COMPARISON: None. FINDINGS: There is a moderately large right pleural effusion with atelectatic changes of the right lo wer lobe. No infiltrative process is identified. No significant mediastinal or hilar adenopathy. Sternotomy changes are seen. The thoracic aorta is no rmal in caliber. There is good pulmonary artery opacification obtained and no CT evidence for pulmonary embolus. Ascites is noted. IMPRESSION: 1. Moderate right pleural effusion. 2. No CT evidence for pulmonary embolus. 3. Ascites. 4. Extensive atherosclerotic change.
[2019-12-17] MEDS ORDERED: Lidocaine 1% w/Epinephrine 1:100K 20 ML VIAL ONE (23:14)
[2019-12-17] MEDS ORDERED: Lidocaine 1% (PF) 30 ML VIAL ONE (23:32)
[2019-12-18] MEDS ORDERED: cefTRIAXone\\ROCEPHIN 1 GM VIAL ONE (00:17)
[2019-12-18 00:32] LABS: RBC Count-Automated (BF) 2628 /cumm; WBC/Nucleated-Auto (BF) 3090 uL
[2019-12-18 00:58] LABS: BF Color Yellow; Body Fluid Source Ascites Body Fluid; Clarity Hazy (Clear); Tube # EDTA
[2019-12-18 01:02] LABS: BF Segmented Neutrophils 64 %; Cell Count Non Hematic 35 %; Lymphocytes 1 %
--- NOTE | 2019-12-18 01:16 | PDOC.FPRHP ---
- Allergies/Adverse Reactions Allergies Allergy/AdvReac Type Severity Reaction Status Date / Time Penicillins Allergy Mild Rash Verified 10/21/19 16:46 - Home Medications Medication Instructions Recorded Confirmed Type Aspirin 325 mg PO DAILY 08/09/15 10/21/19 History FLUoxetine HCl 20 mg PO DAILY 08/09/15 10/21/19 History Pravastatin Sodium 40 mg PO HS 08/09/15 10/21/19 History Minoxidil 2.5 mg PO HS 11/30/17 10/21/19 History Sevelamer Carbonate [Renvela] 4 tab PO TID-WM 01/17/18 10/21/19 History Insulin Detemir [Levemir] 5 units SC PRN PRN 03/18/19 10/21/[address] [place] [address] [Creon DR 1 capsule PO TID-WM 03/18/19 10/21/19 History 12,000 Units] hydrALAZINE HCl [Hydralazine HCl] 50 mg PO ASDIR PRN 03/18/19 10/21/19 History Carvedilol 1 tab PO BID 10/09/19 10/21/19 History Neomycin/Polymyxin B/Hydrocort 4 drop TOP BID 10/09/19 10/21/19 History [Czzdwmwc-Tfpfzvzyw-Ey Ear Soln] Omeprazole 1 tab PO DAILY 10/09/19 10/21/19 History traMADol HCl [Tramadol HCl] 50 mg PO ASDIR PRN 10/09/19 10/21/19 History - History PMHx: PSHx: FHx: Social: - Vital signs BP: [] HR: [] RR: [] Tmax: [] Pox: []% on [] Wt: [] FMR H&P: Results - Labs Result Diagrams: 12/17/19 20:53 12/17/19 20:53 Lab results: WBC 7.2 thou/uL (4.8-10.8) 12/17/19 20:53 Hgb 9.4 g/dL (12.0-16.0) L 12/17/19 20:53 Hct 29.7 % (36.0-47.0) L 12/17/19 20:53 MCV 90.8 fL (78.0-98.0) 12/17/19 20:53 Plt Count 334 thou/uL (130-400) 12/17/19 20:53 Neutrophils % 66.6 % (42.0-75.0) 12/17/19 20:53 Sodium 137 mmol/L (136-145) 12/17/19 20:53 Potassium 4.2 mmol/L (3.5-5.1) 12/17/19 20:53 Chloride 94 mmol/L (98-107) L 12/17/19 20:53 Carbon Dioxide 33 mmol/L (23-31) H 12/17/19 20:53 BUN 32 mg/dL (9.8-20.1) H 12/17/19 20:53 Creatinine 6.05 mg/dL (0.6-1.1) H 12/17/19 20:53 Glucose 103 mg/dL (80-115) 12/17/19 20:53 Calcium 8.2 mg/dL (7.8-10.44) 12/17/19 20:53 Total Bilirubin 0.8 mg/dL (0.2-1.2) 12/17/19 20:53 AST 16 U/L (5-34) 12/17/19 20:53 ALT Less than 7 U/L (8-55) L 12/17/19 20:53 Alkaline Phosphatase 158 U/L (40-110) H 12/17/19 20:53 CK-MB (CK-2) 0.7 ng/mL (0-6.6) 12/17/19 20:53 B-Natriuretic Peptide 4837.8 pg/mL (0-100) H 12/17/19 20:53 Serum Total Protein 8.0 g/dL (6.0-8.3) 12/17/19 20:53 Albumin 3.0 g/dL (3.4-4.8) L 12/17/19 20:53 FMR H&P: Upper Level - Plan Date/Time: 12/18/19 0116 I, [], have evaluated this patient and agree with findings/plan as outlined by web marketing intern resident. Pertinent changes/additions are listed here.
[2019-12-18] MEDS ORDERED: Ondansetron ODT 4 MG TAB PO PRN (02:05)
[2019-12-18 03:37] LABS: #Eosinphils 0.1 thou/uL (0.0-0.7); #Lymphocytes 1.1 thou/uL (1.20-3.40); #Monocytes 0.9 thou/uL (0.11-0.59); #Neutrophils 4.4 thou/uL (1.40-6.50); %Basophils 0.3 % (0.0-1.0); %Eosinophils 2.2 % (0.0-10.0); %Lymphocytes 17.1 % (21.0-51.0); %Monocytes 13.3 % (0.0-10.0); Hemoglobin 8.8 g/dL (12.0-16.0); Mean Corpuscular HGB CONC 31.9 g/dL (32.0-36.0); Mean Corpuscular Hemoglobin 28.9 pg (27.0-31.0); Mean Corpuscular Volume 90.5 fL (78.0-98.0); Mean Platelet Volume 7.3 fL (7.4-10.4); Platelet Count 278 thou/uL (130-400); RBC Distribution Width 13.4 % (11.5-14.5); Red Blood Cell (RBC) Count 3.05 mill/uL (4.20-5.40); White Blood Cell (WBC) Count 6.6 thou/uL (4.8-10.8)
[2019-12-18 03:59] LABS: Anion Gap 17 mmol/L (10-20); BUN (Urea Nitrogen) 32 mg/dL (9.8-20.1); Calc. Creatinine Clearance 0 mL/min (70-130); Calcium 7.8 mg/dL (7.8-10.44); Carbon Dioxide 27 mmol/L (23-31); Chloride 94 mmol/L (98-107); Estimated GFR-MDRD 7; Glucose 186 mg/dL (80-115); Potassium 4.4 mmol/L (3.5-5.1); Sodium 134 mmol/L (136-145)
--- NOTE | 2019-12-18 05:03 | PDOC.HHP ---
Hospitalist HPI - History of Present Illness swelling, "bloating" History of Present Illness: 59 year old female with PMH ESRD on MWF HD at [facility] who presents to ED for diffuse swelling and feeling of bloating. She underwent HD on Sunday but there was an issue with machine and she had to stop after only an hour, she says not much fluid was removed. Denies CP, SOB, fever chills or other symptoms besides swelling. Other PMH includes ESRD on MWF HD, HLD, DM, CAD, HTN. She sees Dr Jiménez for nephrology and Dr Le of cardiology. Hospitalist ROS - Review of Systems Constitutional: reports: weakness, malaise. denies: fever, chills, sweats, other Eyes: denies: pain, vision change, conjunctivae inflammation, eyelid inflammation, redness, other ENT: denies: ear pain, ear discharge, nose pain, nose discharge, nose congestion , mouth pain, mouth swelling, throat pain, throat swelling, other Respiratory: denies: cough, dry, shortness of breath, hemoptysis, SOB with excertion, pleuritic pain, sputum, wheezing, other Cardiovascular: reports: light headedness. denies: chest pain, palpitations, orthopnea, paroxysmal noc. dyspnea, edema, other Gastrointestinal: denies: nausea, vomiting, abdominal pain, diarrhea, constipation, melena, hematochezia, other Genitourinary: denies: dysuria, frequency, incontinence, hematuria, retention, other Musculoskeletal: denies: neck pain, shoulder pain, arm pain, back pain, hand pain, leg pain, foot pain, other Skin: denies: rash, lesions, wild, bruising, other Neurological: denies: weakness, numbness, incoordination, change in speech, confusion, seizures, other Other: + bloating, anasarca Hospitalist History - Past Medical History Other Medical History: ESRD on MWF HD HLD DM CAD HTN - Past Surgical History Past Surgical History: reports: CABG - Family History Family History: reports: no pertinent history - Social History Alcohol: reports: None Drugs: reports: none - Exam General Appearance: NAD, awake alert Eye: PERRL, anicteric sclera ENT: normocephalic atraumatic, no oropharyngeal lesions, moist mucosa Neck: supple, symmetric, no JVD, no thyromegaly, no lymphadenopathy, no carotid bruit Heart: RRR, no murmur, no gallops, no rubs, normal peripheral pulses Respiratory: CTAB, no wheezes, no rales, no ronchi, normal chest expansion, no tachypnea, normal percussion Gastrointestinal: soft, non-tender, non-distended, normal bowel sounds, no palpable masses, no hepatomegaly, no splenomegaly, no bruit Extremities: no cyanosis, no clubbing, 1+ LE edema Extremities - other findings: AVF Skin: normal turgor, no lesions, no rashes Neurological: cranial nerve grossly intact, normal sensation to touch, no weakness, no focal deficits, no new deficit Musculoskeletal: normal tone, normal strength, no muscle wasting Psychiatric: normal affect, normal behavior, A&O x 3 Hospitalist Results - Labs Result Diagrams: 12/18/19 03:29 12/18/19 03:29 Lab results: WBC 6.6 thou/uL (4.8-10.8) 12/18/19 03:29 Hgb 8.8 g/dL (12.0-16.0) L 12/18/19 03:29 Hct 27.6 % (36.0-47.0) L 12/18/19 03:29 MCV 90.5 fL (78.0-98.0) 12/18/19 03:29 Plt Count 278 thou/uL (130-400) 12/18/19 03:29 Neutrophils % 67.0 % (42.0-75.0) 12/18/19 03:29 Sodium 134 mmol/L (136-145) L 12/18/19 03:29 Potassium 4.4 mmol/L (3.5-5.1) 12/18/19 03:29 Chloride 94 mmol/L (98-107) L 12/18/19 03:29 Carbon Dioxide 27 mmol/L (23-31) 12/18/19 03:29 BUN 32 mg/dL (9.8-20.1) H 12/18/19 03:29 Creatinine 6.04 mg/dL (0.6-1.1) H 12/18/19 03:29 Glucose 186 mg/dL (80-115) H 12/18/19 03:29 Calcium 7.8 mg/dL (7.8-10.44) 12/18/19 03:29 Total Bilirubin 0.8 mg/dL (0.2-1.2) 12/17/19 20:53 AST 16 U/L (5-34) 12/17/19 20:53 ALT Less than 7 U/L (8-55) L 12/17/19 20:53 Alkaline Phosphatase 158 U/L (40-110) H 12/17/19 20:53 CK-MB (CK-2) 0.7 ng/mL (0-6.6) 12/17/19 20:53 Troponin I 0.036 ng/mL (< 0.028) H 12/17/19 20:53 B-Natriuretic Peptide 4837.8 pg/mL (0-100) H 12/17/19 20:53 Serum Total Protein 8.0 g/dL (6.0-8.3) 12/17/19 20:53 Albumin 3.0 g/dL (3.4-4.8) L 12/17/19 20:53 Hospitalist H&P A/P - Plan Plan: 59 year old female with PMH ESRD on MWF HD at [facility] who presents to ED for diffuse swelling and feeling of bloating after HD issues. # anasarca - due to HD issues, consult Dr Jiménez for extra HD session. Hopefully d/ c after that if feeling better. # DM - SSI # HTN - PRNs, resume home meds
[2019-12-18 08:42] LABS: HBSAg Index 0.18 S/CO (0-0.99); Hep B Surf Ag Non-Reactive S/CO (NonReactive)
[2019-12-18 08:47] LABS: HBSAB Concentration 19.59 mIU/mL; Hep B Surf AB Reactive (NonReactive)
[2019-12-18] MEDS ORDERED: EPOETIN ALFA-EPBX (ESRD) 4,000 UNIT/ML VIAL SC SCH (09:00)
[2019-12-18] MEDS ORDERED: Heparin 5,000 UNITS/ML VIAL SC SCH (09:00)
[2019-12-18] MEDS ORDERED: Epoetin (ESRD) 20,000 UNITS/ML SC SCH (09:15)
--- NOTE | 2019-12-18 10:46 | CON ---
DATE OF CONSULTATION: HISTORY OF PRESENT ILLNESS: Ms. Bolton is a 59-year-old female with ESRD - maintenance hemodialysis and complained of abdominal fullness and mild shortness of breath. Imaging of the abdomen showed ascites with this patient. She also underwent diagnostic paracentesis. She also has significant pleural effusion. We are consulted for her hemodialysis. Please note, the patient did not finish her dialysis yesterday and had a short treatment due to infiltration of her AV fistula. This morning, she voices no new complaint. REVIEW OF SYSTEMS: No chest pain. Positive for abdominal fullness. No nausea. No vomiting. No diarrhea. Occasional leg edema. No syncopal episode. No productive cough. No fever or chills. No dysuria. No hematochezia. No melena. No hematemesis. No headache. No diplopia. MEDICATIONS: Currently on; 1. Tramadol 50 mg as directed. 2. Hydralazine 50 mg p.o. t.i.d. 3. Renvela 800 mg 4 tabs t.i.d. with meals. 4. Pravastatin 40 mg tablet at bedtime. 5. Pancrelipase 1 capsule p.o. t.i.d. 6. Omeprazole 1 tablet daily. 7. Minoxidil 2.5 mg at bedtime. 8. Fluoxetine 20 mg at bedtime. 9. Carvedilol 3.125 mg p.o. b.i.d. 10. Aspirin 325 mg once a day. PAST MEDICAL HISTORY: The patient has; 1. ESRD, on maintenance hemodialysis, secondary to her presumed diabetic nephropathy. 2. Hypertension. 3. Type-2 diabetes mellitus. 4. Chronic hyperphosphatemia. 5. Status post CHF. 6. History of hypertension. 7. Depression. PAST SURGICAL HISTORY: 1. Status post cuffed hemodialysis catheter placement. 2. Status post AV fistula placement. 3. Status post PD catheter placement with subsequent removal. 4. Status post left bilateral axillary I and D. 5. Status post colonoscopy. SOCIAL HISTORY: The patient lives in [place]. Lives with her daughter. Currently, medically disabled. Education, high school. 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 Status post blood transfusion. No alcohol. No drug abuse. The patient has 2 children. ALLERGIES: NONE. TRAUMA: None. IMMUNIZATIONS: Up to date. HOSPITALIZATIONS: Please see past medical history. FAMILY HISTORY: No family history of ESRD. PHYSICAL EXAMINATION: VITAL SIGNS: Blood pressure 150/78, heart rate 70. GENERAL: Awake, alert, comfortable, supine, not in distress. SKIN: Adequate turgor. HEENT: She has slightly pale conjunctivae. Anicteric sclerae. No neck mass. No carotid bruits. No JVD. CHEST: No deformities. LUNGS: Decreased breath sounds. HEART: Normal sinus rhythm. No murmur. No gallops. No rubs. ABDOMEN: Globular, soft, nontender. No masses. Positive for ascites. EXTREMITIES: Trace edema. LABORATORY DATA: Laboratories of December 18, 2019; white count 6.6, hemoglobin 8.8. Sodium 134, potassium 4.4, chloride 94, carbon dioxide 27, BUN 32, creatinine 6.0, glucose 186, calcium is 7.8. Albumin is 3. IMAGING DATA: Chest x-ray of December 17, 2019, shows cardiomegaly with right-sided pleural effusion. CT of the chest and thorax on December 17, 2019, moderate right pleural effusion. No PE. Positive finding of ascites. ASSESSMENT AND PLAN: 1. End-stage renal disease. I have rescheduled back this patient for hemodialysis at 3.5 hours with maximal fluid as tolerated by the patient. She essentially missed her dialysis, only received a 15-minute dialysis treatment due to infiltration of the AV fistula. We will attempt to use the AV fistula. I think the AV fistula will be functional. 2. Ascites/shortness of breath - consider possibility of volume overload. Please note, she is on minoxidil and this can make retained fluid. We will max out fluid removal. A diagnostic test has been sent for the ascites. 3. Anemia. We will continue weekly Epogen with this patient. Agree with current management. Job ID: [id number]
[2019-12-18] MEDS ORDERED: traMADol HCl 50 MG TAB PO PRN (11:39)
[2019-12-18] MEDS ORDERED: hydrALAZINE 20 MG/ML VIAL SLOW IVP PRN (11:41)
[2019-12-18 12:54] LABS: Troponin I 0.037 ng/mL (< 0.028)
[2019-12-18] MEDS: Sevelamer Carbonate 800 MG TAB PO SCH ×2 (14:06→18:12)
[2019-12-18 16:30] VITALS: BMI 19.8
[2019-12-18] MEDS: Senokot S 8.6-50 MG TAB PO SCH (20:35)
[2019-12-18] MEDS: Carvedilol 3.125 MG TAB PO SCH (20:35)
[2019-12-18] MEDS ORDERED: Atorvastatin Calcium 10 MG TAB PO SCH (21:00)
[2019-12-18] MEDS ORDERED: Polyethylene Glycol 3350 17 GM Packet PO SCH (21:00)
[2019-12-18] MEDS ORDERED: Minoxidil 2.5 MG TAB PO SCH (21:00)
[2019-12-19 05:54] LABS: #Eosinphils 0.2 thou/uL (0.0-0.7); #Lymphocytes 1.3 thou/uL (1.20-3.40); #Monocytes 0.9 thou/uL (0.11-0.59); #Neutrophils 4.3 thou/uL (1.40-6.50); %Basophils 0.4 % (0.0-1.0); %Eosinophils 2.9 % (0.0-10.0); %Lymphocytes 19.8 % (21.0-51.0); %Monocytes 12.7 % (0.0-10.0); %Neutrophils 64.3 % (42.0-75.0); Hemoglobin 9.9 g/dL (12.0-16.0); Mean Corpuscular HGB CONC 30.9 g/dL (32.0-36.0); Mean Corpuscular Hemoglobin 28.5 pg (27.0-31.0); Mean Corpuscular Volume 92.2 fL (78.0-98.0); Mean Platelet Volume 6.9 fL (7.4-10.4); Platelet Count 329 thou/uL (130-400); RBC Distribution Width 13.4 % (11.5-14.5); Red Blood Cell (RBC) Count 3.46 mill/uL (4.20-5.40); White Blood Cell (WBC) Count 6.7 thou/uL (4.8-10.8)
[2019-12-19 06:20] LABS: Anion Gap 13 mmol/L (10-20); BUN (Urea Nitrogen) 24 mg/dL (9.8-20.1); Calc. Creatinine Clearance 11 mL/min (70-130); Calcium 8.1 mg/dL (7.8-10.44); Carbon Dioxide 31 mmol/L (23-31); Chloride 95 mmol/L (98-107); Estimated GFR-MDRD 9; Glucose 99 mg/dL (80-115); Potassium 4.2 mmol/L (3.5-5.1); Sodium 135 mmol/L (136-145)
[2019-12-19] MEDS: Sevelamer Carbonate 800 MG TAB PO SCH ×3 (09:00→16:41)
[2019-12-19] MEDS ORDERED: Aspirin 325 MG TAB PO SCH (09:00)
--- NOTE | 2019-12-19 09:43 | PRG ---
DATE OF SERVICE: 12/19/2019 SUBJECTIVE: Ms. Bolton is a 59-year-old female with ESRD on maintenance hemodialysis. She was admitted for mild shortness of breath and abdominal swelling. She underwent a diagnostic paracentesis yesterday. The source did not suggest any malignancy. She is currently undergoing hemodialysis and fairly tolerating said treatment. Please note, she did undergo hemodialysis yesterday. My plan is to do a 3-hour hemodialysis with fluid removal only as tolerated. No other complaints except for abdominal fullness. OBJECTIVE: VITAL SIGNS: Blood pressure is 144/72, heart rate 101, respiratory rate 18, temperature 98.7, and pulse ox 100%. GENERAL: Noted to be awake, alert, comfortable, not in distress. SKIN: Adequate turgor. HEENT: She has a slightly pale conjunctivae. Anicteric sclerae. NECK: No neck mass. No carotid bruits. No JVD. CHEST: No deformities. LUNGS: Clear breath sounds. No wheezing. HEART: Normal sinus rhythm. No murmurs. No gallops. No rubs. ABDOMEN: Globular, soft, and nontender. No masses. Positive for ascites. EXTREMITIES: Trace edema. MEDICATIONS: Medications of December 19, 2019 was reviewed. LABORATORY DATA: Laboratories of December 19, 2019, white count 6.7 and hemoglobin 9.9. Sodium 135, potassium 4.2, chloride 95, carbon dioxide 31, BUN 24, creatinine 4.92, calcium 8.1, and glucose 126. ASSESSMENT AND PLAN: 1. Ascites - abdominal ultrasound to rule out cirrhosis will be ordered. It is possible that the medication minoxidil may be playing a factor in the generalized edema as well. This may also be too for the ascites. We will discontinue minoxidil. 2. End-stage renal disease, stable. Continuing Sunday, Sunday, and Sunday dialysis. Fluid removal as tolerated. 3. Anemia. The patient currently on weekly Epogen at 7500 units subcu daily. Overall, agree with current management. Job ID: [id number]
[2019-12-19] MEDS: Senokot S 8.6-50 MG TAB PO SCH (13:03)
[2019-12-19] MEDS: Carvedilol 3.125 MG TAB PO SCH ×2 (13:03→17:25)
--- NOTE | 2019-12-19 16:22 | ULT ---
ABDOMINAL ULTRASOUND HISTORY: Cirrhosis. FINDINGS: Liver: Slightly peripheral nodular contour which may be related to cirrhosis. The liver is at the upp er limits of normal in size measuring 17 cm in craniocaudal dimensions. Gallbladder: There are echogenic foci seen along the anterior gallbladder wall with suggestion of rin gdown artifact which may related to adenomyomatosis. However, there also appear to be shadowing echogenic foci within the gallbladder lumen suggesting gallbladder calculi with additional nonshadowi ng echogenic foci which may be related to cholesterol crystals. The gallbladder wall is borderline thickened measuring 0.3 cm in diameter. Common duct: Common duct is normal in caliber measuring 0.2 cm in diameter. Pancreas: Mostly obscured by bowel gas and not well evaluated on this exam. IVC: Limited visualized IVC has a normal sonographic appearance. Aorta: The proximal abdominal aorta is visualized and normal in caliber. The mid and distal abdominal aorta are obscured due to bowel gas. Spleen: Upper limits of normal in size measuring 13 cm in craniocaudal dimensions. Calcified granulom rg are seen in the spleen. Kidneys: The right kidney is not visualized on this examination. The left kidney is visualized and de monstrates evidence of renal cortical thinning and increased cortical echogenicity suggesting chronic medical renal disease. There is no hydronephrosis seen on the left. There is evidence of a small to moderate right pleural effusion. In addition, there is a small to mod erate amount of intraperitoneal free fluid greater in the right upper quadrant. IMPRESSION: 1. Cirrhotic morphology of the liver. 2. Cholelithiasis with findings likely related to adenomyomatosis. There is evidence of gallbladder w all thickening which can be seen with cholecystitis in the correct clinical scenario, but other etiologies for gallbladder wall thickening are also a possibility including hypoproteinemia or liver disease. 3. Nonvisualization of the right kidney. Left kidney is small in size and demonstrates increased jamil ical echogenicity as well as cortical thinning likely attributable to chronic medical renal disease. 4. Small to moderate right pleural effusion as well as small to moderate amount of ascites.
[2019-12-19 17:22] VITALS: BP 124/63; TEMP 99
--- NOTE | 2019-12-19 19:28 | DIS ---
DATE OF ADMISSION: 12/18/2019 DATE OF DISCHARGE: 12/19/2019 DISCHARGE DISPOSITION: Home. FOLLOWUP: 1. Follow up with primary care physician, Zayda Griffith in 1 week. 2. Follow up with Dr. Jiménez as scheduled. MEDICATIONS: Minoxidil was discontinued. All other home medications were left unchanged. ALLERGIES: THE PATIENT IS ALLERGIC TO PENICILLIN. THE PATIENT WAS SEEN AND EXAMINED ON THE DAY OF DISCHARGE. DENIES ANY NEW COMPLAINTS. NO CHEST PAIN, SHORTNESS OF BREATH, OR PALPITATIONS. BRIEF HOSPITAL COURSE: The patient is a 59-year-old female with end-stage renal disease, on hemodialysis, presented to the hospital with generalized anasarca along with abdominal distention. Her usual dialysis was on Sunday, Sunday, and Sunday. She could not complete her dialysis on Sunday due to dialysis access issue. The patient underwent 2 sessions of hemodialysis during this hospital stay. She also underwent a diagnostic paracentesis that was negative for peritonitis. The shortness of breath has significantly improved. Dr. Jiménez has discontinued minoxidil. She underwent abdominal ultrasound today and the results are pending at this time. The patient was advised to follow up on the abdominal ultrasound report as outpatient. FINAL DIAGNOSES: 1. Shortness of breath/generalized anasarca secondary to volume overload. 2. End-stage renal disease, on hemodialysis. 3. Diabetes mellitus type 2. 4. Coronary artery disease. 5. Hypertension. 6. Suspected cirrhosis of the liver. Right upper quadrant ultrasound is pending at this time. Primary care physician advised to follow. 7. Penicillin allergy. 8. Moderate right pleural effusion. 9. Ascites. 10. Hyperlipidemia. 11. Gastroesophageal reflux disease. Job ID: [id number]
--- NOTE | 2019-12-22 00:10 | EKG ---
Test Reason : Blood Pressure : / mmHG Vent. Rate : 106 BPM Atrial Rate : 101 BPM P-R Int : 000 ms QRS Dur : 094 ms QT Int : 378 ms P-R-T Axes : 000 142 105 degrees QTc Int : 502 ms Suspect arm lead reversal, interpretation assumes no reversal Undetermined rhythm Lateral infarct (cited on or before 17-DEC-2019) Abnormal ECG When compared with ECG of 17-DEC-2019 21:01, (Unconfirmed) Current undetermined rhythm precludes rhythm comparison, needs review Nonspecific T wave abnormality, improved in Inferior leads Confirmed by Luisa LOPEZ ([id number]) on 12/22/2019 12:10:11 AM Referred By: DYLAN Confirmed By:Luisa LOPEZ
== END 2019-12-19 17:42 | disposition home health service (06) | DRG 640 ==
LOC: ERS 20:40 → ERHOLD 12-18 00:45 → T4-A 12-18 16:25
PROVIDERS: ADMIT Emergency Medicine; ATTEND Internal Medicine
PROC: 5A1D70Z Performance of Urinary Filtration, Intermittent, Less than 6 Hours Per Day (ICD-10-PCS; principal; 2019-12-19)
DX: E87.70 Fluid overload, unspecified (principal); N18.6 End stage renal disease; I12.0 Hypertensive chronic kidney disease with stage 5 chronic kidney disease or end stage renal disease; J90 Pleural effusion, not elsewhere classified; R18.8 Other ascites; E11.22 Type 2 diabetes mellitus with diabetic chronic kidney disease; I25.10 Atherosclerotic heart disease of native coronary artery without angina pectoris; K74.60 Unspecified cirrhosis of liver; E78.5 Hyperlipidemia, unspecified; E78.00 Pure hypercholesterolemia, unspecified; F32.9 Major depressive disorder, single episode, unspecified; E83.39 Other disorders of phosphorus metabolism; E11.21 Type 2 diabetes mellitus with diabetic nephropathy; D63.1 Anemia in chronic kidney disease; K21.9 Gastro-esophageal reflux disease without esophagitis; Z88.0 Allergy status to penicillin; Z99.2 Dependence on renal dialysis; I25.2 Old myocardial infarction; Z95.1 Presence of aortocoronary bypass graft; Z79.4 Long term (current) use of insulin
CPT/HCPCS: 36415; 36416; 71045; 71275; 80048; 80053; 82553; 83880; 84484; 85025; 85060; 86706; 87070; 87205; 87340; 89051; 93005; 93010; 93975; J0696; J2001; Q5105; Q9967

== ENCOUNTER 2020-01-08 09:44 | Day surgery (SDC) | payer MEDICARE, MEDICAID ==
[2020-01-07 15:13] VITALS: BMI 21.9
[2020-01-08] MEDS ORDERED: Sodium Bicarbonate 2.5 MEQ/5 ML VIAL ONE (10:49)
[2020-01-08] MEDS ORDERED: Lidocaine 1% PF 5 ML VIAL ONE (10:49)
[2020-01-08 10:50] LABS: INR-International Normal Ratio 1.3; PTT 34.7 SEC (22.9-36.1)
--- NOTE | 2020-01-08 13:00 | ULT ---
Ultrasound-guided paracentesis: HISTORY: Developed ascites. FINDINGS: Informed consent obtained prior to the procedure. Preprocedural imaging demonstrated intrap eritoneal free fluid. An area was marked in the right mid abdomen in the mid axillary line, and then meticulously prepped a nd draped in normal sterile fashion and anesthetized with 1% buffered lidocaine. With direct sonographic guidance, a 19-gauge needle and 5 Irish Yueh catheter were advanced into the abdomen. After the return of fluid, the catheter was advanced, and the needle was removed. Approximately 5 L of ronel-colored fluid was aspirated. The introducer sheath was removed, and hemost asis was achieved with direct pressure. A dry sterile dressing was placed. The patient tolerated the procedure well and without immediate complication. IMPRESSION: Technically successful ultrasound-guided paracentesis.
== END 2020-01-08 11:45 | disposition home or self-care (01) ==
LOC: ULT 09:44
PROVIDERS: ATTEND Internal Medicine Nephrology
PROC: 0W9G3ZZ Drainage of Peritoneal Cavity, Percutaneous Approach (ICD-10-PCS; principal; 2020-01-08)
DX: R18.8 Other ascites (principal); I12.0 Hypertensive chronic kidney disease with stage 5 chronic kidney disease or end stage renal disease; E11.22 Type 2 diabetes mellitus with diabetic chronic kidney disease; N18.6 End stage renal disease; I25.10 Atherosclerotic heart disease of native coronary artery without angina pectoris; F41.9 Anxiety disorder, unspecified; F32.9 Major depressive disorder, single episode, unspecified; E78.5 Hyperlipidemia, unspecified; E78.00 Pure hypercholesterolemia, unspecified; Z79.4 Long term (current) use of insulin; Z79.82 Long term (current) use of aspirin; Z79.899 Other long term (current) drug therapy; Z88.0 Allergy status to penicillin; Z95.1 Presence of aortocoronary bypass graft; Z99.2 Dependence on renal dialysis
CPT/HCPCS: 49083; 85610; 85730; J2001

== ENCOUNTER 2020-01-29 09:36 | Day surgery (SDC) | payer MEDICARE, MEDICAID ==
[2020-01-28 13:24] VITALS: BMI 21.9
[~2020-01-29 09:36] MED LIST changes: +FLU VACC QS2019-20(6MOS UP)/PF 60 MCG/0.5 ML SYRINGE IM ONE; -Iopamidol-370 76% 500 ML 1 ML ONE
[2020-01-29] MEDS ORDERED: Lidocaine 1% PF 5 ML VIAL ONE (10:11)
--- NOTE | 2020-01-29 13:08 | ULT ---
ULTRASOUND-GUIDED PARACENTESIS THERAPEUTIC: DATE: 01/29/2020 HISTORY: 59-year-old female with end-stage renal disease and symptomatic ascites: Abdominal distention TECHNIQUE: Signed informed consent obtained. A four-quadrant survey of abdomen performed. Site selected for puncture: Right lower quadrant. Overlying skin prepared and draped in usual sterile fashion. 25-gauge needle used to apply buffered lidocaine superficially and deeply. 5 Guatemalan Yueh catheter with stylette advanced into the pocket of free intraperitoneal fluid. After drainage, the Yueh catheter was removed. Patient tolerated the procedure well. No complications. FINDINGS: Volume of ascites prior to procedure:Moderate to large. Volume of ascites fluid in the drainage pocket after drainage:small. Volume of ascites fluid drained:5600 mL Appearance of ascites fluid: Nonhemorrhagic straw-colored IMPRESSION: Successful therapeutic paracentesis, with drainage of 5.6 L of ascites fluid.
== END 2020-01-29 11:05 | disposition home or self-care (01) ==
LOC: ULT 09:36
PROVIDERS: ATTEND Internal Medicine Nephrology
PROC: 0W9G3ZZ Drainage of Peritoneal Cavity, Percutaneous Approach (ICD-10-PCS; principal; 2020-01-29)
DX: K74.60 Unspecified cirrhosis of liver (principal); R18.8 Other ascites; I13.2 Hypertensive heart and chronic kidney disease with heart failure and with stage 5 chronic kidney disease, or end stage renal disease; E11.22 Type 2 diabetes mellitus with diabetic chronic kidney disease; N18.6 End stage renal disease; I50.9 Heart failure, unspecified; D63.1 Anemia in chronic kidney disease; E03.9 Hypothyroidism, unspecified; F41.9 Anxiety disorder, unspecified; F32.9 Major depressive disorder, single episode, unspecified; I25.10 Atherosclerotic heart disease of native coronary artery without angina pectoris; Z79.899 Other long term (current) drug therapy; Z88.0 Allergy status to penicillin; Z99.2 Dependence on renal dialysis
CPT/HCPCS: 49083; J2001

== ENCOUNTER 2020-03-12 09:26 | Day surgery (SDC) | payer MEDICARE, MEDICAID ==
[2020-03-11 11:51] VITALS: BMI 21.9
[2020-03-12] MEDS ORDERED: Lidocaine 1% PF 5 ML VIAL ONE (09:34)
[2020-03-12] MEDS ORDERED: Sodium Bicarbonate 2.5 MEQ/5 ML VIAL ONE (09:34)
[2020-03-12 09:39] LABS: #Eosinphils 0.1 thou/uL (0.0-0.7); #Lymphocytes 1.3 thou/uL (1.20-3.40); #Monocytes 0.6 thou/uL (0.11-0.59); #Neutrophils 3.3 thou/uL (1.40-6.50); %Basophils 0.6 % (0.0-1.0); %Eosinophils 1.9 % (0.0-10.0); %Lymphocytes 23.9 % (21.0-51.0); %Monocytes 11.1 % (0.0-10.0); %Neutrophils 62.4 % (42.0-75.0); Hemoglobin 12.1 g/dL (12.0-16.0); Mean Corpuscular HGB CONC 32.1 g/dL (32.0-36.0); Mean Corpuscular Hemoglobin 30.8 pg (27.0-31.0); Mean Platelet Volume 7.5 fL (7.4-10.4); Platelet Count 191 thou/uL (130-400); RBC Distribution Width 14.4 % (11.5-14.5); Red Blood Cell (RBC) Count 3.94 mill/uL (4.20-5.40); White Blood Cell (WBC) Count 5.4 thou/uL (4.8-10.8)
[2020-03-12 09:45] LABS: INR-International Normal Ratio 1.2; PTT 32.3 SEC (22.9-36.1); Prothrombin Time 14.8 SEC (12.0-14.7)
--- NOTE | 2020-03-12 11:28 | ULT ---
Ultrasound-guided paracentesis: HISTORY: Symptomatic ascites FINDINGS: Informed consent obtained prior to the procedure. Preprocedural imaging demonstrated intrap eritoneal free fluid. An area was marked in the Right lower quadrant , and then meticulously prepped and draped in normal s terile fashion and anesthetized with 1% buffered lidocaine. With direct sonographic guidance, a 19-gauge needle and 5 Romanian Yueh catheter were advanced into the abdomen. After the return of fluid, the catheter was advanced, and the needle was removed. Approximately 4.8 L of clear ronel fluid was aspirated. The introducer sheath was removed, and hemos tasis was achieved with direct pressure. A dry sterile dressing was placed. The patient tolerated the procedure well and without immediate complication. IMPRESSION: Technically successful ultrasound-guided paracentesis.
[2020-03-12 12:17] LABS: RBC Count-Automated (BF) 3521 /cumm; WBC/Nucleated-Auto (BF) 392 uL
[2020-03-12 12:46] VITALS: BP 158/76; TEMP 98.2
[2020-03-12 13:03] LABS: BF Color Yellow; Body Fluid Source Peritoneal Fluid; Clarity Cloudy/Turbid (Clear); Tube # EDTA
[2020-03-12 13:08] LABS: Cell Count Non Hematic 63 %; Lymphocytes 37 %
== END 2020-03-12 12:40 | disposition home or self-care (01) ==
LOC: ULT 09:26
PROVIDERS: ATTEND Internal Medicine
PROC: 0W9G3ZX Drainage of Peritoneal Cavity, Percutaneous Approach, Diagnostic (ICD-10-PCS; principal; 2020-03-12)
DX: R18.8 Other ascites (principal); I13.2 Hypertensive heart and chronic kidney disease with heart failure and with stage 5 chronic kidney disease, or end stage renal disease; E11.22 Type 2 diabetes mellitus with diabetic chronic kidney disease; N18.6 End stage renal disease; I50.9 Heart failure, unspecified; D63.1 Anemia in chronic kidney disease; K59.09 Other constipation; F32.9 Major depressive disorder, single episode, unspecified; F41.9 Anxiety disorder, unspecified; I25.2 Old myocardial infarction; Z87.891 Personal history of nicotine dependence; Z79.4 Long term (current) use of insulin; Z79.82 Long term (current) use of aspirin; Z79.899 Other long term (current) drug therapy; Z88.0 Allergy status to penicillin; Z95.1 Presence of aortocoronary bypass graft; Z99.2 Dependence on renal dialysis; E78.00 Pure hypercholesterolemia, unspecified
CPT/HCPCS: 49083; 82042; 84155; 85025; 85610; 85730; 87070; 87205; 89051; J2001; 36415; 85060

== ENCOUNTER 2020-04-19 07:29 | Day surgery (SDC) | payer MEDICARE, MEDICAID ==
[2020-04-16 15:33] VITALS: BMI 21.9
[2020-04-19 07:48] LABS: #Eosinphils 0.2 thou/uL (0.0-0.7); #Lymphocytes 1.4 thou/uL (1.20-3.40); #Monocytes 0.5 thou/uL (0.11-0.59); #Neutrophils 3.2 thou/uL (1.40-6.50); %Basophils 0.3 % (0.0-1.0); %Eosinophils 4.5 % (0.0-10.0); %Lymphocytes 26.2 % (21.0-51.0); %Monocytes 8.9 % (0.0-10.0); %Neutrophils 60.2 % (42.0-75.0); Hemoglobin 12.4 g/dL (12.0-16.0); Mean Corpuscular HGB CONC 31.3 g/dL (32.0-36.0); Mean Corpuscular Hemoglobin 29.6 pg (27.0-31.0); Mean Corpuscular Volume 94.7 fL (78.0-98.0); Mean Platelet Volume 7.3 fL (7.4-10.4); Platelet Count 202 thou/uL (130-400); RBC Distribution Width 14.2 % (11.5-14.5); Red Blood Cell (RBC) Count 4.17 mill/uL (4.20-5.40); White Blood Cell (WBC) Count 5.4 thou/uL (4.8-10.8)
[2020-04-19 07:53] LABS: INR-International Normal Ratio 1.1; Prothrombin Time 14.4 sec (12.0-14.7)
[2020-04-19 07:54] LABS: PTT 35.1 sec (22.9-36.1)
[2020-04-19] MEDS ORDERED: Lidocaine 1% PF 5 ML VIAL ONE (07:58)
[2020-04-19] MEDS ORDERED: Sodium Bicarbonate 2.5 MEQ/5 ML VIAL ONE (07:58)
--- NOTE | 2020-04-19 09:14 | ULT ---
Ultrasound-guided paracentesis: HISTORY: Symptomatic ascites FINDINGS: Informed consent obtained prior to the procedure. Preprocedural imaging demonstrated intrap eritoneal free fluid. An area was marked in the Right lower quadrant , and then meticulously prepped and draped in normal s terile fashion and anesthetized with 1% buffered lidocaine. With direct sonographic guidance, a 19-gauge needle and 5 Lebanese Yueh catheter were advanced into the abdomen. After the return of fluid, the catheter was advanced, and the needle was removed. Approximately 4 L of clear dark brown fluid was aspirated. The introducer sheath was removed, and hem ostasis was achieved with direct pressure. A dry sterile dressing was placed. The patient tolerated the procedure well and without immediate complication. IMPRESSION: Technically successful ultrasound-guided paracentesis.
[2020-04-19 09:22] VITALS: BP 141/90; TEMP 98.8
[2020-04-19 13:58] LABS: RBC Count-Automated (BF) 4924 /cu.mm; WBC/Nucleated-Auto (BF) 544 uL
[2020-04-19 14:03] LABS: BF Color Yellow; Body Fluid Source Ascites Body Fluid; Clarity Hazy (Clear)
[2020-04-19 14:04] LABS: Tube # EDTA
[2020-04-19 14:08] LABS: BF Segmented Neutrophils 5 %; Cell Count Non Hematic 73 %; Eosinophils 1 %; Lymphocytes 21 %
== END 2020-04-19 09:15 | disposition home or self-care (01) ==
LOC: ULT 07:29
PROVIDERS: ATTEND Internal Medicine
PROC: 0W9G3ZX Drainage of Peritoneal Cavity, Percutaneous Approach, Diagnostic (ICD-10-PCS; principal; 2020-04-19)
DX: R18.8 Other ascites (principal); I13.2 Hypertensive heart and chronic kidney disease with heart failure and with stage 5 chronic kidney disease, or end stage renal disease; E11.22 Type 2 diabetes mellitus with diabetic chronic kidney disease; N18.6 End stage renal disease; I50.9 Heart failure, unspecified; D63.1 Anemia in chronic kidney disease; I25.2 Old myocardial infarction; F32.9 Major depressive disorder, single episode, unspecified; F41.9 Anxiety disorder, unspecified; K59.09 Other constipation; Z87.891 Personal history of nicotine dependence; Z79.4 Long term (current) use of insulin; Z79.82 Long term (current) use of aspirin; Z79.899 Other long term (current) drug therapy; Z88.0 Allergy status to penicillin; Z95.1 Presence of aortocoronary bypass graft; Z99.2 Dependence on renal dialysis
CPT/HCPCS: 49083; 82042; 84157; 85025; 85060; 85610; 85730; 87070; 87205; 89051; J2001

== ENCOUNTER 2020-05-17 12:34 | Day surgery (SDC) | payer MEDICARE, MEDICAID ==
[2020-05-14 16:22] VITALS: BMI 21.9
[2020-05-17] MEDS ORDERED: Lidocaine 1% PF 5 ML VIAL ONE (12:56)
[2020-05-17 13:55] VITALS: BP 150/80; TEMP 98.1
--- NOTE | 2020-05-17 13:57 | ULT ---
EXAM: US Abdomen Limited PROVIDED CLINICAL HISTORY: Ascites. COMPARISON: None FINDINGS: Patient presents in radiology department for ultrasound-guided paracentesis. Limited sonographic eval uation of the abdomen was performed with only a small amount of intraperitoneal free fluid identified with loops of small bowel seen in the region of free fluid. As a result, paracentesis was not obtained at this time. IMPRESSION: Small amount of ascites.
== END 2020-05-17 13:30 | disposition home or self-care (01) ==
LOC: ULT 12:34
PROVIDERS: ATTEND Internal Medicine
DX: R18.8 Other ascites (principal); I13.2 Hypertensive heart and chronic kidney disease with heart failure and with stage 5 chronic kidney disease, or end stage renal disease; E11.22 Type 2 diabetes mellitus with diabetic chronic kidney disease; N18.6 End stage renal disease; I50.9 Heart failure, unspecified; I25.2 Old myocardial infarction; F32.9 Major depressive disorder, single episode, unspecified; F41.9 Anxiety disorder, unspecified; K59.09 Other constipation; K21.9 Gastro-esophageal reflux disease without esophagitis; Z87.891 Personal history of nicotine dependence; Z88.0 Allergy status to penicillin; Z95.1 Presence of aortocoronary bypass graft; Z99.2 Dependence on renal dialysis
CPT/HCPCS: 76705; J2001

== ENCOUNTER 2020-06-14 12:56 | Day surgery (SDC) | payer MEDICARE, MEDICAID ==
[2020-06-11 11:57] VITALS: BMI 21.9
[2020-06-14] MEDS ORDERED: Sodium Bicarbonate 2.5 MEQ/5 ML VIAL ONE (13:20)
[2020-06-14] MEDS ORDERED: Lidocaine 1% PF 5 ML VIAL ONE (13:20)
[2020-06-14 13:35] LABS: #Eosinphils 0.2 thou/uL (0.0-0.7); #Lymphocytes 1.2 thou/uL (1.20-3.40); #Monocytes 0.6 thou/uL (0.11-0.59); #Neutrophils 2.9 thou/uL (1.40-6.50); %Basophils 0.5 % (0.0-1.0); %Eosinophils 3.2 % (0.0-10.0); %Monocytes 12.2 % (0.0-10.0); %Neutrophils 59.1 % (42.0-75.0); Hemoglobin 10.5 g/dL (12.0-16.0); Mean Corpuscular HGB CONC 32.8 g/dL (32.0-36.0); Mean Corpuscular Hemoglobin 31.7 pg (27.0-31.0); Mean Corpuscular Volume 96.6 fL (78.0-98.0); Mean Platelet Volume 7.5 fL (7.4-10.4); Platelet Count 177 thou/uL (130-400); RBC Distribution Width 15.5 % (11.5-14.5); Red Blood Cell (RBC) Count 3.31 mill/uL (4.20-5.40); White Blood Cell (WBC) Count 4.9 thou/uL (4.8-10.8)
[2020-06-14 13:41] LABS: INR-International Normal Ratio 1.2
[2020-06-14] MEDS ORDERED: Silver Nitrate Application 1 EACH TOP SCH (14:45)
[2020-06-14 15:31] VITALS: BP 162/85; TEMP 98.3
[2020-06-14] MEDS ORDERED: Sodium Chloride 0.9% 10 ML ONE (15:47)
--- NOTE | 2020-06-14 16:02 | ULT ---
ULTRASOUND-GUIDED PARACENTESIS THERAPEUTIC: DATE: 06/14/2020 HISTORY: 60-year-old female with symptomatic ascites: Abdominal distention TECHNIQUE: Signed informed consent obtained. A four-quadrant survey of abdomen performed. Site selected for puncture: right lower quadrant Overlying skin prepared and draped in usual sterile fashion. 25-gauge needle used to apply buffered lidocaine superficially and deeply. 5 Haitian Yueh catheter with stylette advanced into the pocket of free intraperitoneal fluid. After drainage, the Yueh catheter was removed. Patient tolerated the procedure well. However, the patient was losing low viscosity blood from the puncture site throughout the entire proc edure, such that manual compression was applied with sterile gauze throughout the procedure, and for 45 minutes after the procedure, without successful hemostasis. In fact, the blood never achieved coagulation during the entire procedure and postprocedure time. Sublingual nitrate was applied to the puncture site which achieved temporary hemostasis. Next, additional local lidocaine was applied for suturing. The 25-gauge needle from this lidocaine ap plication then resulted in the same type of low viscosity bleeding that did not stop. Finally, a hemostasis pad was applied over the site. Patient's vital signs are stable, and the patient is comfortable. The situation was discussed with Dr. Lamas of gastroenterology at 2:53 PM 06/14/2020. The patient is being admitted to the hospital for observation as a precautionary measure. Dr. Kaufman discussed the situation with hospitalist Dr. David Vital at 3:54 PM 06/14/2020. FINDINGS: Volume of ascites prior to procedure: Small-moderate. Volume of ascites fluid in the drainage pocket after drainage:Very small. Volume of ascites fluid drained:2100 mL Appearance of ascites fluid:Dark reddish-brown IMPRESSION: 1. Small volume of ascites prior to procedure. 2. Successful therapeutic paracentesis, with drainage of 2.1 L of ascites fluid. 3. Coagulopathy. Difficulty achieving external hemostasis. 4. Hemorrhagic ascites. It is uncertain whether this was originally hemorrhagic intraperitoneal fluid prior to the procedure, or other the bloody ascites fluid is from the abdominal wall. It is suspected that the patient has coagulopathy, despite her coagulation parameters not being excessively abnormal. The patient is on aspirin. 5. Patient is being admitted for overnight observation.
== END 2020-06-14 16:27 | disposition short-term general hospital (02) ==
LOC: ULT 12:56
PROVIDERS: ATTEND Internal Medicine
PROC: 0W9G3ZZ Drainage of Peritoneal Cavity, Percutaneous Approach (ICD-10-PCS; principal; 2020-06-14)
DX: R18.8 Other ascites (principal); I13.2 Hypertensive heart and chronic kidney disease with heart failure and with stage 5 chronic kidney disease, or end stage renal disease; E11.22 Type 2 diabetes mellitus with diabetic chronic kidney disease; N18.6 End stage renal disease; I50.9 Heart failure, unspecified; D63.1 Anemia in chronic kidney disease; F41.9 Anxiety disorder, unspecified; F32.9 Major depressive disorder, single episode, unspecified; K59.09 Other constipation; Z79.4 Long term (current) use of insulin; Z79.82 Long term (current) use of aspirin; Z79.899 Other long term (current) drug therapy; Z88.0 Allergy status to penicillin; Z99.2 Dependence on renal dialysis
CPT/HCPCS: 49083; 85025; 85610

== ENCOUNTER 2020-06-14 16:02 | Observation (INO) | payer MEDICARE, MEDICAID ==
[2020-06-14 17:39] VITALS: BMI 21.1
[2020-06-14] MEDS ORDERED: Bisacodyl 10 MG SUPP PR PRN (17:40)
[2020-06-14] MEDS ORDERED: Senokot S 8.6-50 MG TAB PO PRN (17:40)
[2020-06-14] MEDS ORDERED: Acetaminophen 325 MG TAB PO PRN (17:40)
[2020-06-14] MEDS ORDERED: Famotidine 20 MG TAB PO SCH (21:00)
[2020-06-14 23:05] LABS: Hemoglobin 10.4 g/dL (12.0-16.0)
[2020-06-14] MEDS ORDERED: traMADol HCl 50 MG TAB PO PRN (23:37)
[2020-06-14] MEDS ORDERED: Non-Formulary Item 1 EACH (Hydralazine Hcl [Hydralazine Hcl] 50 MG) PO PRN (23:37)
[2020-06-14] MEDS ORDERED: Dextrose 5% in Water 1,000 ML IV PRN (23:39)
[2020-06-14] MEDS ORDERED: Dextrose 50% Abboject 50 ML SYRINGE SLOW IVP PRN (23:39)
[2020-06-14] MEDS ORDERED: HumaLOG 300 UNITS/3 ML VIAL SC PRN ×2 (23:39)
--- NOTE | 2020-06-15 00:19 | HP ---
CHIEF COMPLAINT: Oozing at the paracentesis site. HISTORY OF PRESENT ILLNESS: Ms. Bolton is a 60-year-old female, who underwent a paracentesis today in Radiology under conscious sedation. They were able to drain 2 L today, but the radiologist noted that she had quite a bit of oozing both from the insertion site and also the site around, where he injected lidocaine to stitch up the paracentesis site. The patient has a past medical history for end-stage renal disease with dialysis, hyperlipidemia, diabetes type 2, coronary artery disease, and hypertension. She sees Dr. Jiménez for Nephrology and Dr. Le for Cardiology. She will be admitted to telemetry observation for serial hemoglobin and monitoring of the paracentesis site. REVIEW OF SYSTEMS: The patient reports generalized weakness and malaise, which is not new for her. Reports a distended abdomen, although she does feel better after the paracentesis. She denied any nausea, vomiting, or abdominal pain. All systems are reviewed and are negative unless mentioned in the HPI or above. ALLERGIES: PENICILLINS. HOME MEDICATIONS: 1. Aspirin 325 mg p.o. daily. 2. Coreg 6.25 mg p.o. b.i.d. 3. Fluoxetine 20 mg p.o. daily. 4. Multivitamin. 5. Folic acid. 6. Vitamin B one tablet p.o. daily. 7. Hydralazine 50 mg p.o. daily as needed. 8. Insulin Levemir 5 units subcu p.r.n. 9. Lisinopril 2.5 mg p.o. daily. 10. Prilosec 40 mg p.o. daily. 11. Pravastatin 40 mg p.o. at bedtime. 12. Renvela 800 mg p.o. t.i.d. 13. Tramadol 50 mg q.8 hours p.r.n. PAST MEDICAL HISTORY: Please see HPI. PAST SURGICAL HISTORY: She has had a CABG in the past. FAMILY HISTORY: No pertinent history. SOCIAL HISTORY: Denies any alcohol or drugs. No smoking. PHYSICAL EXAMINATION: VITAL SIGNS: Temperature is 97.8, pulse is 87, respiratory rate is 20, O2 saturations are 94 on room air, and blood pressure is 159/90. CONSTITUTIONAL: The patient appears in no distress. She is nontoxic. She is alert and oriented to person, place, and time. HEENT: Head is atraumatic and normocephalic. Pupils are equally round and reactive to light. Extraocular muscles are intact. NECK: Normal range of motion. Trachea is midline. RESPIRATORY: Breath sounds are clear. Chest expansion is equal. CARDIOVASCULAR: Regular rate and rhythm. Heart sounds are normal. ABDOMEN: There is some tenderness around the paracentesis site. Dressing is dry and intact. Bowel sounds are heard. BACK: Normal range of motion. No tenderness. EXTREMITIES: Shunt to the right upper arm with good thrill and bruit. Pulses are normal bilaterally. Lower extremities, normal strength. Pedal pulses are normal. PSYCHIATRIC: Normal affect. LABORATORY DATA: Current lab work, white blood cell count is 4.9 and hemoglobin is 10.4 and it was 10.5 at 1320 hours, we checked it again in 6 hours, it was 10.4. On 04/19/2020, it was 12.4. Platelet count is 177. PT is 15, INR is 1.2, and PTT is 35. PLAN AND ASSESSMENT: 1. Paracentesis today with concern for bleeding. We will do serial H and Hs, one was done at 1300 hours today, we done another one at 2200 hours, and we will do another one director of early childhood education. We will add a comprehensive metabolic panel in the morning as well and PT/INR. Place the patient in tele for observation. 2. End-stage renal disease with hemodialysis. We have consulted Dr. Jiménez, should she need dialysis while she is here. 3. History of hypertension. We will restart her home medications. 4. History of diabetes type 2. We will restart home medications. Add Accu-Cheks before meals and at bedtime, sliding scale for coverage. 5. Deep venous thrombosis and gastrointestinal prophylaxis started. 6. Case discussed with Dr. Vital, who agrees with plan. 7. Hospital course dependent on clinical findings. Job ID: [id number]
[2020-06-15 06:41] LABS: #Eosinphils 0.2 thou/uL (0.0-0.7); #Lymphocytes 1.4 thou/uL (1.20-3.40); #Monocytes 0.7 thou/uL (0.11-0.59); #Neutrophils 3.5 thou/uL (1.40-6.50); %Basophils 0.3 % (0.0-1.0); %Eosinophils 3.6 % (0.0-10.0); %Lymphocytes 24.4 % (21.0-51.0); %Monocytes 11.2 % (0.0-10.0); %Neutrophils 60.6 % (42.0-75.0); Hemoglobin 10.5 g/dL (12.0-16.0); Mean Corpuscular HGB CONC 32.1 g/dL (32.0-36.0); Mean Corpuscular Hemoglobin 31.4 pg (27.0-31.0); Mean Corpuscular Volume 97.8 fL (78.0-98.0); Mean Platelet Volume 7.3 fL (7.4-10.4); Platelet Count 175 thou/uL (130-400); RBC Distribution Width 15.8 % (11.5-14.5); Red Blood Cell (RBC) Count 3.36 mill/uL (4.20-5.40); White Blood Cell (WBC) Count 5.8 thou/uL (4.8-10.8)
[2020-06-15 06:49] LABS: INR-International Normal Ratio 1.2; Prothrombin Time 15.6 sec (12.0-14.7)
[2020-06-15 07:00] LABS: Anion Gap 18 mmol/L (10-20); BUN (Urea Nitrogen) 55 mg/dL (9.8-20.1); Calc. Creatinine Clearance 7 mL/min (70-130); Calcium 9.4 mg/dL (7.8-10.44); Carbon Dioxide 26 mmol/L (23-31); Chloride 98 mmol/L (98-107); Estimated GFR-MDRD 5; Glucose 110 mg/dL (80-115); Potassium 5.9 mmol/L (3.5-5.1); Sodium 136 mmol/L (136-145)
[2020-06-15 07:03] LABS: ALT (SGPT) 18 U/L (8-55); AST (SGOT) 35 U/L (5-34); Albumin 3.6 g/dL (3.4-4.8); Alkaline Phosphatase 101 U/L (40-110); Anion Gap 15 mmol/L (10-20); BUN (Urea Nitrogen) 56 mg/dL (9.8-20.1); Bilirubin, Total 0.7 mg/dL (0.2-1.2); Calc. Creatinine Clearance 7 mL/min (70-130); Calcium 9.5 mg/dL (7.8-10.44); Carbon Dioxide 30 mmol/L (23-31); Chloride 97 mmol/L (98-107); Estimated GFR-MDRD 5; Globulin 4.4 g/dL (2.4-3.5); Glucose 111 mg/dL (80-115); Potassium 5.9 mmol/L (3.5-5.1); Sodium 136 mmol/L (136-145)
[2020-06-15] MEDS: Sevelamer Carbonate 800 MG TAB PO SCH ×2 (08:06→12:14)
[2020-06-15] MEDS ORDERED: Lisinopril 2.5 MG TAB PO SCH (09:00)
[2020-06-15] MEDS ORDERED: FLUoxetine HCl 20 MG CAP PO SCH (09:00)
[2020-06-15] MEDS ORDERED: Carvedilol 6.25 MG TAB PO SCH (09:00)
[2020-06-15] MEDS ORDERED: Folic Acid/Vit B Comp W-C PO SCH (09:00)
--- NOTE | 2020-06-15 09:31 | CON ---
DATE OF CONSULTATION: HISTORY OF PRESENT ILLNESS: Ms. Bolton is a 60-year-old female with ESRD and was admitted due to bleeding around the paracentesis site. She underwent therapeutic paracentesis yesterday and about 2 L was removed. However, after the said procedure, the patient was noted to have persistent bleeding around the site. Attempt to control bleeding was done but was not successful. REVIEW OF SYSTEMS: No chest pain. No abdominal pain. No nausea. No vomiting. No diarrhea. No constipation. No productive cough. No fever or chills. No melena. No hematemesis. No fever or chills. HOME MEDICATIONS: 1. Aspirin 325 mg daily. 2. Coreg 6.25 mg p.o. b.i.d. 3. Fluoxetine 20 mg daily. 4. Folic acid one tablet daily. 5. Vitamin B12 one tablet daily. 6. Hydralazine p.r.n. 7. Insulin Levemir 5 units subcu b.i.d. 8. Lisinopril 2.5 mg daily. 9. Prilosec 40 mg daily. 10. Pravastatin 40 mg at bedtime. 11. Renvela 800 mg p.o. t.i.d. 12. Tramadol 50 mg q.8 p.r.n. PAST MEDICAL HISTORY: 1. History of chronic ascites. 2. Type 2 diabetes mellitus. 3. ESRD from diabetic nephropathy, status post CHF. 4. History of hypertension. 5. Depression. PAST SURGICAL HISTORY: Status post multiple paracenteses, status post colonoscopy, status post bilateral axillary I and D, status post PD catheter placement with subsequent removal, status post AV fistula placement, and status post cuffed hemodialysis catheter placement. SOCIAL HISTORY: The patient lives in [place]. Lives with her daughter. Education, high school. 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 Status post blood transfusion. No alcohol. No IV drug abuse. The patient has 2 children. ALLERGIES: NONE. TRAUMA: None. IMMUNIZATIONS: Up-to-date. HOSPITALIZATIONS: Please see past medical history. FAMILY HISTORY: No family history of ESRD. PHYSICAL EXAMINATION: VITAL SIGNS: Blood pressure is noted at 167/93, heart rate 112, respiratory rate 18, temperature 98.6, and O2 saturation 93%. GENERAL: The patient is awake, alert, comfortable, not in overt distress. SKIN: Adequate turgor. HEENT: Pinkish conjunctivae. Anicteric sclerae. NECK: No neck mass. No carotid bruits. No JVD. CHEST: No deformities. LUNGS: Clear breath sounds. HEART: Normal sinus rhythm. No murmur. No gallops. No rubs. ABDOMEN: Globular, soft, and nontender. No masses. Positive for dressing in the abdomen. EXTREMITIES: No edema. No deformities. LABORATORY DATA: On June 15, 2020; white count 5.8, hemoglobin 10.5. Sodium 136, potassium 5.9, chloride 98, carbon dioxide 26, BUN 55, creatinine 7.73, glucose 110, and calcium 9.4. ASSESSMENT AND PLAN: 1. Bleeding around paracentesis site - much improved. Continue to observe. H and H remained stable. We will plan to use no heparin with dialysis. 2. End-stage renal disease. We will continue current Sunday, , and Sunday dialysis regimen. Fluid removal as tolerated by the patient. We will use no heparin. Review of the last Kt/V suggests she is adequately dialyzed with the current dialysis regimen. Overall, agree with current management. Possible discharge today. Job ID: [id number]
[2020-06-15 14:52] VITALS: BP 148/76; TEMP 98.4
[2020-06-15] MEDS ORDERED: Famotidine 20 MG TAB PO SCH (21:00)
[2020-06-15] MEDS ORDERED: Atorvastatin Calcium 10 MG TAB PO SCH (21:00)
--- NOTE | 2020-06-16 03:51 | DIS ---
DATE OF ADMISSION: 06/14/2020 DATE OF DISCHARGE: 06/15/2020 DISCHARGE DIAGNOSES: 1. Bleeding around the paracentesis site. 2. End-stage renal disease, on hemodialysis. 3. History of chronic ascites. 4. History of diabetes mellitus type 2. DISCHARGE MEDICATIONS: 1. Carvedilol 6.25 mg orally twice daily. 2. Fluoxetine 20 mg orally daily. 3. Folic acid/vitamin-B complex and C one tablet orally daily. 4. Lisinopril 2.5 mg orally daily. 5. Omeprazole 40 mg orally daily. 6. Pravastatin 40 mg orally nightly. 7. Sevelamer 800 mg. The patient takes 4 tablets orally t.i.d. with meals. 8. Tramadol 50 mg orally q.8 hours as needed for pain. 9. Aspirin 325 mg orally daily. 10. Hydralazine 50 mg orally daily. 11. Insulin Levemir 5 units subcu as needed for hyperglycemia. The patient takes this medication, if blood sugar is greater than 120. HISTORY OF PRESENT ILLNESS AND HOSPITAL COURSE: The patient is a 60-year-old female with past medical history of chronic ascites and end-stage renal disease on hemodialysis, who underwent a therapeutic paracentesis yesterday with removal of about 2 L of fluids. After the procedure, the patient had persistent bleeding around the paracenteses site and was subsequently referred for observation. The patient was observed overnight and had dressing over the paracentesis site. On the second day of hospital stay, there is no evidence of bleeding around the site. The patient is currently undergoing dialysis and will be discharged afterwards. Job ID: [id number]
== END 2020-06-15 14:44 | disposition home or self-care (01) ==
LOC: T4-A 16:24
PROVIDERS: ADMIT Family Medicine; ATTEND Family Medicine
DX: K91.840 Postprocedural hemorrhage of a digestive system organ or structure following a digestive system procedure (principal); I12.0 Hypertensive chronic kidney disease with stage 5 chronic kidney disease or end stage renal disease; E11.21 Type 2 diabetes mellitus with diabetic nephropathy; E11.22 Type 2 diabetes mellitus with diabetic chronic kidney disease; N18.6 End stage renal disease; I25.10 Atherosclerotic heart disease of native coronary artery without angina pectoris; E78.5 Hyperlipidemia, unspecified; Z79.4 Long term (current) use of insulin; Z79.82 Long term (current) use of aspirin; Z79.899 Other long term (current) drug therapy; Z95.1 Presence of aortocoronary bypass graft; Z99.2 Dependence on renal dialysis; Z88.0 Allergy status to penicillin
CPT/HCPCS: 36415; 36416; 80053; 85610; 85730; G0378

== ENCOUNTER → 2020-07-23 | Day surgery (SDC) | payer MEDICARE, MEDICAID ==
[2020-07-22 14:21] VITALS: BMI 21.9
[~2020-07-23] MED LIST changes: -FLU VACC QS2019-20(6MOS UP)/PF 60 MCG/0.5 ML SYRINGE IM ONE; +Lidocaine 1% PF 5 ML VIAL ONE; +Sodium Bicarbonate 2.5 MEQ/5 ML VIAL ONE
[2020-07-23 10:00] LABS: #Basophils 0.1 thou/uL (0.0-0.2); #Eosinphils 0.2 thou/uL (0.0-0.7); #Lymphocytes 1.3 thou/uL (1.20-3.40); #Monocytes 0.5 thou/uL (0.11-0.59); #Neutrophils 2.4 thou/uL (1.40-6.50); %Basophils 1.2 % (0.0-1.0); %Lymphocytes 28.7 % (21.0-51.0); %Monocytes 11.9 % (0.0-10.0); %Neutrophils 54.3 % (42.0-75.0); Hemoglobin 11.5 g/dL (12.0-16.0); Mean Corpuscular HGB CONC 31.8 g/dL (32.0-36.0); Mean Corpuscular Hemoglobin 31.3 pg (27.0-31.0); Mean Corpuscular Volume 98.5 fL (78.0-98.0); Mean Platelet Volume 7.5 fL (7.4-10.4); Platelet Count 185 thou/uL (130-400); RBC Distribution Width 13.9 % (11.5-14.5); Red Blood Cell (RBC) Count 3.66 mill/uL (4.20-5.40); White Blood Cell (WBC) Count 4.4 thou/uL (4.8-10.8)
[2020-07-23 10:18] LABS: INR-International Normal Ratio 1.1; PTT 35.7 sec (22.9-36.1); Prothrombin Time 14.4 sec (12.0-14.7)
--- NOTE | 2020-07-23 10:58 | ULT ---
Sonogram abdomen limited HISTORY: Recurrent ascites. FINDINGS: Exam was originally scheduled as a therapeutic paracentesis. Sonographic survey shows very small amount of free fluid within the upper abdomen. Of insufficient vo lume for therapeutic paracentesis. IMPRESSION : Very small amount of free abdominal fluid. Paracentesis not performed.
== END ==
LOC: ULT 09:54
PROVIDERS: ATTEND Internal Medicine
DX: R18.8 Other ascites (principal); I13.2 Hypertensive heart and chronic kidney disease with heart failure and with stage 5 chronic kidney disease, or end stage renal disease; E11.22 Type 2 diabetes mellitus with diabetic chronic kidney disease; N18.6 End stage renal disease; I50.9 Heart failure, unspecified; D63.1 Anemia in chronic kidney disease; K59.09 Other constipation; I25.2 Old myocardial infarction; F32.9 Major depressive disorder, single episode, unspecified; F41.9 Anxiety disorder, unspecified; Z87.891 Personal history of nicotine dependence; Z79.4 Long term (current) use of insulin; Z79.82 Long term (current) use of aspirin; Z79.899 Other long term (current) drug therapy; Z88.0 Allergy status to penicillin; Z95.1 Presence of aortocoronary bypass graft; Z99.2 Dependence on renal dialysis
CPT/HCPCS: 36415; 76705; 85025; 85610; 85730

== ENCOUNTER 2020-09-06 09:41 | Day surgery (SDC) | payer MEDICARE, MEDICAID ==
[2020-09-03 07:58] VITALS: BMI 21.9
[2020-09-06 09:52] LABS: #Eosinphils 0.3 thou/uL (0.0-0.7); #Lymphocytes 1.4 thou/uL (1.20-3.40); #Monocytes 0.5 thou/uL (0.11-0.59); #Neutrophils 2.3 thou/uL (1.40-6.50); %Basophils 0.4 % (0.0-1.0); %Eosinophils 6.5 % (0.0-10.0); %Lymphocytes 31.4 % (21.0-51.0); %Neutrophils 50.7 % (42.0-75.0); Hemoglobin 12.3 g/dL (12.0-16.0); Mean Corpuscular Hemoglobin 33.1 pg (27.0-31.0); Mean Platelet Volume 7.2 fL (7.4-10.4); Platelet Count 183 thou/uL (130-400); RBC Distribution Width 14.5 % (11.5-14.5); Red Blood Cell (RBC) Count 3.72 mill/uL (4.20-5.40); White Blood Cell (WBC) Count 4.5 thou/uL (4.8-10.8)
[2020-09-06 09:57] LABS: INR-International Normal Ratio 1.1; PTT 35.6 sec (22.9-36.1); Prothrombin Time 14.5 sec (12.0-14.7)
[2020-09-06] MEDS ORDERED: Lidocaine 1% PF 5 ML VIAL ONE (10:15)
[2020-09-06] MEDS ORDERED: Sodium Bicarbonate 2.5 MEQ/5 ML VIAL ONE (10:15)
--- NOTE | 2020-09-06 10:50 | ULT ---
Limited abdominal ultrasound: 09/06/2020 HISTORY: Evaluate for ascites FINDINGS: The patient presented for ultrasound-guided paracentesis. However, preprocedural imaging de monstrates a small amount of free fluid in the right upper quadrant with no additional areas of free fluid seen in the abdomen/pelvis. Given small volume of ascites, paracentesis was not performed. IMPRESSION: Paracentesis was not performed secondary to small volume of ascites.
== END 2020-09-06 10:40 | disposition home or self-care (01) ==
LOC: ULT 09:41
PROVIDERS: ATTEND Internal Medicine
DX: R18.8 Other ascites (principal); I13.2 Hypertensive heart and chronic kidney disease with heart failure and with stage 5 chronic kidney disease, or end stage renal disease; E11.22 Type 2 diabetes mellitus with diabetic chronic kidney disease; N18.6 End stage renal disease; I50.9 Heart failure, unspecified; D63.1 Anemia in chronic kidney disease; I25.2 Old myocardial infarction; F32.9 Major depressive disorder, single episode, unspecified; F41.9 Anxiety disorder, unspecified; K59.09 Other constipation; Z87.891 Personal history of nicotine dependence; Z88.0 Allergy status to penicillin; Z95.1 Presence of aortocoronary bypass graft; Z99.2 Dependence on renal dialysis
CPT/HCPCS: 36415; 76705; 85025; 85610; 85730

== ENCOUNTER → 2020-10-04 | Day surgery (SDC) | payer MEDICARE, MEDICAID ==
[~2020-10-04] MED LIST changes: +FLU VACC QS2020-21(6MOS UP)/PF 60 MCG/0.5 ML SYRINGE IM ONE; -Lidocaine 1% PF 5 ML VIAL ONE; -Sodium Bicarbonate 2.5 MEQ/5 ML VIAL ONE
[2020-10-04 09:48] LABS: PTT 33.9 sec (22.9-36.1); Prothrombin Time 13.4 sec (12.0-14.7)
--- NOTE | 2020-10-04 10:14 | ULT ---
US Paracentesis with Imaging History: Ascites evaluation Comparison: Paracentesis June 14, 2020 Findings: 4 quadrant ultrasound was obtained. No significant free fluid. Impression: No ascites within the abdomen. Paracentesis was unable to be performed due to lack of int raperitoneal fluid.
== END ==
LOC: ULT 09:21
PROVIDERS: ATTEND Internal Medicine
DX: R18.8 Other ascites (principal); I13.2 Hypertensive heart and chronic kidney disease with heart failure and with stage 5 chronic kidney disease, or end stage renal disease; E11.22 Type 2 diabetes mellitus with diabetic chronic kidney disease; N18.6 End stage renal disease; I50.9 Heart failure, unspecified; D63.1 Anemia in chronic kidney disease; I25.2 Old myocardial infarction; F32.9 Major depressive disorder, single episode, unspecified; F41.9 Anxiety disorder, unspecified; K59.09 Other constipation; K21.9 Gastro-esophageal reflux disease without esophagitis; Z87.891 Personal history of nicotine dependence; Z79.4 Long term (current) use of insulin; Z79.82 Long term (current) use of aspirin; Z79.899 Other long term (current) drug therapy; Z88.0 Allergy status to penicillin; Z95.1 Presence of aortocoronary bypass graft; Z99.2 Dependence on renal dialysis
CPT/HCPCS: 36415; 76705; 85610; 85730

== ENCOUNTER 2020-11-26 10:30 | Emergency (ER) | payer MEDICARE, MEDICAID ==
[2020-11-26 16:51] LABS: SARS-CoV-2 MS2 Positive; SARS-CoV-2 N Gene Negative; SARS-CoV-2 S Gene Negative; SARS-CoV-2 by NAA Not Detected (NotDetected); SARS-CoV-2 orf1ab Negative
== END 2020-11-26 11:01 | disposition home or self-care (01) ==
LOC: ERS 10:30
DX: R19.7 Diarrhea, unspecified (principal); R09.81 Nasal congestion; J34.89 Other specified disorders of nose and nasal sinuses; E11.22 Type 2 diabetes mellitus with diabetic chronic kidney disease; I12.0 Hypertensive chronic kidney disease with stage 5 chronic kidney disease or end stage renal disease; I25.2 Old myocardial infarction; E78.5 Hyperlipidemia, unspecified; E78.00 Pure hypercholesterolemia, unspecified; N18.6 End stage renal disease; Z99.2 Dependence on renal dialysis; Z20.822 Contact with and (suspected) exposure to COVID-19; Z79.4 Long term (current) use of insulin
CPT/HCPCS: 87635; 99283; U0003

== ENCOUNTER → 2020-12-01 | Day surgery (SDC) | payer MEDICARE, MEDICAID ==
--- NOTE | 2020-12-01 10:13 | ULT ---
EXAM: Limited abdomen ultrasound DATE: 12/01/2020 12:00 AM INDICATION: Evaluate for ascites COMPARISON: None. FINDING: No large drainable intraperitoneal pocket of fluid is demonstrated. Small amount of fluid i s seen within the right upper quadrant and left lower quadrant. IMPRESSION:No large pocket of intraperitoneal fluid for safe performance of a paracentesis
== END ==
LOC: ULT 07:45
PROVIDERS: ATTEND Internal Medicine
DX: R18.8 Other ascites (principal); Z88.0 Allergy status to penicillin
CPT/HCPCS: 76705

== ENCOUNTER 2020-12-22 09:58 | Outpatient (CLI) | payer MEDICARE, MEDICAID ==
--- NOTE | 2020-12-22 11:58 | RAD ---
LEFT LITTLE FINGER: HISTORY: Fifth digit pain. No history is given of trauma. FINDINGS: The bones appear demineralized. Arthritic changes of the finger slightly more pronounced at the PIP joint. No fractures. IMPRESSION: Arthritic changes of the finger. POS: CYRUS
== END 2020-12-22 09:59 | disposition home or self-care (01) ==
LOC: RAD-FRANK 09:58
PROVIDERS: ATTEND Nurse Practitioner Family
DX: M79.644 Pain in right finger(s) (principal); M19.041 Primary osteoarthritis, right hand

== ENCOUNTER 2021-01-14 05:59 | Day surgery (SDC) | payer MEDICARE, MEDICAID ==
[2021-01-13 11:27] VITALS: BMI 20.8
[2021-01-14] MEDS ORDERED: Lidocaine 1% PF 5 ML VIAL ONE (07:37)
[2021-01-14] MEDS ORDERED: PROPOFOL 40 ML ONE (07:37)
[2021-01-14] MEDS ORDERED: PHENYLEPHRINE-NS 100 MCG/ML 10 ML SYRINGE ONE (10:29)
[2021-01-14] MEDS ORDERED: ePHEDrine 50 MG/ML VIAL ONE (10:29)
--- NOTE | 2021-01-18 22:17 | CCLSPC ---
PREPROCEDURE DIAGNOSIS: Atrial fibrillation. POSTPROCEDURE DIAGNOSIS: Successful cardioversion. PROCEDURE PERFORMED: Direct current synchronized cardioversion. Ms. Bolton is a pleasant 60-year-old female, who comes to the outpatient area for a planned MARICEL cardioversion. Please see MARICEL report for further details. After no thrombus was seen, a single AICD shock was delivered in a synchronized fashion at 100 joules successfully converting her into sinus rhythm. The patient tolerated the procedure well. RECOMMENDATIONS: 1. Continue Eliquis 5 mg b.i.d. 2. Continue amiodarone 200 mg a day. 3. Continue beta tianna. 4. Follow up in the office in 4 weeks. Job ID: [id number]
--- NOTE | 2021-01-18 22:17 | ECHO ---
PROCEDURE PERFORMED: Transesophageal echo. PRE-PROCEDURE DIAGNOSIS: Atrial fibrillation. SUMMARY: Ms. Bolton is in the outpatient area for a transesophageal echo prior to cardioversion. The Anesthesiology Department provided with sedation for the patient. Please see their notes for details. After adequate sedation was achieved, transesophageal probe was inserted into the mouth and into the esophagus. Multiplanar views were then obtained. Left ventricle is normal size. EF estimated about 40%. Left atrium is moderately dilated. Right atrium is mildly dilated. Right ventricle is mildly dilated with normal RV systolic function. Aortic valve is mildly sclerotic with no stenosis or regurgitation. Mitral valve has mitral annular calcification with mild MR. Tricuspid valve is structurally normal. There is moderate TR. Pulmonary valve is structurally normal with mild PI. Left atrial appendage is large with spontaneous echo contrast, but no thrombus. CONCLUSIONS: 1. Reduced ejection fraction at 40%. 2. Biatrial enlargement. 3. Mild MR. 4. Moderate TR. 5. Mild PI. 6. Aortic valve sclerosis. 7. Left atrial appendage is without masses or thrombus, only spontaneous echo contrast. May proceed with cardioversion. Job ID: [id number]
== END 2021-01-14 09:25 | disposition home or self-care (01) ==
LOC: CCL 05:59
PROVIDERS: ATTEND Internal Medicine Cardiovascular Disease
PROC: B24BZZ4 Ultrasonography of Heart with Aorta, Transesophageal (ICD-10-PCS; principal; 2021-01-14)
PROC: 5A2204Z Restoration of Cardiac Rhythm, Single (ICD-10-PCS; 2021-01-14)
DX: I48.0 Paroxysmal atrial fibrillation (principal); I08.1 Rheumatic disorders of both mitral and tricuspid valves; I37.1 Nonrheumatic pulmonary valve insufficiency; I35.8 Other nonrheumatic aortic valve disorders; I12.0 Hypertensive chronic kidney disease with stage 5 chronic kidney disease or end stage renal disease; N18.6 End stage renal disease; I73.9 Peripheral vascular disease, unspecified; I25.10 Atherosclerotic heart disease of native coronary artery without angina pectoris; I25.5 Ischemic cardiomyopathy; Z79.01 Long term (current) use of anticoagulants; Z79.4 Long term (current) use of insulin; Z79.82 Long term (current) use of aspirin; Z79.899 Other long term (current) drug therapy; Z88.0 Allergy status to penicillin; Z95.1 Presence of aortocoronary bypass graft; Z99.2 Dependence on renal dialysis
CPT/HCPCS: 92960; 93005; 93010; 93312; J2704; J3490

== ENCOUNTER 2021-03-04 10:38 | Outpatient (CLI) | payer MEDICARE, MEDICAID | END 2021-03-04 10:39 | disposition home or self-care (01) | LOC: RAD-FRANK 10:38 | PROVIDERS: ATTEND Nurse Practitioner Family | DX: R06.02 Shortness of breath (principal); I51.7 Cardiomegaly; J90 Pleural effusion, not elsewhere classified; J98.11 Atelectasis; J81.1 Chronic pulmonary edema | CPT/HCPCS: 71046 ==

== ENCOUNTER 2021-07-26 12:51 | Emergency (ER) | payer MEDICARE, MEDICAID ==
[2021-07-26] MEDS ORDERED: Proparacaine 0.5% Opth 15 ML BOT ONE (13:09)
[2021-07-26] MEDS ORDERED: Fluorescein Opthalmic Strip ONE (13:09)
[2021-07-26] MEDS ORDERED: Acetaminophen 500 MG TAB ONE (13:48)
[2021-07-26] MEDS ORDERED: Ibuprofen 200 MG TAB ONE (13:48)
[2021-07-26 14:00] LABS: #Lymphocytes 1.9 thou/uL (1.20-3.40); #Monocytes 0.5 thou/uL (0.11-0.59); %Basophils 0.1 % (0.0-1.0); %Lymphocytes 23.1 % (21.0-51.0); %Monocytes 5.8 % (0.0-10.0); %Neutrophils 71.1 % (42.0-75.0); Hemoglobin 12.3 g/dL (12.0-16.0); Mean Corpuscular HGB CONC 34.7 g/dL (32.0-36.0); Mean Corpuscular Hemoglobin 34.2 pg (27.0-31.0); Mean Corpuscular Volume 98.5 fL (78.0-98.0); Platelet Count 129 thou/uL (130-400); RBC Distribution Width 12.6 % (11.5-14.5); White Blood Cell (WBC) Count 8.4 thou/uL (4.8-10.8)
[2021-07-26 14:21] LABS: ALT (SGPT) 38 U/L (8-55); AST (SGOT) 71 U/L (5-34); Albumin 3.8 g/dL (3.4-4.8); Alkaline Phosphatase 126 U/L (40-110); Anion Gap 25 mmol/L (10-20); BUN (Urea Nitrogen) 80 mg/dL (9.8-20.1); Calc. Creatinine Clearance 0 mL/min (70-130); Calcium 8.5 mg/dL (7.8-10.44); Carbon Dioxide 21 mmol/L (23-31); Chloride 93 mmol/L (98-107); Globulin 4.2 g/dL (2.4-3.5); Glucose 84 mg/dL (80-115); Potassium 4.9 mmol/L (3.5-5.1); Sodium 134 mmol/L (136-145)
[2021-07-26 15:05] LABS: SARS-CoV-2 NAA Rapid Test DETECTED (NotDetected)
== END 2021-07-26 17:12 | disposition home or self-care (01) ==
LOC: ERS 12:51
DX: U07.1 COVID-19 (principal); I12.0 Hypertensive chronic kidney disease with stage 5 chronic kidney disease or end stage renal disease; E11.22 Type 2 diabetes mellitus with diabetic chronic kidney disease; N18.6 End stage renal disease; I25.2 Old myocardial infarction; E78.5 Hyperlipidemia, unspecified; E78.00 Pure hypercholesterolemia, unspecified; Z99.2 Dependence on renal dialysis
CPT/HCPCS: 71045; 80053; 83605; 85025; 93005; U0002; 36415

== ENCOUNTER 2021-07-30 00:35 | Inpatient (IN) | payer MEDICARE, MEDICAID ==
[2021-07-30] MEDS ORDERED: Diltiazem 125 MG/25 ML ONE (01:15)
[2021-07-30 01:43] LABS: #Lymphocytes 1.5 thou/uL (1.20-3.40); #Monocytes 0.5 thou/uL (0.11-0.59); #Neutrophils 5.9 thou/uL (1.40-6.50); %Basophils 0.1 % (0.0-1.0); %Eosinophils 0.2 % (0.0-10.0); %Lymphocytes 19.3 % (21.0-51.0); %Monocytes 5.7 % (0.0-10.0); %Neutrophils 74.6 % (42.0-75.0); Hemoglobin 12.7 g/dL (12.0-16.0); Mean Corpuscular HGB CONC 35.6 g/dL (32.0-36.0); Mean Corpuscular Hemoglobin 34.9 pg (27.0-31.0); Mean Corpuscular Volume 98.1 fL (78.0-98.0); Mean Platelet Volume 7.6 fL (7.4-10.4); Platelet Count 132 thou/uL (130-400); RBC Distribution Width 12.4 % (11.5-14.5); Red Blood Cell (RBC) Count 3.62 mill/uL (4.20-5.40)
[2021-07-30 01:54] LABS: INR-International Normal Ratio 1.3; Prothrombin Time 15.9 sec (12.0-14.7)
[2021-07-30 01:55] LABS: PTT 42.7 sec (22.9-36.1)
[2021-07-30 01:57] LABS: D-Dimer Test 2.03 *mcg/mL (0.27-0.43)
[2021-07-30 02:04] LABS: ALT (SGPT) 42 U/L (8-55); AST (SGOT) 83 U/L (5-34); Albumin 3.3 g/dL (3.4-4.8); Alkaline Phosphatase 102 U/L (40-110); Anion Gap 29 mmol/L (10-20); Bilirubin, Total 0.7 mg/dL (0.2-1.2); Calc. Creatinine Clearance 0 mL/min (70-130); Calcium 8.6 mg/dL (7.8-10.44); Carbon Dioxide 17 mmol/L (23-31); Chloride 97 mmol/L (98-107); Globulin 4.7 g/dL (2.4-3.5); Glucose 80 mg/dL (80-115); Magnesium 2.6 mg/dL (1.6-2.6); Potassium 5.6 mmol/L (3.5-5.1); Sodium 137 mmol/L (136-145)
[2021-07-30 02:17] LABS: BUN (Urea Nitrogen) 126 mg/dL (9.8-20.1)
[2021-07-30] MEDS ORDERED: Ondansetron PF 4 MG/2 ML Vial IVP PRN (04:05)
[2021-07-30] MEDS ORDERED: Acetaminophen 325 MG TAB PO PRN (04:05)
[2021-07-30] MEDS ORDERED: Guaifenesin DM 100-10/5 ML UDCUP PO PRN (04:05)
[2021-07-30] MEDS ORDERED: hydrALAZINE 20 MG/ML VIAL SLOW IVP PRN (04:08)
[2021-07-30] MEDS ORDERED: Diltiazem 125 MG in Sodium Chloride 0.9% 100 ML IVPB SCH ×2 (04:15→15:15)
[2021-07-30] MEDS ORDERED: Labetalol HCl 100 MG/20 ML VIAL SLOW IVP PRN (04:25)
[2021-07-30 05:16] LABS: Hemoglobin A1c 6.9 % (4.0-6.0)
[2021-07-30 07:02] VITALS: BMI 19.7
[2021-07-30] MEDS ORDERED: Carvedilol 25 MG TAB PO SCH ×2 (08:00→14:45)
[2021-07-30 08:23] LABS: #Lymphocytes 1.6 thou/uL (1.20-3.40); #Monocytes 0.5 thou/uL (0.11-0.59); #Neutrophils 5.6 thou/uL (1.40-6.50); %Basophils 0.1 % (0.0-1.0); %Eosinophils 0.1 % (0.0-10.0); %Lymphocytes 21.1 % (21.0-51.0); %Monocytes 5.8 % (0.0-10.0); %Neutrophils 72.8 % (42.0-75.0); Hemoglobin 12.8 g/dL (12.0-16.0); Mean Corpuscular HGB CONC 34.3 g/dL (32.0-36.0); Mean Corpuscular Hemoglobin 33.6 pg (27.0-31.0); Mean Corpuscular Volume 98.1 fL (78.0-98.0); Mean Platelet Volume 7.8 fL (7.4-10.4); Platelet Count 130 thou/uL (130-400); RBC Distribution Width 12.5 % (11.5-14.5); White Blood Cell (WBC) Count 7.7 thou/uL (4.8-10.8)
[2021-07-30 08:41] LABS: ALT (SGPT) 39 U/L (8-55); AST (SGOT) 67 U/L (5-34); Albumin 3.3 g/dL (3.4-4.8); Alkaline Phosphatase 97 U/L (40-110); Anion Gap 31 mmol/L (10-20); Bilirubin, Total 0.7 mg/dL (0.2-1.2); Calc. Creatinine Clearance 3 mL/min (70-130); Calcium 7.8 mg/dL (7.8-10.44); Carbon Dioxide 13 mmol/L (23-31); Chloride 97 mmol/L (98-107); Globulin 3.7 g/dL (2.4-3.5); Glucose 80 mg/dL (80-115); Potassium 5.3 mmol/L (3.5-5.1); Sodium 136 mmol/L (136-145)
[2021-07-30 08:52] LABS: BUN (Urea Nitrogen) 121 mg/dL (9.8-20.1)
[2021-07-30] MEDS ORDERED: HYDROcodone/Acetaminophen 7.5/325 mg Tablet PO PRN ×2 (09:56→12:00)
[2021-07-30] MEDS ORDERED: Heparin 10,000 UNITS/ 10 ML VIAL ONE (09:56)
[2021-07-30] MEDS ORDERED: Benzonatate 100 MG CAP PO SCH (10:00)
[2021-07-30] MEDS ORDERED: Iopamidol-370 76% 500 ML 1 ML ONE (12:26)
[2021-07-30] MEDS: Ascorbic Acid 500 mg Chewable Tablet PO SCH (14:47)
[2021-07-30] MEDS: Cholecalciferol (Vitamin D3) 400 UNITS TAB PO SCH (14:48)
[2021-07-30] MEDS: Sevelamer Carbonate 800 MG TAB PO SCH ×2 (14:48)
[2021-07-30] MEDS: Dexamethasone 4 mg/ml Vial SLOW IVP SCH (14:49)
[2021-07-30] MEDS ORDERED: Amiodarone 450 MG in Dextrose 5% in Water 250 ML IVPB SCH (15:30)
[2021-07-30] MEDS: Benzonatate 100 MG CAP PO SCH ×2 (16:03→22:22)
[2021-07-30] MEDS: Apixaban 5 MG TAB PO SCH (20:49)
[2021-07-31 05:12] LABS: ALT (SGPT) 34 U/L (8-55); AST (SGOT) 57 U/L (5-34); Alkaline Phosphatase 87 U/L (40-110); Anion Gap 27 mmol/L (10-20); BUN (Urea Nitrogen) 58 mg/dL (9.8-20.1); Bilirubin, Total 0.8 mg/dL (0.2-1.2); CRP (Inflammatory) 12.14 mg/dL (= or < 0.5); Calc. Creatinine Clearance 5 mL/min (70-130); Carbon Dioxide 14 mmol/L (23-31); Chloride 99 mmol/L (98-107); Globulin 4.5 g/dL (2.4-3.5); Glucose 206 mg/dL (80-115); Magnesium 2.2 mg/dL (1.6-2.6); Protein, Total 7.5 g/dL (5.8-8.1); Sodium 135 mmol/L (136-145)
[2021-07-31 05:41] LABS: Band 7 % (5-11); Hemoglobin 13.6 g/dL (12.0-16.0); Lymphocytes 37 % (21-51); MDiff Complete? YES; Mean Corpuscular HGB CONC 35.7 g/dL (32.0-36.0); Mean Corpuscular Hemoglobin 35.1 pg (27.0-31.0); Mean Corpuscular Volume 98.5 fL (78.0-98.0); Mean Platelet Volume 5.5 fL (7.4-10.4); Monocytes 6 % (0-10); Neutrophil 50 % (42-75); Platelet Count 81 thou/uL (130-400); Platelet Morphology Comment Appears Decreased; RBC Distribution Width 12.5 % (11.5-14.5); Red Blood Cell (RBC) Count 3.86 mill/uL (4.20-5.40); Small Platelets SLIGHT
[2021-07-31] MEDS ORDERED: Carvedilol 25 MG TAB PO SCH (08:00)
[2021-07-31] MEDS: Carvedilol 25 MG TAB PO SCH ×3 (10:57→19:14)
[2021-07-31] MEDS: Sevelamer Carbonate 800 MG TAB PO SCH ×4 (10:57→19:14)
[2021-07-31] MEDS: Dexamethasone 4 mg/ml Vial SLOW IVP SCH ×2 (10:58→12:39)
[2021-07-31] MEDS: Cholecalciferol (Vitamin D3) 400 UNITS TAB PO SCH ×2 (10:58→12:35)
[2021-07-31] MEDS: Apixaban 5 MG TAB PO SCH ×3 (10:58→20:10)
[2021-07-31] MEDS: Benzonatate 100 MG CAP PO SCH ×3 (10:58→20:11)
[2021-07-31] MEDS: Ascorbic Acid 500 mg Chewable Tablet PO SCH (10:58)
[2021-07-31] MEDS: Aspirin Chewable 81 MG TAB PO SCH ×2 (10:58→12:34)
[2021-07-31] MEDS ORDERED: Dextrose 50% Abboject 50 ML SYRINGE SLOW IVP PRN (16:52)
[2021-07-31] MEDS ORDERED: Dextrose 5% in Water 1,000 ML IV PRN (16:52)
[2021-07-31] MEDS ORDERED: Insulin Regular 300 UNITS/3 ML VIAL ONE (17:49)
[2021-07-31] MEDS: HumaLOG 300 UNITS/3 ML VIAL SC PRN (17:54)
[2021-07-31] MEDS ORDERED: Midodrine HCl 5 MG TAB PO SCH (20:15)
[2021-07-31] MEDS ORDERED: Sodium Chloride 0.9% 500 ML IV SCH (20:15)
[2021-08-01 06:11] LABS: #Lymphocytes 0.9 thou/uL (1.20-3.40); #Monocytes 0.5 thou/uL (0.11-0.59); #Neutrophils 3.9 thou/uL (1.40-6.50); %Basophils 0.6 % (0.0-1.0); %Lymphocytes 16.3 % (21.0-51.0); %Monocytes 9.2 % (0.0-10.0); %Neutrophils 73.9 % (42.0-75.0); Hemoglobin 13.8 g/dL (12.0-16.0); Mean Corpuscular HGB CONC 33.7 g/dL (32.0-36.0); Mean Corpuscular Hemoglobin 33.5 pg (27.0-31.0); Mean Corpuscular Volume 99.3 fL (78.0-98.0); Mean Platelet Volume 7.8 fL (7.4-10.4); Platelet Count 176 thou/uL (130-400); RBC Distribution Width 12.3 % (11.5-14.5); Red Blood Cell (RBC) Count 4.13 mill/uL (4.20-5.40); White Blood Cell (WBC) Count 5.2 thou/uL (4.8-10.8)
[2021-08-01 06:32] LABS: Anion Gap 23 mmol/L (10-20); BUN (Urea Nitrogen) 45 mg/dL (9.8-20.1); Calc. Creatinine Clearance 8 mL/min (70-130); Carbon Dioxide 21 mmol/L (23-31); Chloride 98 mmol/L (98-107); Potassium 4.2 mmol/L (3.5-5.1); Sodium 138 mmol/L (136-145)
[2021-08-01 06:33] LABS: ALT (SGPT) 27 U/L (8-55); AST (SGOT) 35 U/L (5-34); Alkaline Phosphatase 83 U/L (40-110); Bilirubin, Total 0.7 mg/dL (0.2-1.2); CRP (Inflammatory) 7.61 mg/dL (= or < 0.5); Calcium 7.5 mg/dL (7.8-10.44); Globulin 3.8 g/dL (2.4-3.5); Glucose 266 mg/dL (80-115); Protein, Total 6.8 g/dL (5.8-8.1)
[2021-08-01] MEDS: HumaLOG 300 UNITS/3 ML VIAL SC PRN ×4 (06:42→20:39)
[2021-08-01] MEDS: Ascorbic Acid 500 mg Chewable Tablet PO SCH (08:55)
[2021-08-01] MEDS: Apixaban 5 MG TAB PO SCH ×2 (08:56→20:01)
[2021-08-01] MEDS: Benzonatate 100 MG CAP PO SCH ×3 (08:56→20:01)
[2021-08-01] MEDS: Cholecalciferol (Vitamin D3) 400 UNITS TAB PO SCH (08:56)
[2021-08-01] MEDS: Sevelamer Carbonate 800 MG TAB PO SCH ×3 (08:56→16:52)
[2021-08-01] MEDS: Dexamethasone 4 mg/ml Vial SLOW IVP SCH (08:56)
[2021-08-01] MEDS: Carvedilol 25 MG TAB PO SCH (09:28)
[2021-08-01] MEDS ORDERED: Midodrine HCl 5 MG TAB PO SCH (10:00)
[2021-08-01] MEDS: Midodrine HCl 5 MG TAB PO SCH ×2 (15:18→20:01)
[2021-08-01] MEDS ORDERED: Dextrose 50% Abboject 50 ML SYRINGE SLOW IVP PRN (20:26)
[2021-08-01] MEDS ORDERED: Dextrose 5% in Water 1,000 ML IV PRN (20:26)
[2021-08-02 05:11] LABS: Hemoglobin 12.9 g/dL (12.0-16.0); Mean Corpuscular HGB CONC 33.8 g/dL (32.0-36.0); Mean Corpuscular Hemoglobin 33.7 pg (27.0-31.0); Mean Corpuscular Volume 99.7 fL (78.0-98.0); Mean Platelet Volume 7.6 fL (7.4-10.4); Platelet Count 206 thou/uL (130-400); RBC Distribution Width 12.2 % (11.5-14.5); Red Blood Cell (RBC) Count 3.83 mill/uL (4.20-5.40); White Blood Cell (WBC) Count 9.1 thou/uL (4.8-10.8)
[2021-08-02 05:20] LABS: ALT (SGPT) 22 U/L (8-55); AST (SGOT) 23 U/L (5-34); Alkaline Phosphatase 83 U/L (40-110); Anion Gap 21 mmol/L (10-20); BUN (Urea Nitrogen) 75 mg/dL (9.8-20.1); Bilirubin, Total 0.7 mg/dL (0.2-1.2); CRP (Inflammatory) 4.87 mg/dL (= or < 0.5); Calc. Creatinine Clearance 6 mL/min (70-130); Calcium 8.2 mg/dL (7.8-10.44); Carbon Dioxide 23 mmol/L (23-31); Chloride 95 mmol/L (98-107); Globulin 3.6 g/dL (2.4-3.5); Glucose 283 mg/dL (80-115); Potassium 4.3 mmol/L (3.5-5.1); Protein, Total 6.6 g/dL (5.8-8.1); Sodium 135 mmol/L (136-145)
[2021-08-02] MEDS: HumaLOG 300 UNITS/3 ML VIAL SC PRN ×4 (06:09→20:20)
[2021-08-02 09:30] LABS: Band 8 % (5-11); Lymphocytes 10 % (21-51); MDiff Complete? YES; Monocytes 2 % (0-10); Neutrophil 80 % (42-75); Platelet Morphology Comment Appears Adequate; Polychromasia SLIGHT = 2-3 cells (100X) (0-2/hpf)
[2021-08-02] MEDS: Sevelamer Carbonate 800 MG TAB PO SCH ×3 (11:40→16:58)
[2021-08-02] MEDS: Benzonatate 100 MG CAP PO SCH ×2 (13:24→13:32)
[2021-08-02] MEDS: Ascorbic Acid 500 mg Chewable Tablet PO SCH (13:24)
[2021-08-02] MEDS: Cholecalciferol (Vitamin D3) 400 UNITS TAB PO SCH (13:24)
[2021-08-02] MEDS: Aspirin Chewable 81 MG TAB PO SCH (13:24)
[2021-08-02] MEDS: Dexamethasone 4 mg/ml Vial SLOW IVP SCH (13:24)
[2021-08-02] MEDS: Apixaban 5 MG TAB PO SCH ×2 (13:24→20:20)
[2021-08-02] MEDS: Midodrine HCl 5 MG TAB PO SCH ×3 (13:31→20:20)
[2021-08-03] MEDS: HumaLOG 300 UNITS/3 ML VIAL SC PRN ×2 (06:08→12:06)
[2021-08-03] MEDS: Cholecalciferol (Vitamin D3) 400 UNITS TAB PO SCH (09:04)
[2021-08-03] MEDS: Ascorbic Acid 500 mg Chewable Tablet PO SCH (09:04)
[2021-08-03] MEDS: Apixaban 5 MG TAB PO SCH (09:04)
[2021-08-03] MEDS: Sevelamer Carbonate 800 MG TAB PO SCH ×2 (09:04→13:56)
[2021-08-03] MEDS: Dexamethasone 4 mg/ml Vial SLOW IVP SCH (09:05)
[2021-08-03] MEDS: Midodrine HCl 5 MG TAB PO SCH (09:15)
[2021-08-03] MEDS: Benzonatate 100 MG CAP PO SCH (11:27)
[2021-08-03 16:23] VITALS: BP 155/96; TEMP 97.7
== END 2021-08-03 17:35 | disposition home or self-care (01) | DRG 177 ==
LOC: ERS 00:35 → 2SW 03:00
PROVIDERS: ADMIT Family Medicine; ATTEND Family Medicine
PROC: 8E0ZXY6 Isolation (ICD-10-PCS; principal; 2021-07-30)
PROC: 5A1D70Z Performance of Urinary Filtration, Intermittent, Less than 6 Hours Per Day (ICD-10-PCS; 2021-07-30)
DX: U07.1 COVID-19 (principal); N18.6 End stage renal disease; J12.82 Pneumonia due to coronavirus disease 2019; J96.00 Acute respiratory failure, unspecified whether with hypoxia or hypercapnia; I50.32 Chronic diastolic (congestive) heart failure; I13.2 Hypertensive heart and chronic kidney disease with heart failure and with stage 5 chronic kidney disease, or end stage renal disease; E87.2 Acidosis; I48.92 Unspecified atrial flutter; E11.22 Type 2 diabetes mellitus with diabetic chronic kidney disease; E78.5 Hyperlipidemia, unspecified; F32.9 Major depressive disorder, single episode, unspecified; I48.0 Paroxysmal atrial fibrillation; I25.5 Ischemic cardiomyopathy; I25.10 Atherosclerotic heart disease of native coronary artery without angina pectoris; E78.00 Pure hypercholesterolemia, unspecified; I95.9 Hypotension, unspecified; Z99.2 Dependence on renal dialysis; Z88.0 Allergy status to penicillin; Z79.82 Long term (current) use of aspirin; Z79.4 Long term (current) use of insulin; Z79.01 Long term (current) use of anticoagulants; I25.2 Old myocardial infarction; Z95.1 Presence of aortocoronary bypass graft
CPT/HCPCS: 36415; 36416; 71045; 71275; 80053; 83036; 83605; 83735; 85025; 85379; 85610; 85730; 86140; 90935; 93005; 93010; 93306; 94760; 96365; 96366; 96376; G0257; J0282; J1100; J1644; J1815; J7030; J7070; Q9967

== ENCOUNTER 2021-12-23 13:33 | Outpatient (CLI) | payer MEDICARE, MEDICAID ==
[2021-12-24 00:41] LABS: SARS-CoV-2 PCR by NAA Not Detected (NotDetected)
== END 2021-12-23 13:34 | disposition home or self-care (01) ==
LOC: LABBT 13:33
PROVIDERS: ATTEND Internal Medicine
DX: Z01.812 Encounter for preprocedural laboratory examination (principal); Z20.822 Contact with and (suspected) exposure to COVID-19
CPT/HCPCS: U0003; U0005

== ENCOUNTER 2021-12-28 07:25 | Day surgery (SDC) | payer MEDICARE, MEDICAID ==
[2021-12-20 10:33] VITALS: BMI 20.9
[2021-12-28] MEDS ORDERED: PHENYLEPHRINE-NS 100 MCG/ML 10 ML SYRINGE ONE (08:41)
[2021-12-28] MEDS ORDERED: ePHEDrine 50 MG/ML VIAL ONE (08:41)
[2021-12-28] MEDS ORDERED: PROPOFOL 200 MG/20 ML VIAL ONE (08:41)
[2021-12-28] MEDS ORDERED: Lidocaine 1% PF 5 ML VIAL ONE (08:41)
== END 2021-12-28 10:30 | disposition home or self-care (01) ==
LOC: SDC 07:25
PROVIDERS: ATTEND Internal Medicine
PROC: 0DBL8ZX Excision of Transverse Colon, Via Natural or Artificial Opening Endoscopic, Diagnostic (ICD-10-PCS; principal; 2021-12-28)
DX: Z12.11 Encounter for screening for malignant neoplasm of colon (principal); D12.3 Benign neoplasm of transverse colon; K57.30 Diverticulosis of large intestine without perforation or abscess without bleeding; K64.8 Other hemorrhoids; N18.6 End stage renal disease; R18.8 Other ascites; Z79.01 Long term (current) use of anticoagulants; Z79.4 Long term (current) use of insulin; Z79.82 Long term (current) use of aspirin; Z79.899 Other long term (current) drug therapy; Z88.0 Allergy status to penicillin; Z95.1 Presence of aortocoronary bypass graft; Z99.2 Dependence on renal dialysis
CPT/HCPCS: 36416; 88305; J2704; J3490

== ENCOUNTER 2022-02-25 14:21 | Emergency (ER) | payer MEDICARE, MEDICAID | END 2022-02-25 16:40 | disposition home or self-care (01) | LOC: ERS 14:21 | DX: M72.2 Plantar fascial fibromatosis (principal); E11.9 Type 2 diabetes mellitus without complications; Z79.4 Long term (current) use of insulin; I12.0 Hypertensive chronic kidney disease with stage 5 chronic kidney disease or end stage renal disease; N18.6 End stage renal disease; I48.91 Unspecified atrial fibrillation; Z79.01 Long term (current) use of anticoagulants; Z99.2 Dependence on renal dialysis ==

== ENCOUNTER 2022-06-05 17:37 | Emergency (ER) | payer MEDICARE, MEDICAID ==
[2022-06-05 18:42] LABS: #Eosinphils 0.1 thou/uL (0.0-0.7); #Lymphocytes 1.2 thou/uL (1.20-3.40); #Monocytes 0.4 thou/uL (0.11-0.59); #Neutrophils 2.2 thou/uL (1.40-6.50); %Basophils 0.4 % (0.0-1.0); %Eosinophils 3.1 % (0.0-10.0); %Lymphocytes 30.3 % (21.0-51.0); %Neutrophils 56.3 % (42.0-75.0); Hemoglobin 11.2 g/dL (12.0-16.0); Mean Corpuscular HGB CONC 31.9 g/dL (32.0-36.0); Mean Corpuscular Hemoglobin 33.7 pg (27.0-31.0); Mean Platelet Volume 8.6 fL (7.4-10.4); Platelet Count 140 thou/uL (130-400); RBC Distribution Width 14.6 % (11.5-14.5); Red Blood Cell (RBC) Count 3.33 mill/uL (4.20-5.40); White Blood Cell (WBC) Count 3.9 thou/uL (4.8-10.8)
[2022-06-05 18:52] LABS: ALT (SGPT) 9 U/L (8-55); AST (SGOT) 19 U/L (5-34); Albumin 3.8 g/dL (3.4-4.8); Alkaline Phosphatase 56 U/L (40-110); Anion Gap 19 mmol/L (10-20); BUN (Urea Nitrogen) 21 mg/dL (9.8-20.1); Bilirubin, Total 0.9 mg/dL (0.2-1.2); Calc. Creatinine Clearance 0 mL/min (70-130); Calcium 8.7 mg/dL (7.8-10.44); Carbon Dioxide 28 mmol/L (23-31); Chloride 102 mmol/L (98-107); Estimated GFR 6; Globulin 3.8 g/dL (2.4-3.5); Glucose 170 mg/dL (80-115); Potassium 3.9 mmol/L (3.5-5.1); Protein, Total 7.6 g/dL (5.8-8.1); Sodium 145 mmol/L (136-145)
[2022-06-05 18:58] LABS: MDiff Complete? YES; Macrocytosis SLIGHT = 6-15 cells (100X) (0-5/hpf); Ovalocytes SLIGHT = 2-5 cells (100X) (0-1/hpf); Platelet Morphology Comment Appears Adequate
== END 2022-06-05 22:02 | disposition home or self-care (01) ==
LOC: ERS 17:37
DX: N93.9 Abnormal uterine and vaginal bleeding, unspecified (principal); I12.0 Hypertensive chronic kidney disease with stage 5 chronic kidney disease or end stage renal disease; E11.22 Type 2 diabetes mellitus with diabetic chronic kidney disease; N18.6 End stage renal disease; E78.5 Hyperlipidemia, unspecified; E78.00 Pure hypercholesterolemia, unspecified; I48.91 Unspecified atrial fibrillation; I25.2 Old myocardial infarction; Z99.2 Dependence on renal dialysis; Z79.4 Long term (current) use of insulin; Z79.01 Long term (current) use of anticoagulants
CPT/HCPCS: 36415; 51701; 80053; 82274; 85025

== ENCOUNTER 2023-05-23 16:11 | Inpatient (IN) | payer MEDICAID, MEDICARE ==
[2023-05-23 16:34] LABS: #Eosinphils 0.1 thou/uL (0.0-0.7); #Monocytes 0.4 thou/uL (0.11-0.59); #Neutrophils 2.7 thou/uL (1.40-6.50); %Basophils 0.7 % (0.0-1.0); %Eosinophils 2.6 % (0.0-10.0); %Lymphocytes 22.8 % (21.0-51.0); %Monocytes 10.5 % (0.0-10.0); %Neutrophils 63.4 % (42.0-75.0); Hemoglobin 11.1 g/dL (12.0-16.0); Mean Corpuscular HGB CONC 31.8 g/dL (32.0-36.0); Mean Corpuscular Volume 100.6 fl (78.0-98.0); Mean Platelet Volume 10.3 fL (7.4-10.4); Platelet Count 131 10x3/uL (130-400); RBC Distribution Width 14.4 % (11.5-14.5); Red Blood Cell (RBC) Count 3.47 mill/uL (4.20-5.40); White Blood Cell (WBC) Count 4.2 10x3/uL (4.8-10.8)
[2023-05-23 16:57] LABS: ALT (SGPT) 7 U/L (8-55); AST (SGOT) 14 U/L (5-34); Albumin 3.7 g/dL (3.4-4.8); Alkaline Phosphatase 52 U/L (40-110); Anion Gap 28 mmol/L (10-20); BUN (Urea Nitrogen) 78 mg/dL (9.8-20.1); Bilirubin, Total 0.9 mg/dL (0.2-1.2); Calc. Creatinine Clearance 0 mL/min (70-130); Calcium 9.7 mg/dL (7.8-10.44); Carbon Dioxide 17 mmol/L (23-31); Chloride 103 mmol/L (98-107); Estimated GFR 2; Globulin 4.1 g/dL (2.4-3.5); Glucose 106 mg/dL (80-115); Potassium 5.6 mmol/L (3.5-5.1); Protein, Total 7.8 g/dL (5.8-8.1); Sodium 142 mmol/L (136-145)
[2023-05-24 00:02] LABS: HBSAB Concentration 82.28 mIU/mL; HBSAg Index 0.25 S/CO (0-0.99); Hep B Core Total Ab Non-Reactive (NonReactive); Hep B Core Total Index 0.07 S/CO (0-0.79); Hep B Surf AB Reactive (NonReactive); Hep B Surf Ag Non-Reactive S/CO (NonReactive); Hep C IgG Ab Non-Reactive S/CO (NonReactive); Hep C Index 0.09 S/CO (0-0.79)
[2023-05-24] MEDS ORDERED: Calcium Carbonate 500 MG ChewTAB PO PRN (00:17)
[2023-05-24] MEDS ORDERED: Ondansetron ODT 4 MG TAB PO PRN (00:17)
[2023-05-24 04:02] VITALS: BMI 23.6
[2023-05-24] MEDS: Loperamide HCl 2 MG CAP PO PRN ×2 (04:31→20:20)
[2023-05-24 06:00] LABS: Hemoglobin 11.1 g/dL (12.0-16.0); Mean Corpuscular HGB CONC 31.4 g/dL (32.0-36.0); Mean Corpuscular Hemoglobin 32.2 pg (27.0-31.0); Mean Corpuscular Volume 102.3 fl (78.0-98.0); Mean Platelet Volume 10.1 fL (7.4-10.4); Platelet Count 100 10x3/uL (130-400); RBC Distribution Width 14.3 % (11.5-14.5); Red Blood Cell (RBC) Count 3.45 mill/uL (4.20-5.40); White Blood Cell (WBC) Count 4.2 10x3/uL (4.8-10.8)
[2023-05-24 06:13] LABS: Anion Gap 21 mmol/L (10-20); BUN (Urea Nitrogen) 38 mg/dL (9.8-20.1); Calc. Creatinine Clearance 5 mL/min (70-130); Calcium 9.3 mg/dL (7.8-10.44); Carbon Dioxide 21 mmol/L (23-31); Chloride 100 mmol/L (98-107); Estimated GFR 4; Glucose 142 mg/dL (80-115); Potassium 3.8 mmol/L (3.5-5.1); Sodium 138 mmol/L (136-145)
[2023-05-24 06:48] LABS: Delete Auto Diff?? YES; Manual Diff?? YES
[2023-05-24 08:31] LABS: Anisocytosis SLIGHT = 6-15 cells HPF (0-5); Band 5 % (5-11); Eosinophils 2 % (0-10); Large Platelets 2.6 % (0-5); Lymphocytes 17 % (21-51); Macrocytosis SLIGHT = 6-15 cells HPF (0-5); Monocytes 6 % (0-10); Neutrophil 69 % (42-75); Ovalocytes SLIGHT = 2-5 cells HPF (0-1); Platelet Adequacy Comment Platelets Decreased; Poikilocytosis SLIGHT = 6-15 cells HPF (0-5); Polychromasia SLIGHT = 2-3 cells HPF (0-2); Total Cell Count 117
[2023-05-24] MEDS: Famotidine 20 MG TAB PO SCH (08:46)
[2023-05-24] MEDS: Sevelamer Carbonate 800 MG TAB PO SCH ×3 (08:46→16:24)
[2023-05-24] MEDS ORDERED: Heparin 10,000 UNITS/ 10 ML VIAL ONE ×2 (10:01→10:04)
[2023-05-24] MEDS: Lidocaine-Prilocaine 2.5% Cream 5 GM TUBE TOP SCH ×2 (12:33→23:29)
[2023-05-24] MEDS: Atorvastatin Calcium 10 MG TAB PO SCH (20:20)
[2023-05-24] MEDS: Acetaminophen 325 MG TAB PO PRN (22:54)
[2023-05-24] MEDS ORDERED: Lidocaine-Prilocaine 2.5% Cream 5 GM TUBE TOP SCH (23:30)
[2023-05-25] MEDS: Famotidine 20 MG TAB PO SCH (08:54)
[2023-05-25] MEDS: Sevelamer Carbonate 800 MG TAB PO SCH ×3 (08:54→18:22)
[2023-05-25] MEDS ORDERED: Melatonin 3 MG TAB PO PRN (17:29)
[2023-05-25] MEDS: Doxycycline 100 MG CAP PO SCH (23:09)
[2023-05-25] MEDS: Atorvastatin Calcium 10 MG TAB PO SCH (23:09)
[2023-05-25] MEDS: Acetaminophen 325 MG TAB PO PRN (23:10)
[2023-05-25] MEDS ORDERED: diphenhydrAMINE 25 MG CAP PO SCH (23:30)
[2023-05-26 04:52] LABS: #Eosinphils 0.2 thou/uL (0.0-0.7); #Monocytes 0.6 thou/uL (0.11-0.59); %Basophils 0.5 % (0.0-1.0); %Eosinophils 4.8 % (0.0-10.0); %Lymphocytes 25.9 % (21.0-51.0); %Monocytes 14.9 % (0.0-10.0); %Neutrophils 53.9 % (42.0-75.0); Hemoglobin 10.2 g/dL (12.0-16.0); Mean Corpuscular HGB CONC 31.7 g/dL (32.0-36.0); Mean Corpuscular Hemoglobin 32.3 pg (27.0-31.0); Mean Corpuscular Volume 101.9 fl (78.0-98.0); Mean Platelet Volume 9.7 fL (7.4-10.4); Platelet Count 124 10x3/uL (130-400); RBC Distribution Width 14.4 % (11.5-14.5); Red Blood Cell (RBC) Count 3.16 mill/uL (4.20-5.40); White Blood Cell (WBC) Count 3.8 10x3/uL (4.8-10.8)
[2023-05-26 05:14] LABS: Anion Gap 14 mmol/L (10-20); BUN (Urea Nitrogen) 26 mg/dL (9.8-20.1); Calc. Creatinine Clearance 6 mL/min (70-130); Calcium 8.4 mg/dL (7.8-10.44); Carbon Dioxide 27 mmol/L (23-31); Chloride 104 mmol/L (98-107); Estimated GFR 5; Glucose 113 mg/dL (80-115); Phosphorus 5.8 mg/dL (2.3-4.7); Potassium 4.2 mmol/L (3.5-5.1); Sodium 141 mmol/L (136-145)
[2023-05-26] MEDS: Lidocaine-Prilocaine 2.5% Cream 5 GM TUBE TOP SCH (08:23)
[2023-05-26] MEDS: Sevelamer Carbonate 800 MG TAB PO SCH ×3 (08:23→17:16)
[2023-05-26] MEDS ORDERED: Heparin 10,000 UNITS/ 10 ML VIAL ONE (08:45)
[2023-05-26] MEDS: Famotidine 20 MG TAB PO SCH (13:39)
[2023-05-26] MEDS: Doxycycline 100 MG CAP PO SCH ×2 (13:39→20:29)
[2023-05-26] MEDS: Calcitriol 0.25 MCG CAP PO SCH (13:59)
[2023-05-26] MEDS: Atorvastatin Calcium 10 MG TAB PO SCH (20:28)
[2023-05-26] MEDS: Metoprolol Tartrate 25 MG TAB PO SCH (20:29)
[2023-05-26] MEDS: Apixaban 2.5 MG TAB PO SCH (20:29)
[2023-05-27] MEDS: Sevelamer Carbonate 800 MG TAB PO SCH ×3 (09:09→18:20)
[2023-05-27] MEDS: Calcitriol 0.25 MCG CAP PO SCH (09:09)
[2023-05-27] MEDS: Famotidine 20 MG TAB PO SCH (09:09)
[2023-05-27] MEDS: Aspirin Chewable 81 MG TAB PO SCH (09:09)
[2023-05-27] MEDS: Metoprolol Tartrate 25 MG TAB PO SCH ×2 (09:09→22:55)
[2023-05-27] MEDS: Doxycycline 100 MG CAP PO SCH ×2 (09:09→22:54)
[2023-05-27] MEDS: Apixaban 2.5 MG TAB PO SCH (09:09)
[2023-05-27] MEDS: Apixaban 5 MG TAB PO SCH (22:55)
[2023-05-27] MEDS: Atorvastatin Calcium 10 MG TAB PO SCH (22:55)
[2023-05-28] MEDS: Sevelamer Carbonate 800 MG TAB PO SCH ×2 (09:16→13:29)
[2023-05-28] MEDS: Aspirin Chewable 81 MG TAB PO SCH (09:17)
[2023-05-28] MEDS: Apixaban 5 MG TAB PO SCH (09:17)
[2023-05-28] MEDS: Metoprolol Tartrate 25 MG TAB PO SCH (09:17)
[2023-05-28] MEDS: Doxycycline 100 MG CAP PO SCH (09:17)
[2023-05-28] MEDS: Calcitriol 0.25 MCG CAP PO SCH (09:17)
[2023-05-28] MEDS: Famotidine 20 MG TAB PO SCH (09:17)
[2023-05-28 11:56] VITALS: BP 103/60; TEMP 98.3
== END 2023-05-28 13:10 | disposition home or self-care (01) | DRG 291 ==
LOC: ERS 16:11 → 2SE 23:11 → OBSVTOIN 05-24 16:34
PROVIDERS: ADMIT Student in an Organized Health Care Education/Training Program; ATTEND Internal Medicine
PROC: 5A1D70Z Performance of Urinary Filtration, Intermittent, Less than 6 Hours Per Day (ICD-10-PCS; principal; 2023-05-23)
DX: I13.2 Hypertensive heart and chronic kidney disease with heart failure and with stage 5 chronic kidney disease, or end stage renal disease (principal); I50.33 Acute on chronic diastolic (congestive) heart failure; N18.6 End stage renal disease; N25.81 Secondary hyperparathyroidism of renal origin; E87.20 Acidosis, unspecified; E87.70 Fluid overload, unspecified; E87.5 Hyperkalemia; F32.A Depression, unspecified; R19.7 Diarrhea, unspecified; L73.9 Follicular disorder, unspecified; D63.1 Anemia in chronic kidney disease; I48.0 Paroxysmal atrial fibrillation; F41.9 Anxiety disorder, unspecified; E83.39 Other disorders of phosphorus metabolism; I25.10 Atherosclerotic heart disease of native coronary artery without angina pectoris; E11.22 Type 2 diabetes mellitus with diabetic chronic kidney disease; E78.5 Hyperlipidemia, unspecified; Z91.158 Patient's noncompliance with renal dialysis for other reason; Z99.2 Dependence on renal dialysis; Z88.0 Allergy status to penicillin; Z79.4 Long term (current) use of insulin; Z79.01 Long term (current) use of anticoagulants; Z79.82 Long term (current) use of aspirin; Z79.899 Other long term (current) drug therapy; Z95.1 Presence of aortocoronary bypass graft; Z90.721 Acquired absence of ovaries, unilateral
CPT/HCPCS: 36415; 36416; 51798; 71045; 80048; 80053; 82274; 83970; 84100; 85025; 86704; 90935; 93005; G0257; G0378; J1644; Q0162

== ENCOUNTER 2023-11-07 16:46 | Emergency (ER) | payer MEDICARE ==
[2023-11-07 18:51] LABS: #Eosinphils 0.1 thou/uL (0.0-0.7); #Monocytes 0.4 thou/uL (0.11-0.59); #Neutrophils 2.9 thou/uL (1.40-6.50); %Basophils 0.4 % (0.0-1.0); %Eosinophils 3.1 % (0.0-10.0); %Lymphocytes 22.4 % (21.0-51.0); %Monocytes 9.2 % (0.0-10.0); %Neutrophils 64.5 % (42.0-75.0); Hemoglobin 10.3 g/dL (12.0-16.0); Mean Corpuscular HGB CONC 32.2 g/dL (32.0-36.0); Mean Corpuscular Hemoglobin 31.7 pg (27.0-31.0); Mean Corpuscular Volume 98.5 fl (78.0-98.0); Platelet Count 127 10x3/uL (130-400); RBC Distribution Width 15.8 % (11.5-14.5); Red Blood Cell (RBC) Count 3.25 mill/uL (4.20-5.40); White Blood Cell (WBC) Count 4.6 10x3/uL (4.8-10.8)
[2023-11-07 19:16] LABS: ALT (SGPT) 8 U/L (8-55); AST (SGOT) 22 U/L (5-34); Albumin 3.7 g/dL (3.4-4.8); Alkaline Phosphatase 81 U/L (40-110); Anion Gap 16 mmol/L (10-20); BUN (Urea Nitrogen) 32 mg/dL (9.8-20.1); Bilirubin, Total 0.9 mg/dL (0.2-1.2); Calc. Creatinine Clearance 0 mL/min (70-130); Calcium 9.4 mg/dL (7.8-10.44); Carbon Dioxide 30 mmol/L (23-31); Chloride 100 mmol/L (98-107); Estimated GFR 6; Globulin 4.1 g/dL (2.4-3.5); Glucose 119 mg/dL (80-115); Potassium 3.9 mmol/L (3.5-5.1); Protein, Total 7.8 g/dL (5.8-8.1); Sodium 142 mmol/L (136-145)
[2023-11-07 19:20] LABS: Troponin I 0.097 ng/mL (< 0.028)
[2023-11-07 19:23] LABS: PTT 37.5 sec (22.9-36.1)
[2023-11-07 19:24] LABS: INR-International Normal Ratio 1.5; Prothrombin Time 19.1 sec (12.0-14.7)
== END 2023-11-07 21:35 | disposition home or self-care (01) ==
LOC: ERS 16:46
DX: N36.9 Urethral disorder, unspecified (principal); N36.2 Urethral caruncle; E11.9 Type 2 diabetes mellitus without complications; I10 Essential (primary) hypertension
CPT/HCPCS: 36415; 71045; 76856; 80053; 84484; 85025; 85610; 85730; 93005

== ENCOUNTER 2023-11-09 14:34 | Emergency (ER) | payer MEDICARE | END 2023-11-09 16:30 | LOC: ERS 14:34 | DX: N93.9 Abnormal uterine and vaginal bleeding, unspecified (principal); I25.2 Old myocardial infarction; I48.91 Unspecified atrial fibrillation; I12.0 Hypertensive chronic kidney disease with stage 5 chronic kidney disease or end stage renal disease; E11.22 Type 2 diabetes mellitus with diabetic chronic kidney disease; N18.6 End stage renal disease; Z99.2 Dependence on renal dialysis; Z79.01 Long term (current) use of anticoagulants; Z79.4 Long term (current) use of insulin | CPT/HCPCS: 99284 ==

== ENCOUNTER 2024-04-23 12:45 | Outpatient (CLI) | payer MEDICARE | END 2024-04-23 12:46 | disposition home or self-care (01) | LOC: CT 12:45 | PROVIDERS: ATTEND Surgery | DX: R10.9 Unspecified abdominal pain (principal); K74.60 Unspecified cirrhosis of liver; R18.8 Other ascites; J90 Pleural effusion, not elsewhere classified; N26.1 Atrophy of kidney (terminal); I70.8 Atherosclerosis of other arteries | CPT/HCPCS: 74176 ==

== ENCOUNTER 2024-09-21 11:54 | Inpatient (IN) | payer MEDICARE ==
[2024-09-21] MEDS ORDERED: Magnesium 2 GM/50 ML BAG (IN WATER) ONE (12:11)
[2024-09-21] MEDS ORDERED: Cefepime 2 GM VIAL ONE (12:12)
[2024-09-21 12:44] LABS: #Basophils 0.03 10x3/uL (0.0-0.2); %Basophils 0.5 % (0.0-1.0); %Eosinophils 3.1 % (0.0-10.0); %Lymphocytes 9.1 % (21.0-51.0); %Monocytes 8.2 % (0.0-10.0); %Neutrophils 78.8 % (42.0-75.0); Hemoglobin 10.4 g/dL (12.0-16.0); Mean Corpuscular HGB CONC 31.5 g/dL (32.0-36.0); Mean Corpuscular Hemoglobin 28.6 pg (27.0-31.0); Mean Corpuscular Volume 90.7 fL (78.0-98.0); Platelet Count 167 10x3/uL (130-400); RBC Distribution Width 16.1 % (11.5-14.5); Red Blood Cell (RBC) Count 3.64 mill/uL (4.20-5.40)
[2024-09-21] MEDS ORDERED: Iopamidol-370 76% 500 ML MDV (1 ML CHARGE) ONE (12:47)
[2024-09-21] MEDS ORDERED: Vancomycin 1 GM/200 ML (FROZEN) BAG ONE (13:11)
[2024-09-21 13:17] LABS: Actual Bicarbonate (HCO3v) 29.4 mEq/L (22-28); Analyzer IN Cardio ER; Base Excess 6.1 mEq/L (-2.0 to +3.0); Calcium, Ionized (venous) 1.07 mmol/L (1.16-1.32); Chloride (VBG) 97 mmol/L (98-106); Hematocrit-VBG 31 % (36.0-47.0); Hemoglobin (Hb) 10.7 g/dL (11.7-16.1); Potassium (VBG) 3.57 mmol/L (3.70-5.30); Sodium 136 mmol/L (133-146); pH (venous) 7.509 (7.32-7.43)
[2024-09-21 13:19] LABS: ALT (SGPT) 12 U/L (8-55); AST (SGOT) 42 U/L (5-34); Albumin 2.9 g/dL (3.4-4.8); Alkaline Phosphatase 122 U/L (40-110); Anion Gap 18 mmol/L (10-20); BUN (Urea Nitrogen) 27 mg/dL (9.8-20.1); Bilirubin, Total 1.5 mg/dL (0.2-1.2); Calc. Creatinine Clearance 0 mL/min (70-130); Calcium 9.3 mg/dL (7.8-10.44); Carbon Dioxide 28 mmol/L (23-31); Chloride 98 mmol/L (98-107); Estimated GFR 6; Globulin 4.6 g/dL (2.4-3.5); Glucose 87 mg/dL (80-115); Lipase 23 U/L (8-78); Magnesium 2.4 mg/dL (1.6-2.6); Potassium 3.6 mmol/L (3.5-5.1); Protein, Total 7.5 g/dL (5.8-8.1); Sodium 140 mmol/L (136-145)
[2024-09-21 13:47] LABS: Troponin I 0.115 ng/mL (< 0.028)
[2024-09-21] MEDS ORDERED: dilTIAZem 125 MG in Sodium Chloride 0.9% 100 ML IVPB SCH (14:45)
[2024-09-21] MEDS ORDERED: Senokot S 8.6-50 MG TAB PO PRN (14:54)
[2024-09-21] MEDS ORDERED: Heparin 5,000 UNITS/ML VIAL SC SCH (15:00)
[2024-09-21] MEDS ORDERED: LevoFLOXacin 250 mg/D5W 250 MG in Premix 1 BAG IVPB SCH (15:00)
[2024-09-21] MEDS: Vancomycin 1 GM in Premix 1 BAG IVPB SCH (15:21)
[2024-09-21 15:25] VITALS: BMI 22.0
[2024-09-21 16:15] LABS: Lactic Acid 2.15 mmol/L (0.5-2.2)
[2024-09-21] MEDS: LevoFLOXacin 750 mg/D5W 750 MG in Premix 1 BAG IVPB SCH (17:30)
[2024-09-21] MEDS: Diltiazem HCl/D5W 125 MG in Premix 1 BAG IVPB SCH (17:50)
[2024-09-21 18:32] LABS: Influenza A by NAA Not Detected (NotDetected); Influenza B by NAA Not Detected (NotDetected); RSV by NAA Not Detected (NotDetected); SARS-CoV-2 NAA Rapid Test DETECTED (NotDetected)
[2024-09-21] MEDS: Apixaban 2.5 MG TAB PO SCH (20:20)
[2024-09-21] MEDS: Metoprolol Tartrate 25 MG TAB PO SCH (20:20)
[2024-09-21] MEDS: Ondansetron PF 4 MG/2 ML Vial IVP PRN (22:42)
[2024-09-22] MEDS: Sodium Chloride 0.9% 250 ML IV SCH (05:30)
[2024-09-22 05:43] LABS: #Basophils 0.04 10x3/uL (0.0-0.2); %Basophils 0.7 % (0.0-1.0); %Eosinophils 1.6 % (0.0-10.0); %Lymphocytes 20.9 % (21.0-51.0); %Monocytes 12.7 % (0.0-10.0); %Neutrophils 63.6 % (42.0-75.0); Hematocrit 31.4 % (36.0-47.0); Hemoglobin 9.9 g/dL (12.0-16.0); Mean Corpuscular HGB CONC 31.5 g/dL (32.0-36.0); Mean Corpuscular Hemoglobin 28.4 pg (27.0-31.0); Mean Corpuscular Volume 90.2 fL (78.0-98.0); Platelet Count 135 10x3/uL (130-400); RBC Distribution Width 16.5 % (11.5-14.5); Red Blood Cell (RBC) Count 3.48 mill/uL (4.20-5.40)
[2024-09-22 06:01] LABS: Anion Gap 16 mmol/L (10-20); BUN (Urea Nitrogen) 32 mg/dL (9.8-20.1); Calc. Creatinine Clearance 7 mL/min (70-130); Calcium 8.6 mg/dL (7.8-10.44); Carbon Dioxide 26 mmol/L (23-31); Chloride 97 mmol/L (98-107); Estimated GFR 6; Glucose 81 mg/dL (80-115); Potassium 4.3 mmol/L (3.5-5.1); Sodium 135 mmol/L (136-145)
[2024-09-22] MEDS ORDERED: Epoetin (ESRD) 20,000 UNITS/ML MDV SC SCH (07:45)
[2024-09-22] MEDS: Sevelamer Carbonate 800 MG TAB PO SCH (09:04)
[2024-09-22 12:03] VITALS: BMI 22.0
[2024-09-22] MEDS: Albumin 25% 25 GM (100 mL) BOT IVPB SCH (12:36)
[2024-09-22 15:19] LABS: PTT 51.2 sec (22.9-36.1)
[2024-09-22] MEDS ORDERED: Diltiazem HCl/D5W 125 MG in Premix 1 BAG IVPB SCH (15:39)
[2024-09-22] MEDS: EPOETIN ALFA-EPBX (ESRD) 10,000 UNITS/ML VIAL SC SCH (17:10)
[2024-09-22] MEDS ORDERED: Pharmacy to Dose REMDESIVIR IVPB PRN (18:27)
[2024-09-22] MEDS: Acetaminophen 325 MG TAB PO PRN (20:45)
[2024-09-22] MEDS: REMDESIVIR 200 MG in Sodium Chloride 0.9% 250 ML 210 ML IV SCH (20:45)
[2024-09-22] MEDS: Guaifenesin DM 100-10/5 ML UDCUP PO PRN (20:46)
[2024-09-22] MEDS: Metoprolol Tartrate 25 MG TAB PO SCH (20:46)
[2024-09-23 04:27] LABS: Anion Gap 17 mmol/L (10-20); BUN (Urea Nitrogen) 42 mg/dL (9.8-20.1); Calc. Creatinine Clearance 6 mL/min (70-130); Calcium 8.6 mg/dL (7.8-10.44); Carbon Dioxide 27 mmol/L (23-31); Chloride 94 mmol/L (98-107); Estimated GFR 5; Glucose 111 mg/dL (80-115); Potassium 4.1 mmol/L (3.5-5.1); Sodium 134 mmol/L (136-145)
[2024-09-23 04:42] LABS: ALT (SGPT) 12 U/L (8-55); AST (SGOT) 43 U/L (5-34)
[2024-09-23 05:06] LABS: #Basophils Less than 0.03 10x3/uL (0.0-0.2); %Basophils 0.5 % (0.0-1.0); %Lymphocytes 19.3 % (21.0-51.0); %Monocytes 16.6 % (0.0-10.0); %Neutrophils 59.3 % (42.0-75.0); Hematocrit 30.8 % (36.0-47.0); Hemoglobin 9.6 g/dL (12.0-16.0); Mean Corpuscular HGB CONC 31.2 g/dL (32.0-36.0); Mean Corpuscular Hemoglobin 28.6 pg (27.0-31.0); Mean Corpuscular Volume 91.7 fL (78.0-98.0); Mean Platelet Volume 9.7 fL (7.4-10.4); Platelet Count 135 10x3/uL (130-400); RBC Distribution Width 16.3 % (11.5-14.5); Red Blood Cell (RBC) Count 3.36 mill/uL (4.20-5.40)
[2024-09-23] MEDS: Doxycycline 100 MG CAP PO SCH ×2 (14:43→21:37)
[2024-09-23] MEDS ORDERED: GUAIFENESIN SF SOLN 200 MG/10 ML UDCUP PO PRN (14:50)
[2024-09-23] MEDS: Albumin 25% 25 GM (100 mL) BOT IVPB SCH (14:52)
[2024-09-23] MEDS: Benzonatate 100 MG CAP PO SCH (16:13)
[2024-09-23] MEDS ORDERED: LevoFLOXacin 500 mg/D5W 500 MG in Premix 1 BAG IVPB SCH (17:00)
[2024-09-23] MEDS: cefTRIAXone\\ROCEPHIN 1 GM in Sodium Chloride 0.9% 100 ML IVPB SCH (17:41)
[2024-09-23] MEDS: Amiodarone 450 MG, Admixture Fee 1 EACH in Dextrose 5% in Water 250 ML IVPB SCH (18:49)
[2024-09-23 18:53] LABS: Magnesium 2.5 mg/dL (1.6-2.6)
[2024-09-23] MEDS: REMDESIVIR 100 MG in Sodium Chloride 0.9% 250 ML 230 ML IV SCH (21:41)
[2024-09-24 04:54] LABS: Hematocrit 35.1 % (36.0-47.0); Hemoglobin 10.6 g/dL (12.0-16.0); Mean Corpuscular HGB CONC 30.2 g/dL (32.0-36.0); Mean Corpuscular Hemoglobin 28.3 pg (27.0-31.0); Mean Corpuscular Volume 93.9 fL (78.0-98.0); Mean Platelet Volume 9.9 fL (7.4-10.4); Platelet Count 124 10x3/uL (130-400); RBC Distribution Width 16.5 % (11.5-14.5); Red Blood Cell (RBC) Count 3.74 mill/uL (4.20-5.40)
[2024-09-24 05:09] LABS: ALT (SGPT) 33 U/L (8-55); AST (SGOT) 123 U/L (5-34); Anion Gap 22 mmol/L (10-20); BUN (Urea Nitrogen) 23 mg/dL (9.8-20.1); Calc. Creatinine Clearance 11 mL/min (70-130); Calcium 9.1 mg/dL (7.8-10.44); Carbon Dioxide 22 mmol/L (23-31); Chloride 98 mmol/L (98-107); Estimated GFR 9; Glucose 112 mg/dL (80-115); Potassium 4.1 mmol/L (3.5-5.1); Sodium 138 mmol/L (136-145)
[2024-09-24 07:14] LABS: Band 13 % (5-11); Burr Cells MODERATE= 6-15 cells HPF (0-1); Large Platelets 2.9 % (0-5); Lymphocytes 6 % (21-51); Monocytes 7 % (0-10); Neutrophil 75 % (42-75); Nucleated RBC (Manual Ct) 1 % (0); Platelet Adequacy Comment Platelets Decreased; Poikilocytosis SLIGHT = 6-15 cells HPF (0-5); Polychromasia SLIGHT = 2-3 cells HPF (0-2); Schistocytes SLIGHT = 2-5 cells HPF (0-1)
[2024-09-24] MEDS ORDERED: Lidocaine 1% PF 5 ML VIAL ONE (10:35)
[2024-09-24] MEDS ORDERED: Sodium Bicarbonate 2.5 MEQ/5 ML SDV ONE (10:36)
[2024-09-24] MEDS: Albumin 25% 25 GM (100 mL) BOT IVPB SCH (12:16)
[2024-09-25 04:54] LABS: #Basophils 0.04 10x3/uL (0.0-0.2); %Basophils 0.7 % (0.0-1.0); %Eosinophils 1.3 % (0.0-10.0); %Lymphocytes 23.1 % (21.0-51.0); %Monocytes 15.7 % (0.0-10.0); %Neutrophils 58.8 % (42.0-75.0); Hematocrit 35.5 % (36.0-47.0); Hemoglobin 10.6 g/dL (12.0-16.0); Mean Corpuscular HGB CONC 29.9 g/dL (32.0-36.0); Mean Corpuscular Hemoglobin 28.6 pg (27.0-31.0); Mean Corpuscular Volume 95.7 fL (78.0-98.0); Mean Platelet Volume 11.5 fL (7.4-10.4); Platelet Count 115 10x3/uL (130-400); RBC Distribution Width 16.9 % (11.5-14.5); Red Blood Cell (RBC) Count 3.71 mill/uL (4.20-5.40)
[2024-09-25 06:07] LABS: Anion Gap 21 mmol/L (10-20); BUN (Urea Nitrogen) 32 mg/dL (9.8-20.1); Calc. Creatinine Clearance 9 mL/min (70-130); Calcium 9.1 mg/dL (7.8-10.44); Carbon Dioxide 22 mmol/L (23-31); Chloride 97 mmol/L (98-107); Estimated GFR 8; Glucose 87 mg/dL (80-115); Potassium 4.4 mmol/L (3.5-5.1); Sodium 136 mmol/L (136-145)
[2024-09-25 09:53] LABS: HBSAB Concentration 70.66 mIU/mL; HBsAg Index 0.37 S/CO (0-0.99); Hep B Core Total Ab NONREACTIVE (NonReactive); Hep B Core Total Index 0.16 S/CO (0-0.79); Hep B Surf AB REACTIVE (NonReactive); Hep B Surf Ag NONREACTIVE S/CO (NonReactive); Hep C IgG Ab NONREACTIVE S/CO (NonReactive); Hep C Index 0.15 S/CO (0-0.79)
[2024-09-25] MEDS: Saccharomyces boulardii 250 MG CAP PO SCH (13:51)
[2024-09-25] MEDS: Loperamide HCl 2 MG CAP PO PRN (18:21)
[2024-09-25] MEDS: Apixaban 5 MG TAB PO SCH (21:44)
[2024-09-26 04:36] LABS: #Basophils 0.03 10x3/uL (0.0-0.2); %Basophils 0.4 % (0.0-1.0); %Eosinophils 3.1 % (0.0-10.0); %Lymphocytes 12.7 % (21.0-51.0); %Neutrophils 73.4 % (42.0-75.0); Hemoglobin 10.8 g/dL (12.0-16.0); Mean Corpuscular HGB CONC 31.8 g/dL (32.0-36.0); Mean Corpuscular Hemoglobin 28.1 pg (27.0-31.0); Mean Corpuscular Volume 88.3 fL (78.0-98.0); Mean Platelet Volume 10.7 fL (7.4-10.4); Platelet Count 141 10x3/uL (130-400); RBC Distribution Width 16.2 % (11.5-14.5); Red Blood Cell (RBC) Count 3.85 mill/uL (4.20-5.40)
[2024-09-26 05:02] LABS: Anion Gap 17 mmol/L (10-20); BUN (Urea Nitrogen) 25 mg/dL (9.8-20.1); Calc. Creatinine Clearance 12 mL/min (70-130); Carbon Dioxide 28 mmol/L (23-31); Chloride 97 mmol/L (98-107); Estimated GFR 11; Glucose 76 mg/dL (80-115); Potassium 3.6 mmol/L (3.5-5.1); Sodium 138 mmol/L (136-145)
[2024-09-26] MEDS ORDERED: Dextrose 5% in Water 1,000 ML IV PRN (08:41)
[2024-09-26] MEDS ORDERED: Dextrose 50% Abboject 50 ML SYRINGE SLOW IVP PRN (08:41)
[2024-09-26] MEDS ORDERED: Insulin Lispro 100 UNIT/ML 10 ML VIAL SC PRN (08:41)
[2024-09-26] MEDS ORDERED: Glucagon 1 MG/ML KIT IM PRN (08:41)
[2024-09-26] MEDS ORDERED: Amiodarone 200 MG TAB PO SCH (21:00)
[2024-09-27 03:07] LABS: #Basophils 0.03 10x3/uL (0.0-0.2); %Basophils 0.5 % (0.0-1.0); %Lymphocytes 22.1 % (21.0-51.0); %Monocytes 10.1 % (0.0-10.0); Hematocrit 33.9 % (36.0-47.0); Hemoglobin 10.6 g/dL (12.0-16.0); Mean Corpuscular HGB CONC 31.3 g/dL (32.0-36.0); Mean Corpuscular Hemoglobin 27.9 pg (27.0-31.0); Mean Corpuscular Volume 89.2 fL (78.0-98.0); Mean Platelet Volume 10.4 fL (7.4-10.4); Platelet Count 132 10x3/uL (130-400); RBC Distribution Width 16.4 % (11.5-14.5)
[2024-09-27 03:11] LABS: Anion Gap 15 mmol/L (10-20); BUN (Urea Nitrogen) 34 mg/dL (9.8-20.1); Calc. Creatinine Clearance 11 mL/min (70-130); Carbon Dioxide 29 mmol/L (23-31); Chloride 98 mmol/L (98-107); Estimated GFR 10; Glucose 96 mg/dL (80-115); Potassium 3.6 mmol/L (3.5-5.1); Sodium 138 mmol/L (136-145)
[2024-09-27] MEDS: Amiodarone 200 MG TAB PO SCH ×2 (15:29→21:29)
[2024-09-28 04:13] LABS: Hematocrit 35.1 % (36.0-47.0); Hemoglobin 11.1 g/dL (12.0-16.0); Mean Corpuscular HGB CONC 31.6 g/dL (32.0-36.0); Mean Corpuscular Hemoglobin 27.6 pg (27.0-31.0); Mean Corpuscular Volume 87.3 fL (78.0-98.0); Mean Platelet Volume 11.3 fL (7.4-10.4); Platelet Count 162 10x3/uL (130-400); RBC Distribution Width 16.5 % (11.5-14.5); Red Blood Cell (RBC) Count 4.02 mill/uL (4.20-5.40)
[2024-09-28 04:22] LABS: Anion Gap 13 mmol/L (10-20); BUN (Urea Nitrogen) 17 mg/dL (9.8-20.1); Calc. Creatinine Clearance 14 mL/min (70-130); Carbon Dioxide 33 mmol/L (23-31); Chloride 99 mmol/L (98-107); Estimated GFR 14; Glucose 95 mg/dL (80-115); Sodium 141 mmol/L (136-145)
[2024-09-28 05:49] LABS: Anisocytosis SLIGHT = 6-15 cells HPF (0-5); Band 10 % (5-11); Burr Cells SLIGHT = 2-5 cells HPF (0-1); Eosinophils 5 % (0-10); Hypochromia SLIGHT = 6-15 cells HPF (0-5); Large Platelets 3.9 % (0-5); Lymphocytes 16 % (21-51); Microcytosis MODERATE=15-30 cells HPF (0-5); Monocytes 13 % (0-10); Neutrophil 57 % (42-75); Nucleated RBC (Manual Ct) 2 % (0); Ovalocytes MODERATE= 6-15 cells HPF (0-1); Platelet Adequacy Comment Platelets Normal; Polychromasia SLIGHT = 2-3 cells HPF (0-2)
[2024-09-28 18:36] LABS: Pleural Fluid, Protein 3.2 g/dL
[2024-09-28 18:55] LABS: RBC Count-Automated (BF) 7604 /cu.mm; WBC/Nucleated-Auto (BF) 102 /cu.mm
[2024-09-28 19:41] LABS: BF Color Pink; Body Fluid Source Thoracentesis Fluid; Clarity Hazy (Clear); Tube # EDTA
[2024-09-28 19:46] LABS: BF Segmented Neutrophils 2 %; Cell Count Non Hematic 79 %; Lymphocytes 18 %
[2024-09-28 20:16] LABS: Fluid, pH - Pleural Fld Greater than 7.500 (7.60 - 7.66)
[2024-09-29 04:08] LABS: Hematocrit 37.7 % (36.0-47.0); Hemoglobin 11.9 g/dL (12.0-16.0); Mean Corpuscular HGB CONC 31.6 g/dL (32.0-36.0); Mean Corpuscular Hemoglobin 28.1 pg (27.0-31.0); Mean Corpuscular Volume 88.9 fL (78.0-98.0); Platelet Count 153 10x3/uL (130-400); RBC Distribution Width 16.5 % (11.5-14.5); Red Blood Cell (RBC) Count 4.24 mill/uL (4.20-5.40)
[2024-09-29 04:19] LABS: Anion Gap 14 mmol/L (10-20); BUN (Urea Nitrogen) 23 mg/dL (9.8-20.1); Calc. Creatinine Clearance 12 mL/min (70-130); Carbon Dioxide 27 mmol/L (23-31); Chloride 101 mmol/L (98-107); Estimated GFR 11; Glucose 91 mg/dL (80-115); Potassium 4.3 mmol/L (3.5-5.1); Sodium 138 mmol/L (136-145)
[2024-09-29 04:32] LABS: Anisocytosis SLIGHT = 6-15 cells HPF (0-5); Band 5 % (5-11); Eosinophils 1 % (0-10); Lymphocytes 13 % (21-51); Microcytosis SLIGHT = 6-15 cells HPF (0-5); Monocytes 5 % (0-10); Neutrophil 76 % (42-75); Ovalocytes SLIGHT = 2-5 cells HPF (0-1); Platelet Adequacy Comment Platelets Normal; Poikilocytosis SLIGHT = 6-15 cells HPF (0-5); Polychromasia SLIGHT = 2-3 cells HPF (0-2); Target Cells SLIGHT = 2-5 cells HPF (0-1)
[2024-09-29] MEDS: Senokot S 8.6-50 MG TAB PO SCH (21:05)
[2024-09-30 04:17] LABS: Hematocrit 37.1 % (36.0-47.0); Hemoglobin 11.9 g/dL (12.0-16.0); Mean Corpuscular HGB CONC 32.1 g/dL (32.0-36.0); Mean Corpuscular Hemoglobin 27.9 pg (27.0-31.0); Mean Corpuscular Volume 87.1 fL (78.0-98.0); Mean Platelet Volume 10.4 fL (7.4-10.4); Platelet Count 166 10x3/uL (130-400); RBC Distribution Width 17.2 % (11.5-14.5); Red Blood Cell (RBC) Count 4.26 mill/uL (4.20-5.40)
[2024-09-30 04:32] LABS: ALT (SGPT) 109 U/L (8-55); AST (SGOT) 163 U/L (5-34); Albumin 2.7 g/dL (3.4-4.8); Alkaline Phosphatase 54 U/L (40-110); Anion Gap 14 mmol/L (10-20); BUN (Urea Nitrogen) 29 mg/dL (9.8-20.1); Calc. Creatinine Clearance 10 mL/min (70-130); Calcium 8.8 mg/dL (7.8-10.44); Carbon Dioxide 27 mmol/L (23-31); Chloride 102 mmol/L (98-107); Estimated GFR 8; Globulin 3.3 g/dL (2.4-3.5); Glucose 59 mg/dL (80-115); Potassium 4.4 mmol/L (3.5-5.1); Sodium 139 mmol/L (136-145)
[2024-09-30 05:47] LABS: Anisocytosis SLIGHT = 6-15 cells HPF (0-5); Band 4 % (5-11); Burr Cells SLIGHT = 2-5 cells HPF (0-1); Eosinophils 2 % (0-10); Lymphocytes 13 % (21-51); Metamyelocyte 1 % (0-0); Microcytosis SLIGHT = 6-15 cells HPF (0-5); Monocytes 6 % (0-10); Neutrophil 70 % (42-75); Nucleated RBC (Manual Ct) 1 % (0); Ovalocytes SLIGHT = 2-5 cells HPF (0-1); Platelet Adequacy Comment Platelets Normal; Poikilocytosis SLIGHT = 6-15 cells HPF (0-5); Polychromasia SLIGHT = 2-3 cells HPF (0-2); Reactive Lymphocytes 3 % (0-10); Target Cells SLIGHT = 2-5 cells HPF (0-1)
[2024-09-30 21:44] VITALS: BP 107/53; TEMP 97.9
== END 2024-10-01 00:33 | DRG 871 ==
LOC: ERS 11:54 → 2NO 15:03
PROVIDERS: ADMIT Hospitalist; ATTEND Internal Medicine
PROC: XW033E5 Introduction of Remdesivir Anti-infective into Peripheral Vein, Percutaneous Approach, New Technology Group 5 (ICD-10-PCS; 2024-09-22)
PROC: 0W9G3ZZ Drainage of Peritoneal Cavity, Percutaneous Approach (ICD-10-PCS; principal; 2024-09-24)
PROC: 5A1D70Z Performance of Urinary Filtration, Intermittent, Less than 6 Hours Per Day (ICD-10-PCS; 2024-09-27)
DX: A41.89 Other specified sepsis (principal); J96.01 Acute respiratory failure with hypoxia; N18.6 End stage renal disease; U07.1 COVID-19; I12.0 Hypertensive chronic kidney disease with stage 5 chronic kidney disease or end stage renal disease; J90 Pleural effusion, not elsewhere classified; N25.81 Secondary hyperparathyroidism of renal origin; J98.11 Atelectasis; R18.8 Other ascites; I48.19 Other persistent atrial fibrillation; E11.22 Type 2 diabetes mellitus with diabetic chronic kidney disease; E78.00 Pure hypercholesterolemia, unspecified; I25.10 Atherosclerotic heart disease of native coronary artery without angina pectoris; F32.A Depression, unspecified; D64.9 Anemia, unspecified; K74.60 Unspecified cirrhosis of liver; R53.81 Other malaise; M54.59 Other low back pain; Z88.0 Allergy status to penicillin; I25.2 Old myocardial infarction; Z79.01 Long term (current) use of anticoagulants; Z95.1 Presence of aortocoronary bypass graft; Z98.51 Tubal ligation status; Z99.2 Dependence on renal dialysis; Z79.899 Other long term (current) drug therapy; Z91.148 Patient's other noncompliance with medication regimen for other reason
CPT/HCPCS: 0241U; 36415; 36416; 49083; 71045; 71275; 72146; 72148; 74018; 74177; 80048; 80053; 82150; 82805; 82945; 83605; 83615; 83690; 83735; 83880; 83970; 83986; 84157; 84443; 84450; 84460; 84484; 85025; 85060; 85610; 85730; 86704; 86706; 86803; 87040; 87070; 87102; 87116; 87205; 87206; 87340; 88112; 88305; 89051; 90935; 93005; 94760; 96365; 96367; G0257; J0248; J0282; J0692; J0696; J1956; J2405; J3370-JW; J3475; J7030; J7050; J7070; P9047; Q5105; Q9967

== ENCOUNTER 2024-11-05 19:58 | Inpatient (IN) | payer MEDICARE ==
[~2024-11-05 19:58] MED LIST changes: -FLU VACC QS2020-21(6MOS UP)/PF 60 MCG/0.5 ML SYRINGE IM ONE; +Iopamidol-370 76% 500 ML MDV (1 ML CHARGE) ONE
[2024-11-05] MEDS ORDERED: Morphine 4 MG/ML VIAL ONE (20:37)
[2024-11-05 20:55] LABS: #Basophils Less than 0.03 10x3/uL (0.0-0.2); %Basophils 0.6 % (0.0-1.0); %Eosinophils 2.7 % (0.0-10.0); %Lymphocytes 27.2 % (21.0-51.0); %Monocytes 13.6 % (0.0-10.0); %Neutrophils 55.6 % (42.0-75.0); Hematocrit 30.9 % (36.0-47.0); Hemoglobin 9.9 g/dL (12.0-16.0); Mean Corpuscular Hemoglobin 29.6 pg (27.0-31.0); Mean Corpuscular Volume 92.2 fL (78.0-98.0); Mean Platelet Volume 9.4 fL (7.4-10.4); Platelet Count 121 10x3/uL (130-400); RBC Distribution Width 23.7 % (11.5-14.5); Red Blood Cell (RBC) Count 3.35 mill/uL (4.20-5.40)
[2024-11-05 21:17] LABS: ALT (SGPT) 11 U/L (8-55); AST (SGOT) 25 U/L (5-34); Albumin 2.7 g/dL (3.4-4.8); Alkaline Phosphatase 96 U/L (40-110); Anion Gap 14 mmol/L (10-20); BUN (Urea Nitrogen) 20 mg/dL (9.8-20.1); Bilirubin, Total 0.8 mg/dL (0.2-1.2); Calc. Creatinine Clearance 0 mL/min (70-130); Calcium 10.2 mg/dL (7.8-10.44); Carbon Dioxide 29 mmol/L (23-31); Chloride 100 mmol/L (98-107); Estimated GFR 10; Globulin 4.8 g/dL (2.4-3.5); Glucose 95 mg/dL (80-115); Lipase 32 U/L (8-78); Potassium 3.8 mmol/L (3.5-5.1); Protein, Total 7.5 g/dL (5.8-8.1); Sodium 139 mmol/L (136-145)
[2024-11-05 21:42] LABS: Burr Cells SLIGHT = 2-5 cells HPF (0-1); Platelet Adequacy Comment Platelets Decreased; Polychromasia SLIGHT = 2-3 cells HPF (0-2)
[2024-11-06 02:22] VITALS: BMI 21.4
[2024-11-06 05:00] LABS: Anion Gap 12 mmol/L (10-20); BUN (Urea Nitrogen) 21 mg/dL (9.8-20.1); Calc. Creatinine Clearance 11 mL/min (70-130); Calcium 9.9 mg/dL (7.8-10.44); Carbon Dioxide 33 mmol/L (23-31); Chloride 98 mmol/L (98-107); Estimated GFR 10; Glucose 87 mg/dL (80-115); Sodium 139 mmol/L (136-145)
[2024-11-06 05:03] LABS: #Basophils 0.03 10x3/uL (0.0-0.2); %Basophils 1.1 % (0.0-1.0); %Eosinophils 2.7 % (0.0-10.0); %Neutrophils 43.2 % (42.0-75.0); Hematocrit 29.8 % (36.0-47.0); Hemoglobin 9.5 g/dL (12.0-16.0); Mean Corpuscular HGB CONC 31.9 g/dL (32.0-36.0); Mean Corpuscular Hemoglobin 29.8 pg (27.0-31.0); Mean Corpuscular Volume 93.4 fL (78.0-98.0); Mean Platelet Volume 9.7 fL (7.4-10.4); Platelet Count 128 10x3/uL (130-400); RBC Distribution Width 23.7 % (11.5-14.5); Red Blood Cell (RBC) Count 3.19 mill/uL (4.20-5.40)
[2024-11-06] MEDS ORDERED: Glucagon 1 MG/ML KIT IM PRN (06:42)
[2024-11-06] MEDS ORDERED: Dextrose 50% Abboject 50 ML SYRINGE SLOW IVP PRN (06:42)
[2024-11-06] MEDS ORDERED: Dextrose 5% in Water 1,000 ML IV PRN (06:42)
[2024-11-06] MEDS ORDERED: Insulin Lispro 100 UNIT/ML 10 ML VIAL SC PRN (06:42)
[2024-11-06 07:11] LABS: INR-International Normal Ratio 1.3; PTT 39.8 sec (22.9-36.1); Prothrombin Time 16.3 sec (12.0-14.7)
[2024-11-06] MEDS ORDERED: Heparin 10,000 UNITS/ 10 ML VIAL ONE (09:56)
[2024-11-06] MEDS: Acetaminophen 325 MG TAB PO PRN (13:57)
[2024-11-06] MEDS: EPOETIN ALFA-EPBX (ESRD) 10,000 UNITS/ML VIAL SC SCH (13:59)
[2024-11-06] MEDS: Insulin Lispro 100 UNIT/ML 10 ML VIAL SC PRN (18:21)
[2024-11-07 03:54] LABS: #Basophils 0.03 10x3/uL (0.0-0.2); %Monocytes 14.7 % (0.0-10.0); Hematocrit 31.3 % (36.0-47.0); Hemoglobin 9.9 g/dL (12.0-16.0); Mean Corpuscular HGB CONC 31.6 g/dL (32.0-36.0); Mean Corpuscular Hemoglobin 29.6 pg (27.0-31.0); Mean Corpuscular Volume 93.7 fL (78.0-98.0); Platelet Count 129 10x3/uL (130-400); RBC Distribution Width 23.6 % (11.5-14.5); Red Blood Cell (RBC) Count 3.34 mill/uL (4.20-5.40)
[2024-11-07 04:27] LABS: Anion Gap 15 mmol/L (10-20); BUN (Urea Nitrogen) 14 mg/dL (9.8-20.1); Calc. Creatinine Clearance 15 mL/min (70-130); Calcium 9.1 mg/dL (7.8-10.44); Carbon Dioxide 28 mmol/L (23-31); Chloride 97 mmol/L (98-107); Estimated GFR 15; Glucose 103 mg/dL (80-115); Potassium 3.7 mmol/L (3.5-5.1); Sodium 136 mmol/L (136-145)
[2024-11-07] MEDS: Sevelamer Carbonate 800 MG TAB PO SCH (16:28)
[2024-11-07] MEDS: Apixaban 5 MG TAB PO SCH (21:09)
[2024-11-07] MEDS: Metoprolol Tartrate 25 MG TAB PO SCH (21:09)
[2024-11-07] MEDS: Amiodarone 200 MG TAB PO SCH (21:09)
[2024-11-08 03:59] LABS: #Basophils Less than 0.03 10x3/uL (0.0-0.2); %Basophils 0.6 % (0.0-1.0); %Eosinophils 3.7 % (0.0-10.0); %Monocytes 15.2 % (0.0-10.0); %Neutrophils 52.5 % (42.0-75.0); Hematocrit 27.2 % (36.0-47.0); Hemoglobin 8.6 g/dL (12.0-16.0); Mean Corpuscular HGB CONC 31.6 g/dL (32.0-36.0); Mean Corpuscular Hemoglobin 29.6 pg (27.0-31.0); Mean Corpuscular Volume 93.5 fL (78.0-98.0); Mean Platelet Volume 9.5 fL (7.4-10.4); Platelet Count 132 10x3/uL (130-400); RBC Distribution Width 23.4 % (11.5-14.5); Red Blood Cell (RBC) Count 2.91 mill/uL (4.20-5.40)
[2024-11-08 04:31] LABS: Phosphorus 2.9 mg/dL (2.3-4.7)
[2024-11-08 04:37] LABS: Anion Gap 12 mmol/L (10-20); BUN (Urea Nitrogen) 19 mg/dL (9.8-20.1); Calc. Creatinine Clearance 13 mL/min (70-130); Calcium 9.2 mg/dL (7.8-10.44); Carbon Dioxide 31 mmol/L (23-31); Chloride 98 mmol/L (98-107); Estimated GFR 12; Glucose 88 mg/dL (80-115); Potassium 3.8 mmol/L (3.5-5.1); Sodium 137 mmol/L (136-145)
[2024-11-08] MEDS: Aspirin Chewable 81 MG TAB PO SCH (08:44)
[2024-11-08] MEDS: Gabapentin 100 MG CAP PO SCH (08:45)
[2024-11-08] MEDS: Albumin 25% 25 GM (100 mL) BOT IVPB SCH (12:09)
[2024-11-09 04:01] LABS: #Basophils Less than 0.03 10x3/uL (0.0-0.2); %Basophils 0.6 % (0.0-1.0); %Eosinophils 3.5 % (0.0-10.0); %Lymphocytes 30.2 % (21.0-51.0); %Monocytes 13.8 % (0.0-10.0); %Neutrophils 51.9 % (42.0-75.0); Hematocrit 29.5 % (36.0-47.0); Hemoglobin 9.2 g/dL (12.0-16.0); Mean Corpuscular HGB CONC 31.2 g/dL (32.0-36.0); Mean Corpuscular Hemoglobin 29.2 pg (27.0-31.0); Mean Corpuscular Volume 93.7 fL (78.0-98.0); Mean Platelet Volume 10.4 fL (7.4-10.4); Platelet Count 126 10x3/uL (130-400); Red Blood Cell (RBC) Count 3.15 mill/uL (4.20-5.40)
[2024-11-09 04:18] LABS: Anion Gap 11 mmol/L (10-20); BUN (Urea Nitrogen) 12 mg/dL (9.8-20.1); Calc. Creatinine Clearance 17 mL/min (70-130); Calcium 9.2 mg/dL (7.8-10.44); Carbon Dioxide 31 mmol/L (23-31); Chloride 100 mmol/L (98-107); Estimated GFR 17; Glucose 74 mg/dL (80-115); Potassium 3.8 mmol/L (3.5-5.1); Sodium 138 mmol/L (136-145)
[2024-11-10 04:16] LABS: #Basophils 0.03 10x3/uL (0.0-0.2); %Eosinophils 4.6 % (0.0-10.0); %Lymphocytes 31.8 % (21.0-51.0); %Monocytes 14.2 % (0.0-10.0); %Neutrophils 48.4 % (42.0-75.0); Hematocrit 27.3 % (36.0-47.0); Hemoglobin 8.6 g/dL (12.0-16.0); Mean Corpuscular HGB CONC 31.5 g/dL (32.0-36.0); Mean Corpuscular Volume 95.1 fL (78.0-98.0); Mean Platelet Volume 10.6 fL (7.4-10.4); Platelet Count 121 10x3/uL (130-400); RBC Distribution Width 23.9 % (11.5-14.5); Red Blood Cell (RBC) Count 2.87 mill/uL (4.20-5.40)
[2024-11-10 04:37] LABS: Anion Gap 13 mmol/L (10-20); BUN (Urea Nitrogen) 23 mg/dL (9.8-20.1); Calc. Creatinine Clearance 13 mL/min (70-130); Calcium 9.2 mg/dL (7.8-10.44); Carbon Dioxide 28 mmol/L (23-31); Chloride 100 mmol/L (98-107); Estimated GFR 13; Glucose 105 mg/dL (80-115); Potassium 3.9 mmol/L (3.5-5.1); Sodium 137 mmol/L (136-145)
[2024-11-10] MEDS: Apixaban 2.5 MG TAB PO SCH ×2 (10:02→21:05)
[2024-11-10] MEDS: Ondansetron PF 4 MG/2 ML Vial IVP PRN (20:26)
[2024-11-10] MEDS: Midodrine HCl 5 MG TAB PO SCH (23:35)
[2024-11-11 04:12] LABS: #Basophils Less than 0.03 10x3/uL (0.0-0.2); %Basophils 0.5 % (0.0-1.0); %Eosinophils 3.2 % (0.0-10.0); %Lymphocytes 28.5 % (21.0-51.0); %Monocytes 9.5 % (0.0-10.0); %Neutrophils 58.1 % (42.0-75.0); Hematocrit 27.6 % (36.0-47.0); Hemoglobin 8.7 g/dL (12.0-16.0); Mean Corpuscular HGB CONC 31.5 g/dL (32.0-36.0); Mean Corpuscular Hemoglobin 29.7 pg (27.0-31.0); Mean Corpuscular Volume 94.2 fL (78.0-98.0); Mean Platelet Volume 10.1 fL (7.4-10.4); Platelet Count 128 10x3/uL (130-400); Red Blood Cell (RBC) Count 2.93 mill/uL (4.20-5.40)
[2024-11-11 04:40] LABS: Anion Gap 11 mmol/L (10-20); BUN (Urea Nitrogen) 33 mg/dL (9.8-20.1); Calc. Creatinine Clearance 12 mL/min (70-130); Calcium 9.7 mg/dL (7.8-10.44); Carbon Dioxide 30 mmol/L (23-31); Chloride 101 mmol/L (98-107); Estimated GFR 11; Glucose 105 mg/dL (80-115); Potassium 4.4 mmol/L (3.5-5.1); Sodium 138 mmol/L (136-145)
[2024-11-11] MEDS ORDERED: Albumin 25% 25 GM (100 mL) BOT IVPB PRN (07:18)
[2024-11-11] MEDS: Albumin 25% 25 GM (100 mL) BOT IVPB SCH (08:30)
[2024-11-12] MEDS: Sodium Ferric Gluconate 250 MG in Sodium Chloride 0.9% 250 ML 250 ML IVPB SCH (06:05)
[2024-11-12] MEDS: EPOETIN ALFA-EPBX (ESRD) 10,000 UNITS/ML VIAL SC SCH ×2 (09:57→10:01)
[2024-11-12] MEDS: Midodrine HCl 5 MG TAB PO SCH ×2 (16:41→20:39)
[2024-11-12] MEDS: Senokot S 8.6-50 MG TAB PO SCH (20:38)
[2024-11-13 04:31] LABS: #Basophils Less than 0.03 10x3/uL (0.0-0.2); %Basophils 0.5 % (0.0-1.0); %Eosinophils 2.8 % (0.0-10.0); %Lymphocytes 25.5 % (21.0-51.0); %Monocytes 13.6 % (0.0-10.0); %Neutrophils 57.4 % (42.0-75.0); Hematocrit 29.1 % (36.0-47.0); Hemoglobin 9.1 g/dL (12.0-16.0); Mean Corpuscular HGB CONC 31.3 g/dL (32.0-36.0); Mean Corpuscular Hemoglobin 29.9 pg (27.0-31.0); Mean Corpuscular Volume 95.7 fL (78.0-98.0); Mean Platelet Volume 10.9 fL (7.4-10.4); Platelet Count 136 10x3/uL (130-400); RBC Distribution Width 24.5 % (11.5-14.5); Red Blood Cell (RBC) Count 3.04 mill/uL (4.20-5.40)
[2024-11-13 04:45] LABS: Anion Gap 11 mmol/L (10-20); BUN (Urea Nitrogen) 36 mg/dL (9.8-20.1); BUN/Creatinine Ratio 9.09; Calc. Creatinine Clearance 12 mL/min (70-130); Calcium 10.3 mg/dL (7.8-10.44); Carbon Dioxide 28 mmol/L (23-31); Chloride 101 mmol/L (98-107); Estimated GFR 12; Glucose 83 mg/dL (80-115); Phosphorus 2.1 mg/dL (2.3-4.7); Potassium 4.4 mmol/L (3.5-5.1); Sodium 136 mmol/L (136-145)
[2024-11-13] MEDS: Albumin 25% 25 GM (100 mL) BOT IVPB SCH (09:45)
[2024-11-13 14:35] VITALS: BMI 21.1
[2024-11-14 09:43] LABS: Anion Gap 13 mmol/L (10-20); BUN (Urea Nitrogen) 26 mg/dL (9.8-20.1); Calc. Creatinine Clearance 15 mL/min (70-130); Carbon Dioxide 28 mmol/L (23-31); Chloride 100 mmol/L (98-107); Estimated GFR 15; Glucose 100 mg/dL (80-115); Magnesium 2.4 mg/dL (1.6-2.6); Potassium 4.5 mmol/L (3.5-5.1); Sodium 136 mmol/L (136-145)
[2024-11-15 05:27] LABS: #Basophils 0.03 10x3/uL (0.0-0.2); %Basophils 0.8 % (0.0-1.0); %Eosinophils 3.4 % (0.0-10.0); %Lymphocytes 23.9 % (21.0-51.0); %Neutrophils 55.6 % (42.0-75.0); Hemoglobin 8.6 g/dL (12.0-16.0); Mean Corpuscular HGB CONC 31.9 g/dL (32.0-36.0); Mean Corpuscular Hemoglobin 30.1 pg (27.0-31.0); Mean Corpuscular Volume 94.4 fL (78.0-98.0); Mean Platelet Volume 10.5 fL (7.4-10.4); Platelet Count 149 10x3/uL (130-400); RBC Distribution Width 24.8 % (11.5-14.5); Red Blood Cell (RBC) Count 2.86 mill/uL (4.20-5.40)
[2024-11-15 05:52] LABS: Albumin 2.9 g/dL (3.4-4.8); Anion Gap 13 mmol/L (10-20); BUN (Urea Nitrogen) 33 mg/dL (9.8-20.1); BUN/Creatinine Ratio 8.55; Calc. Creatinine Clearance 13 mL/min (70-130); Calcium 9.9 mg/dL (7.8-10.44); Carbon Dioxide 27 mmol/L (23-31); Chloride 101 mmol/L (98-107); Estimated GFR 12; Glucose 87 mg/dL (80-115); Potassium 4.5 mmol/L (3.5-5.1); Sodium 136 mmol/L (136-145)
[2024-11-15] MEDS ORDERED: Heparin 10,000 UNITS/ 10 ML VIAL ONE (10:50)
[2024-11-15] MEDS: Albumin 25% 25 GM (100 mL) BOT IVPB PRN (11:47)
[2024-11-15] MEDS: Apixaban 2.5 MG TAB PO SCH (11:47)
[2024-11-15] MEDS: Megestrol Acetate 800 MG/20 ML UDCUP PO SCH (11:48)
[2024-11-15 16:30] VITALS: BP 100/58; TEMP 97.7
[2024-11-16] MEDS ORDERED: Megestrol Acetate 800 MG/20 ML UDCUP PO SCH (09:00)
== END 2024-11-15 17:18 | DRG 432 ==
LOC: ERS 19:58 → 2SE 22:34 → OBSVTOIN 11-06 14:58
PROVIDERS: ADMIT Internal Medicine; ATTEND Internal Medicine
PROC: 30233J1 Transfusion of Nonautologous Serum Albumin into Peripheral Vein, Percutaneous Approach (ICD-10-PCS; principal; 2024-11-08)
DX: K74.60 Unspecified cirrhosis of liver (principal); J96.21 Acute and chronic respiratory failure with hypoxia; N18.6 End stage renal disease; D61.818 Other pancytopenia; J90 Pleural effusion, not elsewhere classified; R18.8 Other ascites; J98.11 Atelectasis; I13.2 Hypertensive heart and chronic kidney disease with heart failure and with stage 5 chronic kidney disease, or end stage renal disease; R64 Cachexia; Z99.2 Dependence on renal dialysis; I48.91 Unspecified atrial fibrillation; E11.22 Type 2 diabetes mellitus with diabetic chronic kidney disease; I25.10 Atherosclerotic heart disease of native coronary artery without angina pectoris; D63.1 Anemia in chronic kidney disease; Z95.1 Presence of aortocoronary bypass graft; I50.9 Heart failure, unspecified; E87.70 Fluid overload, unspecified; E83.39 Other disorders of phosphorus metabolism; F32.A Depression, unspecified; I95.9 Hypotension, unspecified; E11.21 Type 2 diabetes mellitus with diabetic nephropathy; Z85.43 Personal history of malignant neoplasm of ovary; Z90.721 Acquired absence of ovaries, unilateral; Z68.21 Body mass index [BMI] 21.0-21.9, adult
CPT/HCPCS: 36415; 36416; 71045; 71046; 71260; 74177; 76705; 80048; 80053; 80069; 83690; 83735; 83970; 84100; 85025; 85610; 85730; 90935; 93005; 96372; 96374; 97139; G0257; G0378; J1644; J1815; J2272; J2405; J2916; J7050; P9047; Q5105; Q9967

== ENCOUNTER 2025-07-01 12:39 | Outpatient (CLI) | payer MEDICARE, MEDICAID | END 2025-07-01 12:40 | disposition home or self-care (01) | LOC: RAD 12:39 | PROVIDERS: ATTEND Student in an Organized Health Care Education/Training Program | DX: J90 Pleural effusion, not elsewhere classified (principal); J94.8 Other specified pleural conditions | CPT/HCPCS: 71046 ==

== ENCOUNTER 2025-07-06 13:11 | Outpatient (CLI) | payer MEDICARE, MEDICAID ==
[2025-07-06 15:24] LABS: Anion Gap 15 mmol/L (10-20); BUN (Urea Nitrogen) 21 mg/dL (9.8-20.1); Calc. Creatinine Clearance 0 mL/min (70-130); Calcium 7.8 mg/dL (7.8-10.44); Carbon Dioxide 28 mmol/L (23-31); Chloride 101 mmol/L (98-107); Glucose 69 mg/dL (80-115); Potassium 3.6 mmol/L (3.5-5.1); Sodium 140 mmol/L (136-145)
== END 2025-07-06 13:12 | disposition home or self-care (01) ==
LOC: LABBT 13:11
PROVIDERS: ATTEND Student in an Organized Health Care Education/Training Program
DX: Z01.818 Encounter for other preprocedural examination (principal); J90 Pleural effusion, not elsewhere classified
CPT/HCPCS: 71046; 80048

== ENCOUNTER 2025-07-08 05:54 | Day surgery (SDC) | payer MEDICARE, MEDICAID ==
[2025-07-06 13:33] VITALS: BMI 17.6
[2025-07-08 07:08] LABS: #Basophils Less than 0.03 10x3/uL (0.0-0.2); #Eosinophils 0.06 10x3/uL (0.0-0.7); #Monocytes 0.37 10x3/uL (0.11-0.59); #Neutrophils 1.67 10x3/uL (1.40-6.50); %Basophils 0.4 % (0.0-1.0); %Eosinophils 2.2 % (0.0-10.0); %Lymphocytes 22.7 % (21.0-51.0); %Monocytes 13.6 % (0.0-10.0); %Neutrophils 61.1 % (42.0-75.0); Hematocrit 34.7 % (36.0-47.0); Hemoglobin 10.9 g/dL (12.0-16.0); Mean Corpuscular Hemoglobin 30.6 pg (27.0-31.0); Mean Corpuscular Volume 97.5 fL (78.0-98.0); Platelet Count 116 10x3/uL (130-400); Red Blood Cell (RBC) Count 3.56 mill/uL (4.20-5.40); White Blood Cell (WBC) Count 2.73 10x3/uL (4.8-10.8)
[2025-07-08] MEDS ORDERED: CEFAZOLIN 2 GM VIAL ONE (07:12)
[2025-07-08] MEDS ORDERED: PROPOFOL 40 ML ONE (07:12)
[2025-07-08] MEDS ORDERED: Bupivacaine 0.25% HCL 30 ML VIAL ONE (07:17)
[2025-07-08] MEDS ORDERED: Ketamine In 0.9 % NaCl 50 MG/5 ML SYRINGE ONE (07:18)
== END 2025-07-08 13:20 | disposition home or self-care (01) ==
LOC: SDC 05:54
PROVIDERS: ATTEND Student in an Organized Health Care Education/Training Program
PROC: 0B9N3ZZ Drainage of Right Pleura, Percutaneous Approach (ICD-10-PCS; principal; 2025-07-08)
DX: J90 Pleural effusion, not elsewhere classified (principal); J94.8 Other specified pleural conditions; E11.22 Type 2 diabetes mellitus with diabetic chronic kidney disease; N18.6 End stage renal disease; Z99.2 Dependence on renal dialysis; Z96.1 Presence of intraocular lens; Z90.710 Acquired absence of both cervix and uterus; Z88.0 Allergy status to penicillin
CPT/HCPCS: 32550; 82962; 85025; J2250; J2310; J2704; J3010; J3490; 36416; A7048; J0665

== ENCOUNTER 2025-07-22 14:01 | Outpatient (CLI) | payer MEDICARE, MEDICAID | END 2025-07-22 14:02 | disposition home or self-care (01) | LOC: RAD 14:01 | PROVIDERS: ATTEND Student in an Organized Health Care Education/Training Program | DX: J94.8 Other specified pleural conditions (principal); J90 Pleural effusion, not elsewhere classified | CPT/HCPCS: 71046 ==

== ENCOUNTER 2025-07-22 15:21 | Outpatient (CLI) | payer MEDICARE, MEDICAID | END 2025-07-22 15:22 | disposition home or self-care (01) | LOC: RAD 15:21 | PROVIDERS: ATTEND Student in an Organized Health Care Education/Training Program | DX: J90 Pleural effusion, not elsewhere classified (principal) | CPT/HCPCS: 71046 ==

== ENCOUNTER 2025-10-27 21:19 | Emergency (ER) | payer MEDICARE, MEDICAID ==
[2025-10-27 22:28] LABS: #Basophils Less than 0.03 10x3/uL (0.0-0.2); #Eosinophils 0.14 10x3/uL (0.0-0.7); #Monocytes 0.41 10x3/uL (0.11-0.59); #Neutrophils 2.07 10x3/uL (1.40-6.50); %Basophils 0.6 % (0.0-1.0); %Eosinophils 4.0 % (0.0-10.0); %Lymphocytes 24.3 % (21.0-51.0); %Monocytes 11.7 % (0.0-10.0); %Neutrophils 59.1 % (42.0-75.0); Hematocrit 31.4 % (36.0-47.0); Hemoglobin 9.5 g/dL (12.0-16.0); Mean Corpuscular Hemoglobin 30.2 pg (27.0-31.0); Mean Corpuscular Volume 99.7 fL (78.0-98.0); Platelet Count 137 10x3/uL (130-400); Red Blood Cell (RBC) Count 3.15 mill/uL (4.20-5.40); White Blood Cell (WBC) Count 3.50 10x3/uL (4.8-10.8)
[2025-10-27 22:46] LABS: ALT (SGPT) 9 U/L (Less than 34); AST (SGOT) 20 U/L (11-34); Albumin 1.9 g/dL (3.1-4.5); Alkaline Phosphatase 112 U/L (40-110); Anion Gap 15 mmol/L (10-20); BUN (Urea Nitrogen) 34 mg/dL (9.8-20.1); Bilirubin, Total 0.6 mg/dL (0.3-1.2); Calc. Creatinine Clearance 0 mL/min (70-130); Calcium 7.4 mg/dL (7.8-10.44); Carbon Dioxide 30 mmol/L (23-31); Chloride 99 mmol/L (98-107); Globulin 4.9 g/dL (2.4-3.5); Glucose 92 mg/dL (80-115); Lipase 59 U/L (8-78); Magnesium 2.6 mg/dL (1.6-2.6); Potassium 4.0 mmol/L (3.5-5.1); Sodium 140 mmol/L (136-145)
[2025-10-27] MEDS ORDERED: Acetaminophen 500 MG TAB ONE (23:42)
== END 2025-10-28 04:27 | disposition home or self-care (01) ==
LOC: ERS 21:19
DX: J90 Pleural effusion, not elsewhere classified (principal); M53.3 Sacrococcygeal disorders, not elsewhere classified; I25.2 Old myocardial infarction; E11.9 Type 2 diabetes mellitus without complications; I12.0 Hypertensive chronic kidney disease with stage 5 chronic kidney disease or end stage renal disease; E11.22 Type 2 diabetes mellitus with diabetic chronic kidney disease; N18.6 End stage renal disease; I48.91 Unspecified atrial fibrillation; Z99.2 Dependence on renal dialysis; Z79.01 Long term (current) use of anticoagulants
CPT/HCPCS: 71045; 74176; 80053; 83690; 83735; 83880; 84484; 85025; 93005; J3010; 96374